=== PATIENT | female | born 1960 | race Caucasian/White ===

== ENCOUNTER → 2016-11-02 | Outpatient (CLI) | payer MEDICAID ==
[2016-11-02 10:16] LABS: Anion Gap 13 mmol/L; Blood Urea Nitrogen 26 mg/dL (7-17); Calcium 9.7 mg/dL (8.4-10.2); Carbon Dioxide 28 mmol/L (22-30); Chloride 101 mmol/L (98-107); Glucose 107 mg/dL (74-99); Non-African American GFR(MDRD) 60 (>60 ml/min/1.73 sqM); Sodium 142 mmol/L (137-145)
[2016-11-02 11:32] LABS: Hemoglobin A1C 6.7 % (4.2-6.1)
== END | disposition home or self-care (01) ==
LOC: LABWHC1 09:06
PROVIDERS: ATTEND Internal Medicine
DX: E11.42 Type 2 diabetes mellitus with diabetic polyneuropathy (principal)
CPT/HCPCS: 36415; 80048; 83036

== ENCOUNTER → 2016-12-31 | Outpatient (CLI) | payer MEDICAID ==
[2016-12-31 08:11] LABS: Partial Thromboplastin Time 23.2 sec (22.0-30.0)
[2016-12-31 08:17] LABS: Basophils # (A) 0.1 k/uL (0-0.2); Basophils % (A) 1 %; CHCM 33.2; Eosinophils # (A) 0.5 k/uL (0-0.7); Eosinophils % (A) 6 %; HCT 41.6 % (34.0-46.0); HDW 2.48; HGB 13.5 gm/dL (11.4-16.0); Luc # (Auto) 0.26; Luc % (Auto) 3; Lymphocytes # (A) 2.7 k/uL (1.0-4.8); Lymphocytes % (A) 33 %; MCH 30.4 pg (25.0-35.0); MCHC 32.3 g/dL (31.0-37.0); Mean Platelet Volume 8.6; Monocytes # (A) 0.4 k/uL (0-1.0); Monocytes % (A) 5 %; Neutrophils # (A) 4.3 k/uL (1.3-7.7); Neutrophils % (A) 52 %; RBC 4.43 m/uL (3.80-5.40); RDW 13.8 % (11.5-15.5); WBC 8.3 k/uL (3.8-10.6); WBC (Perox) 8.91
[2016-12-31 08:20] LABS: Appearance,Urine Clear (Clear); Bilirubin,Urine Negative (Negative); Glucose,Urine (UA) Negative (Negative); Ketones,Urine Negative (Negative); Leukocyte Esterase,Urine Negative (Negative); Nitrite,Urine Negative (Negative); Protein,Urine Negative (Negative); Specific Gravity,Urine 1.006 (1.001-1.035); UA Billing (MACRO vs. MICRO) CHEM; Urobilinogen,Urine <2.0 mg/dL (<2.0)
[2016-12-31 08:27] LABS: ALT 26 U/L (9-52); AST 23 U/L (14-36); Alkaline Phosphatase 58 U/L (38-126); Anion Gap 15 mmol/L; Blood Urea Nitrogen 25 mg/dL (7-17); Calcium 9.8 mg/dL (8.4-10.2); Carbon Dioxide 25 mmol/L (22-30); Chloride 103 mmol/L (98-107); Glucose 119 mg/dL (74-99); Non-African American GFR(MDRD) 60 (>60 ml/min/1.73 sqM); Potassium 4.4 mmol/L (3.5-5.1); Sodium 143 mmol/L (137-145); Total Bilirubin 0.5 mg/dL (0.2-1.3); Total Protein 7.2 g/dL (6.3-8.2)
== END ==
LOC: LABPAT 07:28
PROVIDERS: ATTEND Orthopaedic Surgery
DX: Z01.810 Encounter for preprocedural cardiovascular examination (principal); Z01.812 Encounter for preprocedural laboratory examination
CPT/HCPCS: 80053; 81003; 85025; 85610; 85730; 87070

== ENCOUNTER 2017-01-01 07:52 | Emergency (ER) | payer MEDICAID ==
[2017-01-01] MEDS ORDERED: SODIUM CHLORIDE 0.9% 500 ML IV STA (07:55)
[2017-01-01] MEDS ORDERED: diphenhydrAMINE 50 MG/ML 1 ML VIAL IVP STA (07:55)
[2017-01-01] MEDS ORDERED: SODIUM CHLORIDE 0.9% 1,000 ML IV STA (07:55)
[2017-01-01] MEDS ORDERED: methylPREDNISolone SOD SUCCI 125 MG/2 ML VIAL IV STA (07:55)
[2017-01-01] MEDS ORDERED: FAMOTIDINE 20 MG/2 ML VIAL IV STA (07:55)
[2017-01-01 07:57] VITALS: RESP 18
[2017-01-01 08:25] LABS: Basophils # (A) 0.1 k/uL (0-0.2); Basophils % (A) 1 %; CH 31.2; CHCM 34.5; Eosinophils # (A) 0.4 k/uL (0-0.7); Eosinophils % (A) 3 %; HCT 49.3 % (34.0-46.0); HDW 2.52; Luc # (Auto) 0.21; Luc % (Auto) 2; Lymphocytes # (A) 4.5 k/uL (1.0-4.8); Lymphocytes % (A) 36 %; MCH 30.7 pg (25.0-35.0); MCHC 33.8 g/dL (31.0-37.0); MCV 90.8 fL (80.0-100.0); Mean Platelet Volume 8.9; Monocytes # (A) 0.5 k/uL (0-1.0); Monocytes % (A) 4 %; Neutrophils # (A) 6.7 k/uL (1.3-7.7); Neutrophils % (A) 54 %; RBC 5.42 m/uL (3.80-5.40); WBC 12.3 k/uL (3.8-10.6)
[2017-01-01 08:31] LABS: ALT 21 U/L (9-52); AST 33 U/L (14-36); Alkaline Phosphatase 73 U/L (38-126); Anion Gap 19 mmol/L; Blood Urea Nitrogen 22 mg/dL (7-17); Calcium 10.5 mg/dL (8.4-10.2); Carbon Dioxide 23 mmol/L (22-30); Chloride 99 mmol/L (98-107); Glucose 132 mg/dL (74-99); Non-African American GFR(MDRD) 50 (>60 ml/min/1.73 sqM); Potassium 4.5 mmol/L (3.5-5.1); Sodium 141 mmol/L (137-145); Total Protein 8.2 g/dL (6.3-8.2)
[2017-01-01 08:37] LABS: HGB 16.7 gm/dL (11.4-16.0)
--- NOTE | 2017-01-01 09:33 | ED ---
Allergic Reaction HPI - General Chief complaint: Allergic Reaction Stated complaint: allergic reaction Time Seen by Provider: 01/01/17 07:55 Source: patient Mode of arrival: ambulatory Limitations: no limitations - History of Present Illness Initial Comments: This 56-year-old white female presents with a complaint of some swelling to her lips. This started 15 minutes prior to arrival. She states that her mouth feels tight. He also feels like her hands are somewhat tight her slightly swollen/numb. She had an episode of nausea and vomiting. She apparently started sweating. She denies any new foods or new medications. She did have an injection into her right knee this past . She denies being on any Kameron inhibitors. 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 She denies any shortness of breath or difficulty in breathing. - Related Data Home Medications Medication Instructions Recorded Confirmed Alogliptin Benzoate [Nesina] 25 mg PO DAILY 06/24/16 01/01/17 Gabapentin [Gabapentin] 300 mg PO BID 06/24/16 01/01/17 LORazepam [Lorazepam] 0.5 mg PO BID PRN 06/24/16 01/01/17 Meloxicam [Meloxicam] 15 mg PO DAILY 06/24/16 01/01/17 Simvastatin [Simvastatin] 40 mg PO HS 06/24/16 01/01/17 Venlafaxine HCl [Effexor XR] 150 mg PO DAILY 06/24/16 01/01/17 amLODIPine BESYLATE/BENAZEPRIL 1 cap PO DAILY 06/24/16 01/01/17 [Amlodipine-Benazepril 5-10 mg] fentaNYL 25MCG/HR PATCH [Duragesic 1 patch TRANSDERM Q72H 06/24/16 01/01/17 25MCG/HR] metFORMIN HCL [Metformin HCl] 850 mg PO BID 06/24/16 01/01/17 Previous Rx's Medication Instructions Recorded Famotidine [Pepcid] 20 mg PO BID #6 tablet 01/01/17 diphenhydrAMINE [Benadryl] 25 - 50 mg PO QID PRN #20 capsule 01/01/17 predniSONE 20 mg PO BID #6 tab 01/01/17 Allergies Allergy/AdvReac Type Severity Reaction Status Date / Time Sulfa (Sulfonamide Allergy Itching Verified 01/01/17 08:32 Antibiotics) Review of Systems ROS Statement: Those systems with pertinent positive or pertinent negative responses have been documented in the HPI. ROS Other: All systems not noted in ROS Statement are negative. Past Medical History Past Medical History: Heart Failure, COPD History of Any Multi-Drug Resistant Organisms: None Reported Past Surgical History: Adenoidectomy, Hysterectomy, Orthopedic Surgery, Tonsillectomy Past Psychological History: No Psychological Hx Reported Smoking Status: Former smoker Past Alcohol Use History: None Reported Past Drug Use History: None Reported - Past Family History Father Family Medical History: Memory Impairment, Pneumonia General Exam - General Exam Comments Initial Comments: GENERAL: The patient is well nourished and well hydrated. VITAL SIGNS: Heart rate, blood pressure, respiratory rate reviewed as recorded in nurse's notes. EYES: Pupils are round and reactive. Extraocular movements are intact. No conjunctival / lid redness or swelling. ENT: There is some mild swelling to her upper and lower lips, worse on the lower lip. There is no tongue swelling identified. Airway is patent. Throat is clear. NECK: Nontender. No swelling or evidence of injury. No subcutaneous emphysema. Trachea is midline. No thyroid mass. HEART: Regular rate and rhythm. Good peripheral pulses. LUNGS/CHEST: Breath sounds clear and equal bilaterally. No rales, rhonchi, or wheezes. No ecchymosis, subcutaneous emphysema, or tenderness. ABDOMEN: Abdomen soft without tenderness. No palpable masses or organomegaly. No peritoneal signs. No abdominal wall swelling or ecchymosis. EXTREMITIES: No extremity tenderness. Normal muscle tone and function. No thoracolumbar tenderness. NEUROLOGIC: Sensation is grossly intact. Cranial nerve exam reveals face is symmetrical, tongue is midline, speech is clear. SKIN: No abrasions or ecchymosis is noted. No induration or masses noted. There is no hand swelling or extremity swelling. PSYCHIATRIC: Alert and oriented. Appropriate behavior and judgment. Limitations: no limitations Course Vital Signs 01/01/17 01/01/17 07:55 08:33 Temperature 97.6 F Pulse Rate 113 H 90 Respiratory 18 18 Rate Blood Pressure 143/53 115/78 O2 Sat by Pulse 97 98 Oximetry Medical Decision Making - Medical Decision Making The patient was seen and examined. She received IV Solu-Medrol, Pepcid, and Benadryl. She received some IV fluids. She is feeling much improved on recheck. Her lip swelling has decreased. Her laboratory showed a mild leukocytosis, mild elevation of hemoglobin, mild elevation of her renal function studies, and mild elevation of her calcium. Overall, the exact cause of her symptomatology is not definitively determined. She denies any previous similar incidents. This felt as though she is stable for discharge and close follow-up. Return parameters are discussed in detail and she leaves in no distress. Is felt as though she may benefit from follow-up with an redeye gunner. - Lab Data Result diagrams: 01/01/17 07:59 01/01/17 07:59 Lab Results 01/01/17 01/01/17 Range/Units 07:59 07:59 WBC 12.3 H (3.8-10.6) k/uL RBC 5.42 H (3.80-5.40) m/uL Hgb 16.7 H D (11.4-16.0) gm/dL Hct 49.3 H (34.0-46.0) % MCV 90.8 (80.0-100.0) fL MCH 30.7 (25.0-35.0) pg MCHC 33.8 (31.0-37.0) g/dL RDW 14.0 (11.5-15.5) % Plt Count 324 (150-450) k/uL Neutrophils % 54 % Lymphocytes % 36 % Monocytes % 4 % Eosinophils % 3 % Basophils % 1 % Neutrophils # 6.7 (1.3-7.7) k/uL Lymphocytes # 4.5 (1.0-4.8) k/uL Monocytes # 0.5 (0-1.0) k/uL Eosinophils # 0.4 (0-0.7) k/uL Basophils # 0.1 (0-0.2) k/uL Sodium 141 (137-145) mmol/L Potassium 4.5 (3.5-5.1) mmol/L Chloride 99 (98-107) mmol/L Carbon Dioxide 23 (22-30) mmol/L Anion Gap 19 mmol/L BUN 22 H (7-17) mg/dL Creatinine 1.11 H (0.52-1.04) mg/dL Est GFR (MDRD) Af Amer >60 (>60 ml/min/1.73 sqM) Est GFR (MDRD) Non-Af 50 (>60 ml/min/1.73 sqM) Glucose 132 H (74-99) mg/dL Calcium 10.5 H (8.4-10.2) mg/dL Total Bilirubin 1.0 (0.2-1.3) mg/dL AST 33 (14-36) U/L ALT 21 (9-52) U/L Alkaline Phosphatase 73 (38-126) U/L Total Protein 8.2 (6.3-8.2) g/dL Albumin 5.2 H (3.5-5.0) g/dL Disposition Clinical Impression: Angioedema Disposition: HOME SELF-CARE Condition: Good Instructions: Angioedema (ED) Additional Instructions: Please follow-up with Dr. Desmond Harris at [facility] and immunology clinic. Please call the hospital pump machine operator at [phone] and asked for his office to schedule an appointment. Prescriptions: Famotidine [Pepcid] 20 mg PO BID #6 tablet diphenhydrAMINE [Benadryl] 25 - 50 mg PO QID PRN #20 capsule PRN Reason: swelling predniSONE 20 mg PO BID #6 tab Referrals: Gadiel Mares MD [Primary Care Provider] - 1-2 days Time of Disposition: 09:35
[2017-01-01 10:00] VITALS: BP 111/77; PULSE 92; TEMP 97.9
== END 2017-01-01 09:45 | disposition home or self-care (01) ==
LOC: EC 07:52
DX: T78.3XXA Angioneurotic edema, initial encounter (principal); I50.9 Heart failure, unspecified; Z87.891 Personal history of nicotine dependence; Z79.84 Long term (current) use of oral hypoglycemic drugs; Z79.899 Other long term (current) drug therapy; Z88.2 Allergy status to sulfonamides
CPT/HCPCS: 99283; 96374; 96375 ×2; 96361 ×2; 36415; 80053; 85025; J1200; J2930

== ENCOUNTER 2017-01-14 06:11 | Inpatient (IN) | payer MEDICAID ==
[2017-01-07 09:25] VITALS: BMI 35.6
[~2017-01-14 06:11] MED LIST: ACETAMINOPHEN TAB 500 MG TAB PO ONE; DEXAMETHASONE SOD PHOSPHATE 10 MG/ML 1 ML VIAL IV ONE; LIDOCAINE 1% 20 ML VIAL (10MG/ML) FOR IV START INTRADERMA PRN; MELOXICAM 7.5 MG TAB PO ONE; ONDANSETRON 4 MG/2 ML VIAL IVP ONE; SCOPOLAMINE 1.5MG/72HR PATCH TRANSDERM ONE; TRANEXAMIC ACID 1,000 MG in SODIUM CHLORIDE 0.9% 100 ML IVPB ONE; ceFAZolin 2 GM in SODIUM CHLORIDE 0.9% 100 ML IVPB ONE
[2017-01-14] MEDS: LACTATED RINGERS 1,000 ML IV SCH ×2 (06:53→16:09)
[2017-01-14] MEDS ORDERED: LIDOCAINE 1% 20 ML VIAL (10MG/ML) FOR IV START INTRADERMA ONE (06:53)
[2017-01-14 07:05] LABS: Glucose,Whole Blood 158 mg/dL (75-99)
[2017-01-14] MEDS ORDERED: TRANEXAMIC ACID 1,000 MG/10 ML VIAL ONE (07:42)
[2017-01-14] MEDS ORDERED: PROPOFOL 10 MG/ML 20 ML VIAL IV ONE (07:42)
[2017-01-14] MEDS ORDERED: ROPIVACAINE 246.25 MG, EPINEPHrine 0.5 MG, KETOROLAC 30 MG, cloNIDine HCL/PF 80 MCG, WA... MISCELLANE STA ×5 (07:42)
[2017-01-14] MEDS ORDERED: MIDAZOLAM 2 MG/2 ML VIAL ONE (07:42)
[2017-01-14] MEDS ORDERED: ePHEDrine 50 MG/ML 1 ML AMP ONE (07:42)
[2017-01-14] MEDS ORDERED: fentaNYL (PF) 50 MCG/ML 2 ML AMP ONE (07:42)
[2017-01-14] MEDS ORDERED: SODIUM CHLORIDE 0.9% 100 ML BAG ONE (07:42)
[2017-01-14] MEDS ORDERED: ceFAZolin 3,000 MG in SODIUM CHLORIDE 0.9% IRRIGATIO 3,000 ML IRRIGATION ONE (08:25)
[2017-01-14] MEDS ORDERED: LACTATED RINGERS 1,000 ML IV ONE (08:48)
[2017-01-14] MEDS ORDERED: BISACODYL 10 MG SUPP RECTAL PRN (10:15)
[2017-01-14] MEDS ORDERED: HYDROmorphone 1 MG/ML 1 ML SYRINGE IVP PRN (10:15)
[2017-01-14] MEDS ORDERED: ACETAMINOPHEN TAB 325 MG TAB PO PRN (10:15)
[2017-01-14] MEDS ORDERED: HYDROcodone/APAP 5-325MG 1 EACH TAB PO PRN (10:15)
[2017-01-14] MEDS ORDERED: MAGNESIUM HYDROXIDE 2,400 MG/10 ML CUP PO PRN (10:15)
[2017-01-14] MEDS ORDERED: NALOXONE 0.4 MG/ML 1 ML VIAL IV PRN (10:15)
[2017-01-14] MEDS ORDERED: TEMAZEPAM 15 MG CAP PO PRN (10:15)
[2017-01-14] MEDS ORDERED: ONDANSETRON 4 MG/2 ML VIAL IVP PRN (10:15)
[2017-01-14] MEDS ORDERED: NA PHOS,M-B/NA PHOS,DI-BA 133 ML ENEMA RECTAL PRN (10:15)
[2017-01-14 10:32] VITALS: RESP 16
--- NOTE | 2017-01-14 10:39 | XR ---
EXAMINATION TYPE: XR knee limited RT DATE OF EXAM: 01/14/2017 10:31 AM COMPARISON: NONE HISTORY: 56-year-old female evaluation for postoperative abnormality and alignment TECHNIQUE: 2 views FINDINGS: Images show placement of right total knee arthroplasty. Both distal femoral and proximal tibial compo nents of the prosthesis appear well seated without periprosthetic fracture. Alignment is grossly demar omic. There is anterior soft tissue swelling with soft tissue gas as well as intra-articular air and joint effusion compatible with recent operation. There is a 6 mm linear hypodensity fragment in the a nterior soft tissues along the lateral suprapatellar region. IMPRESSION: 1. Uncomplicated postoperative appearance right total knee arthroplasty. 2. A 6 mm metal fragment anteriorly and laterally in the suprapatellar soft tissues may represent minerva e small retained surgical debris. Clinically correlate.
[2017-01-14] MEDS: HYDROmorphone 1 MG/ML 1 ML SYRINGE IVP PRN ×4 (10:55→22:22)
--- NOTE | 2017-01-14 11:08 | P.OP ---
Date of Procedure: 01/14/17 Procedure(s) Performed: PREOPERATIVE DIAGNOSIS: Right knee severe osteoarthritis with genu valgum POSTOPERATIVE DIAGNOSIS: 1. Right knee severe osteoarthritis with genu valgum OPERATION: Right knee cemented total replacement arthroplasty. ANESTHESIA: Spinal ESTIMATED BLOOD LOSS: 25 ml. CARTRIDGE BELT PUNCHER: Luly Church PA-C (assistance with: patient positioning, retraction, exposure, hemostasis, leg positioning, implantation, irrigation, closure, dressing) COMPLICATIONS: None apparent. COMPONENTS IMPLANTED: Persona system from [employer] INDICATIONS: Mrs. vAiles is a 56-year-old female with a history of right knee osteoarthritis and mild to moderate genu valgum. The operation of knee replacement has been discussed at length in the office, as well as potential risks and complications. These are inclusive of, but not limited to: bleeding, infection, scarring, discomfort, blood vessel and nerve damage, need for further surgery, failure to relieve symptoms, persistence, recurrence, or worsening of problems, loosening, dislocation, wear, blood clot, pulmonary embolism, , gait dysfunction, stiffness, and other risks as discussed in the office. The patient elects to proceed and the consent form has been signed. PROCEDURE: The patient was taken to the operating room and positioned on the operating room table in the supine position. Anesthesia was initiated. Care was taken to make sure that all pressure points were adequately padded. The operative lower extremity was prepped and draped in the usual aseptic fashion using ChloraPrep. Ioban drape was used for the case and the patient received intravenous antibiotics within one hour of the incision. A pneumotourniquet and leg gallego were used for the case. The limb was exsanguinated with an Esmarch bandage and the tourniquet was inflated to 350 mmHg. Time-out was called confirming the patients identity, side, procedure and administration of antibiotics. The incision was then created midline directly over the knee, carried down through skin and into the subcutaneous tissues and down to fascia. Full thickness subcutaneous medial flap was developed. Medial parapatellar arthrotomy was performed and the interior of the knee was inspected. There was end-stage osteoarthritis of the knee with a mild to moderate genu valgum type deformity. The fat pad was excised and limited proximal medial release on the tibia was completed using meticulous dissection. The anterior cruciate ligament was taken down. The exposure was excellent. The knee was flexed 90 degrees and the patella was everted. A spot was chosen on the femur approximately 1 cm anterior to the posterior cruciate ligament insertion and an intramedullary hole was created within the femur. The intramedullary guide was then set to 5 degrees of valgus. The distal cutting block was attached and pinned into position. An appropriate amount of distal femoral resection was set. The oscillating saw was then used to make the distal femoral cut. This cut was confirmed to be flat with the flat end of an osteotome. The retractors were placed around the tibia and the tibial surface was addressed. The angle and depth of resection was adjusted using an extramedullary cutting guide. The guide had a built-in 3 degree posterior slope cut. Once the cutting guide was adjusted appropriately and in line with the axis of the tibia and confirmed to be in good position in relation to the second metatarsal and transmalleolar axis, the tibial cut was then created with protection of the posterior neurovascular structures and the collateral ligaments. The tibial cut surface was removed and sized. Femoral sizing was then accomplished using anterior referencing. Care was taken to analyze the posterior condyles for signs of deficiency or severe wear, and adjustments to the guide were made, as appropriate. Moderate to severe posterior spurring was noted, as well as a moderately to severely tight posterior cruciate ligament which therefore was released, see below. 3 degree external rotation pins were placed. The cutting jig for the femur was applied to these pins. The planned cuts were further analyzed prior to performing them with the oscillating saw. No femoral notching was produced. Bone fragments were removed and the cut surfaces were finished, as necessary, with a reciprocating saw. Spacer block technique was then used to confirm that the flexion and extension gaps were equal. Soft tissue releases and adjustment of the tibial and/or femoral cuts were made, as necessary, until the gaps were equal. This included release of the posterior cruciate ligament, which was tight in this patient and , if left unreleased, would have resulted in poor kinematics and possibly early loosening. The femur was then further finished for a posterior cruciate ligament substituting component. Patellar resurfacing was performed using a reamer. The size of the required patellar component was estimated and the patellar surface was then reamed down to a residual thickness which would recreate the paimiut thickness with the component. The placement of the patellar component was influenced by the degree of patellar subluxation, if any, noted on the preoperative x-rays. Prior to placing trial components, anesthetic solution consisting of ropivicaine with epinephrine, ketorolac, and clonidine was injected carefully and methodically in a grid pattern using aspiration technique into the soft tissue around the knee circumferentially, starting with the deeper tissues first and progressing to fascia, and then finally the skin/subcutaneous tissue. Particular care was taken when injecting the posterior capsule. The trial components were inserted. The tibial tray was allowed to self center and the patella was noted to track very well. The position of the tibial component was marked and the tibia was then finished for a stemmed tibial component. Cement was mixed on the back table and applied to the final components. Trial components were removed and the cut surfaces of the bone were pulse lavaged thoroughly and dried. Cement was then applied to the tibial surface and pressurized into the surface using finger pressurization technique. The tibial component was then applied and excess cement was removed after it was impacted securely and noted to be flush with the cut surface. In similar fashion, the cement was applied to the cut femoral surface, pressurized in using finger pressurization and the component was impacted into place. Excess cement was removed. The polyethylene spacer was then implanted and locked into position. The patellar component was then applied in similar technique and a patellar clamp was used to hold the patella in place as the cement hardened. Once the cement had fully hardened, the knee was reinspected. Any other cement extrusion was removed and final kinematic testing showed range of motion from 0 to 130 degrees with excellent stability, both medially and laterally and appropriate alignment of the leg. Patellar tracking was excellent. The knee was then thoroughly pulse lavaged with normal saline. The tourniquet was deflated and hemostasis was obtained with electrocautery and IV tranexamic acid, 1 g given at the start of the operation and 1 g at the start of closure. Closure was with #2 Ethibond in the fascia and supplemented with #2 Quill, 2-0 Vicryl suture was used for the subcutaneous tissues and 3-0 Quill for the skin. Dermabond/Steri-Strips were then applied. A lightly compressive dressing was applied using Webril and an Kameron wrap. The patient was then transferred to stretcher and taken to the recovery room in stable condition. Sponge and needle counts were correct.
[2017-01-14 12:11] LABS: Glucose,Whole Blood 190 mg/dL (75-99)
[2017-01-14] MEDS: INSULIN LISPRO (humaLOG) 300 UNIT/3 ML VIAL SQ SCH ×3 (12:23→20:46)
[2017-01-14] MEDS: ceFAZolin 2 GM in SODIUM CHLORIDE 0.9% 100 ML IVPB SCH ×2 (16:04→23:39)
[2017-01-14 18:34] LABS: Glucose,Whole Blood 391 mg/dL (75-99)
[2017-01-14] MEDS ORDERED: LORazepam 0.5 MG TAB PO PRN (19:05)
[2017-01-14 20:22] LABS: Glucose,Whole Blood 451 mg/dL (75-99)
[2017-01-14] MEDS: HYDROcodone/APAP 5-325MG 1 EACH TAB PO PRN (20:41)
[2017-01-14] MEDS: metFORMIN 850 MG TAB PO SCH (20:42)
[2017-01-14] MEDS: GABAPENTIN 100 MG CAP PO SCH (20:42)
[2017-01-14] MEDS: ATORVASTATIN 20 MG TAB PO SCH (20:42)
[2017-01-14] MEDS: hydrOXYzine PAMOATE 25 MG CAP PO PRN (20:42)
[2017-01-14] MEDS: SENNOSIDES-DOCUSATE SODIUM 1 EACH TAB PO SCH (20:42)
[2017-01-14] MEDS: ASPIRIN 325 MG TAB PO SCH (20:45)
[2017-01-14 22:00] LABS: Glucose,Whole Blood 368 mg/dL (75-99)
[2017-01-15] MEDS: LACTATED RINGERS 1,000 ML IV SCH ×2 (00:43→15:07)
[2017-01-15] MEDS: hydrOXYzine PAMOATE 25 MG CAP PO PRN ×2 (03:35→21:55)
[2017-01-15] MEDS: HYDROcodone/APAP 5-325MG 1 EACH TAB PO PRN ×2 (03:35→08:45)
[2017-01-15 07:12] LABS: Glucose,Whole Blood 179 mg/dL (75-99)
[2017-01-15] MEDS: metFORMIN 850 MG TAB PO SCH ×2 (07:47→18:05)
[2017-01-15] MEDS: LISINOPRIL 10 MG TAB PO SCH (07:47)
[2017-01-15] MEDS: GABAPENTIN 100 MG CAP PO SCH ×2 (07:47→21:55)
[2017-01-15] MEDS: amLODIPine 5 MG TAB PO SCH (07:48)
[2017-01-15] MEDS: ASPIRIN 325 MG TAB PO SCH ×2 (07:48→21:54)
[2017-01-15] MEDS: MELOXICAM 7.5 MG TAB PO SCH (07:48)
[2017-01-15] MEDS: VENLAFAXINE HCL ER 150 MG CAP PO SCH (07:49)
[2017-01-15] MEDS: INSULIN LISPRO (humaLOG) 300 UNIT/3 ML VIAL SQ SCH ×4 (07:49→21:49)
[2017-01-15 08:38] LABS: Basophils % (A) 0 %; CH 31.7; CHCM 33.7; Eosinophils % (A) 0 %; HCT 32.6 % (34.0-46.0); HDW 2.61; Luc # (Auto) 0.19; Luc % (Auto) 1; Lymphocytes # (A) 1.8 k/uL (1.0-4.8); Lymphocytes % (A) 9 %; MCH 31.7 pg (25.0-35.0); MCHC 33.6 g/dL (31.0-37.0); MCV 94.4 fL (80.0-100.0); Mean Platelet Volume 8.7; Monocytes # (A) 0.8 k/uL (0-1.0); Monocytes % (A) 4 %; Neutrophils # (A) 18.1 k/uL (1.3-7.7); Neutrophils % (A) 86 %; RBC 3.45 m/uL (3.80-5.40); RDW 13.7 % (11.5-15.5); WBC (Perox) 22.24
[2017-01-15] MEDS ORDERED: ALOGLIPTIN BENZOATE 25 MG PO SCH (09:00)
[2017-01-15 09:11] LABS: Hemoglobin A1C 6.6 % (4.2-6.1)
--- NOTE | 2017-01-15 09:12 | P.PN ---
Subjective Principal diagnosis: Status post right total knee arthroplasty Patient is postop day #1 from right total knee arthroplasty per Dr. Quintanilla. She' s doing well. She has no new complaints. She denies numbness or tingling. She denies calf pain, abdominal pain, fever, chills, chest pain or shortness of breath. Objective - Vital Signs Vital signs: Vital Signs Temp 97.8 F 01/15/17 07:33 Pulse 62 01/15/17 07:33 Resp 16 01/15/17 07:33 BP 113/70 01/15/17 07:33 Pulse Ox 96 01/15/17 07:33 Intake & Output 01/14/17 01/15/17 01/15/17 18:59 06:59 18:59 Intake Total 1501 1550 Output Total 700 1900 Balance 801 -350 Weight 106.14 kg Intake: IV 1401 550 Lactated Ringers 1,000 ml 550 @ 50 mls/hr IV .Q20H DANNY Rx#:[id number] Intake, IV Titration 100 Amount Lactated Ringers 1,000 ml 100 As IV .STK-MED ONE Rx#: [id number] Oral 1000 Output: Urine 650 1900 Uretheral (Baker) 1900 Estimated Blood Loss 50 Other: Voiding Method Indwelling Catheter Indwelling Catheter - Exam Inspection of the surgical wound is benign. There is no active bleeding, drainage or dehiscence. Lower extremity is benign. Active motor at hip, knee, ankle, foot and toes. Sensation to light touch intact throughout the right lower extremity. Calf is soft and nontender. 2+ dorsalis pedis pulse and less than 2 second cap refill is present. - Constitutional General appearance: Present: no acute distress - Psychiatric Psychiatric: Present: A&O x's 3, appropriate affect, intact judgment & insight - Labs CBC & Chem 7: 01/15/17 07:56 Labs: Abnormal Lab Results - Last 24 Hours (Table) 01/14/17 01/14/17 01/14/17 Range/Units 12:10 18:32 20:20 WBC (3.8-10.6) k/uL RBC (3.80-5.40) m/uL Hgb (11.4-16.0) gm/dL Hct (34.0-46.0) % Neutrophils # (1.3-7.7) k/uL POC Glucose (mg/dL) 190 H 391 H 451 H (75-99) mg/dL 01/14/17 01/15/17 01/15/17 Range/Units 21:57 07:10 07:56 WBC 21.0 H (3.8-10.6) k/uL RBC 3.45 L (3.80-5.40) m/uL Hgb 11.0 L D (11.4-16.0) gm/dL Hct 32.6 L (34.0-46.0) % Neutrophils # 18.1 H (1.3-7.7) k/uL POC Glucose (mg/dL) 368 H 179 H (75-99) mg/dL Assessment and Plan (1) Osteoarthritis of right knee Narrative/Plan: Patient will continue with routine postop orthopedic protocol including pain management, DVT prophylaxis, wound care, medical management and physical therapy. Expect that she'll discharge to home with home health tomorrow 2016 Status: Acute Time with Patient: Less than 30
[2017-01-15 12:02] LABS: Glucose,Whole Blood 132 mg/dL (75-99)
[2017-01-15] MEDS ORDERED: HYDROcodone/APAP 7.5-325MG 1 EACH TAB PO PRN ×2 (12:41)
[2017-01-15] MEDS: HYDROmorphone 1 MG/ML 1 ML SYRINGE IVP PRN (12:48)
[2017-01-15] MEDS: MULTIVITAMINS, THERA 1 EACH TAB PO SCH (12:55)
[2017-01-15] MEDS: HYDROcodone/APAP 7.5-325MG 1 EACH TAB PO PRN ×3 (13:03→23:16)
[2017-01-15 16:12] LABS: ALT 23 U/L (9-52); AST 17 U/L (14-36); Alkaline Phosphatase 57 U/L (38-126); Anion Gap 9 mmol/L; Blood Urea Nitrogen 20 mg/dL (7-17); Calcium 9.2 mg/dL (8.4-10.2); Carbon Dioxide 28 mmol/L (22-30); Chloride 104 mmol/L (98-107); Glucose 145 mg/dL (74-99); Non-African American GFR(MDRD) 51 (>60 ml/min/1.73 sqM); Potassium 4.1 mmol/L (3.5-5.1); Sodium 141 mmol/L (137-145); Total Bilirubin 0.2 mg/dL (0.2-1.3); Total Protein 5.7 g/dL (6.3-8.2)
[2017-01-15 16:41] LABS: Glucose,Whole Blood 184 mg/dL (75-99)
[2017-01-15 16:45] LABS: Appearance,Urine Clear (Clear); Bilirubin,Urine Negative (Negative); Glucose,Urine (UA) Negative (Negative); Ketones,Urine Negative (Negative); Leukocyte Esterase,Urine Negative (Negative); Nitrite,Urine Negative (Negative); PH, Urine 5.5 (5.0-8.0); Protein,Urine Negative (Negative); Specific Gravity,Urine 1.005 (1.001-1.035); UA Billing (MACRO vs. MICRO) CHEM; Urobilinogen,Urine <2.0 mg/dL (<2.0)
--- NOTE | 2017-01-15 18:15 | CONS ---
DATE OF CONSULTATION: 01/15/2017 REASON FOR CONSULTATION: Advice regarding elevated WBC and other medical issues, requested by Dr. Quintanilla. HISTORY OF PRESENT ILLNESS: This 56-year-old woman with a past medical history of multiple medical problems, including diabetes mellitus, type 2, hypertension, history of DJD, history of COPD, history of angioedema, history of recent use of steroids, being followed by Dr. Mares in the outpatient setting, underwent right total knee arthroplasty by Dr. Quintanilla. There is no history of any fever, rigor, chills. No history of headache, loss of consciousness, seizures. White count is elevated up to 21 after admission. Blood sugar was elevated at 451. With restarting of home medications and insulin scale, the blood sugars are faring much better. PAST MEDICAL HISTORY: 1. History of COPD. 2. Diabetes mellitus. 3. Hypertension. 4. History of DJD. 5. History of angioedema. 6. History of recent steroid use. HOME MEDICATIONS: 1. Metformin 850 mg p.o. b.i.d. 2. Fentanyl patch 25 mcg q.72 hours. 3. Amlodipine/benazepril 5/10 one p.o. each morning. 4. Effexor XR 150 mg each morning. 5. Simvastatin 40 mg at bedtime. 6. Meloxicam 15 mg p.o. daily. 7. Lorazepam 0.5 mg p.o. t.i.d. p.r.n. 8. Neurontin 100 mg p.o. b.i.d. 9. Excedrin 1 tablet p.o. daily p.r.n. 10. Nesina 25 mg p.o. each morning. 11. Senokot S one tablet p.o. b.i.d. 12. [place] 5 mg 1 to 2 tablets q.4 to 6 p.r.n. 13. Aspirin 325 mg p.o. b.i.d. ALLERGIES: SULFA, SANI-CLOTH. FAMILY HISTORY: History of cancer, memory impairment, pneumonia, prostate. SOCIAL HISTORY: Previous history of smoking. Occasional alcohol intake. REVIEW OF SYSTEMS: ENT: No diminishing hearing. No diminished vision. CARDIOVASCULAR SYSTEM: No angina, palpitation. RESPIRATORY: No cough, hemoptysis. GI: No nausea. : No dysuria. NERVOUS SYSTEM: No numbness, weakness. ALLERGY/IMMUNOLOGY: No asthma or hayfever. MUSCULOSKELETAL: As mentioned earlier. HEMATOLOGY/ONCOLOGY: No history of anemia. ENDOCRINE: Diabetes mellitus. CONSTITUTIONAL: As mentioned earlier. DERMATOLOGY: Negative. RHEUMATOLOGY: Negative. PSYCHIATRY: As mentioned earlier. PHYSICAL EXAMINATION: Patient is alert and oriented x3. Pulse 62, blood pressure 113/70, respiration 16, temperature 97.8, pulse ox 96% on room air. HEENT: Conjunctivae normal. Oral mucosa moist. NECK: No jugular venous distention. No carotid bruit. No lymph node enlargement. CARDIOVASCULAR SYSTEM: S1, S2 muffled. No S3. No S4. RESPIRATORY SYSTEM: Breath sounds diminished at the bases. No rhonchi. No crackles. ABDOMEN: Soft, non-tender. No mass palpable. LEGS: Status post right knee arthroplasty. NERVOUS SYSTEM: Higher functions as mentioned earlier. Moves all 4 limbs. No focal motor or sensory deficit. LYMPHATICS: No lymph node palpable in neck, axillae or groin. SKIN: No ulcer, rash, bleeding. Labs at this time show WBC 21, hemoglobin 11. Hemoglobin A1c 6.6. ASSESSMENT: 1. Status post right total knee joint arthroplasty with severe degenerative joint disease. 2. Diabetes mellitus, type 2. 3. Increased white count, leukocytosis possibly secondary to steroids. 4. Anemia, normocytic. 5. History of chronic obstructive pulmonary disease. 6. History of hypertension. 7. History of degenerative joint disease. 8. History of recent angioedema. 9. History of breast cancer. 10. History of uterine cancer. 11. History of migraine. 12. History of urinary tract infection with sepsis. 13. History of depression not otherwise specified. 14. Remote history of nicotine dependence. 15. Obesity with body mass index of 35.6. RECOMMENDATIONS AND DISCUSSION: In this 56-year-old woman who presented with multiple complex medical issues, we will monitor the patient closely, continue the current medications, continue with symptomatic treatment. I recommend resuming the home medications. I would also recommend repeat labs, CMP. Elevated WBC. UA with micro also may be sought. The lung exam did not reveal any significant acute abnormalities. The patient is also asymptomatic respiratory-hernandez. I recommend repeat labs and watch for any fever. Otherwise, will continue to monitor. Thank you, Dr. Quintanilla, for letting us participate in the care of this patient. See orders for further details.
[2017-01-15 20:02] LABS: Glucose,Whole Blood 352 mg/dL (75-99)
[2017-01-15] MEDS: SENNOSIDES-DOCUSATE SODIUM 1 EACH TAB PO SCH (21:54)
[2017-01-15] MEDS: ATORVASTATIN 20 MG TAB PO SCH (21:54)
[2017-01-16] MEDS: HYDROmorphone 1 MG/ML 1 ML SYRINGE IVP PRN (00:49)
[2017-01-16] MEDS: hydrOXYzine PAMOATE 25 MG CAP PO PRN (05:50)
[2017-01-16] MEDS: HYDROcodone/APAP 7.5-325MG 1 EACH TAB PO PRN ×2 (05:51→12:12)
[2017-01-16 07:37] LABS: Glucose,Whole Blood 116 mg/dL (75-99)
[2017-01-16 07:54] LABS: Basophils # (A) 0.1 k/uL (0-0.2); Basophils % (A) 1 %; CH 31.3; CHCM 33.1; Eosinophils # (A) 0.2 k/uL (0-0.7); Eosinophils % (A) 2 %; HCT 29.8 % (34.0-46.0); HDW 2.59; HGB 10.1 gm/dL (11.4-16.0); Luc # (Auto) 0.23; Luc % (Auto) 2; Lymphocytes # (A) 3.4 k/uL (1.0-4.8); Lymphocytes % (A) 30 %; MCH 32.1 pg (25.0-35.0); MCHC 33.9 g/dL (31.0-37.0); MCV 94.9 fL (80.0-100.0); Mean Platelet Volume 8.9; Monocytes # (A) 0.6 k/uL (0-1.0); Monocytes % (A) 5 %; Neutrophils % (A) 61 %; RBC 3.14 m/uL (3.80-5.40); WBC 11.4 k/uL (3.8-10.6); WBC (Perox) 11.72
[2017-01-16 08:05] LABS: Anion Gap 7 mmol/L; Blood Urea Nitrogen 19 mg/dL (7-17); Calcium 8.7 mg/dL (8.4-10.2); Carbon Dioxide 26 mmol/L (22-30); Chloride 109 mmol/L (98-107); Glucose 100 mg/dL (74-99); Non-African American GFR(MDRD) >60 (>60 ml/min/1.73 sqM); Potassium 4.6 mmol/L (3.5-5.1); Sodium 142 mmol/L (137-145)
[2017-01-16] MEDS: metFORMIN 850 MG TAB PO SCH (09:16)
[2017-01-16] MEDS: INSULIN LISPRO (humaLOG) 300 UNIT/3 ML VIAL SQ SCH (09:16)
[2017-01-16] MEDS: LACTATED RINGERS 1,000 ML IV SCH ×2 (09:16→09:17)
[2017-01-16] MEDS: MELOXICAM 7.5 MG TAB PO SCH (09:17)
[2017-01-16] MEDS: amLODIPine 5 MG TAB PO SCH (09:17)
[2017-01-16] MEDS: GABAPENTIN 100 MG CAP PO SCH (09:17)
[2017-01-16] MEDS: ASPIRIN 325 MG TAB PO SCH (09:17)
[2017-01-16] MEDS: LISINOPRIL 10 MG TAB PO SCH (09:17)
[2017-01-16] MEDS: MULTIVITAMINS, THERA 1 EACH TAB PO SCH (09:18)
[2017-01-16] MEDS: VENLAFAXINE HCL ER 150 MG CAP PO SCH (09:18)
[2017-01-16 09:26] VITALS: BP 117/71; PULSE 58; TEMP 98.4
--- NOTE | 2017-01-16 10:46 | P.DS ---
Providers Date of admission: 01/14/17 06:11 Expected date of discharge: 01/16/17 Attending physician: Sesar Quintanilla Consults: 01/14/17 10:15 Consult Physician Routine Consulting Provider: Nichole Eric Consult Reason/Comments: Medical management Do you want consulting provider notified?: Yes Primary care physician: Gadiel Mares - Discharge Diagnosis(es) (1) Status post total knee replacement, right Current Visit: Yes Status: Acute (2) Osteoarthritis of right knee Current Visit: Yes Status: Acute Priority: Medium Hospital Course: This is a 56-year-old female who was last seen with complaint of continued right knee pain. The patient has a known history of degenerative arthritis of the right knee and presents to discuss surgical options. After discussion and consideration the patient elects to proceed with total right knee arthroplasty. The patient is seen preoperatively by Dr. Mares and cleared for surgery. The patient is admitted to [facility] for total right knee arthroplasty. The procedures performed without complication or sequelae. Patient is doing well postoperatively. Vital signs are stable at discharge. Labs are stable at discharge. the patient is ambulating well with walker with minimal assistance. The patient is discharged to home on postop day #2 pending medical clearance. Please see orders and refer to the med rec for accurate list of medications. Plan - Discharge Summary New Discharge Prescriptions: Aspirin 325 mg PO BID #120 tab HYDROcodone/APAP 7.5-325MG [[place] 7.5-325] 1 - 2 tab PO Q4-6H PRN #90 tab PRN Reason: Pain Sennosides-Docusate Sodium [Senokot-S] 1 tab PO BID #60 tablet Discharge Medication List Alogliptin Benzoate [Nesina] 25 mg PO QAM 06/24/16 [History] LORazepam [Lorazepam] 0.5 mg PO BID PRN 06/24/16 [History] Meloxicam [Meloxicam] 15 mg PO DAILY 06/24/16 [History] Simvastatin [Simvastatin] 40 mg PO HS 06/24/16 [History] Venlafaxine HCl [Effexor XR] 150 mg PO QAM 06/24/16 [History] amLODIPine BESYLATE/BENAZEPRIL [Amlodipine-Benazepril 5-10 mg] 1 cap PO QAM [History] fentaNYL 25MCG/HR PATCH [Duragesic 25MCG/HR] 1 patch TRANSDERM Q72H 06/24/16 [ History] metFORMIN HCL [Metformin HCl] 850 mg PO BID 06/24/16 [History] Aspirin/Acetaminophen/Caffeine [Excedrin Migraine Caplet] 1 tab PO DAILY PRN 07/16 [History] Aspirin 325 mg PO BID #120 tab 01/14/17 [Rx] Gabapentin [Neurontin] 100 mg PO BID 01/14/17 [History] Sennosides-Docusate Sodium [Senokot-S] 1 tab PO BID #60 tablet 01/14/17 [Rx] HYDROcodone/APAP 7.5-325MG [[place] 7.5-325] 1 - 2 tab PO Q4-6H PRN #90 tab [Rx] Follow up Appointment(s)/Referral(s): Luly Church, PAC [PHYSICIAN NON MORSE INTERCEPT TECHNICIAN] - 2 Weeks Ambulatory/Diagnostic Orders: Continuous Passive Motion (CPM) Machine [DME.AMB1] Time Frame: 2 Weeks, Location : Determined By Patient Activity/Diet/Wound Care/Special Instructions: May shower if no drainage from incision after 24-48 hours. Weight bearing as tolerated with walker. CPM daily. [facility] to deliver your CPM - call with any questions Discharge Disposition: HOME SELF-CARE
--- NOTE | 2017-01-16 22:57 | PN ---
DATE OF SERVICE: 01/16/2017 This 56-year-old woman who was admitted after right total knee joint arthroplasty with severe DJD is being closely monitored at this time. No chest pain. No palpitation. No fever. Blood sugars are slightly fluctuating. On exam, alert and oriented x3. Pulse 58, blood pressure 117/70, respiration 16, temperature 98.4, pulse ox 100% on room air. HEENT: Conjunctivae normal. NECK: No jugular venous distention. CARDIOVASCULAR SYSTEM: S1, S2 muffled. RESPIRATORY SYSTEM: Breath sounds diminished at the bases. No rhonchi. No crackles. ABDOMEN: Soft, non-tender. LEGS: Status post arthroplasty. NERVOUS SYSTEM: No focal deficit. LABS: WBC 11.4, hemoglobin 10.1. Accu-Cheks are noted. ASSESSMENT: 1. Status post right total knee arthroplasty with severe degenerative joint disease. 2. Diabetes mellitus, type 2, fluctuating. 3. Increased white count; leukocytosis possibly secondary to steroids. 4. Anemia, normocytic. 5. History of chronic obstructive pulmonary disease. 6. History of hypertension. 7. History of degenerative joint disease. 8. History of recent angioedema. 9. History of breast cancer. 10. History of uterine cancer. 11. History of migraine. 12. History of urinary tract infection with sepsis. 13. History of depression not otherwise specified. 14. Remote history of nicotine dependence. 15. Obesity with body mass index of 35.6. RECOMMENDATIONS AND DISCUSSION: I recommend to continue with the current medications, continue with the monitoring, symptomatic treatment. Follow-up labs. Accu-Cheks before meals and at bedtime and monitor closely with primary physician Dr. Mares. Discussed with the patient. Further recommendations to follow.
== END 2017-01-16 12:51 | disposition home or self-care (01) | DRG 470 ==
LOC: 2ORMAIN 06:11 → 3SUR 10:10
PROVIDERS: ADMIT Orthopaedic Surgery; ATTEND Orthopaedic Surgery
PROC: 0SRC0J9 Replacement of Right Knee Joint with Synthetic Substitute, Cemented, Open Approach (ICD-10-PCS; principal; 2017-01-14 07:30)
DX: M17.11 Unilateral primary osteoarthritis, right knee (principal); I10 Essential (primary) hypertension; E11.9 Type 2 diabetes mellitus without complications; D64.9 Anemia, unspecified; F32.9 Major depressive disorder, single episode, unspecified; J44.9 Chronic obstructive pulmonary disease, unspecified; E78.5 Hyperlipidemia, unspecified; Z88.2 Allergy status to sulfonamides; Z87.891 Personal history of nicotine dependence; Z68.35 Body mass index [BMI] 35.0-35.9, adult; E66.9 Obesity, unspecified; Z79.84 Long term (current) use of oral hypoglycemic drugs; Z79.899 Other long term (current) drug therapy; D72.829 Elevated white blood cell count, unspecified; Z79.4 Long term (current) use of insulin; Z79.82 Long term (current) use of aspirin; Z85.3 Personal history of malignant neoplasm of breast; Z85.42 Personal history of malignant neoplasm of other parts of uterus; Z87.440 Personal history of urinary (tract) infections; M21.061 Valgus deformity, not elsewhere classified, right knee; T38.0X5A Adverse effect of glucocorticoids and synthetic analogues, initial encounter
CPT/HCPCS: 80048; 80053; 81003; 83036; 85025; 87086; 88300

== ENCOUNTER → 2017-01-29 | Outpatient (CLI) | payer MEDICAID ==
--- NOTE | 2017-01-29 11:53 | XR ---
EXAMINATION TYPE: XR knee complete LT DATE OF EXAM: 01/29/2017 11:47 AM CLINICAL HISTORY: Right knee surgery January 14 progress study. TECHNIQUE: Three views of the right knee are obtained. COMPARISON: Right knee x-ray January 14, 2017.. FINDINGS: There is no acute fracture/dislocation evident in right knee. Metallic hardware from left knee arthroplasty is seen in is satisfactory in position. There is no evidence of suspicious surround ing lucency. . Soft tissue fullness suprapatellar bursa could reflect moderate joint effusion. A 6 mm metallic density lateral to the superior margin of patella is redemonstrated, cannot exclude forei gn body. IMPRESSION: Suspect moderate to large suprapatellar joint effusion, nonspecific finding. Stable 6 mm metallic density linear structure possible foreign body or retained surgical debris.
== END | disposition home or self-care (01) ==
LOC: RADXRMAIN 11:34
PROVIDERS: ATTEND Nurse Practitioner
DX: Z47.1 Aftercare following joint replacement surgery (principal); Z96.651 Presence of right artificial knee joint

== ENCOUNTER → 2017-03-21 | Outpatient (CLI) | payer MEDICAID ==
--- NOTE | 2017-03-21 11:14 | XR ---
EXAMINATION TYPE: XR knee limited RT DATE OF EXAM ORDERED: 03/21/2017 HISTORY: R TKA [id number]. COMPARISON: Previous study dated 01/14/2017. FINDINGS: A right knee prosthesis has been placed. Prosthetic elements appear in good position. Ther e is a 6 mm radiopaque foreign body just lateral to the femoral component, unchanged from previous. IMPRESSION: STATUS POST RIGHT KNEE ARTHROPLASTY.
== END | disposition home or self-care (01) ==
LOC: RADXRMAIN 10:47
PROVIDERS: ATTEND Orthopaedic Surgery
DX: Z47.1 Aftercare following joint replacement surgery (principal); Z96.651 Presence of right artificial knee joint

== ENCOUNTER → 2017-06-01 | Outpatient (CLI) | payer MEDICAID ==
[2017-06-01 08:45] LABS: Basophils # (A) 0.1 k/uL (0-0.2); Basophils % (A) 1 %; CH 29.7; CHCM 32.8; Eosinophils # (A) 0.7 k/uL (0-0.7); Eosinophils % (A) 7 %; HCT 41.4 % (34.0-46.0); HDW 2.42; HGB 13.8 gm/dL (11.4-16.0); Luc # (Auto) 0.27; Luc % (Auto) 3; Lymphocytes # (A) 2.8 k/uL (1.0-4.8); Lymphocytes % (A) 28 %; MCH 30.3 pg (25.0-35.0); MCHC 33.3 g/dL (31.0-37.0); MCV 91.1 fL (80.0-100.0); Mean Platelet Volume 8.5; Monocytes # (A) 0.5 k/uL (0-1.0); Monocytes % (A) 5 %; Neutrophils # (A) 5.5 k/uL (1.3-7.7); Neutrophils % (A) 56 %; RBC 4.54 m/uL (3.80-5.40); RDW 14.7 % (11.5-15.5); WBC 9.9 k/uL (3.8-10.6); WBC (Perox) 10.06
[2017-06-01 09:16] LABS: ALT 22 U/L (9-52); AST 21 U/L (14-36); Alkaline Phosphatase 64 U/L (38-126); Anion Gap 10 mmol/L; Blood Urea Nitrogen 22 mg/dL (7-17); Calcium 9.5 mg/dL (8.4-10.2); Carbon Dioxide 26 mmol/L (22-30); Chloride 105 mmol/L (98-107); Cholesterol 245 mg/dL (<200); Glucose 102 mg/dL (74-99); HDL Cholesterol 47 mg/dL (40-60); Non-African American GFR(MDRD) >60 (>60 ml/min/1.73 sqM); Potassium 4.8 mmol/L (3.5-5.1); Sodium 141 mmol/L (137-145); Total Bilirubin 0.3 mg/dL (0.2-1.3); Total Protein 7.2 g/dL (6.3-8.2)
[2017-06-01 11:13] LABS: Hemoglobin A1C 6.7 % (4.2-6.1)
== END | disposition home or self-care (01) ==
LOC: LABWHC1 08:15
PROVIDERS: ATTEND Internal Medicine
DX: Z00.00 Encounter for general adult medical examination without abnormal findings (principal); E03.9 Hypothyroidism, unspecified; E11.21 Type 2 diabetes mellitus with diabetic nephropathy; I10 Essential (primary) hypertension
CPT/HCPCS: 36415; 80053; 80061; 83036; 84443; 85025

== ENCOUNTER → 2017-10-10 | Outpatient (CLI) | payer MEDICAID ==
--- NOTE | 2017-10-10 09:44 | XR ---
EXAMINATION TYPE: XR knee limited RT DATE OF EXAM: 10/10/2017 CLINICAL HISTORY: Postoperative evaluation Two views of the right knee are submitted. Identified are changes of total knee arthroplasty with femoral and tibial components appearing well seated. Postsurgical soft tissue changes are noted. Alignment is anatomic.
--- NOTE | 2017-10-10 09:45 | XR ---
EXAMINATION TYPE: XR knee complete LT DATE OF EXAM: 10/10/2017 CLINICAL HISTORY: pain TECHNIQUE: Three views of the left knee are obtained. COMPARISON: None. FINDINGS: There is no acute fracture/dislocation. The tri-compartment joint spaces appear moderatel y to severely narrowed. Spur formation seen. The overlying soft tissue appears unremarkable. IMPRESSION: There is no acute fracture or dislocation ICD 10 NO FRACTURE, INITIAL EVALUATION
== END | disposition home or self-care (01) ==
LOC: RADXRMAIN 08:50
PROVIDERS: ATTEND Orthopaedic Surgery
DX: M25.561 Pain in right knee (principal); Z96.651 Presence of right artificial knee joint; Z47.1 Aftercare following joint replacement surgery; Z98.890 Other specified postprocedural states

== ENCOUNTER → 2018-08-29 | Outpatient (CLI) | payer MEDICAID ==
--- NOTE | 2018-09-01 11:51 | MM ---
Reason for exam: screening (asymptomatic). Last mammogram was performed 3 years and 1 month ago. History: Patient is postmenopausal, has history of endometrial cancer at age 30, and had first child at age 29. Benign left mammotome panel of the left breast, July 24, 2012. Cancelled Left Mammotome of the left breast, July 24, 2012. Physical Findings: A clinical breast exam by your physician is recommended on an annual basis and results should be correlated with mammographic findings. MG 3D Screening Mammo W/Cad Bilateral CC and MLO view(s) were taken. Prior study comparison: July 15, 2015, bilateral MG 3d screening mammo w/cad. July 14, 2014, bilateral MG screening mammo w CAD. Finding #1: There is a new 5 mm equal density (isodense) mass in the lower inner quadrant of the left breast. Finding #2: There are typically benign calcifications in the left breast. ASSESSMENT: Incomplete: need additional imaging evaluation, BI-RAD 0 RECOMMENDATION: Special view mammogram of the left breast. If lesion persists on supplemental views, image directed ultrasound is recommended. [facility] will attempt to contact patient to return for supplemental views and ultrasound if indicated.
== END | disposition home or self-care (01) ==
LOC: RADMAMWWP 07:43
PROVIDERS: ATTEND Internal Medicine
DX: Z12.31 Encounter for screening mammogram for malignant neoplasm of breast (principal)
CPT/HCPCS: 77063; 77067

== ENCOUNTER → 2018-09-17 | Outpatient (CLI) | payer MEDICAID ==
--- NOTE | 2018-09-17 11:34 | MM ---
Reason for exam: additional evaluation requested from abnormal screening. Last mammogram was performed 1 month ago. History: Patient is postmenopausal, has history of endometrial cancer at age 30, and had first child at age 29. Benign left mammotome panel of the left breast, July 24, 2012. Cancelled Left Mammotome of the left breast, July 24, 2012. Physical Findings: Nurse did not find any significant physical abnormalities on exam. MG 3D Work Up W/Cad LT Spot compression CC, spot compression MLO, and LM view(s) were taken of the left breast. Prior study comparison: August 29, 2018, bilateral MG 3d screening mammo w/cad. July 15, 2015, bilateral MG 3d screening mammo w/cad. Finding: There is a 5 mm oval mass in the lower inner quadrant, anterior position of the left breast, persists on additional views. These results were verbally communicated with the patient and result sheet given to the patient on 09/17/18. ASSESSMENT: Incomplete: need additional imaging evaluation, BI-RAD 0 RECOMMENDATION: Ultrasound of the left breast. (anterior depth lower inner quadrant)
--- NOTE | 2018-09-17 11:35 | USB ---
Reason for exam: additional evaluation requested from abnormal screening. History: Patient is postmenopausal, has history of endometrial cancer at age 30, and had first child at age 29. Benign left mammotome panel of the left breast, July 24, 2012. Cancelled Left Mammotome of the left breast, July 24, 2012. US Breast Workup Limited LT Left limited breast ultrasound including focal area of concern, retroareolar and axilla demonstrates a 0.5 x 0.2 x 0.5cm lesion too small to characterize at 8 o'clock. These results were verbally communicated with the patient and result sheet given to the patient on 09/17/18. ASSESSMENT: Probably benign, BI-RAD 3 RECOMMENDATION: Ultrasound of the left breast in 6 months.
== END | disposition home or self-care (01) ==
LOC: RADMAMWWP 09:38
PROVIDERS: ATTEND Internal Medicine
DX: R92.8 Other abnormal and inconclusive findings on diagnostic imaging of breast (principal)
CPT/HCPCS: 77061; 77065

== ENCOUNTER → 2019-01-03 | Outpatient (CLI) | payer MEDICAID ==
[2019-01-03 09:29] LABS: Anisocytosis Slight; Basophils # (A) 0.1 k/uL (0-0.2); Basophils % (A) 1 %; Eosinophils # (A) 0.5 k/uL (0-0.7); Eosinophils % (A) 6 %; HCT 38.8 % (34.0-46.0); HGB 12.8 gm/dL (11.4-16.0); Lymphocytes # (A) 2.7 k/uL (1.0-4.8); Lymphocytes % (A) 30 %; MCH 29.3 pg (25.0-35.0); MCV 88.7 fL (80.0-100.0); Mean Platelet Volume 11.2; Monocytes # (A) 0.4 k/uL (0-1.0); Monocytes % (A) 5 %; Neutrophils % (A) 57 %; Platelet Count 227 k/uL (150-450); RBC 4.38 m/uL (3.80-5.40); RDW 16.8 % (11.5-15.5); WBC 8.8 k/uL (3.8-10.6)
[2019-01-03 16:57] LABS: Albumin 4.6 g/dL (3.80-4.90); Albumin/Globulin Ratio 2.56 (1.60-3.17); Anion Gap 7.1 mmol/L (4.00-12.00); Calcium 9.9 mg/dL (8.7-10.3); Carbon Dioxide 28.9 mmol/L (21.6-31.8); Globulin 1.8 g/dL (1.6-3.3); LDL Cholesterol,Calculated 186.2 mg/dL (0.0-131.0); Potassium 4.6 mmol/L (3.5-5.5); Total Bilirubin 0.4 mg/dL (0.2-1.2); Total Protein 6.4 g/dL (6.2-8.2); VLDL Calculation 26.8 mg/dL (5.00-40.00)
[2019-01-03 21:21] LABS: Hemoglobin A1C 6.5 % (4.0-6.0)
== END | disposition home or self-care (01) ==
LOC: LABWHC1 08:37
PROVIDERS: ATTEND Internal Medicine
DX: Z00.00 Encounter for general adult medical examination without abnormal findings (principal); E11.21 Type 2 diabetes mellitus with diabetic nephropathy; E55.9 Vitamin D deficiency, unspecified; I10 Essential (primary) hypertension; E78.2 Mixed hyperlipidemia
CPT/HCPCS: 36415; 80053; 80061; 82306; 83036; 85025

== ENCOUNTER 2019-03-11 14:03 | Inpatient (IN) | payer MEDICAID ==
[2019-03-11] MEDS ORDERED: PANTOPRAZOLE 40 MG/10 ML VIAL IVP STA (14:54)
[2019-03-11] MEDS ORDERED: SODIUM CHLORIDE 0.9% 1,000 ML IV STA (14:54)
--- NOTE | 2019-03-11 15:10 | ED ---
General Adult HPI - General Chief complaint: GI Bleed Stated complaint: Black Stool Time Seen by Provider: 03/11/19 14:11 Source: patient, RN notes reviewed Mode of arrival: ambulatory Limitations: no limitations - History of Present Illness Initial comments: Patient is a very pleasant 58-year-old female who appears younger than stated age sitting to the emergency department with concern for dark stools. Symptoms started yesterday. Patient has had 4-5 episodes today of dark somewhat loose stools. Patient has discomfort in the epigastric region without radiation. Patient has mild nausea and some decreased appetite. Patient is overall still tolerating oral intake. Patient has increased fatigue. Patient states she becomes more fatigued with exertion and ambulation. Patient states she also becomes somewhat short of breath with exertion. No vomiting. No history of similar symptoms previously. - Related Data Home Medications Medication Instructions Recorded Confirmed Meloxicam 15 mg PO DAILY 06/24/16 03/11/19 metFORMIN HCL [Metformin HCl] 850 mg PO BID 06/24/16 03/11/19 Chlorthalidone [Hygroton] 25 mg PO DAILY 03/11/19 03/11/19 Cholecalciferol [Vitamin D3 (25 5,000 unit PO DAILY 03/11/19 03/11/19 Mcg = 1000 Iu)] Escitalopram [Lexapro] 20 mg PO DAILY 03/11/19 03/11/19 Gabapentin [Neurontin] 300 mg PO BID 03/11/19 03/11/19 Pioglitazone HCl [Actos] 15 mg PO DAILY 03/11/19 03/11/19 Simvastatin [Zocor] 20 mg PO HS 03/11/19 03/11/19 Zolpidem [Ambien] 5 mg PO HS PRN 03/11/19 03/11/19 amLODIPine [Norvasc] 10 mg PO DAILY 03/11/19 03/11/19 cloNIDine HCL [Catapres] 0.1 mg PO BID 03/11/19 03/11/19 oxyCODONE HCL/ACETAMINOPHEN 1 tab PO BID 03/11/19 03/11/19 [Percocet 5-325 mg] Allergies Allergy/AdvReac Type Severity Reaction Status Date / Time Sulfa (Sulfonamide Allergy Itching Verified 03/11/19 14:36 Antibiotics) Sani-cloth germacidal disp AdvReac angioedema Uncoded 06/12/19 14:53 wipes (super purple container [facility] uses) Review of Systems ROS Statement: Those systems with pertinent positive or pertinent negative responses have been documented in the HPI. ROS Other: All systems not noted in ROS Statement are negative. Constitutional: Denies: fever Eyes: Denies: eye pain ENT: Denies: ear pain Respiratory: Denies: cough Cardiovascular: Denies: chest pain Endocrine: Reports: fatigue Gastrointestinal: Reports: abdominal pain, nausea, melena. Denies: vomiting Genitourinary: Denies: dysuria Musculoskeletal: Denies: back pain Skin: Denies: rash Neurological: Denies: headache Past Medical History Past Medical History: Cancer, COPD, Diabetes Mellitus, Hypertension, Osteoarthritis (OA) Additional Past Medical History / Comment(s): recently tx for angioedema in [facility] ER December 2016 for angioedema,steroids December 2016, breast CA 1995 -radiation tx and uterine CA 1991,migraines,urosepsis,varicose veins rt leg,birthmark lt arm, melanoma History of Any Multi-Drug Resistant Organisms: None Reported Past Surgical History: Adenoidectomy, Hysterectomy, Orthopedic Surgery, Tonsillectomy Additional Past Surgical History / Comment(s): lt breast lumpectomy,lt knee scope,dougie cataracts Past Anesthesia/Blood Transfusion Reactions: No Reported Reaction Additional Past Anesthesia/Blood Transfusion Reaction / Comment(s): no hx blood transfusion Past Psychological History: Depression Smoking Status: Former smoker Past Alcohol Use History: Rare Past Drug Use History: None Reported - Past Family History Father Family Medical History: Cancer, Memory Impairment, Pneumonia Additional Family Medical History / Comment(s): prostate Mother Family Medical History: Osteoarthritis (OA) General Exam Limitations: no limitations General appearance: alert, in no apparent distress Head exam: Present: atraumatic Eye exam: Present: normal appearance, PERRL ENT exam: Present: normal oropharynx Neck exam: Present: normal inspection Respiratory exam: Present: normal lung sounds bilaterally Cardiovascular Exam: Present: regular rate, normal rhythm Expanded Peripheral pulses: 2+: Dorsalis Pedis (R), Dorsalis Pedis (L) GI/Abdominal exam: Present: soft, normal bowel sounds. Absent: distended, tend erness, guarding, rebound, rigid, pulsatile mass Extremities exam: Present: normal inspection. Absent: pedal edema, calf tenderness Neurological exam: Present: alert Psychiatric exam: Present: normal affect, normal mood Skin exam: Present: normal color Course Vital Signs 03/11/19 03/11/19 03/11/19 14:06 14:20 14:30 Temperature 97.7 F Pulse Rate 92 Respiratory 18 18 Rate Blood Pressure 130/84 104/82 O2 Sat by Pulse 100 99 Oximetry 03/11/19 03/11/19 03/11/19 15:00 15:30 16:00 Temperature Pulse Rate 71 70 Respiratory 18 20 Rate Blood Pressure 116/84 112/92 117/88 O2 Sat by Pulse 100 Oximetry EKG Findings - EKG Comments: EKG Findings:: Sinus rhythm at 69. AR 174. QRS 86. QT 366. QTc 396. Normal axis. Normal QRS. Nonspecific T waves. PVC present. Medical Decision Making - Medical Decision Making Patient reevaluated. Patient and are updated on results and plan. Case was also discussed in detail with Dr. Carroll, covering for Dr. Can, who will admit. - Lab Data Result diagrams: 03/11/19 15:04 03/11/19 15:04 Lab Results 03/11/19 03/11/19 03/11/19 Range/Units 15:04 15:04 15:04 WBC 13.8 H (3.8-10.6) k/uL RBC 2.95 L (3.80-5.40) m/uL Hgb 9.0 L (11.4-16.0) gm/dL Hct 27.1 L (34.0-46.0) % MCV 91.7 (80.0-100.0) fL MCH 30.4 (25.0-35.0) pg MCHC 33.2 (31.0-37.0) g/dL RDW 14.5 (11.5-15.5) % Plt Count 255 (150-450) k/uL Neutrophils % 72 % Lymphocytes % 20 % Monocytes % 4 % Eosinophils % 2 % Basophils % 1 % Neutrophils # 9.9 H (1.3-7.7) k/uL Lymphocytes # 2.8 (1.0-4.8) k/uL Monocytes # 0.5 (0-1.0) k/uL Eosinophils # 0.3 (0-0.7) k/uL Basophils # 0.1 (0-0.2) k/uL PT 9.9 (9.0-12.0) sec INR 0.9 (<1.2) APTT 19.4 L (22.0-30.0) sec Sodium 140 (137-145) mmol/L Potassium 3.7 (3.5-5.1) mmol/L Chloride 103 (98-107) mmol/L Carbon Dioxide 27 (22-30) mmol/L Anion Gap 10 mmol/L BUN 73 H (7-17) mg/dL Creatinine 1.10 H (0.52-1.04) mg/dL Est GFR (CKD-EPI)AfAm 63 (>60 ml/min/1.73 sqM) Est GFR (CKD-EPI)NonAf 55 (>60 ml/min/1.73 sqM) Glucose 154 H (74-99) mg/dL Calcium 9.7 (8.4-10.2) mg/dL Magnesium 1.6 (1.6-2.3) mg/dL Total Bilirubin 0.2 (0.2-1.3) mg/dL AST 20 (14-36) U/L ALT 19 (9-52) U/L Alkaline Phosphatase 41 (38-126) U/L Troponin I (0.000-0.034) ng/mL Total Protein 6.4 (6.3-8.2) g/dL Albumin 4.3 (3.5-5.0) g/dL Lipase 65 (23-300) U/L 03/11/19 Range/Units 15:04 WBC (3.8-10.6) k/uL RBC (3.80-5.40) m/uL Hgb (11.4-16.0) gm/dL Hct (34.0-46.0) % MCV (80.0-100.0) fL MCH (25.0-35.0) pg MCHC (31.0-37.0) g/dL RDW (11.5-15.5) % Plt Count (150-450) k/uL Neutrophils % % Lymphocytes % % Monocytes % % Eosinophils % % Basophils % % Neutrophils # (1.3-7.7) k/uL Lymphocytes # (1.0-4.8) k/uL Monocytes # (0-1.0) k/uL Eosinophils # (0-0.7) k/uL Basophils # (0-0.2) k/uL PT (9.0-12.0) sec INR (<1.2) APTT (22.0-30.0) sec Sodium (137-145) mmol/L Potassium (3.5-5.1) mmol/L Chloride (98-107) mmol/L Carbon Dioxide (22-30) mmol/L Anion Gap mmol/L BUN (7-17) mg/dL Creatinine (0.52-1.04) mg/dL Est GFR (CKD-EPI)AfAm (>60 ml/min/1.73 sqM) Est GFR (CKD-EPI)NonAf (>60 ml/min/1.73 sqM) Glucose (74-99) mg/dL Calcium (8.4-10.2) mg/dL Magnesium (1.6-2.3) mg/dL Total Bilirubin (0.2-1.3) mg/dL AST (14-36) U/L ALT (9-52) U/L Alkaline Phosphatase (38-126) U/L Troponin I <0.012 (0.000-0.034) ng/mL Total Protein (6.3-8.2) g/dL Albumin (3.5-5.0) g/dL Lipase (23-300) U/L - Radiology Data Radiology results: image reviewed (Chest and abdominal x-rays show no acute process) Disposition Clinical Impression: Gastrointestinal hemorrhage Disposition: ADMITTED IP TO THIS [facility] Is patient prescribed a controlled substance at d/c from ED?: No Referrals: Gadiel Mares MD [Primary Care Provider] - 1-2 days Decision Time: 16:24
[2019-03-11 15:13] LABS: Basophils # (A) 0.1 k/uL (0-0.2); Basophils % (A) 1 %; Eosinophils # (A) 0.3 k/uL (0-0.7); Eosinophils % (A) 2 %; HCT 27.1 % (34.0-46.0); Lymphocytes # (A) 2.8 k/uL (1.0-4.8); Lymphocytes % (A) 20 %; MCH 30.4 pg (25.0-35.0); MCHC 33.2 g/dL (31.0-37.0); MCV 91.7 fL (80.0-100.0); Mean Platelet Volume 9.2; Monocytes # (A) 0.5 k/uL (0-1.0); Monocytes % (A) 4 %; Neutrophils # (A) 9.9 k/uL (1.3-7.7); Neutrophils % (A) 72 %; Platelet Count 255 k/uL (150-450); RBC 2.95 m/uL (3.80-5.40); RDW 14.5 % (11.5-15.5); WBC 13.8 k/uL (3.8-10.6)
[2019-03-11 15:27] LABS: Albumin 4.3 g/dL (3.5-5.0); Calcium 9.7 mg/dL (8.4-10.2); Magnesium 1.6 mg/dL (1.6-2.3); Potassium 3.7 mmol/L (3.5-5.1); Total Bilirubin 0.2 mg/dL (0.2-1.3); Total Protein 6.4 g/dL (6.3-8.2)
[2019-03-11 15:39] LABS: INR 0.9 (<1.2); Prothrombin Time 9.9 sec (9.0-12.0)
[2019-03-11 15:42] LABS: Partial Thromboplastin Time 19.4 sec (22.0-30.0)
--- NOTE | 2019-03-11 16:22 | XR ---
EXAMINATION TYPE: XR chest 2V DATE OF EXAM: 03/11/2019 COMPARISON: Prior chest x-ray 06/24/2016 HISTORY: Shortness of breath, pain TECHNIQUE: Frontal and lateral views of the chest are obtained. FINDINGS: There is no focal air space opacity, pleural effusion, or pneumothorax seen. The cardiac silhouette size is within normal limits. The osseous structures are intact. Patient is rotated. The re are overlying cardiac leads. Aorta is tortuous. IMPRESSION: No acute cardiopulmonary process.
--- NOTE | 2019-03-11 16:23 | XR ---
Abdomen HISTORY: Pain Frontal view of the abdomen and 2 images Lung bases are clear. Surgical clips present in the right upper quadrant. Degenerative disc changes i n the visualized spine. No evident pneumoperitoneum or bowel obstruction. IMPRESSION: No significant abnormalities evident.
[2019-03-11] MEDS ORDERED: NALOXONE 0.4 MG/ML 1 ML VIAL IV PRN (16:32)
[2019-03-11] MEDS ORDERED: METOCLOPRAMIDE 5 MG/ML 2 ML VIAL IVP STA (16:34)
[2019-03-11] MEDS: SODIUM CHLORIDE 0.9% 1,000 ML IV SCH (16:52)
[2019-03-11] MEDS ORDERED: ONDANSETRON 4 MG/2 ML VIAL IVP PRN (17:10)
--- NOTE | 2019-03-11 17:14 | P.HPIM ---
History of Present Illness H&P Date: 03/11/19 Chief Complaint: Abdominal pain and dark stools The patient is a 58-year-old female with a past medical history of type 2 diabetes, essential hypertension who presents to the ER via private vehicle chief complaint of abdominal pain. Apparently the patient's been having moderate intermittent sharp nonradiating epigastric abdominal pain over the last 2 days and has had dark tarry stools becoming more prominent today. The patient also reports some nausea, exertional dyspnea and feelings of increasing fatigue and lightheadedness and dizziness. The patient does have chronic pain and takes the Percocet and Mobic as prescribed daily. The patient denies any chest pain, denies any nausea and vomiting, reports that she ate eggs for breakfast this morning as her last meal. The patient denies being on any anticoagulation. The patient denies any history of acid reflux. In the ER the patient had a comprehensive workup chest x-ray and KUB was negative for any acute pathology. The patient was noted to have a leukocytosis of 13.8 hemoglobin of 9 and BUN of 73 creatinine of 1.10. Troponin was negative at less than 0.012, lipase was 65. Review of Systems Pertinent positives per HPI all other review of systems otherwise negative Past Medical History Past Medical History: Cancer, COPD, Diabetes Mellitus, Hypertension, Osteoarthritis (OA) Additional Past Medical History / Comment(s): recently tx for angioedema in [facility] ER December 2016 for angioedema,steroids December 2016, breast CA 1995 -radiation tx and uterine CA 1991,migraines,urosepsis,varicose veins rt leg,birthmark lt arm, melanoma History of Any Multi-Drug Resistant Organisms: None Reported Past Surgical History: Adenoidectomy, Hysterectomy, Orthopedic Surgery, Tonsillectomy Additional Past Surgical History / Comment(s): lt breast lumpectomy,lt knee scope,dougie cataracts Past Anesthesia/Blood Transfusion Reactions: No Reported Reaction Additional Past Anesthesia/Blood Transfusion Reaction / Comment(s): no hx blood transfusion Past Psychological History: Depression Smoking Status: Former smoker Past Alcohol Use History: Rare Past Drug Use History: None Reported - Past Family History Father Family Medical History: Cancer, Memory Impairment, Pneumonia Additional Family Medical History / Comment(s): prostate Mother Family Medical History: Osteoarthritis (OA) Medications and Allergies Home Medications Medication Instructions Recorded Confirmed Type Meloxicam 15 mg PO DAILY 06/24/16 03/11/19 History metFORMIN HCL [Metformin HCl] 850 mg PO BID 06/24/16 03/11/19 History Chlorthalidone [Hygroton] 25 mg PO DAILY 03/11/19 03/11/19 History Cholecalciferol [Vitamin D3 (25 5,000 unit PO DAILY 03/11/19 03/11/19 History Mcg = 1000 Iu)] Escitalopram [Lexapro] 20 mg PO DAILY 03/11/19 03/11/19 History Gabapentin [Neurontin] 300 mg PO BID 03/11/19 03/11/19 History Pioglitazone HCl [Actos] 15 mg PO DAILY 03/11/19 03/11/19 History Simvastatin [Zocor] 20 mg PO HS 03/11/19 03/11/19 History Zolpidem [Ambien] 5 mg PO HS PRN 03/11/19 03/11/19 History amLODIPine [Norvasc] 10 mg PO DAILY 03/11/19 03/11/19 History cloNIDine HCL [Catapres] 0.1 mg PO BID 03/11/19 03/11/19 History oxyCODONE HCL/ACETAMINOPHEN 1 tab PO BID 03/11/19 03/11/19 History [Percocet 5-325 mg] Allergies Allergy/AdvReac Type Severity Reaction Status Date / Time Sulfa (Sulfonamide Allergy Itching Verified 03/11/19 14:36 Antibiotics) Sani-cloth germacidal disp AdvReac angioedema Uncoded 03/11/19 14:53 wipes (super purple container [facility] uses) Physical Exam Vitals: Vital Signs Temp Pulse Resp BP Pulse Ox 03/11/19 16:30 71 18 131/88 95 03/11/19 16:00 70 20 117/88 03/11/19 15:30 71 18 112/92 100 03/11/19 15:00 116/84 03/11/19 14:30 104/82 99 03/11/19 14:20 18 03/11/19 14:06 97.7 F 92 18 130/84 100 Intake and Output 03/11/19 03/11/19 03/11/19 06:59 14:59 22:59 Other: Weight 104.326 kg Constitutional: No acute distress, conversant, pleasant Eyes: Anicteric sclerae, moist conjunctiva, no lid-lag, PERRLA ENMT: NC/AT,Oropharynx clear, no erythema, exudates Neck:Supple, FROM, no masses, or JVD, No carotid bruits; No thyromegaly Lungs: Clear to auscultation, Clear to percussion, Normal respiratory effort, no accessory muscle use Cardiovascular: Heart regular in rate and rhythm, No murmurs, gallops, or rubs no peripheral edema Abdominal: Soft tender to palpation in midepigastrium, nom distended, no guarding, no rebound or rigidity, Normoactive bowel sounds No hepatomegaly, No splenomegaly, No palpable mass No abdominal wall hernia noted Skin: Normal temperature, tone, texture, turgor, No induration No subcutaneous nodules, No rash, lesions, No ulcers Extremities:No digital cyanosis No clubbing, Pedal pulses intact and symmetrical Radial pulses intact and symmetrical Normal gait and station, No calf tenderness Psychiatric: Alert and oriented to person, place and time, Appropriate affect Intact judgement Neuro: Muscles Strength 5/5 in all 4 extremities, Sensation to light touch grossly present throughout, Cranial nerves II-XII grossly intact. No focal sensory deficits Results CBC & Chem 7: 03/11/19 15:04 03/11/19 15:04 Labs: Abnormal Lab Results - Last 24 Hours (Table) 03/11/19 03/11/19 03/11/19 Range/Units 15:04 15:04 15:04 WBC 13.8 H (3.8-10.6) k/uL RBC 2.95 L (3.80-5.40) m/uL Hgb 9.0 L (11.4-16.0) gm/dL Hct 27.1 L (34.0-46.0) % Neutrophils # 9.9 H (1.3-7.7) k/uL APTT 19.4 L (22.0-30.0) sec BUN 73 H (7-17) mg/dL Creatinine 1.10 H (0.52-1.04) mg/dL Glucose 154 H (74-99) mg/dL Assessment and Plan (1) GI bleed Current Visit: Yes Status: Acute Code(s): K92.2 - GASTROINTESTINAL HEMORRHAGE, UNSPECIFIED SNOMED Code(s): 84455020 (2) Normocytic anemia due to blood loss Current Visit: Yes Status: Acute Code(s): D50.0 - IRON DEFICIENCY ANEMIA SECONDARY TO BLOOD LOSS (CHRONIC) SNOMED Code(s): 510042798 (3) Type 2 diabetes mellitus with hyperglycemia Current Visit: Yes Status: Acute Code(s): E11.65 - TYPE 2 DIABETES MELLITUS WITH HYPERGLYCEMIA SNOMED Code(s): 075051505650335 (4) Leukocytosis Current Visit: No Status: Acute Code(s): D72.829 - ELEVATED WHITE BLOOD CELL COUNT, UNSPECIFIED SNOMED Code(s): 836687147 (5) Essential hypertension Current Visit: Yes Status: Acute Code(s): I10 - ESSENTIAL (PRIMARY) HYPERTENSION SNOMED Code(s): 61038260 Plan: The patient is placed in observation anticipate a less than 2 midnight stay with acute GI bleed possibly secondary to bleeding ulcer given patient's history of being on NSAIDs. The patient is made nothing by mouth except ice chips, will type and cross her and recheck CBC in a few hours. I will plan to consult GI for upper endoscopy versus possible capsule study. Check iron studies, follow- up CBC. We'll continue her fluids, supportive care with antiemetics and morphine for pain. The patient's blood pressure is normal will hold her and hypertensive regimen for now. Continue to follow her clinical course. CODE STATUS: Full code Anticipated discharge: 1-2 days Discussed plan of care with: Patient and her Prophylaxis : PPI therapy and SCDs
[2019-03-11] MEDS: MORPHINE SULFATE 4 MG/ML SYRINGE IVP PRN ×2 (17:41→21:43)
[2019-03-11 17:45] LABS: Glucose,Whole Blood 143 mg/dL (75-99)
[2019-03-11 19:08] LABS: Appearance,Urine Clear (Clear); Bilirubin,Urine Negative (Negative); Blood,Urine Negative (Negative); Color,Urine Light Yellow; Glucose,Urine (UA) Negative (Negative); Ketones,Urine Negative (Negative); Leukocyte Esterase,Urine Negative (Negative); Nitrite,Urine Negative (Negative); Protein,Urine Negative (Negative); Specific Gravity,Urine 1.013 (1.001-1.035); Urobilinogen,Urine <2.0 mg/dL (<2.0)
[2019-03-11] MEDS: PANTOPRAZOLE 40 MG/10 ML VIAL IV SCH (20:23)
[2019-03-11 20:37] LABS: Glucose,Whole Blood 128 mg/dL (75-99)
[2019-03-11 20:39] LABS: Basophils # (A) 0.1 k/uL (0-0.2); Basophils % (A) 1 %; Eosinophils # (A) 0.2 k/uL (0-0.7); Eosinophils % (A) 2 %; HCT 24.8 % (34.0-46.0); HGB 7.9 gm/dL (11.4-16.0); Lymphocytes # (A) 2.9 k/uL (1.0-4.8); Lymphocytes % (A) 28 %; MCH 29.5 pg (25.0-35.0); MCHC 31.7 g/dL (31.0-37.0); MCV 93.1 fL (80.0-100.0); Mean Platelet Volume 11.1; Monocytes # (A) 0.4 k/uL (0-1.0); Monocytes % (A) 4 %; Neutrophils # (A) 6.7 k/uL (1.3-7.7); Neutrophils % (A) 64 %; Platelet Count 200 k/uL (150-450); RBC 2.67 m/uL (3.80-5.40); RDW 14.5 % (11.5-15.5); WBC 10.5 k/uL (3.8-10.6)
[2019-03-12] MEDS: MORPHINE SULFATE 4 MG/ML SYRINGE IVP PRN ×4 (03:09→20:11)
[2019-03-12] MEDS: SODIUM CHLORIDE 0.9% 1,000 ML IV SCH ×3 (03:12→16:57)
[2019-03-12 06:58] LABS: Glucose,Whole Blood 157 mg/dL (75-99)
[2019-03-12] MEDS: PANTOPRAZOLE 40 MG/10 ML VIAL IV SCH (07:40)
[2019-03-12 10:29] LABS: Basophils # (A) 0.1 k/uL (0-0.2); Basophils % (A) 1 %; Eosinophils # (A) 0.3 k/uL (0-0.7); Eosinophils % (A) 4 %; HCT 23.8 % (34.0-46.0); HGB 7.7 gm/dL (11.4-16.0); Lymphocytes # (A) 2.8 k/uL (1.0-4.8); Lymphocytes % (A) 32 %; MCH 30.6 pg (25.0-35.0); MCHC 32.5 g/dL (31.0-37.0); MCV 94.1 fL (80.0-100.0); Mean Platelet Volume 8.9; Monocytes # (A) 0.4 k/uL (0-1.0); Monocytes % (A) 4 %; Neutrophils # (A) 5.1 k/uL (1.3-7.7); Neutrophils % (A) 58 %; Platelet Count 225 k/uL (150-450); RBC 2.53 m/uL (3.80-5.40); RDW 14.7 % (11.5-15.5); WBC 8.8 k/uL (3.8-10.6)
[2019-03-12 10:48] LABS: Calcium 9.1 mg/dL (8.4-10.2); Potassium 3.7 mmol/L (3.5-5.1)
[2019-03-12 11:39] LABS: Glucose,Whole Blood 121 mg/dL (75-99)
--- NOTE | 2019-03-12 15:04 | P.CONS ---
History of Present Illness - Reason for Consult Consult date: 03/12/19 GI bleed melena Requesting physician: Timo Carroll - Chief Complaint black stool - History of Present Illness 58-year-old female with a history of long-standing NSAID usage Mobic and Excedrin admitted with black colored bowel movements 2 days with epigastric discomfort and indigestion. Denies gross hematemesis hematochezia or coffee- ground emesis. No history of GI bleed or peptic ulcer disease. No recent EGD. Last colonoscopy 10 years ago to her memory unremarkable. Admission hemoglobin 9 presently 7.7. MCV 91. White count 13.8. Platelet 255. INR 0.9. No fever chills or weight loss. Abdominal x-rays no abnormalities evident. Review of Systems RConstitutional: Denies fever, chills, sweats, weight gain, or loss. HEENT: Negative for migraines, blurred vision or loss, earaches, drainage, tinnitus, oral mucosal lesions, dysphagia, or odynophagia. CARDIAC: Negative for chest pain, arrhythmias, or palpitation. RESPIRATORY: Negative for shortness of breath, hemoptysis, cough, or sputum production. GI: See HPI for pertinent findings. : Negative for hematuria, urgency, frequency, polyuria, or dysuria. GYNc: Denies possibility of . Negative vaginal discharge. MUSCULOSKELETAL: Negative for muscle aches, swelling, arthritis, and arthralgias. NEUROLOGIC: Negative for stroke or TIA. ENDOCRINE: Negative for thyroid problems. SKIN: Negative for rash or itching. PSYCHIATRIC: Negative history for depression and anxietymale Past Medical History Past Medical History: Cancer, COPD, Diabetes Mellitus, Hypertension, Osteoarthritis (OA) Additional Past Medical History / Comment(s): recently tx for angioedema in [facility] ER December 2016 for angioedema,steroids December 2016, breast CA 1995 -radiation tx and uterine CA 1991,migraines,urosepsis,varicose veins rt leg,birthmark lt arm, melanoma History of Any Multi-Drug Resistant Organisms: None Reported Past Surgical History: Adenoidectomy, Hysterectomy, Orthopedic Surgery, Tonsillectomy Additional Past Surgical History / Comment(s): lt breast lumpectomy,lt knee scope,dougie cataracts Past Anesthesia/Blood Transfusion Reactions: No Reported Reaction Additional Past Anesthesia/Blood Transfusion Reaction / Comm: no hx blood transfusion Past Psychological History: Depression Smoking Status: Former smoker Past Alcohol Use History: Rare Past Drug Use History: None Reported - Past Family History Father Family Medical History: Cancer, Memory Impairment, Pneumonia Additional Family Medical History / Comment(s): prostate Mother Family Medical History: Osteoarthritis (OA) Medications and Allergies Home Medications Medication Instructions Recorded Confirmed Type Meloxicam 15 mg PO DAILY 06/24/16 03/11/19 History metFORMIN HCL [Metformin HCl] 850 mg PO BID 06/24/16 03/11/19 History Chlorthalidone [Hygroton] 25 mg PO DAILY 03/11/19 03/11/19 History Cholecalciferol [Vitamin D3 (25 5,000 unit PO DAILY 03/11/19 03/11/19 History Mcg = 1000 Iu)] Escitalopram [Lexapro] 20 mg PO DAILY 03/11/19 03/11/19 History Gabapentin [Neurontin] 300 mg PO BID 03/11/19 03/11/19 History Pioglitazone HCl [Actos] 15 mg PO DAILY 03/11/19 03/11/19 History Simvastatin [Zocor] 20 mg PO HS 03/11/19 03/11/19 History Zolpidem [Ambien] 5 mg PO HS PRN 03/11/19 03/11/19 History amLODIPine [Norvasc] 10 mg PO DAILY 03/11/19 03/11/19 History cloNIDine HCL [Catapres] 0.1 mg PO BID 03/11/19 03/11/19 History oxyCODONE HCL/ACETAMINOPHEN 1 tab PO BID 03/11/19 03/11/19 History [Percocet 5-325 mg] Allergies Allergy/AdvReac Type Severity Reaction Status Date / Time Sulfa (Sulfonamide Allergy Itching Verified 03/11/19 14:36 Antibiotics) Sani-cloth germacidal disp AdvReac angioedema Uncoded 03/11/19 14:53 wipes (super purple container [facility] uses) Physical Exam Vitals: Vital Signs Temp Pulse Pulse Resp BP BP Pulse Ox 03/12/19 13:37 98.0 F 72 16 120/83 100 03/12/19 08:00 63 16 03/12/19 06:22 97.9 F 63 16 118/77 97 03/11/19 20:40 98.7 F 72 16 123/81 99 03/11/19 17:45 97.8 F 72 18 142/84 99 03/11/19 16:30 71 18 131/88 95 03/11/19 16:00 70 20 117/88 03/11/19 15:30 71 18 112/92 100 Intake and Output 03/12/19 03/12/19 03/12/19 06:59 14:59 22:59 Other: Voiding Method Toilet # Voids 2 2 # Bowel Movements 0 General appearance: The patient is alert, oriented, in no acute distress. HET: Head is normocephalic and atraumatic. Pupils are equal and reactive. Oropharynx is clear without lesions. Neck: Supple without lymphadenopathy. Trachea midline. Heart: S1 S2. Regular rate and rhythm. Lungs: No crackles or wheezes are heard. Abdomen: Soft, very mild tenderness midepigastrium, nondistended with bowel sydnee nds. No peritoneal signs. No palpable organomegaly or masses. Extremities: Normal skin color and turgor. No cyanosis, rash, ulceration, clubbing, or edema. Radial and pedal pulses are 2/4 bilaterally. Neurological: No focal deficits. Strength and sensation are grossly intact. Results CBC & Chem 7: 03/12/19 09:19 03/12/19 09:19 Labs: Abnormal Lab Results - Last 24 Hours (Table) 03/11/19 03/11/19 03/11/19 Range/Units 15:04 15:04 15:04 WBC 13.8 H (3.8-10.6) k/uL RBC 2.95 L (3.80-5.40) m/uL Hgb 9.0 L (11.4-16.0) gm/dL Hct 27.1 L (34.0-46.0) % Neutrophils # 9.9 H (1.3-7.7) k/uL APTT 19.4 L (22.0-30.0) sec Chloride (98-107) mmol/L Carbon Dioxide (22-30) mmol/L BUN 73 H (7-17) mg/dL Creatinine 1.10 H (0.52-1.04) mg/dL Glucose 154 H (74-99) mg/dL POC Glucose (mg/dL) (75-99) mg/dL 03/11/19 03/11/19 03/11/19 Range/Units 17:43 20:25 20:36 WBC (3.8-10.6) k/uL RBC 2.67 L (3.80-5.40) m/uL Hgb 7.9 L (11.4-16.0) gm/dL Hct 24.8 L (34.0-46.0) % Neutrophils # (1.3-7.7) k/uL APTT (22.0-30.0) sec Chloride (98-107) mmol/L Carbon Dioxide (22-30) mmol/L BUN (7-17) mg/dL Creatinine (0.52-1.04) mg/dL Glucose (74-99) mg/dL POC Glucose (mg/dL) 143 H 128 H (75-99) mg/dL 03/12/19 03/12/19 03/12/19 Range/Units 06:55 09:19 09:19 WBC (3.8-10.6) k/uL RBC 2.53 L (3.80-5.40) m/uL Hgb 7.7 L (11.4-16.0) gm/dL Hct 23.8 L (34.0-46.0) % Neutrophils # (1.3-7.7) k/uL APTT (22.0-30.0) sec Chloride 108 H (98-107) mmol/L Carbon Dioxide 32 H (22-30) mmol/L BUN 35 H (7-17) mg/dL Creatinine 1.06 H (0.52-1.04) mg/dL Glucose 123 H (74-99) mg/dL POC Glucose (mg/dL) 157 H (75-99) mg/dL 03/12/19 Range/Units 11:37 WBC (3.8-10.6) k/uL RBC (3.80-5.40) m/uL Hgb (11.4-16.0) gm/dL Hct (34.0-46.0) % Neutrophils # (1.3-7.7) k/uL APTT (22.0-30.0) sec Chloride (98-107) mmol/L Carbon Dioxide (22-30) mmol/L BUN (7-17) mg/dL Creatinine (0.52-1.04) mg/dL Glucose (74-99) mg/dL POC Glucose (mg/dL) 121 H (75-99) mg/dL Abdominal x-ray: report reviewed (Dr. Valdes) Assessment and Plan (1) GI bleed Narrative/Plan: 58-year-old female admitted with epigastric discomfort indigestion long-standing chronic NSAID usage Excedrin with black colored bowel movements 2 days possible peptic ulcer disease possible bleeding AVM possible small bowel etiology. Current Visit: Yes Status: Acute Code(s): K92.2 - GASTROINTESTINAL HEMORRHAGE, UNSPECIFIED SNOMED Code(s): 29765712 (2) Melena Current Visit: Yes Status: Acute Code(s): K92.1 - MELENA SNOMED Code(s): 9126552 (3) NSAID long-term use Current Visit: Yes Status: Acute Code(s): Z79.1 - EXTRUSION FORMER (CURRENT) USE OF NON-STEROIDAL NON-INFLAM (NSAID) SNOMED Code(s): 171314204 Plan: 1. EGD. Protonix 40 mg twice daily. CBC monitoring. Hold NSAIDs and aspirin products. Possible small bowel capsule endoscopy possible colonoscopy based on her EGD findings. The seismology teacher has discussed the risks, benefits and alternative therapies for the above-mentioned procedure and for both sedation/analgesia as well as necessary blood product administration, if indicated, as they pertain to this patient. The patient has indicated understanding and acceptance of the risks and procedures discussed. Thank you for this kind referral and the opportunity to participate in the care of your patient. This consultation was discussed with Dr. Valdes. The impression and plan of care have been directed as dictated.
[2019-03-12] MEDS ORDERED: LIDOCAINE 1% INJ 10MG/ML (20 ML MDV) ONE (15:30)
[2019-03-12] MEDS ORDERED: PROPOFOL 10 MG/ML 20 ML VIAL IV ONE (15:30)
[2019-03-12] MEDS ORDERED: IV FLUID CONTINUATION 1,000 ML IV ONE (15:30)
--- NOTE | 2019-03-12 16:02 | P.PCN ---
Date of Procedure: 03/12/19 Description of Procedure: BRIEF HISTORY: 58-year-old female with a history of long-standing NSAID usage Mobic and Excedrin admitted with black colored bowel movements 2 days with epigastric discomfort and indigestion. Denies gross hematemesis hematochezia or coffee- ground emesis. No history of GI bleed or peptic ulcer disease. No recent EGD. Last colonoscopy 10 years ago to her memory unremarkable. Admission hemoglobin 9 presently 7.7. MCV 91. White count 13.8. Platelet 255. INR 0.9. No fever chills or weight loss. Abdominal x-rays no abnormalities evident. PROCEDURE PERFORMED: Esophagogastroduodenoscopy with biopsy. PREOPERATIVE DIAGNOSIS: Melena, anemia of acute blood loss. ESTIMATED BLOOD LOSS: Minimal. IV sedation per anesthesia. PROCEDURE: After informed consent was obtained, the patient was brought into the endoscopy unit. IV sedation was administered by Anesthesia under continuous monitoring. Initially the Olympus GIF-190 video endoscope was inserted into the mouth. Esophagus intubated without any difficulty. It was gradually advanced into the stomach and duodenum and carefully examined. The bulb and the second part of the duodenum appeared normal, with biopsies taken. The scope at this time was withdrawn to the stomach, adequately insufflated with air, and upon careful examination, mucosa of the antrum, body, cardia and the fundus appeared grossly normal with the exception of 4 superficial nonbleeding ulcers in the antrum of the stomach without high risk stigmata for bleeding with antral biopsies of the ulcers taken. There is also mild scattered erythema in the antrum and body suggestive of mild gastritis was biopsied. The scope was then withdrawn into the esophagus. The GE junction was located at 39 cm from the incisors. The esophagus appeared normal. There were no erosions or ulcerations seen and the patient tolerated the procedure well. IMPRESSION: 1. Antral ulcers, 4 nonbleeding ulcers of the antrum without high-risk stigmata for rebleeding which were biopsied. 2. Mild gastritis antrum and body, biopsied. 3. Duodenal biopsies. RECOMMENDATIONS: The findings of this examination were discussed with the patient and her . Okay to resume diet. Avoid NSAID use. Patient should be discharged on Protonix 40 mg twice daily. Follow up with gastroenterology in 2 weeks. Plan on repeat EGD in 8-10 weeks to check for ulcer healing. We'll discuss screening colonoscopy at that time. Await pathology from biopsies..
[2019-03-12 16:52] LABS: Iron Saturation 5.76 (12.00-45.00)
[2019-03-12 16:54] LABS: Glucose,Whole Blood 127 mg/dL (75-99)
[2019-03-12] MEDS: PANTOPRAZOLE 40 MG TABLET PO SCH (17:02)
--- NOTE | 2019-03-12 18:06 | P.PN ---
Subjective Progress Note Date: 03/12/19 Patient seen and examined at bedside. Recently back from her EGD , denying any abdominal pain or nausea. Hemoglobin this morning was 7.7 . EGD showing 4 nonbleeding antral ulcers, mild gastritis . Objective - Vital Signs Vital signs: Vital Signs Temp 97.8 F 03/12/19 16:15 Pulse 68 03/12/19 16:45 Resp 16 03/12/19 16:15 BP 128/84 03/12/19 16:45 Pulse Ox 92 L 03/12/19 16:45 Intake & Output 03/11/19 03/12/19 03/12/19 18:59 06:59 18:59 Intake Total 400 Balance 400 Weight 104.326 kg Intake: IV 400 Other: Voiding Method Toilet # Voids 2 2 # Bowel Movements 0 - Exam Constitutional: No acute distress, conversant, pleasant Eyes: Anicteric sclerae, moist conjunctiva, no lid-lag, PERRLA ENMT: NC/AT,Oropharynx clear, no erythema, exudates Neck:Supple, FROM, no masses, or JVD, No carotid bruits; No thyromegaly Lungs: Clear to auscultation, Clear to percussion, Normal respiratory effort, no accessory muscle use Cardiovascular: Heart regular in rate and rhythm, No murmurs, gallops, or rubs no peripheral edema Abdominal: Soft Nontender, nom distended, no guarding, no rebound or rigidity, Normoactive bowel sounds No hepatomegaly, No splenomegaly, No palpable mass No abdominal wall hernia noted Skin: Normal temperature, tone, texture, turgor, No induration No subcutaneous nodules, No rash, lesions, No ulcers Extremities:No digital cyanosis No clubbing, Pedal pulses intact and symmetrical Radial pulses intact and symmetrical Normal gait and station, No calf tenderness Psychiatric: Alert and oriented to person, place and time, Appropriate affect Intact judgement Neuro: Muscles Strength 5/5 in all 4 extremities, Sensation to light touch grossly present throughout, Cranial nerves II-XII grossly intact. No focal sensory deficits - Labs CBC & Chem 7: 03/12/19 09:19 03/12/19 09:19 Labs: Abnormal Lab Results - Last 24 Hours (Table) 03/11/19 03/11/19 03/12/19 Range/Units 20:25 20:36 06:55 RBC 2.67 L (3.80-5.40) m/uL Hgb 7.9 L (11.4-16.0) gm/dL Hct 24.8 L (34.0-46.0) % Chloride (98-107) mmol/L Carbon Dioxide (22-30) mmol/L BUN (7-17) mg/dL Creatinine (0.52-1.04) mg/dL Glucose (74-99) mg/dL POC Glucose (mg/dL) 128 H 157 H (75-99) mg/dL Iron (50-170) ug/dL Iron Saturation (12.00-45.00) 03/12/19 03/12/19 03/12/19 Range/Units 09:19 09:19 09:19 RBC 2.53 L (3.80-5.40) m/uL Hgb 7.7 L (11.4-16.0) gm/dL Hct 23.8 L (34.0-46.0) % Chloride 108 H (98-107) mmol/L Carbon Dioxide 32 H (22-30) mmol/L BUN 35 H (7-17) mg/dL Creatinine 1.06 H (0.52-1.04) mg/dL Glucose 123 H (74-99) mg/dL POC Glucose (mg/dL) (75-99) mg/dL Iron 24 L (50-170) ug/dL Iron Saturation 5.76 L (12.00-45.00) 03/12/19 03/12/19 Range/Units 11:37 16:52 RBC (3.80-5.40) m/uL Hgb (11.4-16.0) gm/dL Hct (34.0-46.0) % Chloride (98-107) mmol/L Carbon Dioxide (22-30) mmol/L BUN (7-17) mg/dL Creatinine (0.52-1.04) mg/dL Glucose (74-99) mg/dL POC Glucose (mg/dL) 121 H 127 H (75-99) mg/dL Iron (50-170) ug/dL Iron Saturation (12.00-45.00) Assessment and Plan (1) GI bleed Narrative/Plan: * Likely secondary to antral ulcers * EGD performed showed for antral nonbleeding ulcers, biopsies taken * Hemoglobin down to 7.7 * Patient hemodynamically stable Current Visit: Yes Status: Acute Code(s): K92.2 - GASTROINTESTINAL HEMORRHAGE, UNSPECIFIED SNOMED Code(s): 04090932 (2) Normocytic anemia due to blood loss Narrative/Plan: * Secondary to above * Continue to monitor hemoglobin and recheck CBC in the morning Current Visit: Yes Status: Acute Code(s): D50.0 - IRON DEFICIENCY ANEMIA SECONDARY TO BLOOD LOSS (CHRONIC) SNOMED Code(s): 904868952 (3) Type 2 diabetes mellitus with hyperglycemia Narrative/Plan: * Blood sugar stable and controlled * Continue current regimen Current Visit: Yes Status: Acute Code(s): E11.65 - TYPE 2 DIABETES MELLITUS WITH HYPERGLYCEMIA SNOMED Code(s): 897379244417398 (4) Leukocytosis Current Visit: No Status: Acute Code(s): D72.829 - ELEVATED WHITE BLOOD CELL COUNT, UNSPECIFIED SNOMED Code(s): 122752702 (5) Essential hypertension Narrative/Plan: * Blood pressure stable controlled on home regimen Current Visit: Yes Status: Acute Code(s): I10 - ESSENTIAL (PRIMARY) HYPERTENSION SNOMED Code(s): 13515623 (6) Acute ulcer of pyloric antrum Narrative/Plan: * Continue PPI therapy with Protonix 40 mg by mouth twice a day Current Visit: Yes Status: Acute Code(s): K25.3 - ACUTE GASTRIC ULCER WITHOUT HEMORRHAGE OR PERFORATION SNOMED Code(s): 28977504 (7) Gastritis Narrative/Plan: * Continue treatment with PPI therapy Current Visit: Yes Status: Acute Code(s): K29.70 - GASTRITIS, UNSPECIFIED, WITHOUT BLEEDING SNOMED Code(s): 3639357 Plan: Disposition * Recheck CBC in the morning * Anticipated discharge in the morning on PPI therapy with follow-up with GI
[2019-03-12 21:06] LABS: Glucose,Whole Blood 125 mg/dL (75-99)
[2019-03-12 23:05] VITALS: TEMP 98.1
[2019-03-13] MEDS: MORPHINE SULFATE 4 MG/ML SYRINGE IVP PRN ×2 (01:11→05:49)
[2019-03-13 07:03] LABS: Glucose,Whole Blood 128 mg/dL (75-99)
[2019-03-13 07:19] VITALS: BP 134/86; PULSE 108; RESP 20
[2019-03-13] MEDS: PANTOPRAZOLE 40 MG TABLET PO SCH (07:41)
[2019-03-13 09:29] LABS: Basophils # (A) 0.1 k/uL (0-0.2); Basophils % (A) 1 %; Eosinophils # (A) 0.4 k/uL (0-0.7); Eosinophils % (A) 5 %; HCT 24.2 % (34.0-46.0); HGB 7.6 gm/dL (11.4-16.0); Lymphocytes # (A) 2.6 k/uL (1.0-4.8); Lymphocytes % (A) 33 %; MCHC 31.5 g/dL (31.0-37.0); MCV 95.4 fL (80.0-100.0); Mean Platelet Volume 9.3; Monocytes # (A) 0.4 k/uL (0-1.0); Monocytes % (A) 4 %; Neutrophils # (A) 4.3 k/uL (1.3-7.7); Neutrophils % (A) 55 %; Platelet Count 224 k/uL (150-450); RBC 2.53 m/uL (3.80-5.40); WBC 7.8 k/uL (3.8-10.6)
--- NOTE | 2019-03-13 11:05 | P.DS ---
Providers Date of admission: 03/12/19 11:53 Expected date of discharge: 03/13/19 Attending physician: Janessa Shelby DO Consults: 03/11/19 16:33 Consult Physician Urgent Consulting Provider: Quinn Valdes Reason/Comments: gi hemorrhage Do you want consulting provider notified?: Yes Primary care physician: Gadiel Mares - Discharge Diagnosis(es) (1) GI bleed Current Visit: Yes Status: Acute (2) Normocytic anemia due to blood loss Current Visit: Yes Status: Acute (3) Type 2 diabetes mellitus with hyperglycemia Current Visit: Yes Status: Acute (4) Leukocytosis Current Visit: No Status: Acute (5) Essential hypertension Current Visit: Yes Status: Acute (6) Acute ulcer of pyloric antrum Current Visit: Yes Status: Acute (7) Gastritis Current Visit: Yes Status: Acute Hospital Course: The patient is a 58-year-old female that was admitted with epigastric pain and dark starry stools with concern for upper GI bleed after presenting with a hemoglobin of 9.0. She was typed and crossed hemoglobin got as low as 7.6, and patient was not symptomatic and hence did not require any transfusion of packed RBCs. She was treated supportively with PPI therapy with Protonix, IV analgesic regimen with morphine. The patient was seen by Dr. Valdes and EGD was performed that showed for nonbleeding antral ulcers and mild antral gastritis and duodenal biopsies were taken. With treatment the patient's symptoms resolved and she was transitioned to oral PPI therapy. It was thought that the patient's history of taking NSAIDS with Mobic was a contributing factor for her peptic ulcer disease. Iron studies were consistent with iron deficiency anemia and she was discharged home on oral iron supplementation. Discharge process took approximately 35 minutes. Focused exam GI: Soft nontender nondistended, nonacute abdomen, normoactive bowel sounds in all 4 quadrants Patient Condition at Discharge: Good Plan - Discharge Summary New Discharge Prescriptions: New Pantoprazole [Protonix] 40 mg PO AC-BID #60 tablet. Ferrous Sulfate [Iron (65 MG Elemental)] 325 mg PO DAILY #30 tab Continue metFORMIN HCL [Metformin HCl] 850 mg PO BID oxyCODONE HCL/ACETAMINOPHEN [Percocet 5-325 mg] 1 tab PO BID Escitalopram [Lexapro] 20 mg PO DAILY cloNIDine HCL [Catapres] 0.1 mg PO BID Pioglitazone HCl [Actos] 15 mg PO DAILY Chlorthalidone [Hygroton] 25 mg PO DAILY Cholecalciferol [Vitamin D3 (25 Mcg = 1000 Iu)] 5,000 unit PO DAILY amLODIPine [Norvasc] 10 mg PO DAILY Zolpidem [Ambien] 5 mg PO HS PRN PRN Reason: Insomnia Gabapentin [Neurontin] 300 mg PO BID Simvastatin [Zocor] 20 mg PO HS Discontinued Meloxicam 15 mg PO DAILY Discharge Medication List metFORMIN HCL [Metformin HCl] 850 mg PO BID 06/24/16 [History] Chlorthalidone [Hygroton] 25 mg PO DAILY 03/11/19 [History] Cholecalciferol [Vitamin D3 (25 Mcg = 1000 Iu)] 5,000 unit PO DAILY 03/11/19 [History] Escitalopram [Lexapro] 20 mg PO DAILY 03/11/19 [History] Gabapentin [Neurontin] 300 mg PO BID 03/11/19 [History] Pioglitazone HCl [Actos] 15 mg PO DAILY 03/11/19 [History] Simvastatin [Zocor] 20 mg PO HS 03/11/19 [History] Zolpidem [Ambien] 5 mg PO HS PRN 03/11/19 [History] amLODIPine [Norvasc] 10 mg PO DAILY 03/11/19 [History] cloNIDine HCL [Catapres] 0.1 mg PO BID 03/11/19 [History] oxyCODONE HCL/ACETAMINOPHEN [Percocet 5-325 mg] 1 tab PO BID 03/11/19 [History] Ferrous Sulfate [Iron (65 MG Elemental)] 325 mg PO DAILY #30 tab 03/13/19 [Rx] Pantoprazole [Protonix] 40 mg PO AC-BID #60 tablet. 03/13/19 [Rx] Follow up Appointment(s)/Referral(s): Gadiel Mares MD [Primary Care Provider] - 03/16/19 2:45 pm Quinn Valdes MD [STAFF PHYSICIAN] - 04/03/19 10:00 am Patient Instructions/Handouts: How to Stop Smoking (DC), Gastritis (DC), Diet for Stomach Ulcers and Gastritis (GEN) Activity/Diet/Wound Care/Special Instructions: Diabetic, bland diet. Activity as tolerated. No smoking, cessation information provided.
== END 2019-03-13 11:01 | disposition home or self-care (01) | DRG 378 ==
LOC: EC 14:03 → 4MS4W 16:32 → OBSVTOIN 03-12 11:53
PROVIDERS: ADMIT Internal Medicine; ATTEND Internal Medicine
PROC: 0DB78ZX Excision of Stomach, Pylorus, Via Natural or Artificial Opening Endoscopic, Diagnostic (ICD-10-PCS; 2019-03-12)
PROC: 0DB98ZX Excision of Duodenum, Via Natural or Artificial Opening Endoscopic, Diagnostic (ICD-10-PCS; principal; 2019-03-12 08:55)
DX: K25.4 Chronic or unspecified gastric ulcer with hemorrhage (principal); D62 Acute posthemorrhagic anemia; D72.829 Elevated white blood cell count, unspecified; E11.65 Type 2 diabetes mellitus with hyperglycemia; F32.9 Major depressive disorder, single episode, unspecified; G89.29 Other chronic pain; I10 Essential (primary) hypertension; J44.9 Chronic obstructive pulmonary disease, unspecified; K29.70 Gastritis, unspecified, without bleeding; Z79.1 Long term (current) use of non-steroidal anti-inflammatories (NSAID); T39.395A Adverse effect of other nonsteroidal anti-inflammatory drugs [NSAID], initial encounter; Z79.84 Long term (current) use of oral hypoglycemic drugs; Z79.899 Other long term (current) drug therapy; Z85.3 Personal history of malignant neoplasm of breast; Z85.42 Personal history of malignant neoplasm of other parts of uterus; Z85.820 Personal history of malignant melanoma of skin; Z87.891 Personal history of nicotine dependence; Z90.710 Acquired absence of both cervix and uterus; Z92.3 Personal history of irradiation; M19.90 Unspecified osteoarthritis, unspecified site; G43.909 Migraine, unspecified, not intractable, without status migrainosus; Z83.6 Family history of other diseases of the respiratory system; Z82.61 Family history of arthritis; Z80.42 Family history of malignant neoplasm of prostate; Z88.2 Allergy status to sulfonamides; Z98.42 Cataract extraction status, left eye; Z98.41 Cataract extraction status, right eye
CPT/HCPCS: 36415; 43239; 71046; 74018; 80048; 80053; 81003; 82728; 83540; 83550; 83690; 83735; 84484; 85025; 85610; 85730; 88305; 93005; 96361; 96374; 96375; 99284

== ENCOUNTER → 2019-03-24 | Outpatient (CLI) | payer MEDICAID ==
[2019-03-24 09:39] LABS: Basophils # (A) 0.1 k/uL (0-0.2); Basophils % (A) 1 %; Eosinophils # (A) 0.3 k/uL (0-0.7); Eosinophils % (A) 3 %; HCT 24.3 % (34.0-46.0); HGB 7.8 gm/dL (11.4-16.0); Hypochromasia Marked; Lymphocytes # (A) 2.7 k/uL (1.0-4.8); Lymphocytes % (A) 25 %; Monocytes # (A) 0.6 k/uL (0-1.0); Monocytes % (A) 6 %; Neutrophils # (A) 6.7 k/uL (1.3-7.7); Neutrophils % (A) 63 %; Platelet Count 440 k/uL (150-450); Poikilocytosis Marked; RBC 2.78 m/uL (3.80-5.40); RDW 15.5 % (11.5-15.5); WBC 10.6 k/uL (3.8-10.6)
[2019-03-24 09:46] LABS: MCV 87.4 fL (80.0-100.0)
[2019-03-24 16:23] LABS: African American GFR (CKD) 63.2 (60.0-200.0); Anion Gap 10.5 mmol/L (4.00-12.00); BUN/Creat Ratio 23.64 Ratio (12.00-20.00); Calcium 9.9 mg/dL (8.7-10.3); Carbon Dioxide 31.5 mmol/L (21.6-31.8); Potassium 3.8 mmol/L (3.5-5.5)
[2019-03-24 17:28] LABS: Iron Saturation 2.89 (12.00-45.00)
[2019-03-24 19:34] LABS: Hemoglobin A1C 6.5 % (4.0-6.0)
== END | disposition home or self-care (01) ==
LOC: LABWHC1 07:39
PROVIDERS: ATTEND Internal Medicine
DX: D50.9 Iron deficiency anemia, unspecified (principal); E11.21 Type 2 diabetes mellitus with diabetic nephropathy
CPT/HCPCS: 36415; 80048; 83036; 83540; 83550; 85025

== ENCOUNTER → 2019-03-30 | Outpatient (CLI) | payer MEDICAID ==
[2019-03-30 15:49] LABS: Anisocytosis Slight; Basophils # (A) 0.1 k/uL (0-0.2); Basophils % (A) 1 %; Eosinophils # (A) 0.3 k/uL (0-0.7); Eosinophils % (A) 3 %; HCT 24.7 % (34.0-46.0); HGB 7.9 gm/dL (11.4-16.0); Hypochromasia Marked; Lymphocytes # (A) 1.6 k/uL (1.0-4.8); Lymphocytes % (A) 13 %; MCH 27.5 pg (25.0-35.0); MCV 85.9 fL (80.0-100.0); Mean Platelet Volume 8.2; Monocytes # (A) 0.6 k/uL (0-1.0); Monocytes % (A) 5 %; Neutrophils # (A) 9.2 k/uL (1.3-7.7); Neutrophils % (A) 77 %; Platelet Count 311 k/uL (150-450); Poikilocytosis Moderate; RBC 2.88 m/uL (3.80-5.40); RDW 17.6 % (11.5-15.5); WBC 11.9 k/uL (3.8-10.6)
== END | disposition home or self-care (01) ==
LOC: LABWHC1 14:59
PROVIDERS: ATTEND Internal Medicine
DX: D50.9 Iron deficiency anemia, unspecified (principal)
CPT/HCPCS: 36415; 85025

== ENCOUNTER → 2019-04-13 | Outpatient (CLI) | payer MEDICAID ==
[2019-04-13 07:33] LABS: Anisocytosis Slight; Basophils # (A) 0.1 k/uL (0-0.2); Basophils % (A) 1 %; Eosinophils # (A) 0.4 k/uL (0-0.7); Eosinophils % (A) 3 %; HCT 25.4 % (34.0-46.0); HGB 7.7 gm/dL (11.4-16.0); Hypochromasia Marked; Lymphocytes # (A) 3.1 k/uL (1.0-4.8); Lymphocytes % (A) 29 %; MCH 25.1 pg (25.0-35.0); MCHC 30.4 g/dL (31.0-37.0); MCV 82.6 fL (80.0-100.0); Mean Platelet Volume 8.2; Monocytes # (A) 0.6 k/uL (0-1.0); Monocytes % (A) 6 %; Neutrophils # (A) 6.4 k/uL (1.3-7.7); Neutrophils % (A) 59 %; Platelet Count 471 k/uL (150-450); Poikilocytosis Marked; RBC 3.08 m/uL (3.80-5.40); RDW 18.3 % (11.5-15.5); WBC 10.8 k/uL (3.8-10.6)
== END | disposition home or self-care (01) ==
LOC: LABWHC1 07:14
PROVIDERS: ATTEND Internal Medicine
DX: D50.9 Iron deficiency anemia, unspecified (principal)
CPT/HCPCS: 36415; 85025

== ENCOUNTER → 2019-04-29 | Outpatient (CLI) | payer MEDICAID ==
[2019-04-29 11:48] LABS: Anisocytosis Slight; Basophils # (A) 0.1 k/uL (0-0.2); Basophils % (A) 1 %; Eosinophils # (A) 0.4 k/uL (0-0.7); Eosinophils % (A) 5 %; HCT 27.3 % (34.0-46.0); HGB 7.8 gm/dL (11.4-16.0); Hypochromasia Marked; Lymphocytes # (A) 2.5 k/uL (1.0-4.8); Lymphocytes % (A) 27 %; MCH 23.2 pg (25.0-35.0); MCHC 28.8 g/dL (31.0-37.0); MCV 80.5 fL (80.0-100.0); Mean Platelet Volume 7.4; Microcytosis Slight; Monocytes # (A) 0.6 k/uL (0-1.0); Monocytes % (A) 6 %; Neutrophils # (A) 5.1 k/uL (1.3-7.7); Neutrophils % (A) 57 %; Platelet Count 348 k/uL (150-450); Poikilocytosis Marked; RBC 3.39 m/uL (3.80-5.40); RDW 19.4 % (11.5-15.5)
[2019-04-29 18:03] LABS: Iron Saturation 2.32 (12.00-45.00)
== END | disposition home or self-care (01) ==
LOC: LABWHC1 11:16
PROVIDERS: ATTEND Internal Medicine
DX: D50.9 Iron deficiency anemia, unspecified (principal)
CPT/HCPCS: 36415; 83540; 83550; 85025

== ENCOUNTER 2019-05-03 11:16 | Emergency (ER) | payer MEDICAID ==
[2019-05-03 11:30] VITALS: TEMP 97.5
[2019-05-03] MEDS ORDERED: IPRATROPIUM-ALBUTEROL 3 ML NEB INHALATION STA (11:47)
[2019-05-03 12:02] LABS: Albumin 4.5 g/dL (3.5-5.0); Calcium 9.8 mg/dL (8.4-10.2); Magnesium 1.3 mg/dL (1.6-2.3); Potassium 3.5 mmol/L (3.5-5.1); Total Bilirubin 0.4 mg/dL (0.2-1.3); Total Protein 7.5 g/dL (6.3-8.2)
[2019-05-03 12:10] LABS: Anisocytosis Moderate; Basophils # (A) 0.1 k/uL (0-0.2); Basophils % (A) 1 %; Eosinophils # (A) 0.3 k/uL (0-0.7); Eosinophils % (A) 2 %; HCT 31.3 % (34.0-46.0); HGB 9.2 gm/dL (11.4-16.0); Hypochromasia Marked; Lymphocytes # (A) 3.1 k/uL (1.0-4.8); Lymphocytes % (A) 25 %; MCH 22.6 pg (25.0-35.0); MCHC 29.4 g/dL (31.0-37.0); Mean Platelet Volume 7.6; Microcytosis Moderate; Monocytes # (A) 0.7 k/uL (0-1.0); Monocytes % (A) 6 %; Neutrophils # (A) 7.8 k/uL (1.3-7.7); Neutrophils % (A) 63 %; Platelet Count 513 k/uL (150-450); Poikilocytosis Marked; RBC 4.07 m/uL (3.80-5.40); RDW 20.3 % (11.5-15.5); WBC 12.4 k/uL (3.8-10.6)
[2019-05-03] MEDS ORDERED: POTASSIUM CHLORIDE ER 20 MEQ TAB.ER PO STA (12:55)
[2019-05-03] MEDS: MAGNESIUM SULFATE-D5W PMX 1 GM in DEXTROSE/WATER 1 100ML.BAG IVPB SCH ×2 (13:20→14:26)
--- NOTE | 2019-05-03 14:28 | ED ---
Weakness HPI - General Chief complaint: Weakness Stated complaint: low hemoglobin Time Seen by Provider: 05/03/19 11:30 Source: patient, RN notes reviewed Mode of arrival: wheelchair Limitations: no limitations - History of Present Illness Initial comments: This is a 59-year-old female history of recent GI bleed with apparent chronic anemia who presents with complaints of weakness difficulty walking some shortness of breath no overt chest pain. She has been on oral iron which has not been helping her hemoglobin level is been running in the sevens. Because of the persisting problems she is here for evaluation. No fevers chills nausea vomiting sweats at this time MD Complaint: generalized weakness, lack of energy - Related Data Home Medications Medication Instructions Recorded Confirmed metFORMIN HCL [Metformin HCl] 850 mg PO BID 06/24/16 05/03/19 Chlorthalidone [Hygroton] 25 mg PO DAILY 03/11/19 05/03/19 Cholecalciferol [Vitamin D3 (25 5,000 unit PO DAILY 03/11/19 05/03/19 Mcg = 1000 Iu)] Escitalopram [Lexapro] 20 mg PO DAILY 03/11/19 05/03/19 Gabapentin [Neurontin] 300 mg PO BID 03/11/19 05/03/19 Pioglitazone HCl [Actos] 15 mg PO DAILY 03/11/19 05/03/19 Zolpidem [Ambien] 5 mg PO HS PRN 03/11/19 05/03/19 amLODIPine [Norvasc] 10 mg PO DAILY 03/11/19 05/03/19 cloNIDine HCL [Catapres] 0.1 mg PO BID 03/11/19 05/03/19 oxyCODONE HCL/ACETAMINOPHEN 1 tab PO BID 03/11/19 05/03/19 [Percocet 5-325 mg] Amoxic-Pot Clav 500-125 mg 1 tab PO BID 05/03/19 05/03/19 [Augmentin 500-125 mg] Atorvastatin [Lipitor] 40 mg PO DAILY 05/03/19 05/03/19 Benzonatate [Tessalon Perles] 100 mg PO TID 05/03/19 05/03/19 Ferrous Sulfate [Iron (65 MG 325 mg PO BID 05/03/19 05/03/19 Elemental)] Poly-Iron 150mg 150 mg PO DAILY 08/04/19 08/04/19 Previous Rx's Medication Instructions Recorded Pantoprazole [Protonix] 40 mg PO AC-BID #60 tablet. 03/13/19 Magnesium 200 mg PO DAILY #15 tablet 05/03/19 Potassium Chloride ER [K-Dur 20] 20 meq PO DAILY #15 tab 05/03/19 Allergies Allergy/AdvReac Type Severity Reaction Status Date / Time morphine Allergy Hallucinati Verified 05/03/19 11:43 ons Sulfa (Sulfonamide Allergy Itching Verified 05/03/19 11:43 Antibiotics) Sani-cloth germacidal disp AdvReac angioedema Uncoded 05/03/19 11:22 wipes (super purple container [facility] uses) Review of Systems ROS Statement: Those systems with pertinent positive or pertinent negative responses have been documented in the HPI. ROS Other: All systems not noted in ROS Statement are negative. Past Medical History Past Medical History: Cancer, COPD, Diabetes Mellitus, Hypertension, Osteoarthritis (OA) Additional Past Medical History / Comment(s): recently tx for angioedema in [facility] ER December 2016 for angioedema,steroids December 2016, breast CA 1995 -radiation tx and uterine CA 1991,migraines,urosepsis,varicose veins rt leg,birthmark lt arm, melanoma History of Any Multi-Drug Resistant Organisms: None Reported Past Surgical History: Adenoidectomy, Hysterectomy, Orthopedic Surgery, Tonsillectomy Additional Past Surgical History / Comment(s): lt breast lumpectomy,lt knee scope,dougie cataracts Past Anesthesia/Blood Transfusion Reactions: No Reported Reaction Additional Past Anesthesia/Blood Transfusion Reaction / Comment(s): no hx blood transfusion Past Psychological History: Depression Smoking Status: Former smoker Past Alcohol Use History: Rare Past Drug Use History: None Reported - Past Family History Father Family Medical History: Cancer, Memory Impairment, Pneumonia Additional Family Medical History / Comment(s): prostate Mother Family Medical History: Osteoarthritis (OA) General Exam - General Exam Comments Initial Comments: Is a well-developed well-nourished awake alert oriented 3 female Limitations: no limitations General appearance: alert, in no apparent distress Head exam: Present: atraumatic, normocephalic, normal inspection Eye exam: Present: normal appearance, PERRL, EOMI. Absent: scleral icterus, conjunctival injection, periorbital swelling ENT exam: Present: normal exam, mucous membranes moist Neck exam: Present: normal inspection. Absent: tenderness, meningismus, lymphadenopathy Respiratory exam: Present: normal lung sounds bilaterally. Absent: respiratory distress, wheezes, rales, rhonchi, stridor Cardiovascular Exam: Present: regular rate, normal rhythm, normal heart sounds. Absent: systolic murmur, diastolic murmur, rubs, gallop, clicks GI/Abdominal exam: Present: soft, normal bowel sounds. Absent: distended, tenderness, guarding, rebound, rigid Extremities exam: Present: normal inspection, full ROM, normal capillary refill. Absent: tenderness, pedal edema, joint swelling, calf tenderness Back exam: Present: normal inspection Neurological exam: Present: alert, oriented X3, CN II-XII intact Psychiatric exam: Present: normal affect, normal mood Skin exam: Present: warm, dry, intact, normal color. Absent: rash Course Vital Signs 05/03/19 05/03/19 05/03/19 11:18 11:30 11:39 Temperature 97.5 F L Pulse Rate 71 80 Respiratory 16 16 16 Rate Blood Pressure 141/87 O2 Sat by Pulse 98 95 Oximetry 05/03/19 05/03/19 05/03/19 11:53 12:00 12:02 Temperature Pulse Rate 64 64 67 Respiratory 12 Rate Blood Pressure 125/85 O2 Sat by Pulse 98 Oximetry 05/03/19 05/03/19 05/03/19 12:30 14:00 14:30 Temperature Pulse Rate 65 63 70 Respiratory 15 16 18 Rate Blood Pressure 117/93 121/64 106/61 O2 Sat by Pulse 96 Oximetry 05/03/19 15:00 Temperature Pulse Rate 70 Respiratory 16 Rate Blood Pressure 99/71 O2 Sat by Pulse Oximetry - Reevaluation(s) Reevaluation #1: 05/03/19 14:27 Occasional PVCs are noted on the gambling monitor Reevaluation #2: 05/03/19 16:46 She is so much improved this time I did notice on the evaluation the patient had a unifocal PVCs some appear to be close to the RMT type phenomenon. I did discuss this with the patient and with Dr. Neal. Patient will be discharged and follow-up with Dr. Neal in the office she'll get a prescription for potassium and magnesium Reevaluation #3: 05/03/19 16:52 Review the strip was performed showing a heart rate 66 ME interval 186 QRS duration 90 daily since QTC 460/[address] configuration prolonged QT noted unifocal PVCs with variable proximity to the T wave. This is prior to supplementation Y's. EKG Findings - EKG Results: EKG: interpreted by OBINNAD (Sinus rhythm a 62. We'll 188 QRS duration 92 QT since QTC 466/472 LVH with repolarization abnormality.) Medical Decision Making - Lab Data Result diagrams: 05/03/19 11:25 05/03/19 11:25 Lab Results 05/03/19 05/03/19 05/03/19 Range/Units 11:25 11:25 11:25 WBC 12.4 H (3.8-10.6) k/uL RBC 4.07 (3.80-5.40) m/uL Hgb 9.2 L (11.4-16.0) gm/dL Hct 31.3 L (34.0-46.0) % MCV 77.0 L (80.0-100.0) fL MCH 22.6 L (25.0-35.0) pg MCHC 29.4 L (31.0-37.0) g/dL RDW 20.3 H (11.5-15.5) % Plt Count 513 H (150-450) k/uL Neutrophils % 63 % Lymphocytes % 25 % Monocytes % 6 % Eosinophils % 2 % Basophils % 1 % Neutrophils # 7.8 H (1.3-7.7) k/uL Lymphocytes # 3.1 (1.0-4.8) k/uL Monocytes # 0.7 (0-1.0) k/uL Eosinophils # 0.3 (0-0.7) k/uL Basophils # 0.1 (0-0.2) k/uL Hypochromasia Marked Poikilocytosis Marked Anisocytosis Moderate Microcytosis Moderate Sodium 140 (137-145) mmol/L Potassium 3.5 (3.5-5.1) mmol/L Chloride 96 L (98-107) mmol/L Carbon Dioxide 32 H (22-30) mmol/L Anion Gap 12 mmol/L BUN 20 H (7-17) mg/dL Creatinine 1.09 H (0.52-1.04) mg/dL Est GFR (CKD-EPI)AfAm 64 (>60 ml/min/1.73 sqM) Est GFR (CKD-EPI)NonAf 55 (>60 ml/min/1.73 sqM) Glucose 107 H (74-99) mg/dL Calcium 9.8 (8.4-10.2) mg/dL Magnesium 1.3 L (1.6-2.3) mg/dL Total Bilirubin 0.4 (0.2-1.3) mg/dL AST 19 (14-36) U/L ALT 17 (9-52) U/L Alkaline Phosphatase 71 (38-126) U/L Creatine Kinase 50 (30-135) U/L Troponin I (0.000-0.034) ng/mL NT-Pro-B Natriuret Pep 736 pg/mL Total Protein 7.5 (6.3-8.2) g/dL Albumin 4.5 (3.5-5.0) g/dL 05/03/19 Range/Units 11:47 WBC (3.8-10.6) k/uL RBC (3.80-5.40) m/uL Hgb (11.4-16.0) gm/dL Hct (34.0-46.0) % MCV (80.0-100.0) fL MCH (25.0-35.0) pg MCHC (31.0-37.0) g/dL RDW (11.5-15.5) % Plt Count (150-450) k/uL Neutrophils % % Lymphocytes % % Monocytes % % Eosinophils % % Basophils % % Neutrophils # (1.3-7.7) k/uL Lymphocytes # (1.0-4.8) k/uL Monocytes # (0-1.0) k/uL Eosinophils # (0-0.7) k/uL Basophils # (0-0.2) k/uL Hypochromasia Poikilocytosis Anisocytosis Microcytosis Sodium (137-145) mmol/L Potassium (3.5-5.1) mmol/L Chloride (98-107) mmol/L Carbon Dioxide (22-30) mmol/L Anion Gap mmol/L BUN (7-17) mg/dL Creatinine (0.52-1.04) mg/dL Est GFR (CKD-EPI)AfAm (>60 ml/min/1.73 sqM) Est GFR (CKD-EPI)NonAf (>60 ml/min/1.73 sqM) Glucose (74-99) mg/dL Calcium (8.4-10.2) mg/dL Magnesium (1.6-2.3) mg/dL Total Bilirubin (0.2-1.3) mg/dL AST (14-36) U/L ALT (9-52) U/L Alkaline Phosphatase (38-126) U/L Creatine Kinase (30-135) U/L Troponin I <0.012 (0.000-0.034) ng/mL NT-Pro-B Natriuret Pep pg/mL Total Protein (6.3-8.2) g/dL Albumin (3.5-5.0) g/dL Disposition Clinical Impression: Chronic anemia, Hypomagnesemia syndrome, Hypokalemia, PVCs (premature ventricular contractions) Disposition: HOME SELF-CARE Condition: Good Instructions (If sedation given, give patient instructions): Hypomagnesemia (ED), Hypokalemia (ED), Anemia (ED) Prescriptions: Potassium Chloride ER [K-Dur 20] 20 meq PO DAILY #15 tab Magnesium 200 mg PO DAILY #15 tablet Is patient prescribed a controlled substance at d/c from ED?: No Referrals: Gadiel Mares MD [Primary Care Provider] - 1-2 days
[2019-05-03 17:15] VITALS: BP 105/73; PULSE 65; RESP 14
== END 2019-05-03 17:15 | disposition home or self-care (01) ==
LOC: EC 11:16
DX: D64.9 Anemia, unspecified (principal); E83.42 Hypomagnesemia; E87.6 Hypokalemia; I49.3 Ventricular premature depolarization; M19.90 Unspecified osteoarthritis, unspecified site; E11.9 Type 2 diabetes mellitus without complications; F32.9 Major depressive disorder, single episode, unspecified; I10 Essential (primary) hypertension; J44.9 Chronic obstructive pulmonary disease, unspecified; Z79.84 Long term (current) use of oral hypoglycemic drugs; Z79.891 Long term (current) use of opiate analgesic; Z79.899 Other long term (current) drug therapy; Z88.2 Allergy status to sulfonamides; Z88.5 Allergy status to narcotic agent; Z91.048 Other nonmedicinal substance allergy status; Z87.891 Personal history of nicotine dependence; Z85.3 Personal history of malignant neoplasm of breast; Z85.820 Personal history of malignant melanoma of skin; Z92.3 Personal history of irradiation; Z90.12 Acquired absence of left breast and nipple; Z90.710 Acquired absence of both cervix and uterus; Z98.41 Cataract extraction status, right eye; Z85.42 Personal history of malignant neoplasm of other parts of uterus; Z98.42 Cataract extraction status, left eye
CPT/HCPCS: 99285; 96365; 96366; 36415; 94640; 83880; 80053; 82550; 83735; 84484; 85025; J3475

== ENCOUNTER → 2019-05-18 | Outpatient (CLI) | payer MEDICAID ==
[2019-05-18 09:13] LABS: Anisocytosis Slight; Basophils # (A) 0.1 k/uL (0-0.2); Basophils % (A) 1 %; Eosinophils # (A) 0.4 k/uL (0-0.7); Eosinophils % (A) 4 %; HCT 30.8 % (34.0-46.0); Hypochromasia Marked; Lymphocytes # (A) 2.4 k/uL (1.0-4.8); Lymphocytes % (A) 24 %; MCH 21.6 pg (25.0-35.0); MCHC 29.2 g/dL (31.0-37.0); MCV 73.8 fL (80.0-100.0); Mean Platelet Volume 7.7; Microcytosis Moderate; Monocytes # (A) 0.5 k/uL (0-1.0); Monocytes % (A) 5 %; Neutrophils # (A) 6.4 k/uL (1.3-7.7); Neutrophils % (A) 63 %; Platelet Count 396 k/uL (150-450); Poikilocytosis Moderate; RBC 4.17 m/uL (3.80-5.40); RDW 19.5 % (11.5-15.5); WBC 10.1 k/uL (3.8-10.6)
[2019-05-18 16:34] LABS: African American GFR (CKD) 56.5 (60.0-200.0); Anion Gap 9.1 mmol/L (4.00-12.00); BUN/Creat Ratio 22.5 Ratio (12.00-20.00); Calcium 9.9 mg/dL (8.7-10.3); Carbon Dioxide 30.9 mmol/L (21.6-31.8); Magnesium 1.5 mg/dL (1.5-2.4); Potassium 3.8 mmol/L (3.5-5.5)
[2019-05-18 19:32] LABS: Hemoglobin A1C 7.1 % (4.0-6.0)
== END | disposition home or self-care (01) ==
LOC: LABWHC1 08:35
PROVIDERS: ATTEND Internal Medicine
DX: D50.9 Iron deficiency anemia, unspecified (principal); E11.21 Type 2 diabetes mellitus with diabetic nephropathy
CPT/HCPCS: 36415; 80048; 83036; 83735; 85025

== ENCOUNTER → 2019-05-21 | Outpatient (CLI) | payer MEDICAID ==
--- NOTE | 2019-05-21 16:24 | XR ---
EXAMINATION TYPE: XR chest 2V DATE OF EXAM: 05/21/2019 COMPARISON: 03/11/2019 INDICATION: Productive cough TECHNIQUE: Frontal and lateral views of the chest are obtained. FINDINGS: The heart size is normal. The pulmonary vasculature is normal. The lungs are clear. IMPRESSION: 1. No acute pulmonary process.
== END | disposition home or self-care (01) ==
LOC: RADXRMAIN 09:51
PROVIDERS: ATTEND Internal Medicine
DX: J06.9 Acute upper respiratory infection, unspecified (principal)
CPT/HCPCS: 71046

== ENCOUNTER → 2019-06-06 | Outpatient (CLI) | payer MEDICAID ==
[2019-06-06 09:09] LABS: Anisocytosis Slight; Basophils # (A) 0.1 k/uL (0-0.2); Basophils % (A) 1 %; Eosinophils # (A) 0.3 k/uL (0-0.7); Eosinophils % (A) 3 %; HCT 27.5 % (34.0-46.0); HGB 8.2 gm/dL (11.4-16.0); Hypochromasia Marked; Lymphocytes # (A) 1.7 k/uL (1.0-4.8); Lymphocytes % (A) 14 %; MCH 21.3 pg (25.0-35.0); MCHC 29.8 g/dL (31.0-37.0); MCV 71.3 fL (80.0-100.0); Mean Platelet Volume 8.2; Microcytosis Marked; Monocytes # (A) 0.7 k/uL (0-1.0); Monocytes % (A) 5 %; Neutrophils # (A) 9.5 k/uL (1.3-7.7); Neutrophils % (A) 76 %; Platelet Count 418 k/uL (150-450); Poikilocytosis Moderate; RBC 3.86 m/uL (3.80-5.40); RDW 19.8 % (11.5-15.5); WBC 12.6 k/uL (3.8-10.6)
[2019-06-06 16:17] LABS: Iron Saturation 2.52 (12.00-45.00)
== END | disposition home or self-care (01) ==
LOC: LABWHC1 08:25
PROVIDERS: ATTEND Internal Medicine
DX: K92.2 Gastrointestinal hemorrhage, unspecified (principal)
CPT/HCPCS: 36415; 83540; 83550; 85025

== ENCOUNTER 2019-06-30 07:02 | Day surgery (SDC) | payer MEDICAID ==
[2019-06-26 11:25] VITALS: BMI 36.0
[~2019-06-30 07:02] MED LIST changes: -ACETAMINOPHEN TAB 500 MG TAB PO ONE; -DEXAMETHASONE SOD PHOSPHATE 10 MG/ML 1 ML VIAL IV ONE; +LACTATED RINGERS 1,000 ML IV SCH; -MELOXICAM 7.5 MG TAB PO ONE; -ONDANSETRON 4 MG/2 ML VIAL IVP ONE; -SCOPOLAMINE 1.5MG/72HR PATCH TRANSDERM ONE; -TRANEXAMIC ACID 1,000 MG in SODIUM CHLORIDE 0.9% 100 ML IVPB ONE; -ceFAZolin 2 GM in SODIUM CHLORIDE 0.9% 100 ML IVPB ONE
[2019-06-30 07:37] VITALS: TEMP 97.2
[2019-06-30 07:40] LABS: Glucose,Whole Blood 156 mg/dL (75-99)
[2019-06-30] MEDS ORDERED: PROPOFOL 10 MG/ML 20 ML VIAL IV ONE (07:40)
--- NOTE | 2019-06-30 08:17 | P.PCN ---
Date of Procedure: 06/30/19 Description of Procedure: BRIEF HISTORY: Patient is a 59-year-old pleasant female scheduled for an elective colonoscopy as a part of evaluation of iron deficiency anemia. Patient was admitted in February, at which time she complained of dark stool and was found to be anemic. At that time was using NSAIDs. EGD was performed and significant for gastritis and for nonbleeding antral ulcers. The patient has been on PPI therapy. She presents for further workup of anemia with colonoscopy. Her last colonoscopy 10 years ago per her recollection normal. PROCEDURE PERFORMED: Colonoscopy. PREOPERATIVE DIAGNOSIS: Iron deficiency anemia. ESTIMATED BLOOD LOSS: Minimal. IV sedation per Anesthesia. PROCEDURE: After informed consent was obtained, the patient, was brought into the endoscopy unit. IV sedation was administered by Anesthesia under continuous monitoring. Digital rectal examination was normal. Initially the Olympus CF-190 flexible video colonoscope was then inserted in the rectum, gradually advanced into the cecum without any difficulty. Careful examination was performed as the scope was gradually being withdrawn. Ileocecal valve and the appendiceal orifice were visualized and appeared normal. Prep was excellent. Mucosa of the cecum, ascending colon, transverse colon, descending colon, sigmoid colon, and rectum appeared normal. Retroflexion was performed in the rectum and no lesions were seen, Low-grade internal hemorrhoids. The patient tolerated the procedure well. IMPRESSION: Normal-appearing colon from rectum to cecum. RECOMMENDATIONS: Findings of this examination were discussed with the patient and her . Okay to resume diet. Continue to avoid NSAID use. Recommend repeat colonoscopy in 10 years or sooner if signs or symptoms which warrant further evaluation develop.
[2019-06-30 08:19] VITALS: RESP 18
[2019-06-30 08:49] VITALS: BP 122/76; PULSE 67
== END 2019-06-30 08:48 | disposition home or self-care (01) ==
LOC: ORWHC2ENDO 07:02
PROVIDERS: ATTEND Internal Medicine
DX: K64.8 Other hemorrhoids (principal); D50.9 Iron deficiency anemia, unspecified; I10 Essential (primary) hypertension; E78.5 Hyperlipidemia, unspecified; E11.9 Type 2 diabetes mellitus without complications; F32.9 Major depressive disorder, single episode, unspecified; K21.9 Gastro-esophageal reflux disease without esophagitis; Z90.710 Acquired absence of both cervix and uterus; Z98.42 Cataract extraction status, left eye; Z98.41 Cataract extraction status, right eye; Z80.42 Family history of malignant neoplasm of prostate; Z87.11 Personal history of peptic ulcer disease; Z90.49 Acquired absence of other specified parts of digestive tract; Z79.84 Long term (current) use of oral hypoglycemic drugs; Z79.899 Other long term (current) drug therapy; Z88.5 Allergy status to narcotic agent; Z88.2 Allergy status to sulfonamides
CPT/HCPCS: 45378; J2704

== ENCOUNTER → 2019-07-21 | Outpatient (CLI) | payer MEDICAID ==
[2019-07-21 09:44] LABS: Anisocytosis Marked; Basophils # (A) 0.1 k/uL (0-0.2); Basophils % (A) 1 %; Eosinophils # (A) 0.4 k/uL (0-0.7); Eosinophils % (A) 4 %; HCT 42.9 % (34.0-46.0); Hypochromasia Marked; Lymphocytes # (A) 2.5 k/uL (1.0-4.8); Lymphocytes % (A) 26 %; MCHC 30.9 g/dL (31.0-37.0); Mean Platelet Volume 9.4; Microcytosis Moderate; Monocytes # (A) 0.5 k/uL (0-1.0); Monocytes % (A) 5 %; Neutrophils # (A) 5.7 k/uL (1.3-7.7); Neutrophils % (A) 60 %; Platelet Count 231 k/uL (150-450); Poikilocytosis Slight; WBC 9.5 k/uL (3.8-10.6)
[2019-07-21 09:46] LABS: RDW 27.1 % (11.5-15.5)
[2019-07-21 09:48] LABS: HGB 13.3 gm/dL (11.4-16.0)
[2019-07-21 11:05] LABS: Mixed Population RBC Present
[2019-07-21 18:50] LABS: Hemoglobin A1C 5.7 % (4.0-6.0)
[2019-07-21 19:06] LABS: Iron Saturation 17.15 (12.00-45.00)
[2019-07-21 19:11] LABS: African American GFR (CKD) 56.5 (60.0-200.0); Albumin 4.9 g/dL (3.80-4.90); Albumin/Globulin Ratio 2.58 (1.60-3.17); Anion Gap 14.1 mmol/L (4.00-12.00); BUN/Creat Ratio 20.83 Ratio (12.00-20.00); Calcium 10.1 mg/dL (8.7-10.3); Carbon Dioxide 27.9 mmol/L (21.6-31.8); Globulin 1.9 g/dL (1.6-3.3); Potassium 3.9 mmol/L (3.5-5.5); Total Bilirubin 0.4 mg/dL (0.3-1.2); Total Protein 6.8 g/dL (6.2-8.2)
== END | disposition home or self-care (01) ==
LOC: LABWHC1 08:51
PROVIDERS: ATTEND Internal Medicine
DX: E11.21 Type 2 diabetes mellitus with diabetic nephropathy (principal); D50.9 Iron deficiency anemia, unspecified
CPT/HCPCS: 36415; 80053; 83036; 83540; 83550; 85025

== ENCOUNTER → 2019-12-29 | Outpatient (CLI) | payer MEDICAID ==
[2019-12-29 09:54] LABS: Basophils % (A) 0 %; Eosinophils # (A) 0.3 k/uL (0-0.7); Eosinophils % (A) 3 %; HCT 45.6 % (34.0-46.0); HGB 15.2 gm/dL (11.4-16.0); Lymphocytes # (A) 1.9 k/uL (1.0-4.8); Lymphocytes % (A) 23 %; MCH 31.3 pg (25.0-35.0); MCHC 33.3 g/dL (31.0-37.0); MCV 94.2 fL (80.0-100.0); Mean Platelet Volume 10.1; Monocytes # (A) 0.4 k/uL (0-1.0); Monocytes % (A) 5 %; Neutrophils # (A) 5.4 k/uL (1.3-7.7); Neutrophils % (A) 66 %; Platelet Count 240 k/uL (150-450); RBC 4.84 m/uL (3.80-5.40); RDW 13.8 % (11.5-15.5); WBC 8.2 k/uL (3.8-10.6)
[2019-12-29 15:54] LABS: % Iron Saturation 23.81 (12.00-45.00); African American GFR (CKD) 62.8 (60.0-200.0); Anion Gap 14.6 mmol/L (4.00-12.00); BUN/Creat Ratio 20.91 Ratio (12.00-20.00); Calcium 10.4 mg/dL (8.7-10.3); Carbon Dioxide 30.4 mmol/L (21.6-31.8); Non-African American GFR(CKD) 54.1 (60.0-200.0); Potassium 3.9 mmol/L (3.5-5.5)
[2019-12-29 16:36] LABS: Hemoglobin A1C 6.4 % (4.0-6.0)
== END | disposition home or self-care (01) ==
LOC: LABWHC1 08:49
PROVIDERS: ATTEND Internal Medicine
DX: E11.65 Type 2 diabetes mellitus with hyperglycemia (principal)
CPT/HCPCS: 36415; 80048; 83036; 83540; 83550; 85025

== ENCOUNTER → 2020-03-17 | Outpatient (CLI) | payer MEDICAID ==
--- NOTE | 2020-03-17 14:43 | CT ---
EXAMINATION TYPE: CT abdomen w con DATE OF EXAM: 03/17/2020 HISTORY: Upper abdominal pain. Prior Ulcer. CT DLP: 1100.9mGycm Automated Exposure Control for Dose Reduction was Utilized. CONTRAST: CT scan of the abdomen is performed with IV Contrast, patient injected with 100 mL of Isovue 300. COMPARISON: None. FINDINGS: LUNG BASES: No significant abnormality is appreciated. LIVER/GB: Cholecystectomy clips are present. Hepatomegaly is identified. Liver is hypodense suggestin g degree of fatty infiltration. PANCREAS: Single calcification in the proximal to mid body pancreatic image 26. Additional smaller ca lcification proximal body axial image 28. Findings presumed product of chronic pancreatitis. No surro unding inflammatory change noted. SPLEEN: No significant abnormality is seen. ADRENALS: Slight asymmetric thickening to left adrenal gland favoring benign lipid rich hyperplasia. KIDNEYS: Symmetric cortical medullary uptake and excretion from both kidneys without concerning mass or hydronephrosis bilaterally. BOWEL: Normal-appearing appendix seen from base of cecum. Oral contrast does not reach the level of t he terminal ileum making evaluation of distal bowel slightly suboptimal. Mild to moderate wall thicke mi involving the distal transverse colon up to splenic flexure. Consider mild uncomplicated acute c olitis versus product of poor distention. LYMPH NODES: No greater than 1cm abdominal lymph nodes are appreciated. OSSEOUS STRUCTURES: Fairly moderate multilevel disc space narrowing and vacuum disc phenomena at L1-L 2 through the L4-L5 levels. Posterior disc herniations effaces the anterior thecal sac L3-L4 level on sagittal image 66 and spur disc complex effaces the anterior thecal sac L4-L5 level same image. Face t arthropathy to lower lumbar levels. Moderate multilevel anterior and lateral spurring. OTHER: No significant additional abnormality is seen. IMPRESSION: 1. Hepatomegaly and suspected fatty infiltration of liver. Correlate clinically and with liver lab va lues. 2. Few granular calcifications throughout the pancreas raising concern for chronic pancreatitis. No C T evidence for complication related to acute pancreatitis noted. 3. Mild to moderate wall thickening distal transverse colon could be product of a mild uncomplicated acute colitis. Correlate clinically.
== END | disposition home or self-care (01) ==
LOC: RADCTMAIN 12:38
PROVIDERS: ATTEND Internal Medicine Hematology & Oncology
DX: R16.0 Hepatomegaly, not elsewhere classified (principal); K86.89 Other specified diseases of pancreas; R10.13 Epigastric pain; Z88.2 Allergy status to sulfonamides; Z88.5 Allergy status to narcotic agent; Z88.8 Allergy status to other drugs, medicaments and biological substances
CPT/HCPCS: 82565; 84520; 74160; 36415; Q9967

== ENCOUNTER 2020-04-18 08:35 | Observation (INO) | payer MEDICAID ==
[2020-04-14 09:10] VITALS: BMI 35.6
--- NOTE | 2020-04-17 11:53 | HP ---
HISTORY AND PHYSICAL DATE OF SURGERY: 04/18/2020 Betsy Aviles is a 60-year-old patient seen with symptomatic left knee osteoarthritis. We discussed options for treatment. She elected to proceed with left total knee arthroplasty. Consent regarding the procedure was obtained. Medical clearance was provided by Dr. Mares. PAST MEDICAL HISTORY: [id number] diabetes, hypertension. PAST SURGICAL HISTORY: Right total knee arthroplasty. DAILY MEDICATIONS: Actos, Glucophage, Lexapro, Neurontin, Percocet, Protonix. ALLERGIES: SULFA, MORPHINE. SOCIAL HISTORY: She denies current tobacco use. PHYSICAL EXAMINATION: Evaluation of the left knee shows range of motion is -3 to 115. Tenderness lateral joint line. Crepitus along the lateral patellofemoral compartments with range of motion. Ligaments stable. Hip rotation without pain. Distal neurovascular exam intact. RADIOGRAPHS: Radiographs of the left knee reveal severe lateral compartment and moderate to severe patellofemoral compartment osteoarthritis. IMPRESSION: 1. Left knee osteoarthritis. 2. Hypertension. 3. [id number] diabetes. PLAN: Left total knee arthroplasty. MMODL / IJN: [id number] /
[~2020-04-18 08:35] MED LIST changes: +ACETAMINOPHEN TAB 500 MG TAB PO ONE; +DEXAMETHASONE SOD PHOSPHATE 10 MG/ML 1 ML VIAL IV ONE; -LACTATED RINGERS 1,000 ML IV SCH; +LIDOCAINE 1% (10MG/ML) FOR IV START INTRADERMA PRN; -LIDOCAINE 1% 20 ML VIAL (10MG/ML) FOR IV START INTRADERMA PRN; +MELOXICAM 7.5 MG TAB PO ONE; +ONDANSETRON 4 MG/2 ML VIAL IVP ONE; +ROPIVACAINE 246.25 MG, EPINEPHrine 0.5 MG, KETOROLAC 30 MG, cloNIDine HCL/PF 80 MCG, WA... MISCELLANE ONE; +SCOPOLAMINE 1.5MG/72HR PATCH TRANSDERM ONE; +TRANEXAMIC ACID 1,000 MG in SODIUM CHLORIDE 0.9% 100 ML IVPB ONE
[2020-04-18] MEDS ORDERED: ONDANSETRON 4 MG/2 ML VIAL ONE (09:09)
[2020-04-18] MEDS ORDERED: ACETAMINOPHEN TAB 500 MG TAB ONE (09:09)
[2020-04-18] MEDS: LACTATED RINGERS 1,000 ML IV SCH ×2 (09:20→14:10)
[2020-04-18 09:21] LABS: Glucose,Whole Blood 140 mg/dL (75-99)
[2020-04-18] MEDS ORDERED: fentaNYL (PF) 50 MCG/ML 2 ML AMP IVP ONE (09:33)
[2020-04-18] MEDS ORDERED: MIDAZOLAM 2 MG/2 ML VIAL IV ONE (09:33)
--- NOTE | 2020-04-18 09:53 | P.ANPRN ---
Procedure Note - Anesthesia - Nerve Block Performed Left Adductor Canal Infusion Time Out Performed: Yes (T) Date of Procedure: 04/18/20 Procedure Start Time: 09:33 Procedure Stop Time: 09:41 Location of Patient: PreOp Indication: Requested by Surgeon Specifically requested for management of pain by DrCed: Faustino Oseguera Sedation Type: Sedate with meaningful contact maintained Preparation: Sterile Prep, Sterile Dressing Position: Supine Catheter: Indwelling Needle Types: Pajunk Needle Gauge: 18 Ultrasound used to visualize needle placement: Yes Ultrasound used to observe medication spread: Yes Injectate: 0.5% Ropivacaine (see comment for volume) (20 ml) Blood Aspirated: No Pain Paresthesia on Injection Noted: No Resistance on Injection: Normal Image Stored and Saved: Yes Events: Uneventful and Well Tolerated
[2020-04-18] MEDS ORDERED: LIDOCAINE 1% INJ 10MG/ML (20 ML MDV) ONE (09:56)
[2020-04-18] MEDS ORDERED: diphenhydrAMINE 50 MG/ML 1 ML VIAL ONE (09:56)
[2020-04-18] MEDS ORDERED: SODIUM CHLORIDE 0.9% 100 ML BAG ONE (09:56)
[2020-04-18] MEDS ORDERED: PROPOFOL 10 MG/ML 20 ML VIAL IV ONE (09:56)
[2020-04-18] MEDS ORDERED: TRANEXAMIC ACID 1,000 MG/10 ML VIAL ONE (09:56)
[2020-04-18] MEDS ORDERED: MIDAZOLAM 2 MG/2 ML VIAL ONE (09:56)
[2020-04-18] MEDS ORDERED: ROPIVACAINE 0.2%-NS ON-Q PUMP 1,090 MG, EMPTY PAIN BALL 1 EACH MISCELLANE PRN (09:56)
[2020-04-18] MEDS ORDERED: ceFAZolin 3,000 MG in SODIUM CHLORIDE 0.9% IRRIGATIO 3,000 ML IRRIGATION ONE (10:29)
[2020-04-18] MEDS ORDERED: LACTATED RINGERS 1,000 ML IV ONE (11:23)
--- NOTE | 2020-04-18 11:33 | P.OP ---
Date of Procedure: 04/18/20 Preoperative Diagnosis: Left knee osteoarthritis Postoperative Diagnosis: Left knee osteoarthritis Procedure(s) Performed: Left total knee arthroplasty Implants: 1. Depuy attune size 6 narrow cruciate retaining cemented femur 2. Depuy attune size 6 fixed bearing cemented tibial baseplate 3. Depuy attune size 6 fixed bearing cruciate retaining 5 mm polyethylene tibial insert 4. Depuy attune 38 mm all polyethylene cemented patella Anesthesia: regional (Adductor canal catheter), local, spinal Surgeon: Faustino Oseguera Metal Drill Operator #1: Ronaldo Melo Estimated Blood Loss (ml): 50 Pathology: other (Bone) Condition: stable Disposition: PACU Indications for Procedure: 60-year-old patient seen with symptomatic left knee osteoarthritis. After having treatment options discussed, she elected to proceed with total knee arth roplasty. Operative Findings: See description of procedure Description of Procedure: Patient was taken to the operative suite after having an adductor canal catheter placed by the department of anesthesia. Patient underwent a spinal anesthetic by the department of anesthesia. Patient was given preoperative IV intake antibiotics and TXA. A well-padded tourniquet was placed about the left lower extremity. The lower extremity was then prepped and draped in the normal sterile orthopedic fashion. The extremity was elevated, a tourniquet was i nsufflated to 300. A standard anterior incision was made sharply through skin. Dissection was taken down through the subcutaneous soft tissues down to the extensor mechanism. A medial arthrotomy was performed, patella was everted and knee was flexed. There was advanced osteoarthritis noted. I introduced my distal intramedullary femoral drill. I then introduced the distal femoral cutting jig. Jose SWEET secured the cutting jig with 2 pins. I held retractors in position while Jose SWEET performed the distal femoral resection through the guide area we now removed her distal femoral cutting guide. We now placed our 4-in-1 femoral cutting block and positioned and it was secured with 2 pins by Jose SWEET while I held the block in position. The distal femoral finishing was now completed. A proximal tibial cutting guide was positioned. I held the guide in the appropriate position with both hands well Jose SWEET inserted stabilizing pins into the guide. Proximal tibial cut was made. We now placed a trial femoral component into position, along with an appropriate size tibial tray and insert. We now took the knee through range of motion and had full extension good flexion and good overall soft tissue balance noted. The patella was everted and stabilized with 2 towel clips held by Jose SWEET while I performed a flush with patellar quad tendon utilizing a fresh sawblade. We templated the patella, appropriate drill holes were made. An appropriate trial patella was positioned, knee was taken through full range of motion with the patella tracking very nicely. The trial patella was removed. Drill holes were made through the femoral component. All trial components were removed after marking off the appropriate rotation of the tibia. Retractors wer e now positioned along the proximal tibia. An appropriate keel punch was made with the appropriate size tibial guide by myself on Jose SWEET assisted by holding retractors. At this point appropriate size implants were chosen and opened. The joint was irrigated copiously with pulse lavage mechanical irrigation. The posterior capsule was infiltrated with local analgesic. The wound was irrigated with pulse lavage mechanical irrigation. We mixed antibiotic methylmethacrylate. We placed the knee into flexion. We placed multiple retractors assisted by Jose SWEET to expose the proximal tibia. Once the methyl methacrylate was ready, the tibial component was cemented into place removing any excess methylmethacrylate form by both myself and Jose SWEET. The femoral component was cemented into place removing the removing any excess methylmethacrylate performed by both myself and Jose SWEET. We then inserted the appropriate size polyethylene tibial insert. We made sure that it was locked into position. We took the knee into full extension, and then back in a flexion making sure we had removed any excess methylmethacrylate. The patellar component was then cemented down and secured with clamp. Excess methylmethacrylate removed. We kept the knee in full extension, patellar clamp in position until methylmethacrylate had hardened. Once it had hardened the patellar clamp was removed. The knee was taken through full range of motion. The patella tracked nicely. There was good soft tissue balancing. The tourniquet was now released. Additional hemostasis was achieved via electrocautery. A second gram of TXA was given. The wound again was irrigated with pulse lavage mechanical irrigation. The superficial soft tissues were infiltrated local analgesic. The extensor mechanism was repaired with Vicryl. We checked the repair with range of motion and it was stable. The subcutaneous soft tissues were repaired with Vicryl in layers. The skin was approximated with pernio/Dermabond. Sterile dressings were applied followed by loose web roll and Kameron bandage. The patient was transferred to a bed, and taken to recovery in stable and satisfactory condition. Jose SWEET assisted with this complex procedure.
[2020-04-18] MEDS ORDERED: HYDROmorphone 1 MG/ML 1 ML SYRINGE IVP PRN (11:36)
[2020-04-18] MEDS ORDERED: ONDANSETRON 4 MG/2 ML VIAL IVP PRN (11:36)
[2020-04-18] MEDS ORDERED: HYDROcodone/APAP 5-325MG 1 EACH TAB PO PRN (11:36)
[2020-04-18] MEDS ORDERED: NALOXONE 0.4 MG/ML 1 ML VIAL IV PRN (11:36)
[2020-04-18] MEDS ORDERED: HYDROcodone/APAP 7.5-325MG 1 EACH TAB PO PRN (11:36)
[2020-04-18] MEDS ORDERED: HYDROmorphone 0.5 MG/0.5 ML SYRINGE IVP PRN (11:36)
--- NOTE | 2020-04-18 12:30 | XR ---
Left knee HISTORY: Status post left knee arthroplasty 2 views of the left knee correlated prior exam 10/10/2017 Patient is status post left knee arthroplasty. There is anatomic alignment. Lucency is present in the soft tissues. IMPRESSION: Orthopedic follow-up
[2020-04-18 12:44] LABS: Glucose,Whole Blood 160 mg/dL (75-99)
[2020-04-18] MEDS ORDERED: ALPRAZolam 0.25 MG TAB PO PRN (14:02)
[2020-04-18] MEDS: HYDROmorphone 0.5 MG/0.5 ML SYRINGE IVP PRN ×2 (14:16→19:45)
[2020-04-18 16:54] LABS: Glucose,Whole Blood 212 mg/dL (75-99)
[2020-04-18] MEDS: oxyCODONE-APAP 10-325MG 1 EACH TAB PO PRN ×2 (17:21→23:33)
[2020-04-18] MEDS: GABAPENTIN 300 MG CAP PO SCH ×2 (17:21→19:46)
[2020-04-18] MEDS: PANTOPRAZOLE 40 MG TABLET PO SCH (17:21)
[2020-04-18] MEDS: ENOXAPARIN 30 MG/0.3 ML SYRINGE SQ SCH (19:39)
[2020-04-18 19:45] VITALS: RESP 18
[2020-04-18 20:54] LABS: Glucose,Whole Blood 111 mg/dL (75-99)
[2020-04-18] MEDS ORDERED: ATORVASTATIN 40 MG TAB PO SCH (21:00)
[2020-04-18] MEDS ORDERED: SENNOSIDES-DOCUSATE SODIUM 1 EACH TAB PO SCH (21:00)
--- NOTE | 2020-04-18 23:49 | P.CON ---
Consult Note - . Consult date: 04/18/20 Assessment/Plan:: Reason for consult-management of chronic medical conditions [facility]-Ms. Aviles is a 60-year-old male with a past medical history of diabetes mellitus, COPD, hyperlipidemia, hypertension, breast cancer, migraine headaches, chronic pancreatitis admitted to the hospital for left knee total arthroplasty. Patient had the procedure done this morning. She is comfortably sitting up in the bed, has no active complaints. Postop patient's vitals temperature 97.9, heart rate 57, respiratory 16, blood pressure 114/77, saturating at 96% on 2 L of nasal cannula. Patient denies having any chest pain or palpitations. No cough or difficulty in breathing. No abdominal pain nausea vomiting or diarrhea. No dysuria or hematuria. No orthopnea PND or lower extremity swelling. No headache, blurring of vision, slurred speech, weakness of the extremities. Review of Systems Constitutional: Denies chills, Denies fever Eyes: denies blurred vision, denies pain Ears, nose, mouth and throat: Denies headache, Denies sore throat Cardiovascular: Denies chest pain, Denies shortness of breath Respiratory: Denies cough Gastrointestinal: Denies abdominal pain, nausea/vomiting, diarrhea Musculoskeletal: Denies myalgias Integumentary: Denies pruritus, Denies rash Neurological: Denies numbness, Denies weakness Psychiatric: Denies anxiety, Denies depression Endocrine: Denies fatigue, Denies weight change Past Medical History Past Medical History: Cancer, COPD, Diabetes Mellitus, GI Bleed, Hyperlipidemia, Hypertension, Osteoarthritis (OA) Additional Past Medical History / Comment(s): December 2016 for angioedema, breast CA 1995 -radiation tx, uterine CA 1991,migraines,urosepsis,varicose veins, recent PVC', hx melanoma, low iron levels, GI bleed 2018, EGD-showed raw ulcers 2018, CT showed colitis and chronic pancreatitis, anemia History of Any Multi-Drug Resistant Organisms: None Reported Past Surgical History: Adenoidectomy, Breast Surgery, Cholecystectomy, Hysterectomy, Orthopedic Surgery, Tonsillectomy Additional Past Surgical History / Comment(s): lt breast lumpectomy,lt knee arthroscopy,dougie cataracts, melanoma removed from left lower leg Past Anesthesia/Blood Transfusion Reactions: No Reported Reaction, Family History of Problems w/ Anesthesia Additional Past Anesthesia/Blood Transfusion Reaction / Comment(s): no hx blood transfusion. mother has diff being put out Past Psychological History: Depression Smoking Status: Former smoker Past Alcohol Use History: None Reported Additional Past Alcohol Use History / Comment(s): smoked <1/2 ppd since age 14,, quit smoking 4 yrs ago Past Drug Use History: None Reported Additional Drug Use History / Comment(s): occ topical CBD - Past Family History Father Family Medical History: Cancer Additional Family Medical History / Comment(s): prostate Mother Family Medical History: Cancer Medications and Allergies Home Medications Medication Instructions Recorded Confirmed Type metFORMIN HCL [Metformin HCl] 850 mg PO BID 06/24/16 04/14/20 History Chlorthalidone [Hygroton] 25 mg PO DAILY 03/11/19 04/14/20 History Escitalopram [Lexapro] 20 mg PO DAILY 03/11/19 04/14/20 History Gabapentin [Neurontin] 300 mg PO TID 03/11/19 04/14/20 History Pioglitazone HCl [Actos] 15 mg PO DAILY 03/11/19 04/14/20 History amLODIPine [Norvasc] 10 mg PO DAILY 03/11/19 04/14/20 History Pantoprazole [Protonix] 40 mg PO AC-BID #60 tablet. 03/13/19 04/14/20 Rx Atorvastatin [Lipitor] 40 mg PO HS 05/03/19 04/14/20 History ALPRAZolam [Xanax] 0.25 mg PO TID PRN 04/14/20 04/14/20 History Magnesium Chloride [Slow Mag] 128 mg PO DAILY 04/14/20 04/14/20 History Potassium Chloride ER [K-Dur 20] 20 meq PO BID 04/14/20 04/14/20 History oxyCODONE-APAP 10-325MG [Percocet 1 tab PO TID 04/14/20 04/14/20 History 10-325 mg] Allergies Allergy/AdvReac Type Severity Reaction Status Date / Time losartan [From Cozaar] Allergy Unknown Verified 04/14/20 08:54 morphine Allergy Hallucinati Verified 04/14/20 08:54 ons Sulfa (Sulfonamide Allergy Itching Verified 04/14/20 08:54 Antibiotics) Sani-cloth germacidal disp AdvReac angioedema Uncoded 04/14/20 08:54 wipes (super purple container [facility] uses) Physical Exam Vitals: Vital Signs Temp Pulse Resp BP Pulse Ox 04/18/20 15:33 106/71 04/18/20 15:00 97.9 F 57 L 16 114/77 96 04/18/20 13:20 97.9 F 57 L 16 114/77 96 04/18/20 12:44 65 16 115/74 96 04/18/20 12:30 62 16 135/82 96 04/18/20 12:15 70 16 137/91 96 04/18/20 12:03 72 16 150/82 93 L 04/18/20 11:52 98.4 F 75 14 135/70 93 L 04/18/20 09:44 66 16 144/96 96 04/18/20 09:18 98.4 F 75 16 146/98 98 Intake and Output 04/18/20 04/18/20 04/18/20 06:59 14:59 22:59 Intake Total 2811 Output Total 50 Balance 2761 Intake: IV 1951 Intake, IV Titration 100 Amount Lactated Ringers 1,000 ml 100 @ 100 mls/hr IV .Q10H [facility] Rx#:[id number] Oral 760 Output: Estimated Blood Loss 50 Other: Weight 107.1 kg Patient is lying in the bed comfortably, no acute distress, awake alert and oriented. HEENT: Normocephalic. Neck is supple. Pupils reactive. Nostrils clear. Oral cavity is moist. Neck reveals no JVD, carotid bruits, or thyromegaly. CHEST EXAMINATION: Trachea is central. Symmetrical expansion. Few scattered ronchi. CARDIAC: Normal S1, S2 with no gallops. No murmurs ABDOMEN: Soft. Surgical site is bandaged. Bowel sounds diminished. No abdominal bruits. Extremities: no edema. No clubbing or cyanosis Left knee wrapped in ruma bandage, neurovascularly intact Neurologically awake, alert, oriented x3 with well-coordinated movements. No focal deficits noted Skin: No rash or skin lesions. Psychiatric: Coperative. Nonsuicidal Musculoskeletal: No joint swelling or deformity. Normal range of motion. Results Labs: Abnormal Lab Results - Last 24 Hours (Table) 04/18/20 04/18/20 04/18/20 Range/Units 09:16 12:43 16:53 POC Glucose (mg/dL) 140 H 160 H 212 H (75-99) mg/dL ASSESSMENT Left knee arthroplasty COPD Type 2 diabetes mellitus Hypertension Hyperlipidemia History of breast cancer Chronic pancreatitis Migraine headaches Varicose veins History of melanoma History of GI bleed History of depression PLAN: Postop patient's vitals have been stable. Patient's blood pressure has been running slightly on the lower side, will hold all blood pressure medications. Will hold off on hypoglycemic agents, CBG checks AC. Continue with current pain management regimen. Encouraged to do incentive spirometry. She is on Lovenox for anticoagulation. Further recommendations depending on the progress of the patient. Thank you for the consult, will follow the patient.
[2020-04-19] MEDS: LACTATED RINGERS 1,000 ML IV SCH ×3 (00:31→08:02)
[2020-04-19] MEDS: HYDROmorphone 0.5 MG/0.5 ML SYRINGE IVP PRN ×3 (03:38→15:55)
[2020-04-19] MEDS: oxyCODONE-APAP 10-325MG 1 EACH TAB PO PRN ×2 (05:42→11:40)
[2020-04-19 06:50] LABS: Glucose,Whole Blood 151 mg/dL (75-99)
[2020-04-19] MEDS: GABAPENTIN 300 MG CAP PO SCH ×2 (07:31→15:55)
[2020-04-19] MEDS: PANTOPRAZOLE 40 MG TABLET PO SCH (07:31)
[2020-04-19] MEDS: ENOXAPARIN 30 MG/0.3 ML SYRINGE SQ SCH (07:31)
--- NOTE | 2020-04-19 07:35 | P.PN ---
Progress Note - Text Progress Note Date: 04/19/20 Postoperative day # 1 status post total knee arthroplasty, under spinal anesthesia, and adductor canal catheter placed for postoperative analgesia, currently at ropivacaine 0.2% 8 mL per hour and continuous infusion, patient using oral pain medication for breakthrough pain. Assessment and plan= Acute postoperative pain, adductor canal catheter for pain control, pain is well controlled we'll continue the same management.
[2020-04-19 07:47] LABS: Basophils # (A) 0.1 k/uL (0-0.2); Basophils % (A) 1 %; Eosinophils # (A) 0.3 k/uL (0-0.7); Eosinophils % (A) 2 %; HCT 36.9 % (34.0-46.0); Lymphocytes # (A) 1.4 k/uL (1.0-4.8); Lymphocytes % (A) 10 %; MCH 31.8 pg (25.0-35.0); MCHC 32.9 g/dL (31.0-37.0); MCV 96.6 fL (80.0-100.0); Mean Platelet Volume 9.7; Monocytes # (A) 0.7 k/uL (0-1.0); Monocytes % (A) 5 %; Neutrophils # (A) 11.4 k/uL (1.3-7.7); Neutrophils % (A) 82 %; Platelet Count 179 k/uL (150-450); RBC 3.82 m/uL (3.80-5.40)
[2020-04-19 08:02] LABS: Calcium 8.6 mg/dL (8.4-10.2); Potassium 3.7 mmol/L (3.5-5.1)
[2020-04-19 08:09] LABS: HGB 12.1 gm/dL (11.4-16.0)
--- NOTE | 2020-04-19 08:56 | P.PN ---
Subjective From records [facility]-Ms. Aviles is a 60-year-old male with a past medical history of diabetes mellitus, COPD, hyperlipidemia, hypertension, breast cancer, migraine headaches, chronic pancreatitis admitted to the hospital for left knee total arthroplasty. Patient had the procedure done this morning. She is comfortably sitting up in the bed, has no active complaints. Postop patient's vitals temperature 97.9, heart rate 57, respiratory 16, blood pressure 114/77, saturating at 96% on 2 L of nasal cannula. Patient denies having any chest pain or palpitations. No cough or difficulty in breathing. No abdominal pain nausea vomiting or diarrhea. No dysuria or hematuria. No orthopnea PND or lower extremity swelling. No headache, blurring of vision, slurred speech, weakness of the extremities. Subjective 04/19/2020 This is a pleasant 60 years old female who presents with left to left knee arthroplasty for her severe osteoarthritis. Postoperatively she is doing well with no chest pain or dyspnea, no abdominal pain. She is tolerating diet well, she did not have bowel movement but she is passing gases Blood pressure was low normal this morning 97/60, she is not tachycardic, dissected patient withholding her Norvasc and asked her to follow up with her PCP to check her blood pressure and she agrees Also her sugar was ranging between 111-212, this morning was 140, her metformin and Actos ring hold Patient was instructed to keep checking her sugar 4 times a day before each meal and at bedtime and keep the numbers in a book and recommended to her doctor, also patient was informed if sugar less than 70 or more than 400 to call 911 on come to emergency room and she agrees Objective - Vital Signs Vital signs: Vital Signs Temp 98.3 F 04/19/20 07:00 Pulse 82 04/19/20 07:00 Resp 18 04/19/20 07:00 BP 97/60 04/19/20 07:00 Pulse Ox 95 04/19/20 07:00 Intake & Output 04/18/20 04/19/20 04/19/20 18:59 06:59 18:59 Intake Total 2811 250 Output Total 50 Balance 2761 250 Weight 107.1 kg Intake: IV 1950 Intake, IV Titration 100 Amount Lactated Ringers 1,000 ml 100 @ 100 mls/hr IV .Q10H [facility] Rx#:[id number] Oral 760 250 Output: Estimated Blood Loss 50 Other: Voiding Method Toilet # Voids 1 - Exam GENERAL: The patient is alert and oriented x3, not in any acute distress. Well developed, well nourished. HEENT: Pupils are round and equally reacting to light. EOMI. No scleral icterus. No conjunctival pallor. Normocephalic, atraumatic. No pharyngeal erythema. No thyromegaly. CARDIOVASCULAR: S1 and S2 present. No murmurs, rubs, or gallops. PULMONARY: Chest is clear to auscultation, no wheezing or crackles. ABDOMEN: Soft, nontender, nondistended, normoactive bowel sounds. No palpable organomegaly. MUSCULOSKELETAL: No joint swelling or deformity. EXTREMITIES: No cyanosis, clubbing, or pedal edema. Left knee wound is clean and dry NEUROLOGICAL: Gross neurological examination did not reveal any focal deficits. SKIN: No rashes. no petechiae. - Labs CBC & Chem 7: 04/19/20 07:13 04/19/20 07:13 Labs: Abnormal Lab Results - Last 24 Hours (Table) 04/18/20 04/18/20 04/18/20 Range/Units 09:16 12:43 16:53 WBC (3.8-10.6) k/uL Neutrophils # (1.3-7.7) k/uL Sodium (137-145) mmol/L Carbon Dioxide (22-30) mmol/L BUN (7-17) mg/dL Creatinine (0.52-1.04) mg/dL Glucose (74-99) mg/dL POC Glucose (mg/dL) 140 H 160 H 212 H (75-99) mg/dL 04/18/20 04/19/20 04/19/20 Range/Units 20:53 06:49 07:13 WBC 14.0 H (3.8-10.6) k/uL Neutrophils # 11.4 H (1.3-7.7) k/uL Sodium (137-145) mmol/L Carbon Dioxide (22-30) mmol/L BUN (7-17) mg/dL Creatinine (0.52-1.04) mg/dL Glucose (74-99) mg/dL POC Glucose (mg/dL) 111 H 151 H (75-99) mg/dL 04/19/20 Range/Units 07:13 WBC (3.8-10.6) k/uL Neutrophils # (1.3-7.7) k/uL Sodium 136 L (137-145) mmol/L Carbon Dioxide 31 H (22-30) mmol/L BUN 30 H (7-17) mg/dL Creatinine 1.21 H (0.52-1.04) mg/dL Glucose 140 H (74-99) mg/dL POC Glucose (mg/dL) (75-99) mg/dL Assessment and Plan Assessment: Severe osteoarthritis, status post Left knee arthroplasty Leukocytosis, mostly reactive Dehydration with Mild increase in creatinine COPD, not in acute exacerbation Type 2 diabetes mellitus Hypertension Hyperlipidemia History of breast cancer Chronic pancreatitis Migraine headaches Varicose veins History of melanoma History of GI bleed History of depression Plan: This is a pleasant 60 years old female who presents with left total knee arthroplasty. She's looks little bit dehydrated with some postural symptoms and mild increase in creatinine, therefore was recommended to continue with IV hydration and monitor blood pressure closely. Hold diabetes medication and monitor sugars DVT prophylaxis and pain management as per primary team Labs and medication were reviewed.. Continue same treatment. Continue with symptomatic treatment. Resume home medication. Monitor lytes and vitals. DVT and GI prophylaxis. Further recommendations of the clinical course of the patient We recommend patient to follow-up with her PCP Dr. Mares within one week and patient was instructed with the same Thank you for consulting us, please feel free to contact us for any further question or clarification
[2020-04-19] MEDS ORDERED: MELOXICAM 7.5 MG TAB PO SCH (09:00)
[2020-04-19] MEDS ORDERED: amLODIPine 10 MG TAB PO SCH (09:00)
[2020-04-19] MEDS ORDERED: ESCITALOPRAM 20 MG TAB PO SCH (09:00)
[2020-04-19 11:46] LABS: Glucose,Whole Blood 124 mg/dL (75-99)
--- NOTE | 2020-04-19 15:15 | P.PN ---
Subjective Progress Note Date: 04/19/20 Principal diagnosis: Status post left total knee arthroplasty Patient evaluated early this morning, she was doing very well. She was having a little trouble with pain control, she does take oxycodone at home. She is utilizing the pain ball at this time also. She did very well with therapy. She denies any chest pain or shortness of breath. Objective - Vital Signs Vital signs: Vital Signs Temp 98.2 F 04/19/20 11:26 Pulse 71 04/19/20 11:26 Resp 18 04/19/20 11:26 BP 107/71 04/19/20 11:26 Pulse Ox 91 L 04/19/20 11:26 Intake & Output 04/18/20 04/19/20 04/19/20 18:59 06:59 18:59 Intake Total 2811 250 580 Output Total 50 Balance 2761 250 580 Weight 107.1 kg Intake: IV 1950 Intake, IV Titration 100 Amount Lactated Ringers 1,000 ml 100 @ 100 mls/hr IV .Q10H [facility] Rx#:[id number] Oral 760 250 580 Output: Estimated Blood Loss 50 Other: Voiding Method Toilet # Voids 1 2 - Exam Left lower extremity: Incision is clean, dry, and intact. The exofin fusion tape is in good condition. There is minimal soft tissue swelling and ecchymosis surrounding the medial and lateral aspects of the incision. Calf is soft, no tenderness with palpation. Plantar flexion, dorsiflexion, EHL, FHL are intact. Sensory exam to light touch throughout the extremity is intact, dorsal pedis pulses 2+. - Labs CBC & Chem 7: 04/19/20 07:13 04/19/20 07:13 Labs: Abnormal Lab Results - Last 24 Hours (Table) 04/18/20 04/18/20 04/19/20 Range/Units 16:53 20:53 06:49 WBC (3.8-10.6) k/uL Neutrophils # (1.3-7.7) k/uL Sodium (137-145) mmol/L Carbon Dioxide (22-30) mmol/L BUN (7-17) mg/dL Creatinine (0.52-1.04) mg/dL Glucose (74-99) mg/dL POC Glucose (mg/dL) 212 H 111 H 151 H (75-99) mg/dL 04/19/20 04/19/20 04/19/20 Range/Units 07:13 07:13 11:45 WBC 14.0 H (3.8-10.6) k/uL Neutrophils # 11.4 H (1.3-7.7) k/uL Sodium 136 L (137-145) mmol/L Carbon Dioxide 31 H (22-30) mmol/L BUN 30 H (7-17) mg/dL Creatinine 1.21 H (0.52-1.04) mg/dL Glucose 140 H (74-99) mg/dL POC Glucose (mg/dL) 124 H (75-99) mg/dL Assessment and Plan Assessment: Status post left total knee arthroplasty Plan: Pain control, will resume her normal home medication GI and DVT prophylaxis, history of GI bleed with aspirin. Will utilize Lovenox 40 mg daily for 2 weeks Wound care instructions discussed, icing and elevating techniques discussed Medical recommendations Home physical therapy and nursing after discharge Discharge planning: Plan for discharge home today Time with Patient: Less than 30
--- NOTE | 2020-04-19 15:15 | P.DS ---
Providers Date of admission: 04/18/2020 Expected date of discharge: 04/19/20 Attending physician: Faustino Oseguera Consults: 04/18/20 11:36 Consult Physician Routine Consulting Provider: Catalino Alcantara Consult Reason/Comments: Medical management Do you want consulting provider notified?: Yes Primary care physician: [facility] Course: Date of admission: 04/18/2020 Date of discharge: 04/19/2020 Admission diagnosis: Status post left total knee arthroplasty Discharge diagnosis: Same Attending physician: Dr. Oseguera Surgical procedures: Left total knee arthroplasty Brief history: Patient is a 60-year-old female with a history of progressive primary left knee osteoarthritis. At this point patient has failed conservative treatment measures and has opted to proceed with a elective left total knee arthroplasty. Hospital course: Details of patient's surgery can be found in operative report. Patient tolerated the procedure well and was subsequently transported to orthopedic floor. Patient's orthopeidc and medical care was provided daily. Patient had daily laboratory tests performed for evaluation of overall blood counts. Patient had daily physical therapy to include strengthening range of motion as well as education with walker ambulation. Patient was treated with Lovenox for their postoperative DVT prophylaxis during their inpatient stay. Patient was noted to have a relatively uneventful postoperative course. Patient reported satisfactory pain control with oral pain medications by postoperative day 0. Patient showed satisfactory progress with physical therapy. Patient moved steadily through the program and had no difficulty meeting the goals by postoperative day 1. Given patient's otherwise satisfactory course and having m et physical therapy goals, plan is to discharge patient home on postoperative day 1. Discharge condition/disposition: Patient will be discharged home in stable condition. Discharge medications: Instructions are given on resumption of patient's normal daily medications per primary care recommendation, in addition patient will be prescribed Lovenox 40 mg. Discharge instructions: 1. Wound care and infection precautions, keep incision dry and covered while showering, no lotions, creams, moisturizers. No soaking, tubs, pools, hottubs. Do not scrub over the incision. 2. Weight-bear as tolerated with walker / cane until follow-up. 3. Ice and elevate when necessary. Do not exceed 20 minutes per hour with ice pack. 4. Utilize compression sleeve until seen at first follow up appointment. 5. Visiting nursing care. 6. Home physical therapy including home CPM. 7. Pain meds and anticoagulants per prescription. 8. Pain medication has potential to cause constipation. Increase oral fluid and fiber intake. Contact primary care provider if you have not had a bowel movement within 48 hours after discharge 9. No anti-inflammatory medication until discussed at first post operative visit, this including Motrin, Aleve, Mobic, Diclofenac, Aspirin. 10. Follow up in office at 2 weeks postop with Jose Melo PA-C 11. Follow up with your primary care doctor 7-10 days after discharge. 12. Contact [facility] with any questions, . Procedures: Left total knee arthroplasty Patient Condition at Discharge: Good Plan - Discharge Summary Discharge Rx Participant: Yes New Discharge Prescriptions: New Enoxaparin [Lovenox] 40 mg SQ DAILY #14 syringe No Action metFORMIN HCL [Metformin HCl] 850 mg PO BID Escitalopram [Lexapro] 20 mg PO DAILY Pioglitazone HCl [Actos] 15 mg PO DAILY Chlorthalidone [Hygroton] 25 mg PO DAILY amLODIPine [Norvasc] 10 mg PO DAILY Gabapentin [Neurontin] 300 mg PO TID Pantoprazole [Protonix] 40 mg PO AC-BID #60 tablet. Atorvastatin [Lipitor] 40 mg PO HS Magnesium Chloride [Slow Mag] 128 mg PO DAILY oxyCODONE-APAP 10-325MG [Percocet 10-325 mg] 1 tab PO TID Potassium Chloride ER [K-Dur 20] 20 meq PO BID ALPRAZolam [Xanax] 0.25 mg PO TID PRN PRN Reason: Anxiety Discharge Medication List metFORMIN HCL [Metformin HCl] 850 mg PO BID 06/24/16 [History] Chlorthalidone [Hygroton] 25 mg PO DAILY 03/11/19 [History] Escitalopram [Lexapro] 20 mg PO DAILY 03/11/19 [History] Gabapentin [Neurontin] 300 mg PO TID 03/11/19 [History] Pioglitazone HCl [Actos] 15 mg PO DAILY 03/11/19 [History] amLODIPine [Norvasc] 10 mg PO DAILY 03/11/19 [History] Pantoprazole [Protonix] 40 mg PO AC-BID #60 tablet. 03/13/19 [Rx] Atorvastatin [Lipitor] 40 mg PO HS 05/03/19 [History] ALPRAZolam [Xanax] 0.25 mg PO TID PRN 07/16/20 [History] Magnesium Chloride [Slow Mag] 128 mg PO DAILY 04/14/20 [History] Potassium Chloride ER [K-Dur 20] 20 meq PO BID 04/14/20 [History] oxyCODONE-APAP 10-325MG [Percocet 10-325 mg] 1 tab PO TID 04/14/20 [History] Enoxaparin [Lovenox] 40 mg SQ DAILY #14 syringe 04/19/20 [Rx] Follow up Appointment(s)/Referral(s): [facility], [NON-STAFF] - Ronaldo Melo PAC [PHYSICIAN SENIOR PRINCIPAL] - 05/04/20 2:30 pm Gadiel Mares MD [Primary Care Provider] - 1 Week Activity/Diet/Wound Care/Special Instructions: Orthopedic Discharge Instructions: 1. Wound care and infection precautions, keep incision dry and covered while showering, no lotions, creams, moisturizers. No soaking, pools, hot tubs. Do not scrub over incision. 2. Weight-bear as tolerated with walker / cane until follow-up. 3. Ice and elevate when necessary. Do not exceed 20 minutes per hour with ice pack. 4. Utilize compression sleeve until seen at first follow up appointment. 5. Pain meds and anticoagulants per prescription. 6. Pain medication has potential to cause constipation. Increase oral fluid and fiber intake. Contact primary care provider if you have not had a bowel movement within 48 hours after discharge. 7. No anti-inflammatory medication until discussed at first post operative visit, this including Motrin, Aleve, Mobic, Diclofenac. 8. Follow up in office at 2 weeks postop with Jose Melo PA-C 9. Follow up with your primary care doctor 7-10 days after discharge. 10. Contact [facility] with any questions, [phone]. 11. *Please call [facility] once home to arrange delivery of Continuous Passive Motion (CPM) machine: [phone] Discharge Disposition: HOME WITH HOME HEALTH SERVICES
[2020-04-19 15:51] VITALS: BP 111/68; PULSE 75; TEMP 98.5
== END 2020-04-19 16:31 | disposition home health service (06) ==
LOC: OR 08:35 → 4SSUR 11:57 → OR 04-19 04:49 → 4SSUR 04-19 04:49
PROVIDERS: ADMIT Orthopaedic Surgery; ATTEND Orthopaedic Surgery
DX: M17.12 Unilateral primary osteoarthritis, left knee (principal); I10 Essential (primary) hypertension; G89.18 Other acute postprocedural pain; E86.0 Dehydration; R79.89 Other specified abnormal findings of blood chemistry; J44.9 Chronic obstructive pulmonary disease, unspecified; E11.9 Type 2 diabetes mellitus without complications; G43.909 Migraine, unspecified, not intractable, without status migrainosus; E78.5 Hyperlipidemia, unspecified; K86.1 Other chronic pancreatitis; I83.90 Asymptomatic varicose veins of unspecified lower extremity; I49.3 Ventricular premature depolarization; D64.9 Anemia, unspecified; F32.9 Major depressive disorder, single episode, unspecified; Z79.84 Long term (current) use of oral hypoglycemic drugs; Z79.891 Long term (current) use of opiate analgesic; Z79.899 Other long term (current) drug therapy; Z88.2 Allergy status to sulfonamides; Z88.5 Allergy status to narcotic agent; Z91.048 Other nonmedicinal substance allergy status; Z85.3 Personal history of malignant neoplasm of breast; Z85.820 Personal history of malignant melanoma of skin; Z85.42 Personal history of malignant neoplasm of other parts of uterus; Z90.710 Acquired absence of both cervix and uterus; Z87.19 Personal history of other diseases of the digestive system; Z90.49 Acquired absence of other specified parts of digestive tract; Z98.42 Cataract extraction status, left eye; Z98.41 Cataract extraction status, right eye; Z87.891 Personal history of nicotine dependence; Z80.42 Family history of malignant neoplasm of prostate
CPT/HCPCS: 97110; 97161; 80048; 85025; 88300; 73560; 27447; 64448; G0378; J2250; J0171; J1200; J1100; J0690 ×3; J2405; J2001; J3010; J1885; J1650; J1170 ×3; J2795 ×2; J2704; J0735; 76942

== ENCOUNTER → 2021-06-13 | Outpatient (CLI) | payer MEDICAID ==
--- NOTE | 2021-06-14 12:37 | MM ---
Reason for exam: screening (asymptomatic). Last mammogram was performed 2 years and 9 months ago. History: Patient is postmenopausal, has history of endometrial cancer at age 30, and had first child at age 29. Benign left mammotome panel of the left breast, July 24, 2012. Cancelled Left Mammotome of the left breast, July 24, 2012. Physical Findings: A clinical breast exam by your physician is recommended on an annual basis and results should be correlated with mammographic findings. MG 3D Screening Mammo W/Cad Bilateral CC and MLO view(s) were taken. Prior study comparison: August 29, 2018, bilateral MG 3d screening mammo w/cad. July 15, 2015, bilateral MG 3d screening mammo w/cad. There are scattered fibroglandular densities. There are benign appearing round calcifications bilaterally. There is no discrete abnormality. ASSESSMENT: Benign, BI-RAD 2 RECOMMENDATION: Routine screening mammogram of both breasts in 1 year.
== END | disposition home or self-care (01) ==
LOC: RADMAMWWP 08:54
PROVIDERS: ATTEND Internal Medicine
DX: Z12.31 Encounter for screening mammogram for malignant neoplasm of breast (principal); Z78.0 Asymptomatic menopausal state; Z85.42 Personal history of malignant neoplasm of other parts of uterus
CPT/HCPCS: 77063; 77067

== ENCOUNTER 2022-04-02 10:30 | Emergency (ER) | payer MEDICAID ==
[2022-04-02] MEDS ORDERED: SODIUM CHLORIDE 0.9% 500 ML 500 ML IV STA (11:01)
[2022-04-02] MEDS ORDERED: methylPREDNISolone SOD SUCCI 125 MG/2 ML VIAL IV STA (11:01)
[2022-04-02] MEDS ORDERED: IPRATROPIUM-ALBUTEROL 3 ML NEB INHALATION STA (11:01)
--- NOTE | 2022-04-02 11:08 | ED ---
General Adult HPI - General Chief complaint: Upper Respiratory Infection Stated complaint: SOB Time Seen by Provider: 04/02/22 10:35 Source: patient, RN notes reviewed, old records reviewed Mode of arrival: ambulatory Limitations: no limitations - History of Present Illness Initial comments: This is a 61-year-old female presents emergency department stating that she has had some difficulty breathing over the last week and is getting progressively worse. Patient also states she's had some mild congestion. Patient states she feels as though she is wheezing and with any exertion she short of breath. Patient did see her primary medical care doctor but he did not give her any medication. Patient denies any chest pain or palpitations. Patient denies fever chills. Patient states she took a cold test at home and it was negative. Patient denies any facial pain. Patient denies any significant drainage. Patient denies any other symptoms at this time. - Related Data Home Medications Medication Instructions Recorded Confirmed metFORMIN HCL [Metformin HCl] 850 mg PO DIRECTED 06/24/16 04/02/22 amLODIPine [Norvasc] 10 mg PO DAILY 03/11/19 04/02/22 ALPRAZolam [Xanax] 0.5 mg PO TID PRN 02/06/22 04/02/22 Atorvastatin [Lipitor] 80 mg PO HS 02/06/22 04/02/22 Furosemide [Lasix] 20 mg PO DAILY PRN 02/06/22 04/02/22 Pregabalin [Lyrica] 150 mg PO BID 02/06/22 04/02/22 lisinopriL [Zestril] 2.5 mg PO DAILY 04/02/22 04/02/22 oxyCODONE-APAP 7.5-325MG [Percocet 1 tab PO DAILY PRN 04/02/22 04/02/22 7.5-325 mg] Previous Rx's Medication Instructions Recorded Albuterol Inhaler [Ventolin Hfa 1 - 2 puff INHALATION Q6HR PRN #2 04/02/22 Inhaler] each dexAMETHasone [Decadron] 6 mg PO DAILY #5 tab 04/02/22 Allergies Allergy/AdvReac Type Severity Reaction Status Date / Time losartan [From Cozaar] Allergy Unknown Verified 04/02/22 11:26 morphine Allergy Hallucinati Verified 04/02/22 11:26 ons Sulfa (Sulfonamide Allergy Itching Verified 04/02/22 11:26 Antibiotics) Sani-cloth germacidal disp AdvReac angioedema Uncoded 04/02/22 10:35 wipes (super purple container [facility] uses) Review of Systems ROS Statement: Those systems with pertinent positive or pertinent negative responses have been documented in the HPI. ROS Other: All systems not noted in ROS Statement are negative. Past Medical History Past Medical History: Cancer, COPD, Diabetes Mellitus, GERD/Reflux, Hyperl ipidemia, Hypertension, Osteoarthritis (OA) Additional Past Medical History / Comment(s): breast CA 1995 -radiation tx and uterine CA 1991,migraines,urosepsis,varicose veins rt leg,birthmark, LARGE BIRTHMARK ON LT ARM, melanoma, low iron levels. HX GI BLEED History of Any Multi-Drug Resistant Organisms: None Reported Past Surgical History: Adenoidectomy, Hysterectomy, Joint Replacement, Orthopedic Surgery, Tonsillectomy Additional Past Surgical History / Comment(s): lt breast lumpectomy,lt knee scope,dougie cataracts, melanoma removed from left lower leg, LT TKA, COLONOSCOPY/EGD, Past Anesthesia/Blood Transfusion Reactions: No Reported Reaction Additional Past Anesthesia/Blood Transfusion Reaction / Comment(s): no hx blood transfusion Past Psychological History: Anxiety, Depression Smoking Status: Former smoker Past Alcohol Use History: None Reported Past Drug Use History: None Reported - Past Family History Father Family Medical History: Cancer Additional Family Medical History / Comment(s): prostate Mother Family Medical History: Cancer General Exam - General Exam Comments Initial Comments: GENERAL: Patient is well-developed and well-nourished. Patient is nontoxic and well- hydrated and is in mild distress. ENT: Neck is soft and supple. No significant lymphadenopathy is noted. Oropharynx is clear. Moist mucous membranes. Neck has full range of motion without eliciting any pain. EYES: The sclera were anicteric and conjunctiva were pink and moist. Extraocular movements were intact and pupils were equal round and reactive to light. Eyelid s were unremarkable. PULMONARY: Unlabored respirations. Expiratory wheeze diffusely CARDIOVASCULAR: There is a regular rate and rhythm without any murmurs gallops or rubs. ABDOMEN: Soft and nontender with normal bowel sounds. SKIN: Skin is clear with no lesions or rashes and otherwise unremarkable. NEUROLOGIC: Patient is alert and oriented x3. Cranial nerves II through XII are grossly int act. Motor and sensory are also intact. Normal speech, volume and content. Symmetrical smile. MUSCULOSKELETAL: Normal extremities with adequate strength and full range of motion. LYMPHATICS: No significant lymphadenopathy is noted PSYCHIATRIC: Normal psychiatric evaluation. Limitations: no limitations Course Vital Signs 04/02/22 04/02/22 10:31 11:52 Temperature 97.7 F Pulse Rate 80 Respiratory 18 22 Rate Blood Pressure 219/124 O2 Sat by Pulse 98 Oximetry Medical Decision Making - Medical Decision Making EKG shows sinus rhythm at 63 bpm CA interval is 195 QRS is 93 QT intervals 43 QTC is 411. Patient's EKG shows no ST segment elevation or depression. Chest x-ray shows no acute abnormality. Patient received monoclonal antibodies. Patient received albuterol via inhaler and Solu-Medrol. Patient was feeling considerably better. - Lab Data Result diagrams: 04/02/22 11:18 04/02/22 11:18 Lab Results 04/02/22 04/02/22 04/02/22 Range/Units 11:18 11:18 11:18 WBC 10.3 (3.8-10.6) k/uL RBC 4.68 (3.80-5.40) m/uL Hgb 14.5 (11.4-16.0) gm/dL Hct 43.8 (34.0-46.0) % MCV 93.6 (80.0-100.0) fL MCH 31.0 (25.0-35.0) pg MCHC 33.1 (31.0-37.0) g/dL RDW 13.6 (11.5-15.5) % Plt Count 230 (150-450) k/uL MPV 9.6 Neutrophils % 62 % Lymphocytes % 26 % Monocytes % 5 % Eosinophils % 4 % Basophils % 1 % Neutrophils # 6.3 (1.3-7.7) k/uL Lymphocytes # 2.7 (1.0-4.8) k/uL Monocytes # 0.5 (0-1.0) k/uL Eosinophils # 0.4 (0-0.7) k/uL Basophils # 0.1 (0-0.2) k/uL Sodium 142 (137-145) mmol/L Potassium 4.3 (3.5-5.1) mmol/L Chloride 106 (98-107) mmol/L Carbon Dioxide 28 (22-30) mmol/L Anion Gap 8 mmol/L BUN 22 H (7-17) mg/dL Creatinine 0.90 (0.52-1.04) mg/dL Est GFR (CKD-EPI)AfAm 79 (>60 ml/min/1.73 sqM) Est GFR (CKD-EPI)NonAf 69 (>60 ml/min/1.73 sqM) Glucose 155 H (74-99) mg/dL Calcium 9.4 (8.4-10.2) mg/dL Magnesium 1.7 (1.6-2.3) mg/dL Total Bilirubin 0.5 (0.2-1.3) mg/dL AST 20 (14-36) U/L ALT 16 (4-34) U/L Alkaline Phosphatase 71 (38-126) U/L Total Protein 7.2 (6.3-8.2) g/dL Albumin 4.5 (3.5-5.0) g/dL Coronavirus (PCR) Detected A (Not Detectd) Disposition Clinical Impression: COVID-19 Disposition: HOME SELF-CARE Prescriptions: dexAMETHasone [Decadron] 6 mg PO DAILY #5 tab Albuterol Inhaler [Ventolin Hfa Inhaler] 1 - 2 puff INHALATION Q6HR PRN #2 each PRN Reason: Difficulty breathing Is patient prescribed a controlled substance at d/c from ED?: No Referrals: Yamil De Jesus MD [Primary Care Provider] - 1-2 days Time of Disposition: 12:43
[2022-04-02 11:28] LABS: HCT 43.8 % (34.0-46.0); HGB 14.5 gm/dL (11.4-16.0); MCHC 33.1 g/dL (31.0-37.0); MCV 93.6 fL (80.0-100.0); Platelet Count 230 k/uL (150-450); RBC 4.68 m/uL (3.80-5.40); RDW 13.6 % (11.5-15.5); WBC 10.3 k/uL (3.8-10.6)
[2022-04-02 11:29] LABS: Basophils # (A) 0.1 k/uL (0-0.2); Basophils % (A) 1 %; Eosinophils # (A) 0.4 k/uL (0-0.7); Eosinophils % (A) 4 %; Lymphocytes # (A) 2.7 k/uL (1.0-4.8); Lymphocytes % (A) 26 %; Mean Platelet Volume 9.6; Monocytes # (A) 0.5 k/uL (0-1.0); Monocytes % (A) 5 %; Neutrophils # (A) 6.3 k/uL (1.3-7.7); Neutrophils % (A) 62 %
[2022-04-02 11:39] LABS: Albumin 4.5 g/dL (3.5-5.0); Calcium 9.4 mg/dL (8.4-10.2); Magnesium 1.7 mg/dL (1.6-2.3); Potassium 4.3 mmol/L (3.5-5.1); Total Bilirubin 0.5 mg/dL (0.2-1.3); Total Protein 7.2 g/dL (6.3-8.2)
[2022-04-02] MEDS ORDERED: ALBUTEROL HFA INHALER INHALATION STA (11:46)
--- NOTE | 2022-04-02 11:59 | XR ---
EXAMINATION TYPE: XR chest 2V DATE OF EXAM: 04/02/2022 11:31 AM COMPARISON: Chest radiographs from 05/21/2019 TECHNIQUE: XR chest 2V Frontal and lateral views of the chest. CLINICAL INDICATION:Female, 61 years old with history of difficulty breathing; FINDINGS: Lungs/Pleura: There is no evidence of pleural effusion, focal consolidation, or pneumothorax. Pulmonary vascularity: Unremarkable. Heart/mediastinum: Cardiomediastinal silhouette is unremarkable. Musculoskeletal: No acute osseous pathology. IMPRESSION: No acute cardiopulmonary disease/process.
[2022-04-02] MEDS ORDERED: BEBTELOVIMAB (EUA) 175 MG/2 ML VIAL IV ONE (12:30)
[2022-04-02 13:56] VITALS: RESP 20
[2022-04-02 13:58] VITALS: BP 194/94; PULSE 70; TEMP 98
== END 2022-04-02 13:53 | disposition home or self-care (01) ==
LOC: EC 10:30
DX: U07.1 COVID-19 (principal); J44.9 Chronic obstructive pulmonary disease, unspecified; E11.9 Type 2 diabetes mellitus without complications; K21.9 Gastro-esophageal reflux disease without esophagitis; E78.5 Hyperlipidemia, unspecified; I10 Essential (primary) hypertension; M19.90 Unspecified osteoarthritis, unspecified site; Z88.8 Allergy status to other drugs, medicaments and biological substances; Z88.2 Allergy status to sulfonamides; Z79.84 Long term (current) use of oral hypoglycemic drugs; Z87.891 Personal history of nicotine dependence; Z79.899 Other long term (current) drug therapy
CPT/HCPCS: 36415; 94640; 93005; 80053; 83735; 85025; 87635; 71046; 99285; 96374; 96361; J2930; Q0222

== ENCOUNTER → 2022-06-13 | Outpatient (CLI) | payer MEDICAID ==
--- NOTE | 2022-06-13 08:18 | CTL ---
EXAMINATION TYPE: CT Low Dose Lung DATE OF EXAM ORDERED: 06/13/2022 HISTORY: . Lung cancer screening CT DLP: 87.[address] CTDI: 2.4 mGy Automated exposure control for dose reduction was used. SCREENING VISIT: Initial COMPARISON: None TECHNIQUE: Low dose computed tomography scan was performed through the chest at 1 mm thick sections a nd reconstructed images in the coronal plane at [address] DIAGNOSTIC QUALITY: Satisfactory FINDINGS: LUNG NODULES: Present, detailed below: 1. There is a 0.6 cm peripheral nodule in the posterior lateral left mid lung. Series 4 image 100. 2. There is a punctate calcification in the periphery of the right mid lung. Series 4 image 141. 3. There is a 1.0 cm peripheral nodule in the posterior right lower lobe. Series 4 image 165. 4. There is a 0.6 cm nodule at the cardiophrenic angle right middle lobe adjacent to the diaphragm. S eries 4 image 188. 5. Punctate calcifications in the periphery of the right middle lobe, series 4 image 186. LUNGS: COPD: Severity: None Fibrosis: Severity: None Lymph nodes: None Other findings: None RIGHT PLEURAL SPACE: Effusion: None Calcification: None Thickening: None Pneumothorax: LEFT PLEURAL SPACE: Effusion: None Calcification: None Thickening: None Pneumothorax: None HEART: Heart Size: Normal Coronary calcification: Moderate Pericardial effusion: None OTHER FINDINGS: Upper abdomen: Normal Bony thorax: Normal Supraclavicular region: Normal Other: Ascending thoracic aorta at the level the main pulmonary artery measures 4.3 cm. The main pul monary artery at the bifurcation measures 3.3 cm. IMPRESSION: 1. Scattered bilateral peripheral lung nodules. Additional workup with PET CT is recommended. FOLLOW UP CT CHEST RECOMMENDATION: Follow-up PET/CT CT LUNG RAD: Lung-Rad 4A Suspicious
[2022-06-13 10:54] LABS: African American GFR (CKD) 56.4 (60.0-200.0); Albumin 4.4 g/dL (3.8-4.9); Albumin/Globulin Ratio 2.49 (1.60-3.17); Anion Gap 10.1 mmol/L (10.00-18.00); BUN/Creat Ratio 19.92 Ratio (12.00-20.00); Blood Urea Nitrogen 23.5 mg/dL (9.0-27.0); Carbon Dioxide 27.2 mmol/L (20.0-27.5); Globulin 1.8 g/dL (1.6-3.3); Non-African American GFR(CKD) 48.7 (60.0-200.0); Potassium 4.3 mmol/L (3.5-5.5); Total Bilirubin 0.2 mg/dL (0.30-1.20); Total Protein 6.1 g/dL (6.2-8.2)
== END | disposition home or self-care (01) ==
LOC: RADCTMAIN 06:26
PROVIDERS: ATTEND Internal Medicine
DX: Z12.2 Encounter for screening for malignant neoplasm of respiratory organs (principal); R91.8 Other nonspecific abnormal finding of lung field; Z87.891 Personal history of nicotine dependence
CPT/HCPCS: 71271; 80053; 83036

== ENCOUNTER → 2022-06-20 | Outpatient (CLI) | payer MEDICAID ==
--- NOTE | 2022-06-20 17:08 | MM ---
Reason for Exam: Screening (asymptomatic). Last screening mammogram was performed 12 month(s) ago. Patient History: Menarche at age 11. First Full-Term at age 29. Late child-bearing (after 28). Left ovary removed at age 30. Right ovary removed at age 30. Hysterectomy at age 30. Postmenopausal. Endometrial cancer, age 30. Estrogen and Progesterone, starting at age 33 for 1 year. 07/24/2012, Benign Core Biopsy on the left side. 07/24/2012, Cancelled Left Mammotome on the left side. Risk Values: Cheryl 5 year model risk: 2.6%. NCI Lifetime model risk: 10.4%. Prior Study Comparison: 08/29/2018 Bilateral Screening Mammogram, [facility]. 09/17/2018 Left Diagnostic Mammogram, [facility]. 06/13/2021 Bilateral Screening Mammogram, [facility]. Tissue Density: There are scattered fibroglandular densities. Findings: Analyzed By CAD. Pattern appears stable. Chronic nodularity is present posteriorly bilaterally. No significant interval changes are evident. No suspicious groups of microcalcifications, spiculated or lobular masses, architectural distortion or other secondary signs of malignancy are mammographically apparent. Overall Assessment: Benign, BI-RAD 2 Management: Screening Mammogram of both breasts in 1 year. A negative mammogram report should not preclude additional follow up of suspicious palpable abnormalities. Patient should continue monthly self breast exam. A clinical breast exam by your physician is recommended on an annual basis and results should be correlated with mammographic findings. Electronically signed and approved by: Juan Garcia D.O. Radiologis
== END | disposition home or self-care (01) ==
LOC: RADMAMWWP 07:01
PROVIDERS: ATTEND Internal Medicine
DX: Z12.31 Encounter for screening mammogram for malignant neoplasm of breast (principal); Z78.0 Asymptomatic menopausal state
CPT/HCPCS: 77063; 77067

== ENCOUNTER → 2022-06-22 | Outpatient (CLI) | payer MEDICAID ==
--- NOTE | 2022-06-22 12:45 | PE ---
EXAMINATION TYPE: PET CT fusion skull to thigh DATE OF EXAM: 06/22/2022 CLINICAL INDICATION:Female, 62 years old with history of R918; solitary pulmonary nodule. TECHNIQUE: Following the intravenous administration of 11.88 mCi of F-18 FDG, whole body images are performed from the skull base to the midthigh. Images are reviewed on the computer in the coronal, axial, and sagittal planes. Reconstructed rotating images are created on independent workstation and reviewed on the computer. A non-contrast CT is performed in conjunction with the PET scan. Glucose level 115 mg/dL COMPARISON: CT 06/13/2022, PET/CT None, FINDINGS: Mediastinal SUV mean is 2.0. Hepatic parenchyma SUV mean is 2.4. SKULL BASE AND NECK: No suspicious FDG activity. CHEST, MEDIASTINUM, AND HILAR REGION: No suspicious FDG activity. Pulmonary nodules including the med ial right lower lobe 1.0 cm, left lower lobes superior segment 0.6 cm and consolidation changes in th e medial aspect of the right middle lobe demonstrate minimal uptake including right lower lobe with m ax SUV 0.8, left lower lobe superior segment max SUV 0.6, consolidation changes in the medial right m iddle lobe with max SUV 0.5. ABDOMEN AND PELVIS: No suspicious FDG activity. Diffuse physiologic uptake is seen within the bowel. OSSEOUS STRUCTURES: No suspicious FDG activity. OTHER CT: There is mildly enlarged for size is atherosclerosis of the arterial vascular and coronary arteries. The gallbladder surgically absent. The appendix is feces filled. There is a fat-containing small umbilical hernia. IMPRESSION: No suspicious FDG activity. Pulmonary nodules may be under the sensitivity for PET/CT. Continue follo w-up with low-dose CT chest in one year.
== END | disposition home or self-care (01) ==
LOC: RADPETMAIN 06:25
PROVIDERS: ATTEND Internal Medicine
DX: R91.8 Other nonspecific abnormal finding of lung field (principal)
CPT/HCPCS: 78815; A9552

== ENCOUNTER → 2022-06-26 | Outpatient (CLI) | payer MEDICAID ==
--- NOTE | 2022-06-26 12:02 | US ---
EXAMINATION TYPE: US kidneys/renal and bladder DATE OF EXAM: 06/26/2022 COMPARISON: NONE CLINICAL HISTORY: N28.9 renal insufficiency. no symptoms EXAM MEASUREMENTS: Right Kidney: 8.5 x 4.3 x 4.0 cm Left Kidney: 11.2 x 4.8 x 5.6 cm Right Kidney: 1.8 x 2.7 x 1.9cm cyst seen, smaller in size Left Kidney: 0.9 x 0.9 x 0.9cm mid pole cyst Bladder: wnl Bilateral Jets seen: not seen There is no evidence for hydronephrosis at this point in time. No nephrolithiasis is seen. The urin [place] bladder is anechoic. Bilateral ureteral jets are seen. IMPRESSION: Lateral simple cysts noted.
== END | disposition home or self-care (01) ==
LOC: RADUSWWP 09:28
PROVIDERS: ATTEND Internal Medicine
DX: N28.1 Cyst of kidney, acquired (principal)
CPT/HCPCS: 76770

== ENCOUNTER → 2023-06-17 | Outpatient (CLI) | payer MEDICARE ==
[2023-06-17 21:23] LABS: Basophils # (A) 0.14 X 10*3/uL (0.00-0.10); Basophils % (A) 1.3 %; Eosinophils # (A) 0.23 X 10*3/uL (0.04-0.35); Eosinophils % (A) 2.2 %; HGB 16.5 d/dL (12.0-15.0); Lymphocytes # (A) 2.69 X 10*3/uL (0.90-5.00); Lymphocytes % (A) 25.6 %; MCH 30.8 pg (27.0-32.0); MCHC 33.7 d/dL (32.0-37.0); MCV 91.4 FL (80.0-97.0); Monocytes # (A) 0.64 X 10*3/uL (0.20-1.00); Monocytes % (A) 6.1 %; NRBC Per 100 WBC 0 X 10*3/uL (0.00-0.01); Neutrophils # (A) 6.77 X 10*3/uL (1.80-7.70); Neutrophils % (A) 64.5 %; Platelet Count 263 X 10*3/uL (140-440); RBC 5.36 X 10*6/uL (4.10-5.20); RDW 14.1 % (11.5-14.5)
[2023-06-17 22:16] LABS: Chol/HDL Ratio 5.79 Ratio; LDL Cholesterol,Calculated 161.3 mg/dL (0.0-131.0); Magnesium 1.7 mg/dL (1.5-2.4)
[2023-06-17 22:23] LABS: ALT 13 U/L (8-44); AST 21 U/L (13-35); Albumin 5.1 d/dL (3.8-4.9); Albumin/Globulin Ratio 2.55 Ratio (1.60-3.17); Alkaline Phosphatase 69 U/L (41-126); Blood Urea Nitrogen 10.8 mg/dL (9.0-27.0); Calcium 10.4 mg/dL (8.7-10.3); Carbon Dioxide 23.6 mmol/L (21.6-31.8); Chloride 102 mmol/L (96-109); Glucose 107 mg/dL (70-110); Potassium 4.1 mmol/L (3.5-5.5); Sodium 141 mmol/L (135-145); Total Bilirubin 0.5 mg/dL (0.3-1.2); Total Protein 7.1 d/dL (6.2-8.2)
== END | disposition home or self-care (01) ==
LOC: LABWHC1 11:23
PROVIDERS: ATTEND Surgery
DX: Z11.59 Encounter for screening for other viral diseases (principal); E11.42 Type 2 diabetes mellitus with diabetic polyneuropathy
CPT/HCPCS: 36415; 80053; 80061; 83036; 83735; 84443; 85025; 86803

== ENCOUNTER → 2023-06-17 | Outpatient (CLI) | payer MEDICARE ==
--- NOTE | 2023-06-17 12:57 | US ---
EXAMINATION TYPE: US groin LT DATE OF EXAM: 06/17/2023 COMPARISON: PET/CT 06/22/2022 CLINICAL INDICATION: Female, 63 years old with history of R19.09 OTHER INTRA-ABDOMINAL AND PELVIC SWE LLING,; Bulge in left groin area. TECHNIQUE: Multiple grayscale and color ultrasound images of the left groin the patient's region of palpable marker were obtained. FINDINGS/IMPRESSION: Scanned left groin/anterior upper thigh at patient's area of bulge/swelling. No hernia identified. Hypoechoic lesion with vascularity seen: 5.5 x 5.7 x 2.8 cm. Superior to this, there appears to be a hypoechoic area with hyperechoic center: 1.1 x 0.7 x 0.9 cm. This is most consistent with abnormal lymph nodes with loss of central fatty hilum. Findings are con cerning for metastatic disease. Further evaluation is recommended with consideration for ultrasound-g uided tissue sampling.
== END | disposition home or self-care (01) ==
LOC: RADUSWWP 12:14
PROVIDERS: ATTEND Internal Medicine
DX: R19.09 Other intra-abdominal and pelvic swelling, mass and lump (principal)

== ENCOUNTER → 2023-06-17 | Outpatient (CLI) | payer MEDICARE ==
--- NOTE | 2023-06-17 12:50 | CTL ---
EXAMINATION TYPE: CT Low Dose Lung DATE OF EXAM ORDERED: 06/17/2023 COMPARISON: 06/13/22 HISTORY: . Low Dose CT Lung Screening CT DLP: 81.[address] CTDI: 2.3 mGy IV CONTRAST USED: None. SCREENING VISIT: First visit COMPARISON: None. TECHNIQUE: Low dose computed tomography scan was performed through the chest at 1 millimeter thick se ctions and reconstructed images in the coronal plane at [address] DIAGNOSTIC QUALITY: Satisfactory FINDINGS: LUNG NODULES: 1. There is a 0.6 cm peripheral nodule in the posterior lateral left mid lung. Series [address] able 2. There is a punctate calcification in the periphery of the right mid lung. Stable 3. There is a 8.4 mm peripheral nodule in the posterior right lower lobe. Series 4 image 186. 4. There is a 0.6 cm nodule at the cardiophrenic angle right middle lobe adjacent to the diaphragm. S eries 4 image 224. LUNGS: COPD: Severity: Mild Fibrosis: Severity:None Lymph nodes: None Other findings: None RIGHT PLEURAL SPACE: Effusion: None Calcification: None Thickening: None Pneumothorax: None LEFT PLEURAL SPACE: Effusion: None Calcification: None Thickening: None Pneumothorax: None HEART: Heart Size: Mildly enlarged Coronary calcification: Mild Pericardial effusion: None OTHER FINDINGS: Upper abdomen: No significant abnormality Bony thorax: Degenerative changes Supraclavicular region: No significant abnormalityOther: No significant abnormalityI IMPRESSION: 1 pulmonary nodules as described above appear stable or slightly smaller in size. Recent negative hea d CT. FOLLOW UP CT CHEST RECOMMENDATION: Follow-up screening in one year CT LUNG RAD: LUNG RAD CATEGORY 2 benign appearance and/or behavior
== END | disposition home or self-care (01) ==
LOC: RADCTMAIN 10:48
PROVIDERS: ATTEND Internal Medicine
DX: Z12.2 Encounter for screening for malignant neoplasm of respiratory organs (principal); R91.8 Other nonspecific abnormal finding of lung field
CPT/HCPCS: 71271

== ENCOUNTER 2023-06-28 09:07 | Day surgery (SDC) | payer MEDICARE ==
[2023-06-28] MEDS ORDERED: ALPRAZolam 0.25 MG TAB PO STA (09:24)
[2023-06-28 09:27] VITALS: PULSE 73; RESP 16; TEMP 97.6
[2023-06-28 09:55] VITALS: BP 126/83
--- NOTE | 2023-06-28 11:43 | US ---
ULTRASOUND GUIDED FNA THYROID BIOPSY: CLINICAL HISTORY: Left lower groin FINDINGS: The procedure was explained to the patient. The risks, complications, benefits and alternatives were discussed and any questions were answered. Informed consent was obtained. Patient was placed supin e on the ultrasound table and prepped and draped in the usual sterile fashion. Utilizing a 18-gauge core biopsy needle, two passes were made into the large left groin mass. Patient was stable throughout the procedure. Pathology is pending. All elements of maximal barrier technique were utilized. IMPRESSION: 1. Successful ultrasound guided core biopsy left groin mass.
== END 2023-06-28 10:45 | disposition home or self-care (01) ==
LOC: RADPROMAIN 09:07
PROVIDERS: ATTEND Surgery
DX: R19.04 Left lower quadrant abdominal swelling, mass and lump (principal); Z85.3 Personal history of malignant neoplasm of breast; Z85.41 Personal history of malignant neoplasm of cervix uteri; Z85.820 Personal history of malignant melanoma of skin
CPT/HCPCS: 20206; 76942; 88305; 88341; 88342

== ENCOUNTER → 2023-07-09 | Outpatient (CLI) | payer MEDICARE ==
--- NOTE | 2023-07-09 22:55 | MR ---
EXAMINATION TYPE: MR brain wo/w con DATE OF EXAM: 07/09/2023 COMPARISON: NONE HISTORY: Cancer of uterus. melanoma of left leg. TECHNIQUE: Multiplanar, multisequence images of the brain and brainstem is performed without and with IV contras t, utilizing 9.5 mL intravenous Gadavist . FINDINGS: Diffusion weighted images demonstrate no evidence of a recent infarct or other diffusion ab normality. There is mild ventricular and sulcal prominence. There are several scattered foci of T2 h yperintensity seen throughout the white matter bilaterally. Approximately 20-25 scattered lesions are seen. Lesions are nonspecific in appearance and distribution. Midline structures demonstrate normal morphology. The craniocervical junction appears within normal limits. Post contrast images demonstrate no abnormal enhancement or enhancing intraparenchymal milka s.. The dural venous sinuses appear patent. The visualized sinuses are clear and the globes are intac t. IMPRESSION: 1. No enhancing masses identified to suggest metastatic disease to the brain. 2. There is mild diffuse cerebral atrophy and mild to moderate probable chronic small vessel ischemic change noted.
== END | disposition home or self-care (01) ==
LOC: RADMRIMAIN 21:30
PROVIDERS: ATTEND Internal Medicine Hematology & Oncology
DX: C55 Malignant neoplasm of uterus, part unspecified (principal); C43.72 Malignant melanoma of left lower limb, including hip; G31.9 Degenerative disease of nervous system, unspecified
CPT/HCPCS: 70553; A9585

== ENCOUNTER → 2023-07-24 | Outpatient (CLI) | payer MEDICARE, BC ==
--- NOTE | 2023-07-25 09:25 | MM ---
Reason for Exam: Screening (asymptomatic). Last mammogram was performed 1 year(s) and 1 month(s) ago. Patient History: Menarche at age 11. First Full-Term at age 29. Late child-bearing (after 28). Left ovary removed at age 30. Right ovary removed at age 30. Hysterectomy at age 30. Postmenopausal. Endometrial cancer, age 30. Estrogen and Progesterone, starting at age 33 for 1 year. 07/24/2012, Benign Core Biopsy on the left side. 07/24/2012, Cancelled Left Mammotome on the left side. Risk Values: Cheryl 5 year model risk: 2.7%. NCI Lifetime model risk: 10.0%. Prior Study Comparison: 09/17/2018 Left Diagnostic Mammogram, [facility]. 06/13/2021 Bilateral Screening Mammogram, [facility]. 06/20/2022 Bilateral MG 3D screening mammo w/cad, [facility]. Tissue Density: The breast tissue is almost entirely fat. Findings: Analyzed By CAD. There is no suspicious group of microcalcifications or new suspicious mass. Overall Assessment: Negative, BI-RAD 1 Management: Screening Mammogram of both breasts in [address] [facility] will attempt to contact patient to return for supplemental views and ultrasound if indicated. Patient should continue monthly self-breast exams. A clinical breast exam by your physician is recommended on an annual basis. This exam should not preclude additional follow-up of suspicious palpable abnormalities. Note on Cheryl scores and lifetime risk: 1. A Cheryl score greater than 3% is considered moderate risk. If this is the case, consider specialist referral to assess eligibility for a risk reducing agent. 2. If overall lifetime risk for the development of breast cancer is 20% or higher, the patient may qualify for future screening with alternating mammogram and breast MRI. Electronically signed and approved by: Herminio Arzola DO
== END | disposition home or self-care (01) ==
LOC: RADMAMWWP 10:56
PROVIDERS: ATTEND Internal Medicine
DX: Z12.31 Encounter for screening mammogram for malignant neoplasm of breast (principal); Z78.0 Asymptomatic menopausal state
CPT/HCPCS: 77063; 77067

== ENCOUNTER 2024-03-03 11:21 | Emergency (ER) | payer MEDICARE ==
--- NOTE | 2024-03-03 12:16 | XR ---
EXAMINATION TYPE: XR ankle complete RT DATE OF EXAM: 03/03/2024 COMPARISON: NONE HISTORY: 63-year-old female pain after fall, rolling injury to the ankle TECHNIQUE: 3 views FINDINGS: Diffuse soft tissue swelling. Small, minimally displaced fracture from the inferior tip of lateral malleolus. Ankle mortise is otherwise congruent. Talar dome appears intact. Nondisplaced shelby sverse fracture through the base of the fifth metatarsal. Moderate-sized plantar heel spur. Moderate degenerative change first MTP joint. Smooth delineation to the Achilles tendon. IMPRESSION: 1. Diffuse soft tissue swelling with minimal displaced fracture inferior tip of the lateral malleolus . 2. Additional nondisplaced transverse fracture at the base of the fifth metatarsal.
--- NOTE | 2024-03-03 12:36 | ED ---
Lower Extremity Injury HPI - General Chief Complaint: Extremity Injury, Lower Stated Complaint: Injury to R ankle Time Seen by Provider: 03/03/24 11:31 Source: patient, RN notes reviewed Mode of arrival: wheelchair Limitations: no limitations - History of Present Illness Initial Comments: 63-year-old female presents emergency department complaint of right ankle injury, right foot injury. Patient states That she stepped awkwardly. States that she did sleep but states that she has had pain, bruising hurts to ambulate and very difficult to ambulate on her right foot. No other injuries noted. - Related Data Home Medications Medication Instructions Recorded Confirmed metFORMIN HCL [Metformin HCl] 850 mg PO BID 06/24/16 06/28/23 ALPRAZolam [Xanax] 0.5 mg PO BID PRN 02/06/22 06/28/23 Furosemide [Lasix] 20 mg PO DAILY PRN 02/06/22 06/28/23 Pregabalin [Lyrica] 150 mg PO BID 02/06/22 06/28/23 oxyCODONE-APAP 7.5-325MG [Percocet 1 tab PO DAILY PRN 04/02/22 06/28/23 7.5-325 mg] Albuterol Inhaler [Ventolin Hfa 2 puff INHALATION RT-Q6H PRN 11/05/22 06/28/23 Inhaler] Ezetimibe [Zetia] 10 mg PO HS 11/05/22 06/28/23 carvediloL [Coreg] 25 mg PO BID 11/05/22 06/28/23 cloNIDine HCL [Catapres] 0.1 mg PO QID PRN 11/05/22 06/28/23 Allergies Allergy/AdvReac Type Severity Reaction Status Date / Time losartan [From Cozaar] Allergy Unknown Verified 03/03/24 11:29 morphine Allergy Hallucinati Verified 03/03/24 11:29 ons Sulfa (Sulfonamide Allergy Itching Verified 03/03/24 11:29 Antibiotics) Sani-cloth germacidal disp AdvReac angioedema Uncoded 03/03/24 11:29 wipes (super purple container [facility] uses) Review of Systems ROS Statement: Those systems with pertinent positive or pertinent negative responses have been documented in the HPI. ROS Other: All systems not noted in ROS Statement are negative. Past Medical History Past Medical History: Cancer, COPD, Diabetes Mellitus, GERD/Reflux, Hyperlipidemia, Hypertension, Osteoarthritis (OA) Additional Past Medical History / Comment(s): breast CA 1995 -radiation tx and uterine CA 1991,migraines,urosepsis,varicose veins rt leg,birthmark, LARGE BIRTHMARK ON LT ARM, melanoma, low iron levels. HX GI BLEED History of Any Multi-Drug Resistant Organisms: None Reported Past Surgical History: Adenoidectomy, Hysterectomy, Joint Replacement, Orthopedic Surgery, Tonsillectomy Additional Past Surgical History / Comment(s): lt breast lumpectomy,lt knee scope,dougie cataracts, melanoma removed from left lower leg, LT TKA, COLONOSCOPY/EGD, Past Anesthesia/Blood Transfusion Reactions: No Reported Reaction Additional Past Anesthesia/Blood Transfusion Reaction / Comment(s): no hx blood transfusion Past Psychological History: Anxiety, Depression Smoking Status: Former smoker Past Alcohol Use History: None Reported Past Drug Use History: None Reported - Past Family History Father Family Medical History: Cancer Additional Family Medical History / Comment(s): prostate Mother Family Medical History: Cancer General Exam Limitations: no limitations General appearance: alert, in no apparent distress Head exam: Present: atraumatic, normocephalic, normal inspection Respiratory exam: Present: normal lung sounds bilaterally. Absent: respiratory distress, wheezes, rales, rhonchi, stridor Cardiovascular Exam: Present: regular rate, normal rhythm, normal heart sounds. Absent: systolic murmur, diastolic murmur, rubs, gallop, clicks Extremities exam: Present: other (Right ankle right foot there is diffuse swelling, ecchymosis neurovascular intact there is lateral tenderness) Course Vital Signs 03/03/24 11:27 Temperature 98.2 F Pulse Rate 70 Respiratory 20 Rate Blood Pressure 130/95 O2 Sat by Pulse 99 Oximetry Medical Decision Making - Medical Decision Making Was pt. sent in by a medical professional or institution (, PA, JOB SETTER, urgent care, hospital, or custodial...) When possible be specific @ -No Did you speak to anyone other than the patient for history (EMS, parent, family, police, friend...)? What history was obtained from this source @ -No Did you review nursing and triage notes (agree or disagree)? Why? @ -I reviewed and agree with nursing and triage notes Were old charts reviewed (outside hosp., previous admission, EMS record, old EKG, old radiological studies, urgent care reports/EKG's, custodial records)? Report findings @ -No old charts were reviewed Differential Diagnosis (chest pain, altered mental status, abdominal pain women, abdominal pain men, vaginal bleeding, weakness, fever, dyspnea, syncope, headache, dizziness, GI bleed, back pain, seizure, CVA, palpatations, mental health, musculoskeletal)? @ -Foot pain, foot fracture ankle sprain, ankle fracture EKG interpreted by me (3pts min.). @ -None X-rays interpreted by me (1pt min.). @ -X-ray right ankle shows fifth metatarsal fracture and distal fibular fracture CT interpreted by me (1pt min.). @ -None done U/S interpreted by me (1pt. min.). @ -None done What testing was considered but not performed or refused? (CT, X-rays, U/S, labs)? Why? @ -None What meds were considered but not given or refused? Why? @ -None Did you discuss the management of the patient with other professionals (professionals i.e. , PA, JOB SETTER, lab, RT, psych nurse, social worker school, emergency nurse, teacher, aadc plans staff officer, case worker)? Give summary @ -No Was smoking cessation discussed for >3mins.? @ -No Was critical care preformed (if so, how long)? @ -No Were there social determinants of health that impacted care today? How? (Homelessness, low income, unemployed, alcoholism, drug addiction, transportation, low edu. Level, literacy, decrease access to med. care, [facility], rehab)? @ -No Was there de-escalation of care discussed even if they declined (Discuss DNR or withdrawal of care, Hospice)? DNR status @ -No What co-morbidities impacted this encounter? (DM, HTN, Smoking, COPD, CAD, Cancer, CVA, ARF, Chemo, Hep., AIDS, mental health diagnosis, sleep apnea, morbid obesity)? @ -None Was patient admitted / discharged? Hospital course, mention meds given and route, prescriptions, significant lab abnormalities, going to OR and other pertinent info. @ -Discharge patient was placed in the orthopedic walking boot will follow-up with orthopedics she will use assistive walking device to remain partial weightbearing Undiagnosed new problem with uncertain prognosis? @ -No Drug Therapy requiring intensive monitoring for toxicity (Heparin, Nitro, Insulin, Cardizem)? @ -No Were any procedures done? @ -No Diagnosis/symptom? @ -Right fifth metatarsal fracture, right distal fibular fracture Acute, or Chronic, or Acute on Chronic? @ -Acute Uncomplicated (without systemic symptoms) or Complicated (systemic symptoms)? @ -Uncomplicated Side effects of treatment? @ -No Exacerbation, Progression, or Severe Exacerbation? @ -No Poses a threat to life or bodily function? How? (Chest pain, [place], [place], pneumonia, PE, COPD, DKA, ARF, appy, cholecystitis, CVA, Diverticulitis, Homicidal, Suicidal, threat to staff... and all critical care pts) @ -No Disposition Clinical Impression: Nondisplaced fracture of fifth right metatarsal bone, Closed fracture of right distal fibula Disposition: HOME SELF-CARE Condition: Stable Instructions (If sedation given, give patient instructions): Foot Fracture in Adults (ED) Additional Instructions: Please return to the Emergency Department if symptoms worsen or any other concerns. Is patient prescribed a controlled substance at d/c from ED?: No Referrals: Yamil De Jesus DO [Primary Care Provider] - 1-2 days Baldemar Love DO [Doctor of Osteopathic Medicine] - 1-2 days Time of Disposition: 12:36
[2024-03-03 14:34] VITALS: BP 107/75; PULSE 57; RESP 18; TEMP 97.6
== END 2024-03-03 14:25 | disposition home or self-care (01) ==
LOC: EC 11:21
DX: S92.354A Nondisplaced fracture of fifth metatarsal bone, right foot, initial encounter for closed fracture (principal); S82.831A Other fracture of upper and lower end of right fibula, initial encounter for closed fracture; Z88.2 Allergy status to sulfonamides; Z88.5 Allergy status to narcotic agent; Z91.041 Radiographic dye allergy status; Z88.8 Allergy status to other drugs, medicaments and biological substances; X50.1XXA Overexertion from prolonged static or awkward postures, initial encounter
CPT/HCPCS: 99283

== ENCOUNTER 2024-07-28 09:28 | Inpatient (IN) | payer MEDICARE ==
[2024-07-28 10:27] LABS: INR 0.9 (<1.2); Partial Thromboplastin Time 24.1 sec (22.0-30.0); Prothrombin Time 10.2 sec (10.0-12.5)
[2024-07-28 10:32] LABS: ALT 15 U/L (4-34); AST 26 U/L (14-36); African American GFR (CKD) 86 (>60 ml/min/1.73 sqM); Albumin 4.7 g/dL (3.5-5.0); Alkaline Phosphatase 51 U/L (38-126); Anion Gap 8 mmol/L; Basophils # (A) 0.1 k/uL (0-0.2); Basophils % (A) 1 %; Blood Urea Nitrogen 15 mg/dL (7-17); Calcium 9.3 mg/dL (8.4-10.2); Carbon Dioxide 27 mmol/L (22-30); Chloride 106 mmol/L (98-107); Eosinophils % (A) 9 %; Glucose 124 mg/dL (74-99); HCT 49.8 % (34.0-46.0); HGB 16.4 gm/dL (11.4-16.0); Lymphocytes # (A) 2.5 k/uL (1.0-4.8); Lymphocytes % (A) 23 %; MCH 31.2 pg (25.0-35.0); MCV 94.7 fL (80.0-100.0); Magnesium 1.8 mg/dL (1.6-2.3); Mean Platelet Volume 11.1; Monocytes # (A) 0.5 k/uL (0-1.0); Monocytes % (A) 5 %; Neutrophils # (A) 6.7 k/uL (1.3-7.7); Neutrophils % (A) 61 %; Non-African American GFR(CKD) 75 (>60 ml/min/1.73 sqM); Platelet Count 200 k/uL (150-450); Potassium 4.3 mmol/L (3.5-5.1); RBC 5.25 m/uL (3.80-5.40); RDW 13.4 % (11.5-15.5); Sodium 141 mmol/L (137-145); Total Bilirubin 0.6 mg/dL (0.2-1.3); Total Protein 7.4 g/dL (6.3-8.2)
[2024-07-28 10:41] LABS: NT-Pro-B-Type Natriuretic Pept 754 pg/mL
[2024-07-28] MEDS ORDERED: HEPARIN SODIUM 1,000 UN/ML (10ML VL) IV PRN (11:22)
--- NOTE | 2024-07-28 11:26 | ED ---
Chest Pain HPI - General Chief Complaint: Chest Pain Stated Complaint: SOB, CHEST PAIN Time Seen by Provider: 07/28/24 09:32 Source: patient, RN notes reviewed Mode of arrival: ambulatory Limitations: no limitations - History of Present Illness Initial Comments: 64-year-old female presents emergency department with chief complaint of chest pain, shortness of breath. Patient states that she has been having episodes of shortness of breath over the last week or 2. She states that she has been using an old inhaler in which it does help states that she gets very winded, has to sit down until she catches her breath. Patient states she was a former smoker. Patient states this morning she developed central to left-sided chest pain. Pain was nonradiating she denies any prior cardiac disease. Patient states she is on Keytruda because of this. Patient reports no fever cough congestion. Patient states that she also has a history of diabetes hypertension hyperlipidemia. - Related Data Home Medications Medication Instructions Recorded Confirmed Pregabalin [Lyrica] 150 mg PO BID 02/06/22 07/28/24 oxyCODONE-APAP 7.5-325MG [Percocet 1 tab PO Q12H PRN 04/02/22 07/28/24 7.5-325 mg] Ezetimibe [Zetia] 10 mg PO DAILY 11/05/22 07/28/24 carvediloL [Coreg] 25 mg PO BID 11/05/22 07/28/24 cloNIDine HCL [Catapres] 0.1 mg PO QID PRN 11/05/22 07/28/24 Atorvastatin Calcium [Lipitor] 40 mg PO HS 07/28/24 07/28/24 Cholecalciferol (Vitamin D3) 50 mcg PO DAILY 07/28/24 07/28/24 [Vitamin D3 (50 Mcg = 2000 Iu)] DULoxetine HCL [Cymbalta] 60 mg PO HS 07/28/24 07/28/24 Latanoprost [Latanoprost 0.005%] 1 drop BOTH EYES HS 07/28/24 07/28/24 Semaglutide [Ozempic] 1 mg SQ WE 07/28/24 07/28/24 amLODIPine [Norvasc] 10 mg PO DAILY 07/28/24 07/28/24 Allergies Allergy/AdvReac Type Severity Reaction Status Date / Time losartan [From Cozaar] Allergy Anaphylaxis Verified 07/28/24 11:35 morphine Allergy Hallucinati Verified 07/28/24 11:35 ons Sulfa (Sulfonamide Allergy Itching Verified 07/28/24 11:35 Antibiotics) Sani-cloth germacidal disp Allergy angioedema, Uncoded 07/28/24 11:36 wipes Anaphylaxis, (super purple container [facility] uses) Review of Systems ROS Statement: Those systems with pertinent positive or pertinent negative responses have been documented in the HPI. ROS Other: All systems not noted in ROS Statement are negative. EKG Findings - EKG Comments: EKG Findings:: EKG performed at 9: 59 sinus rhythm with rate of 73 CO 191 QRS 88 QT/QTc 390/428 noted in V1 V2. - EKG Results: EKG: interpreted by RAFAEL Past Medical History Past Medical History: Cancer, COPD, Diabetes Mellitus, GERD/Reflux, Hyperlipidemia, Hypertension, Osteoarthritis (OA) Additional Past Medical History / Comment(s): breast CA 1995 -radiation tx and uterine CA 1991,migraines,urosepsis,varicose veins rt leg,birthmark, LARGE BIRTHMARK ON LT ARM, melanoma, low iron levels. HX GI BLEED History of Any Multi-Drug Resistant Organisms: None Reported Past Surgical History: Adenoidectomy, Hysterectomy, Joint Replacement, Orthopedic Surgery, Tonsillectomy Additional Past Surgical History / Comment(s): lt breast lumpectomy,lt knee scope,dougie cataracts, melanoma removed from left lower leg, LT TKA, COLONOSCOPY/EGD, Past Anesthesia/Blood Transfusion Reactions: No Reported Reaction Additional Past Anesthesia/Blood Transfusion Reaction / Comment(s): no hx blood transfusion Past Psychological History: Anxiety, Depression Smoking Status: Current some day smoker Past Alcohol Use History: None Reported Past Drug Use History: Marijuana - Past Family History Father Family Medical History: Cancer Additional Family Medical History / Comment(s): prostate Mother Family Medical History: Cancer General Exam Limitations: no limitations General appearance: alert, in no apparent distress Head exam: Present: atraumatic, normocephalic, normal inspection Eye exam: Present: normal appearance, PERRL, EOMI. Absent: scleral icterus, conjunctival injection, periorbital swelling Neck exam: Present: normal inspection. Absent: tenderness, meningismus, lymphadenopathy Respiratory exam: Present: normal lung sounds bilaterally. Absent: respiratory distress, wheezes, rales, rhonchi, stridor Cardiovascular Exam: Present: regular rate, normal rhythm, normal heart sounds. Absent: systolic murmur, diastolic murmur, rubs, gallop, clicks GI/Abdominal exam: Present: soft, normal bowel sounds. Absent: distended, tenderness, guarding, rebound, rigid Extremities exam: Absent: pedal edema Course Vital Signs 07/28/24 07/28/24 09:28 10:08 Temperature 97.8 F Pulse Rate 76 81 Respiratory 18 18 Rate Blood Pressure 179/133 139/109 O2 Sat by Pulse 97 95 Oximetry Chest Pain MDM - MDM Was pt. sent in by a medical professional or institution (, PA, TICKET MACHINE OPERATOR, urgent care, hospital, or retirement...) When possible be specific @ -No Did you speak to anyone other than the patient for history (EMS, parent, family, police, friend...)? What history was obtained from this source @ -No Did you review nursing and triage notes (agree or disagree)? Why? @ -I reviewed and agree with nursing and triage notes Were old charts reviewed (outside hosp., previous admission, EMS record, old EKG, old radiological studies, urgent care reports/EKG's, retirement records)? Report findings @ -No old charts were reviewed Differential Diagnosis (chest pain, altered mental status, abdominal pain women, abdominal pain men, vaginal bleeding, weakness, fever, dyspnea, syncope, headache, dizziness, GI bleed, back pain, seizure, CVA, palpatations, mental health, musculoskeletal)? @ -Differential Chest Pain: Stable Angina, Unstable Angina, STEMI, NSTEMI Aortic Dissection, Pneumothorax, Musculoskeletal, Esophageal Spasm GERD, Cholecystitis, Pancreatitis, Zoster, this is not meant to be an all-inclusive list. EKG interpreted by me (3pts min.). @ -As above X-rays interpreted by me (1pt min.). @ -None done CT interpreted by me (1pt min.). @ -None done U/S interpreted by me (1pt. min.). @ -None done What testing was considered but not performed or refused? (CT, X-rays, U/S, labs)? Why? @ -None What meds were considered but not given or refused? Why? @ -None Did you discuss the management of the patient with other professionals (professionals i.e. , PA, TICKET MACHINE OPERATOR, lab, RT, psych nurse, social media sr strategy manager, plug paster, teacher, unclaimed property officer, pillowcase cleaner)? Give summary @ -Discussed the case with Dr. Mondragon. regarding patient's current condition, troponin. Patient case discussed with Dr. Sotelo accepts admission. -Patient requested Dr. Sotelo Was smoking cessation discussed for >3mins.? @ -No Was critical care preformed (if so, how long)? @ -No Were there social determinants of health that impacted care today? How? (Homel essness, low income, unemployed, alcoholism, drug addiction, transportation, low edu. Level, literacy, decrease access to med. care, skilled nursing, rehab)? @ -No Was there de-escalation of care discussed even if they declined (Discuss DNR or withdrawal of care, Hospice)? DNR status @ -No What co-morbidities impacted this encounter? (DM, HTN, Smoking, COPD, CAD, Cancer, CVA, ARF, Chemo, Hep., AIDS, mental health diagnosis, sleep apnea, morbid obesity)? @ -Diabetes hypertension hyperlipidemia Was patient admitted / discharged? Hospital course, mention meds given and route, prescriptions, significant lab abnormalities, going to OR and other pertinent info. @ -Admitted patient presented emergency room for dyspnea, patient did have chest pain that started this morning. Patient is initial troponin is elevated 0.561 patient has minimal EKG changes. Patient currently states she is asymptomatic but has been intermittent pain. She was started on heparin, given aspirin. Patient will have echocardiogram, cardiology evaluation, repeat troponins. Undiagnosed new problem with uncertain prognosis? @ -No Drug Therapy requiring intensive monitoring for toxicity (Heparin, Nitro, Insulin, Cardizem)? @ -Heparin Were any procedures done? @ -No Diagnosis/symptom? @ -NSTEMI Acute, or Chronic, or Acute on Chronic? @ -Acute Uncomplicated (without systemic symptoms) or Complicated (systemic symptoms)? @ -Complicated Side effects of treatment? @ -No Exacerbation, Progression, or Severe Exacerbation? @ -No Poses a threat to life or bodily function? How? (Chest pain, [place], [place], pneumonia, PE, COPD, DKA, ARF, appy, cholecystitis, CVA, Diverticulitis, Homicidal, Suicidal, threat to staff... and all critical care pts) @ -Yes ACS, cardiac arrest Critical Care Time Critical Care Time: Yes Total Critical Care Time: 35 Disposition Clinical Impression: NSTEMI (non-ST elevated myocardial infarction) Disposition: ADMITTED IP TO THIS [facility] Condition: Critical Referrals: Yamil De Jesus DO [Primary Care Provider] - 1-2 days Time of Disposition: 12:43
--- NOTE | 2024-07-28 11:35 | CT ---
EXAMINATION TYPE: CT chest angio for PE CT DLP: 296.8 mGycm, Automated exposure control for dose reduction was used. DATE OF EXAM: 07/28/2024 11:23 AM COMPARISON: CT low-dose lung 06/17/2023, 06/13/2022, PET CT 06/22/2022 CLINICAL INDICATION:Female, 64 years old with history of sob, CP; SOB, CP, PE TECHNIQUE/CONTRAST: CTA scan of the thorax is performed with IV Contrast, patient injected with 100 ml mL of Isovue 370, pulmonary embolism protocol. MIP images are created and reviewed. FINDINGS: Pulmonary Artery: There is no evidence for a filling defect within the pulmonary vasculature to sugge st acute pulmonary embolism. The pulmonary artery is large measuring 3.7 cm in diameter. There is re flux of contrast into the IVC and hepatic veins. Lungs/Pleura: No evidence of focal consolidation, pleural effusion or pneumothorax. Mild paraseptal e mphysematous changes. Minimal right lower lobe dependent atelectasis. Minimal linear bilateral lower lobe scarring and atelectasis. Stable superior segment left lower lobe pleural-based 6.6 mm pulmonary nodule. Stable right lower lobe pleural-based 9 mm nodule. These are stable dating back to 2021 and considered benign due to stability for 2 years. Airway: Large airways are patent. Heart: Heart is within normal limits for size.. No pericardial effusion. Small to moderate coronary a rtery calcifications. Vasculature: Conventional three-vessel aortic arch. Stable ascending thoracic aortic aneurysm measuri ng up to 4.2 cm. Ectasia descending thoracic aorta measuring up to 3.1 cm. Mediastinum: No gross evidence of adenopathy. Musculoskeletal: Mild degenerative disc disease changes are present throughout the thoracolumbar spin e. No acute osseous abnormality. Soft Tissues: Unremarkable. Lower neck: No significant findings. Upper Abdomen: No significant findings. IMPRESSION: 1. No evidence of pulmonary embolism. 2. Stable ascending thoracic aortic aneurysm measuring up to 4.2 cm. 3. Couple stable pulmonary nodules dating back to 2021 and considered benign. 4. Pulmonary arterial hypertension. [facility], , 07/28/2024 11:33 AM
[2024-07-28] MEDS ORDERED: NITROGLYCERIN SL TABS 0.4 MG TAB SUBLINGUAL PRN ×3 (12:16→19:26)
[2024-07-28] MEDS: ASPIRIN 81 MG PO STA ×2 (12:24→17:11)
[2024-07-28] MEDS: HEPARIN SOD,PORK IN 0.45% NACL 25,000 UNIT in 0.45% NACL 1 250ML.BAG IV SCH (12:25)
[2024-07-28] MEDS: HEPARIN SODIUM 1,000 UN/ML (10ML VL) IV ONE (12:29)
[2024-07-28] MEDS ORDERED: cloNIDine HCL 0.1 MG TAB PO PRN (12:48)
[2024-07-28] MEDS ORDERED: ACETAMINOPHEN TAB 325 MG TAB PO PRN (12:53)
[2024-07-28] MEDS ORDERED: LACTULOSE 20 GM/30 ML CUP PO PRN (12:53)
[2024-07-28] MEDS ORDERED: ALPRAZolam 0.25 MG TAB PO PRN ×2 (12:53→14:19)
[2024-07-28] MEDS ORDERED: ONDANSETRON 4 MG/2 ML VIAL IVP PRN (12:53)
[2024-07-28] MEDS ORDERED: NALOXONE 0.4 MG/ML 1 ML VIAL IV PRN (12:53)
[2024-07-28] MEDS ORDERED: MELATONIN 3 MG TABLET PO PRN (12:53)
[2024-07-28] MEDS ORDERED: CALCIUM CARBONATE 500 MG CHEWABLE PO PRN (12:53)
[2024-07-28] MEDS ORDERED: DEXTROSE 50% SYRINGE 50 ML IVP PRN ×2 (12:56)
[2024-07-28] MEDS: IPRATROPIUM-ALBUTEROL 3 ML NEB INHALATION SCH (13:02)
[2024-07-28] MEDS: BUDESONIDE 1 MG/2 ML NEBU INHALATION SCH (13:02)
[2024-07-28] MEDS: methylPREDNISolone SOD SUCCI 40 MG/ML 1 ML VIAL IV SCH (13:58)
--- NOTE | 2024-07-28 14:19 | P.CRDCN ---
History of Present Illness History of present illness: HISTORY OF PRESENT ILLNESS: This is a 64-year-old female with a past medical history significant for hypertension, hyperlipidemia, and diabetes. Patient does not follow with a intensive care unit nurse. We have been asked to see the patient in consultation for elevated troponins. Patient examined at the bedside in the emergency room. Patient reports she has been having shortness of breath for the past few days. She reports SOB even just ambulating from one room to another. She reports chest pain that started today. It was a burning sensation that she rated 3/10. Denied radiation of the pain. At the time of examination, patient denies chest pain or pressure. She was started on IV heparin for elevated troponins. DIAGNOSTICS: - EKG reveals sinus mechanism with no signs of acute ischemia - Chest CT: Small to moderate coronary artery calcifications. Stable ascending thoracic aortic aneurysm measuring 4.2 cm. Stable pulmonary nodules dating back to 2021. Pulmonary artery hypertension. - Laboratory data: WBC 11.0. Hemoglobin 16.4. Platelet count 200. Sodium 141. Potassium 4.3. BUN 15. Creatinine 0.82. Magnesium 1.8. Troponin 0.561. proBNP 754. - Current home cardiac medications include amlodipine 10 mg daily, Zetia 10 mg daily, atorvastatin 40 mg at night, carvedilol 25 mg twice a day - Most recent echocardiogram obtained in May 2016 revealing ejection fraction 55% with mild LVH REVIEW OF SYSTEMS: At the time of my exam: CONSTITUTIONAL: Denies fever or chills. HEENT: Denies blurred vision, vision changes, or eye pain. Denies hemoptysis CARDIOVASCULAR: Denies chest pain. Denies orthopnea. Denies PND. Denies palpitations RESPIRATORY: Denies shortness of breath. GASTROINTESTINAL: Denies abdominal pain. Denies nausea or vomiting. HEMATOLOGIC: Denies bleeding disorders. GENITOURINARY: Denies any blood in urine. SKIN: Denies pruitis. Denies rash. PHYSICAL EXAM: VITAL SIGNS: Reviewed. GENERAL: Well-developed in no acute distress. HEENT: Head is normocephalic. Pupils are equal, round. Sclerae anicteric. Mucous membranes of the mouth are moist. Neck supple. No JVD or thyromegaly LUNGS: Respirations even and unlabored. Lungs essentially clear to auscultation bilaterally. HEART: Regular rate and rhythm. S1 and S2 heard. ABDOMEN: Soft. Nondistended. Nontender. EXTREMITIES: Normal range of motion. No clubbing or cyanosis. Peripheral pulses intact. No lower extremity edema NEUROLOGIC: Awake and alert. Oriented x 3. ASSESSMENT: NSTEMI Hypertensive emergency, DBP on admission 133, improving History of hypertension History of hyperlipidemia History of diabetes History of melanoma on Keytruda, follows with Dr. Cornell Nicotine dependence, 1/2 PPD PLAN: Obtain 2D echo to assess cardiac structure and function Resume home cardiac medications Add aspirin 81 mg daily Continue IV heparin Patient to undergo cardiac catheterization tomorrow with Dr. Mondragon. NPO at midnight. Smoking cessation recommended. Patient to be referred to [place] quit line upon discharge. Further recommendations pending patient course Nurse practitioner note has been reviewed by physician. Signing provider agrees with the documented findings, assessment, and plan of care documented by SHIP'S SURVEYOR as a scribe. Past Medical History Past Medical History: Cancer, COPD, Diabetes Mellitus, GERD/Reflux, Hyperlipidemia, Hypertension, Osteoarthritis (OA) Additional Past Medical History / Comment(s): breast CA 1995 -radiation tx and uterine CA 1991,migraines,urosepsis,varicose veins rt leg,birthmark, LARGE BI RTHMARK ON LT ARM, melanoma, low iron levels. HX GI BLEED History of Any Multi-Drug Resistant Organisms: None Reported Past Surgical History: Adenoidectomy, Hysterectomy, Joint Replacement, Orthopedic Surgery, Tonsillectomy Additional Past Surgical History / Comment(s): lt breast lumpectomy,lt knee scope,dougie cataracts, melanoma removed from left lower leg, LT TKA, COLONOSCOPY/EGD, Past Anesthesia/Blood Transfusion Reactions: No Reported Reaction Additional Past Anesthesia/Blood Transfusion Reaction / Comment(s): no hx blood transfusion Past Psychological History: Anxiety, Depression Smoking Status: Current some day smoker Past Alcohol Use History: None Reported Past Drug Use History: Marijuana - Past Family History Father Family Medical History: Cancer Additional Family Medical History / Comment(s): prostate Mother Family Medical History: Cancer Medications and Allergies Home Medications Medication Instructions Recorded Confirmed Type Pregabalin [Lyrica] 150 mg PO BID 02/06/22 07/28/24 History oxyCODONE-APAP 7.5-325MG [Percocet 1 tab PO Q12H PRN 04/02/22 07/28/24 History 7.5-325 mg] Ezetimibe [Zetia] 10 mg PO DAILY 11/05/22 07/28/24 History carvediloL [Coreg] 25 mg PO BID 11/05/22 07/28/24 History cloNIDine HCL [Catapres] 0.1 mg PO QID PRN 11/05/22 07/28/24 History Atorvastatin Calcium [Lipitor] 40 mg PO HS 07/28/24 07/28/24 History Cholecalciferol (Vitamin D3) 50 mcg PO DAILY 07/28/24 07/28/24 History [Vitamin D3 (50 Mcg = 2000 Iu)] DULoxetine HCL [Cymbalta] 60 mg PO HS 07/28/24 07/28/24 History Latanoprost [Latanoprost 0.005%] 1 drop BOTH EYES HS 07/28/24 07/28/24 History Semaglutide [Ozempic] 1 mg SQ WE 07/28/24 07/28/24 History amLODIPine [Norvasc] 10 mg PO DAILY 07/28/24 07/28/24 History Allergies Allergy/AdvReac Type Severity Reaction Status Date / Time losartan [From Cozaar] Allergy Anaphylaxis Verified 07/28/24 11:35 morphine Allergy Hallucinati Verified 07/28/24 11:35 ons Sulfa (Sulfonamide Allergy Itching Verified 07/28/24 11:35 Antibiotics) Sani-cloth germacidal disp Allergy angioedema, Uncoded 07/28/24 11:36 wipes Anaphylaxis, (super purple container [facility] uses) Physical Exam Vitals: Vital Signs Temp Pulse Resp BP Pulse Ox 07/28/24 12:33 64 18 139/97 98 07/28/24 10:08 81 18 139/109 95 07/28/24 09:28 97.8 F 76 18 179/133 97 Intake and Output 07/27/24 07/28/24 07/28/24 22:59 06:59 14:59 Other: Weight 92.986 kg Results 07/28/24 09:55 07/28/24 09:55 Cardiac Enzymes 07/28/24 07/28/24 Range/Units 09:55 09:55 AST 26 (14-36) U/L Troponin I 0.561 H* (0.000-0.034) ng/mL Coagulation 07/28/24 Range/Units 09:55 PT 10.2 (10.0-12.5) sec APTT 24.1 (22.0-30.0) sec CBC 07/28/24 Range/Units 09:55 WBC 11.0 H (3.8-10.6) k/uL RBC 5.25 (3.80-5.40) m/uL Hgb 16.4 H (11.4-16.0) gm/dL Hct 49.8 H (34.0-46.0) % Plt Count 200 (150-450) k/uL Comprehensive Metabolic Panel 07/28/24 Range/Units 09:55 Sodium 141 (137-145) mmol/L Potassium 4.3 (3.5-5.1) mmol/L Chloride 106 (98-107) mmol/L Carbon Dioxide 27 (22-30) mmol/L BUN 15 (7-17) mg/dL Creatinine 0.82 (0.52-1.04) mg/dL Glucose 124 H (74-99) mg/dL Calcium 9.3 (8.4-10.2) mg/dL AST 26 (14-36) U/L ALT 15 (4-34) U/L Alkaline Phosphatase 51 (38-126) U/L Total Protein 7.4 (6.3-8.2) g/dL Albumin 4.7 (3.5-5.0) g/dL Current Medications Generic Name Dose Route Start Last Admin Trade Name Freq PRN Reason Stop Dose Admin Aspirin 325 mg 07/29/24 09:00 Aspirin 325 Mg Tab PO DAILY [facility] Heparin Sodium (Porcine) 0 unit 07/28/24 11:22 Heparin Sodium 1,000 Un/Ml (10ml Vl) IV PER PROTOCOL PRN Low PTT Protocol Heparin Sodium/Sodium Chloride 250 mls @ 9.996 mls/hr 07/28/24 11:30 07/28/24 12:25 25,000 unit/ Sodium Chloride IV 10.75 units/kg/hr .Q24H DANNY 9.996 mls/hr Administration Protocol 10.75 UNITS/KG/HR Nitroglycerin 0.4 mg 07/28/24 12:16 Nitroglycerin Sl Tabs 0.4 Mg Tab SUBLINGUAL Q5M PRN Chest Pain Intake and Output 07/27/24 07/28/24 07/28/24 22:59 06:59 14:59 Other: Weight 92.986 kg Patient Weight 07/29/24 06:59 Weight 92.986 kg 07/28/24 09:55 07/28/24 09:55
[2024-07-28] MEDS: oxyCODONE-APAP 7.5-325MG 1 EACH TAB PO PRN (15:36)
[2024-07-28] MEDS: amLODIPine 10 MG TAB PO SCH (15:36)
--- NOTE | 2024-07-28 16:11 | XR ---
EXAMINATION TYPE: XR chest 2V DATE OF EXAM: 07/28/2024 COMPARISON: 11/05/2022 HISTORY: 64 year-old female shortness of breath TECHNIQUE: PA and lateral views FINDINGS: Heart borderline in size. Mild interstitial prominence and mild hyperinflation. Tortuous/ectatic thor acic aorta. No consolidation or pleural effusion seen. A nodule at the periphery of the left upper lo be appears slightly more pronounced from 11/05/2022. IMPRESSION: 1. Borderline heart size and possible underlying COPD. No definite acute process. 2. A nodule at the periphery of the left upper lobe appear slightly more pronounced compared to 023. Recommend ongoing low-dose lung cancer screening CT for appropriate follow-up. [facility], , 07/28/2024 4:09 PM
--- NOTE | 2024-07-28 16:16 | P.HPIM ---
History of Present Illness H&P Date: 07/28/24 Chief Complaint: Short of breath This is a very pleasant 64-year-old patient, follows with Dr. Yamil Hein. Chronic medical conditions include diabetes, COPD and a current smoker, GERD, hypertension, hyperlipidemia, osteoarthritis. Previous breast cancer in 1995 treated with radiation and uterine cancer with hysterectomy 9091. Right leg varicose veins and also getting treatment for melanoma with Dr. Cornell. Gets Keytruda every 3 weeks. Patient was seen by me in the ER this afternoon. Patient has been getting some shortness breath coming on for some time. Is a smoker. In the last 3 weeks noticed that she walks even 2030 feet she has to stop to get her breathing back. This morning she only gone from the bedroom to the kitchen and she became extremely short of breath. And had to sit down right away. No dizziness no lightheadedness. Does have a cough with some yellow sputum for about 2 months. Appetite has not been very good she has been taking Ozempic for last 1 year and has some weight loss. She is also had lung nodules which is felt to be old granulomatous disease per Dr. Sanchez. Patient has slight bump in troponin when she came in. And cardiology was informed by the ER provider.. Started on IV heparin. Patient denies any prior cardiac history. Review of systems: GEN.: Tired, decreased appetite weight loss EYES: None HEENT: None NECK: None RESPIRATORY: [As above CARDIOVASCULAR: As above. No edema. GASTROINTESTINAL: None GENITOURINARY: None MUSCULOSKELETAL: Joint pains LYMPHATICS: None HEMATOLOGICAL: None PSYCHIATRY: None NEUROLOGICAL: None Social history: Retired RN. Currently smoking half a pack a day.. Smoking since the age of 14. No alcohol. . Physical examination: VITAL SIGNS: 98.5, 71, 18, 179 /99, 96% room air GENERAL: [BMI 32.1, reclining bed awake a bit tired. EYES: Pupils equal. Conjunctiva valentin l. HEENT: External appearance of nose and ears normal, oral cavity grossly normal. NECK: JVD not raised; masses not palpable. HEART: First and second heart sounds are normal; no edema. LUNGS: Respiratory rate increased, diminished breath sound prolonged expiration wheezing. ABDOMEN: Soft, nontender, liver spleen not palpable, no masses palpable. PSYCH: Alert and oriented x3; mood and affect valentin l. MUSCULOSKELETAL:No Clubbing/cyanosis;muscles-grossly intact. OA NEUROLOGICAL: Cranial nerves grossly intact; no facial asymmetry, power and sensation grossly intact. LYMPHATICS: No lymph nodes palpable in the axilla and neck INVESTIGATIONS, reviewed in the clinical context: July 28, 2024: White count 11 hemoglobin 16.4 platelets 200 sodium 141 potassium 4.3 BUN 15 creatinine 0.82 Troponin I 0.561, 0.983. proBNP 754 EKG tracing personally reviewed by me-normal sinus rhythm. Some nonspecific T wave changes. CT angio chest: Negative PE. Ascending aortic aneurysm 4.2 cm. Stable pulmonary nodules dating back to 2021. Pulmonary arterial hypertension. Chest x-ray film personally reviewed by me-hyperinflated lung [place] Assessment and plan: -Acute non-ST elevation microinfarction. Risk factors include postmenopausal, smoker, hypertension, , hyperlipidemia IV heparin, aspirin Telemetry. 2D echo. Cardiology following. -IV heparin monitoring Follow PTT -COPD exacerbation in a current smoker DuoNeb 4 times daily, nebulized Pulmicort, IV Solu-Medrol -Diabetes mellitus type 2, has been on Ozempic for last 1 year Diabetic diet. Follow Accu-Cheks with sliding scale insulin -Essential hypertension Amlodipine. Coreg. -Hyperlipidemia Lipitor 40 mg nightly. Zetia. -Chronic pain, primary osteoarthritis Cymbalta. Lyrica. Percocet 7.5 -Obesity BMI 32.1 Weight loss measures. Patient is on already on Ozempic. -Chronic nicotine dependence, cigarette smoker Nicotine patch -Full code Care was discussed with the patient and at the bedside. Questions answered. Past Medical History Past Medical History: Cancer, COPD, Diabetes Mellitus, GERD/Reflux, Hyperlipidemia, Hypertension, Osteoarthritis (OA) Additional Past Medical History / Comment(s): breast CA 1995 -radiation tx and uterine CA 1991,migraines,urosepsis,varicose veins rt leg,birthmark, LARGE BIRTHMARK ON LT ARM, melanoma, low iron levels. HX GI BLEED History of Any Multi-Drug Resistant Organisms: None Reported Past Surgical History: Adenoidectomy, Hysterectomy, Joint Replacement, Orthopedic Surgery, Tonsillectomy Additional Past Surgical History / Comment(s): lt breast lumpectomy,lt knee scope,dougie cataracts, melanoma removed from left lower leg, LT TKA, COLONOSCOPY/EGD, Past Anesthesia/Blood Transfusion Reactions: No Reported Reaction Additional Past Anesthesia/Blood Transfusion Reaction / Comment(s): no hx blood transfusion Past Psychological History: Anxiety, Depression Smoking Status: Current some day smoker Past Alcohol Use History: None Reported Past Drug Use History: Marijuana - Past Family History Father Family Medical History: Cancer Additional Family Medical History / Comment(s): prostate Mother Family Medical History: Cancer Medications and Allergies Home Medications Medication Instructions Recorded Confirmed Type Pregabalin [Lyrica] 150 mg PO BID 02/06/22 07/28/24 History oxyCODONE-APAP 7.5-325MG [Percocet 1 tab PO Q12H PRN 04/02/22 07/28/24 History 7.5-325 mg] Ezetimibe [Zetia] 10 mg PO DAILY 11/05/22 07/28/24 History carvediloL [Coreg] 25 mg PO BID 11/05/22 07/28/24 History cloNIDine HCL [Catapres] 0.1 mg PO QID PRN 11/05/22 07/28/24 History Atorvastatin Calcium [Lipitor] 40 mg PO HS 07/28/24 07/28/24 History Cholecalciferol (Vitamin D3) 50 mcg PO DAILY 07/28/24 07/28/24 History [Vitamin D3 (50 Mcg = 2000 Iu)] DULoxetine HCL [Cymbalta] 60 mg PO HS 07/28/24 07/28/24 History Latanoprost [Latanoprost 0.005%] 1 drop BOTH EYES HS 07/28/24 07/28/24 History Semaglutide [Ozempic] 1 mg SQ WE 07/28/24 07/28/24 History amLODIPine [Norvasc] 10 mg PO DAILY 07/28/24 07/28/24 History Allergies Allergy/AdvReac Type Severity Reaction Status Date / Time losartan [From Cozaar] Allergy Anaphylaxis Verified 07/28/24 11:35 morphine Allergy Hallucinati Verified 07/28/24 11:35 ons Sulfa (Sulfonamide Allergy Itching Verified 07/28/24 11:35 Antibiotics) Sani-cloth germacidal disp Allergy angioedema, Uncoded 07/28/24 11:36 wipes Anaphylaxis, (super purple container [facility] uses) Physical Exam Vitals: Vital Signs Temp Pulse Pulse Resp BP BP Pulse Ox 10/29/24 15:43 70 07/28/24 15:29 68 07/28/24 15:03 98.5 F 71 18 174/99 96 07/28/24 12:33 64 18 139/97 98 07/28/24 10:08 81 18 139/109 95 07/28/24 09:28 97.8 F 76 18 179/133 97 Intake and Output 07/28/24 07/28/24 07/28/24 06:59 14:59 22:59 Other: Weight 92.986 kg Results CBC & Chem 7: 07/28/24 09:55 07/28/24 09:55 Labs: Abnormal Lab Results - Last 24 Hours (Table) 07/28/24 07/28/24 07/28/24 Range/Units 09:55 09:55 09:55 WBC 11.0 H (3.8-10.6) k/uL Hgb 16.4 H (11.4-16.0) gm/dL Hct 49.8 H (34.0-46.0) % Eosinophils # 1.0 H (0-0.7) k/uL Glucose 124 H (74-99) mg/dL Troponin I 0.561 H* (0.000-0.034) ng/mL 07/28/24 Range/Units 12:43 WBC (3.8-10.6) k/uL Hgb (11.4-16.0) gm/dL Hct (34.0-46.0) % Eosinophils # (0-0.7) k/uL Glucose (74-99) mg/dL Troponin I 0.983 H* (0.000-0.034) ng/mL
[2024-07-28] MEDS: ATORVASTATIN 80 MG TAB PO STA (17:11)
[2024-07-28 17:17] LABS: Glucose,Whole Blood 136 mg/dL (70-110)
[2024-07-28] MEDS: IV FLUID CONTINUATION 1,000 ML IV ONE (17:44)
[2024-07-28] MEDS: INSULIN ASPART (NovoLOG) 100 UNIT/ML VIAL SQ SCH (17:57)
[2024-07-28] MEDS: NITROGLYCERIN OINT 1 INCH/GM PACKET TOPICAL SCH (17:57)
[2024-07-28] MEDS: LIDOCAINE 1% INJ 10MG/ML (20 ML MDV) SQ ONE (18:00)
[2024-07-28] MEDS: HEPARIN SODIUM 1,000 UN/ML (10ML VL) IVP ONE (18:02)
[2024-07-28] MEDS: VERAPAMIL SYRINGE (5 MG/10 ML) INTRAARTER ONE (18:02)
[2024-07-28] MEDS: MIDAZOLAM 2 MG/2 ML VIAL IVP ONE ×4 (18:02→18:53)
[2024-07-28] MEDS: fentaNYL (PF) 50 MCG/ML 2 ML AMP IVP ONE (18:06)
[2024-07-28] MEDS: TICAGRELOR 90 MG TAB PO ONE (18:53)
[2024-07-28] MEDS: NITROGLYCERIN 1000MCG/10ML SYRINGE INTRACORON ONE (18:55)
[2024-07-28] MEDS: IOPAMIDOL-370 200ML BTL INJ ONE (19:02)
[2024-07-28] MEDS: IOPAMIDOL-370 100ML BTL INJ ONE (19:17)
[2024-07-28] MEDS ORDERED: ATROPINE SULFATE 0.1 MG/ML 10ML SYRINGE IV PRN (19:26)
[2024-07-28] MEDS ORDERED: ZOLPIDEM 5 MG TAB PO PRN (19:26)
[2024-07-28] MEDS ORDERED: MAG HYDROX/AL HYDROX/SIMETH 30 ML CUP PO PRN (19:26)
[2024-07-28] MEDS ORDERED: RX INFO: IV CONTRAST WAS GIVEN 1 EACH MISC MISCELLANE PRN (19:26)
--- NOTE | 2024-07-28 19:32 | P.PCN ---
Date of Procedure: 07/28/24 Operative Findings: CARDIAC CATHETERIZATION AND PERCUTANEOUS CORONARY INTERVENTION PERFORMING PHYSICIAN: Jeremi Mondragon MD, [facility] PROCEDURE PERFORMED: 1. Selective right and left coronary angiogram 2. Left heart catheterization 3. Successful stenting of mid LAD using 3.5 x 23 and 2.75 x 15 mm Xience RENETTA with an excellent angiographic results with adjunctive use of IVUS 4. IFR of the RCA and IFR of the LAD INDICATION: Acute non-ST elevation myocardial infarction COMPLICATION: None APPROACH: Right radial artery LEVEL OF SEDATION: Moderate with the sedation time off 78 minutes PROCEDURE DESCRIPTION: After obtaining informed consent the patient was brought to the cardiac Mailroom Clerk. The right radial artery was cannulated using micropuncture technique under ultrasound guidance the micropuncture wire passed easily then I placed a 6 [place]ic 11 cm sheath at the right radial artery and give the patient 2 mg of verapamil intra-arterial and 5000's of heparin intravenous. Selective right and left coronary angiogram performed using JR4 and JL 3.5 catheters. Left heart catheterization was performed using the diagnostic catheter which was an AL 0.75 which crossed the aortic valve and into pullback across the valve. After that we decided to do an IFR of the RCA and LAD. After zeroing the Do ppler wire and equalized in between the Doppler wire and guiding catheter the RCA was engaged using an AL 0.75 guiding catheter and subsequently I did wired the RCA using the Doppler wire. The IFR came to be at 0.94. After that I did equalized between the Doppler wire and guiding catheter for the left coronary system which was JL 3.5 guiding catheter and I did engage the left main and wired the LAD and IFR came to be at 0.81. At that point I decided to intervene on the LAD. I did wired the LAD from the get go using a [place]o wire which was a run-through wire just because the LAD was extremely calcified and tortuous. Attempting advancing IVUS to the mid LAD was unsuccessful but was successful to the proximal LAD with a diameter around 3.5 mm. Predilatation was performed using 3 mm balloon before I deployed 3.5 x 23 mm stent with adjunctive use of guide liner. The stent was positioned under fluoroscopy guidance and deployed under 12 yannick for 20 seconds with following angiogram showing what it seems to be age dissection distally which I decided to cover with a stent and I covered using 2.75 x 15 mm stent. Final angiogram was performed and showed an excellent angiographic results and the procedure was completed with no complication. SELECTIVE CORONARY ANGIOGRAM: The right coronary artery: Large-caliber vessel and a dominant vessel with an intermediate lesion involving the proximal to mid and midportion documented to be nonflow limiting by Doppler wire. Left main: Calcified and appears to be angiographically normal The left circumflex: Large-caliber vessel nondominant vessel appears to have mild to moderate disease with no high-grade stenosis was identified The left anterior descending artery: Large-caliber vessel and calcified vessel and tortuous vessel with intermediate disease involving the proximal portion and severe disease involving the midportion documented to be severe by Doppler wire. HEMODYNAMICS: The LVEDP was 4 mmHg with no significant gradient across aortic valve CONCLUSION: Intermediate disease involving the mid RCA documented to be nonflow limiting by Doppler wire Intermediate disease involving the proximal LAD and severe disease involving the mid LAD. I did perform successful PCI of the LAD as described above POSTPROCEDURE MANAGEMENT: 1. Dual antiplatelet therapy using aspirin and Brilinta for 12 month 2. Aggressive cholesterol control 3. Follow-up with the patient
[2024-07-28] MEDS: TICAGRELOR 90 MG TAB PO SCH (19:56)
[2024-07-28] MEDS: ATORVASTATIN 80 MG TAB PO SCH (20:01)
[2024-07-28] MEDS: NICOTINE 14MG/24HR PATCH TRANSDERM SCH (20:01)
[2024-07-28] MEDS: carvediloL 12.5 MG TAB PO SCH (20:01)
[2024-07-28 20:14] LABS: Glucose,Whole Blood 179 mg/dL (70-110)
[2024-07-28] MEDS ORDERED: ATORVASTATIN 40 MG TAB PO SCH (21:00)
[2024-07-28] MEDS: ALPRAZolam 0.5 MG TAB PO PRN (21:22)
[2024-07-29] MEDS: LORazepam 2 MG/ML INJ IV STA (00:28)
[2024-07-29] MEDS: SODIUM CHLORIDE 0.9% 1,000 ML in EMPTY BAG 1 BAG IV SCH ×2 (00:33→06:40)
[2024-07-29 05:55] LABS: Glucose,Whole Blood 178 mg/dL (70-110)
[2024-07-29] MEDS: ATORVASTATIN 80 MG TAB PO ONE (06:40)
[2024-07-29] MEDS: ASPIRIN 325 MG TAB PO ONE (06:40)
[2024-07-29] MEDS ORDERED: HEPARIN SODIUM,PORCINE (1 ML) 2,500 UNIT in SODIUM CHLORIDE 0.9% 250 ML IRRIGATION PRN (07:00)
[2024-07-29] MEDS ORDERED: HEPARIN SODIUM,PORCINE 10,000 UNIT in SODIUM CHLORIDE 0.9% 1,000 ML IRRIGATION PRN (07:00)
[2024-07-29 07:45] LABS: Basophils % (A) 0 %; Eosinophils % (A) 0 %; HCT 47.8 % (34.0-46.0); HGB 15.1 gm/dL (11.4-16.0); Lymphocytes # (A) 0.9 k/uL (1.0-4.8); Lymphocytes % (A) 9 %; MCH 30.3 pg (25.0-35.0); MCHC 31.6 g/dL (31.0-37.0); MCV 96.1 fL (80.0-100.0); Mean Platelet Volume 10.5; Monocytes # (A) 0.3 k/uL (0-1.0); Monocytes % (A) 3 %; Neutrophils # (A) 8.8 k/uL (1.3-7.7); Neutrophils % (A) 87 %; Platelet Count 208 k/uL (150-450); RBC 4.98 m/uL (3.80-5.40); RDW 13.5 % (11.5-15.5); WBC 10.1 k/uL (3.8-10.6)
[2024-07-29 07:57] LABS: INR 0.9 (<1.2); Prothrombin Time 10.1 sec (10.0-12.5)
[2024-07-29 08:45] LABS: African American GFR (CKD) 82 (>60 ml/min/1.73 sqM); Non-African American GFR(CKD) 71 (>60 ml/min/1.73 sqM)
[2024-07-29] MEDS ORDERED: ASPIRIN 325 MG TAB PO SCH (09:00)
[2024-07-29] MEDS ORDERED: amLODIPine 10 MG TAB PO SCH (09:00)
[2024-07-29] MEDS: ASPIRIN 81 MG PO SCH (09:14)
[2024-07-29] MEDS: EZETIMIBE 10 MG TAB PO SCH (09:14)
--- NOTE | 2024-07-29 09:15 | CA ---
Transthoracic Echo Report Name: Betsy Aviles Age: 64 Gender: F : 1960 Exam Date: 07/28/2024 16:32 Exam Location: [facility] Ht (in): 67 Wt (lb): 205 Ordering Physician: Jenn Hewitt Attending/Referring Phys: Zig Zag Spring Machine Operator Oliva Mckeon RDCS Procedure CPT: Indications: LV function, NSTEMI Cardiac Hx: Technical Quality: Technically difficult study Contrast 1: Definity Total Dose (mL): 2 Contrast 2: Total Dose (mL): MEASUREMENTS (Male / Female) Normal Values 2D ECHO LV Diastolic Diameter PLAX 4.9 cm 4.2 - 5.9 / 3.9 - 5.3 cm LV Systolic Diameter PLAX 3.1 cm IVS Diastolic Thickness 1.5 cm 0.6 - 1.0 / 0.6 - 0.9 cm LVPW Diastolic Thickness 1.3 cm 0.6 - 1.0 / 0.6 - 0.9 cm LV Relative Wall Thickness 0.6 RV Internal Dim ED PLAX 2.0 cm LV Diastolic Volume MOD BP 108.0 cm??? 67 - 155 / 56 - 104 cm??? LV Systolic Volume MOD BP 53.4 cm??? 22 - 58 / 19 - 49 cm??? LV Ejection Fraction MOD BP 50.6 % >= 55 % LV Cardiac Index MOD BP 1745.9 cm???/min???m??? LV Diastolic Volume MOD 4C 118.5 cm??? LV Systolic Volume MOD 4C 59.7 cm??? LV Ejection Fraction MOD 4C 49.6 % LV Cardiac Index MOD 4C 1880.1 cm???/min???m??? LV Diastolic Length 4C 7.7 cm LV Systolic Length 4C 6.7 cm LV Diastolic Volume MOD 2C 93.8 cm??? LV Systolic Volume MOD 2C 48.6 cm??? LV Ejection Fraction MOD 2C 48.2 % LV Cardiac Index MOD 2C 1445.4 cm???/min???m??? LV Diastolic Length 2C 7.3 cm LV Systolic Length 2C 6.6 cm LA Volume 57.7 cm??? 18 - 58 / 22 - 52 cm??? LA Volume Index 27.1 cm???/m??? 16 - 28 cm???/m??? M-MODE Aortic Root Diameter MM 3.6 cm LA Systolic Diameter MM 3.4 cm LA Ao Ratio MM 1.0 AV Cusp Separation MM 2.3 cm DOPPLER LVOT Peak Velocity 88.8 cm/s LVOT Peak Gradient 3.2 mmHg LVOT Velocity Time Integral 19.8 cm MV Area PHT 5.4 cm??? Mitral E Point Velocity 57.4 cm/s Mitral A Point Velocity 85.1 cm/s Mitral E to A Ratio 0.7 MV Deceleration Time 140.3 ms MV E' Velocity 5.1 cm/s Mitral E to MV E' Ratio 11.3 TR Peak Velocity 240.5 cm/s TR Peak Gradient 23.1 mmHg Right Ventricular Systolic Press 28.1 mmHg FINDINGS Left Ventricle Moderately increased septal wall thickness. Mildly increased posterior wall thickness. Mildly increased left ventricular diastolic volume. Mildly increased left ventricular systolic volume. Mildly decreased left ventricular ejection fraction. Left ventricular ejection fraction is estimated at 40%. [place] and apical septal wall are hypokinetic. Grade 1 diastolic dysfunction. Right Ventricle Normal right ventricular size and function. Right ventricular systolic pressure within normal limits. Right Atrium Normal right atrial size. Left Atrium Mildly increased left atrial volume. Interatrial septal aneurysm. Mitral Valve Structurally normal mitral valve. Mitral annular calcification. Mild mitral regurgitation. Aortic Valve Trileaflet aortic valve. No aortic stenosis. Trace aortic regurgitation. Tricuspid Valve Structurally normal tricuspid valve. Mild tricuspid regurgitation. Pulmonic Valve Structurally normal pulmonic valve. Pericardium No pericardial effusion. Aorta Normal size aortic root and proximal ascending aorta. CONCLUSIONS Ischemic cardiomyopathy with an ejection fraction of 40% Mild mitral regurgitation This could be due to apical ballooning syndrome Previewed by: Dr. Curry Sotelo MD (Electronically Signed) Final Date: 29 July 2024 09:14
[2024-07-29 10:49] LABS: Chol/HDL Ratio 4.22 Ratio; LDL Cholesterol,Calculated 153.8 mg/dL (0.0-131.0); VLDL Calculation 17.88 mg/dL (5.00-40.00)
[2024-07-29 11:20] LABS: Glucose,Whole Blood 137 mg/dL (70-110)
--- NOTE | 2024-07-29 11:29 | P.PN ---
Subjective HISTORY OF PRESENT ILLNESS: This is a 64-year-old female with a past medical history significant for hypertension, hyperlipidemia, and diabetes. Patient does not follow with a denial resolution specialist. We have been asked to see the patient in consultation for elevated troponins. Patient examined at the bedside in the emergency room. Patient reports she has been having shortness of breath for the past few days. She reports SOB even just ambulating from one room to another. She reports chest pain that started today. It was a burning sensation that she rated 3/10. Denied radiation of the pain. At the time of examination, patient denies chest pain or pressure. She was started on IV heparin for elevated troponins. DIAGNOSTICS: - EKG reveals sinus mechanism with no signs of acute ischemia - Chest CT: Small to moderate coronary artery calcifications. Stable ascending thoracic aortic aneurysm measuring 4.2 cm. Stable pulmonary nodules dating back to 2021. Pulmonary artery hypertension. - Laboratory data: WBC 11.0. Hemoglobin 16.4. Platelet count 200. Sodium 141. Potassium 4.3. BUN 15. Creatinine 0.82. Magnesium 1.8. Troponin 0.561. proBNP 754. - Current home cardiac medications include amlodipine 10 mg daily, Zetia 10 mg daily, atorvastatin 40 mg at night, carvedilol 25 mg twice a day - Most recent echocardiogram obtained in May 2016 revealing ejection fraction 55% with mild LVH 07/29/2024 Patient is status post cardiac catheterization with Dr. Mondragon. Patient was found to have intermediate disease involving the mid RCA documented to be nonflow limiting by Doppler wire and intermediate disease involving the proximal LAD and severe disease involving the mid LAD. Patient underwent PCI of the LAD. Patient examined this morning at the bedside. Patient currently denies chest pain or pressure. She reports shortness of breath this morning. Echocardiogram completed revealing ejection fraction 40%, apex and apical septal wall are hypokinetic, mild MR, mild TR, trace AR. PHYSICAL EXAM: VITAL SIGNS: Reviewed. GENERAL: Well-developed in no acute distress. HEENT: Head is normocephalic. Pupils are equal, round. Sclerae anicteric. Mucous membranes of the mouth are moist. Neck supple. No JVD or thyromegaly LUNGS: Respirations even and unlabored. Lungs with expiratory wheezing noted HEART: Regular rate and rhythm. S1 and S2 heard. ABDOMEN: Soft. Nondistended. Nontender. EXTREMITIES: Normal range of motion. No clubbing or cyanosis. Peripheral pulses intact. No lower extremity edema NEUROLOGIC: Awake and alert. Oriented x 3. ASSESSMENT: NSTEMI, status post cardiac catheterization review revealing intermediate disease of the mid RCA, intermediate disease of proximal LAD and severe disease involving the mid LAD. Patient underwent stenting of the mid LAD. COPD exacerbation Hypertensive emergency, DBP on admission 133, improving History of hypertension History of hyperlipidemia History of diabetes History of melanoma on Keytruda, follows with Dr. Cornell Nicotine dependence, 1/2 PPD PLAN: Continue dual antiplatelet therapy with aspirin and Brilinta for 12 months Continue high intensity statin. LDL goal less than 70. Continue additional cardiac medications Continue IV steroids and nebulizers for COPD exacerbation Smoking cessation recommended. Patient to be referred to [place] quit line upon discharge. Further recommendations pending patient course Nurse practitioner note has been reviewed by physician. Signing provider agrees with the documented findings, assessment, and plan of care documented by ROD PLACER as a scribe. Objective - Vital Signs Vital signs: Vital Signs Temp 98.4 F 07/28/24 19:56 Pulse 75 07/29/24 09:41 Resp 17 07/29/24 09:11 BP 120/79 07/29/24 09:11 Pulse Ox 94 L 07/29/24 09:34 FiO2 Intake & Output 07/28/24 07/29/24 07/29/24 18:59 06:59 18:59 Intake Total 350.147 360 Balance 350.147 360 Weight 92.986 kg 62.3 kg Intake: IV 300 Intake, IV Titration 50.147 Amount Heparin Sod,Pork in 0.45% 50.147 NaCl 25,000 unit In 0.45 % NaCl 1 250ml.bag @ 10. 75 UNITS/KG/HR 9.996 mls/ hr IV .Q24H DANNY Rx#: [id number] Oral 360 Other: Voiding Method Toilet Toilet # Voids 1 - Labs CBC & Chem 7: 07/29/24 06:42 07/29/24 07:56 Labs: Abnormal Lab Results - Last 24 Hours (Table) 07/28/24 07/28/24 07/28/24 Range/Units 12:43 15:11 15:11 Hct (34.0-46.0) % Neutrophils # (1.3-7.7) k/uL Lymphocytes # (1.0-4.8) k/uL APTT (22.0-30.0) sec POC Glucose (mg/dL) (70-110) mg/dL Hemoglobin A1c 6.2 H (<=6.0) % Troponin I 0.983 H* 1.120 H* (0.000-0.034) ng/mL Cholesterol (0.00-200.00) mg/dL LDL Cholesterol, Calc (0.0-131.0) mg/dL 07/28/24 07/28/24 07/28/24 Range/Units 17:16 17:17 20:13 Hct (34.0-46.0) % Neutrophils # (1.3-7.7) k/uL Lymphocytes # (1.0-4.8) k/uL APTT 42.0 H (22.0-30.0) sec POC Glucose (mg/dL) 136 H 179 H (70-110) mg/dL Hemoglobin A1c (<=6.0) % Troponin I (0.000-0.034) ng/mL Cholesterol (0.00-200.00) mg/dL LDL Cholesterol, Calc (0.0-131.0) mg/dL 07/29/24 07/29/24 07/29/24 Range/Units 05:54 06:42 06:42 Hct 47.8 H (34.0-46.0) % Neutrophils # 8.8 H (1.3-7.7) k/uL Lymphocytes # 0.9 L (1.0-4.8) k/uL APTT (22.0-30.0) sec POC Glucose (mg/dL) 178 H (70-110) mg/dL Hemoglobin A1c (<=6.0) % Troponin I (0.000-0.034) ng/mL Cholesterol 225.00 H (0.00-200.00) mg/dL LDL Cholesterol, Calc 153.8 H (0.0-131.0) mg/dL 07/29/24 Range/Units 11:16 Hct (34.0-46.0) % Neutrophils # (1.3-7.7) k/uL Lymphocytes # (1.0-4.8) k/uL APTT (22.0-30.0) sec POC Glucose (mg/dL) 137 H (70-110) mg/dL Hemoglobin A1c (<=6.0) % Troponin I (0.000-0.034) ng/mL Cholesterol (0.00-200.00) mg/dL LDL Cholesterol, Calc (0.0-131.0) mg/dL
[2024-07-29 12:44] VITALS: BMI 21.4
--- NOTE | 2024-07-29 16:12 | P.PN ---
Progress Note - Text Progress Note Date: 07/29/24 Chief Complaint: Short of breath This is a very pleasant 64-year-old patient, follows with Dr. Yamil Hein. Chronic medical conditions include diabetes, COPD and a current smoker, GERD, hypertension, hyperlipidemia, osteoarthritis. Previous breast cancer in 1995 treated with radiation and uterine cancer with hysterectomy 9091. Right leg varicose veins and also getting treatment for melanoma with Dr. Cornell. Gets Keytruda every 3 weeks. Patient was seen by me in the ER this afternoon. Patient has been getting some shortness breath coming on for some time. Is a smoker. In the last 3 weeks noticed that she walks even 2030 feet she has to stop to get her breathing back. This morning she only gone from the bedroom to the kitchen and she became extremely short of breath. And had to sit down right away. No dizziness no lightheadedness. Does have a cough with some yellow sputum for about 2 months. Appetite has not been very good she has been taking Ozempic for last 1 year and has some weight loss. She is also had lung nodules which is felt to be old granulomatous disease per Dr. Sanchez. Patient has slight bump in troponin when she came in. And cardiology was informed by the ER provider.. Started on IV heparin. Patient denies any prior cardiac history. July 29: Underwent cardiac catheterization yesterday. LAD was stented. Breathing better. No chest pain. Spoke to the patient . Told to increase amp DVT and ambulate in the hallway. Active Medications Acetaminophen (Acetaminophen Tab 325 Mg Tab) 650 mg PO Q6HR PRN PRN Reason: Mild Pain or Fever > 100.5 Al Hydroxide/Mg Hydroxide (Mag Hydrox/Al Hydrox/Simeth 30 Ml Cup) 30 ml PO Q4HR PRN PRN Reason: Heartburn Albuterol/Ipratropium (Ipratropium-Albuterol 3 Ml Neb) 3 ml INHALATION RT-QID [facility] Last Admin: 07/29/24 11:57 Dose: Not Given Alprazolam (Alprazolam 0.25 Mg Tab) 0.25 mg PO Q6HR PRN PRN Reason: Mild Anxiety Alprazolam (Alprazolam 0.5 Mg Tab) 0.5 mg PO Q6HR PRN PRN Reason: Moderate Anxiety Last Admin: 07/28/24 21:22 Dose: 0.5 mg Amlodipine Besylate (Amlodipine 10 Mg Tab) 10 mg PO DAILY [facility] Last Admin: 07/29/24 09:14 Dose: 10 mg Aspirin (Aspirin 81 Mg) 81 mg PO DAILY [facility] Last Admin: 07/29/24 09:14 Dose: 81 mg Atorvastatin Calcium (Atorvastatin 80 Mg Tab) 80 mg PO HS [facility] Last Admin: 07/28/24 20:01 Dose: 80 mg Atropine Sulfate (Atropine Sulfate 0.1 Mg/Ml 10ml Syringe) 0.5 mg IV ONCE PRN PRN Reason: Symptomatic Bradycardia Budesonide (Budesonide 1 Mg/2 Ml Nebu) 1 mg INHALATION RT-BID [facility] Last Admin: 07/29/24 09:25 Dose: 1 mg Calcium Carbonate/Glycine (Calcium Carbonate 500 Mg Chewable) 1,000 mg PO Q4HR PRN PRN Reason: Dyspepsia Carvedilol (Carvedilol 12.5 Mg Tab) 25 mg PO AC-BID [facility] Last Admin: 07/29/24 06:47 Dose: 25 mg Clonidine (Clonidine Hcl 0.1 Mg Tab) 0.1 mg PO QID PRN PRN Reason: SBP >160/high bp Dextrose/Water (Dextrose 50% Syringe 50 Ml) 50 ml IVP PER PROTOCOL PRN; Protocol PRN Reason: Hypoglycemia Dextrose/Water (Dextrose 50% Syringe 50 Ml) 25 ml IVP PER PROTOCOL PRN; Protocol PRN Reason: Hypoglycemia Ezetimibe (Ezetimibe 10 Mg Tab) 10 mg PO DAILY [facility] Last Admin: 07/29/24 09:14 Dose: 10 mg Heparin Sodium (Porcine) (Heparin Sodium 1,000 Un/Ml (10ml Vl)) 0 unit IV PER PROTOCOL PRN; Protocol PRN Reason: Low PTT Heparin Sodium (Porcine) 10, (000 unit/ Sodium Chloride) 1,001 mls @ 999 mls/hr IRRIGATION ONCE PRN PRN Reason: INTRA-OP Stop: 07/29/24 23:00 Insulin Aspart (Insulin Aspart (Novolog) 100 Unit/Ml Vial) 0 unit SQ AC-TID [facility]; Protocol Last Admin: 07/29/24 11:25 Dose: Not Given Lactulose (Lactulose 20 Gm/30 Ml Cup) 20 gm PO DAILY PRN PRN Reason: Constipation Melatonin (Melatonin 3 Mg Tablet) 3 mg PO HS PRN PRN Reason: Insomnia Miscellaneous Information (Rx Info: Iv Contrast Was Given 1 Each Misc) 1 each MISCELLANE DAILY PRN PRN Reason: Per Protocol Stop: 07/30/24 19:26 Naloxone HCl (Naloxone 0.4 Mg/Ml 1 Ml Vial) 0.2 mg IV Q2M PRN PRN Reason: Opioid Reversal Nicotine (Nicotine 14mg/24hr Patch) 1 patch TRANSDERM DAILY [facility] Last Admin: 07/29/24 09:14 Dose: 1 patch Nitroglycerin (Nitroglycerin Sl Tabs 0.4 Mg Tab) 0.4 mg SUBLINGUAL Q5M PRN PRN Reason: Chest Pain Ondansetron HCl (Ondansetron 4 Mg/2 Ml Vial) 4 mg IVP Q8HR PRN PRN Reason: Nausea And Vomiting Oxycodone/Acetaminophen (Oxycodone-Apap 7.5-325mg 1 Each Tab) 1 each PO Q12H PRN PRN Reason: Pain Last Admin: 07/29/24 10:09 Dose: 1 each Ticagrelor (Ticagrelor 90 Mg Tab) 90 mg PO BID [facility]; Protocol Last Admin: 07/29/24 09:14 Dose: 90 mg Zolpidem Tartrate (Zolpidem 5 Mg Tab) 5 mg PO HS PRN PRN Reason: Insomnia Social history: Retired RN. Currently smoking half a pack a day.. Smoking since the age of 14. No alcohol. . Physical examination: VITAL SIGNS: Afebrile, 65, 18, 116 x 77, 95% room air GENERAL: [BMI 32.1,, notable EYES: Pupils equal. Conjunctiva valentin l. HEENT: External appearance of nose and ears normal, oral cavity grossly normal. NECK: JVD not raised; masses not palpable. HEART: First and second heart sounds are normal; no edema. LUNGS: Respiratory rate increased, diminished breath sound decreased wheezing. ABDOMEN: Soft, nontender, liver spleen not palpable, no masses palpable. PSYCH: Alert and oriented x3; mood and affect valentin l. MUSCULOSKELETAL:No Clubbing/cyanosis;muscles-grossly intact. OA INVESTIGATIONS, reviewed in the clinical context: 2D echocardiogram: Moderately increased septal wall thickness. Some posterior wall thickness. EF 40%. [place] and apical septal wall hypokinetic. July 29: White count 10.1 hemoglobin 15.1 platelets 208 LDL 153.8 July 28, 2024: White count 11 hemoglobin 16.4 platelets 200 sodium 141 potassium 4.3 BUN 15 creatinine 0.82 Troponin I 0.561, 0.983. proBNP 754 EKG tracing personally reviewed by me-normal sinus rhythm. Some nonspecific T wave changes. CT angio chest: Negative PE. Ascending aortic aneurysm 4.2 cm. Stable pulmonary nodules dating back to 2021. Pulmonary arterial hypertension. Chest x-ray film personally reviewed by me-hyperinflated lung [place] Assessment and plan: -Acute non-ST elevation microinfarction. Risk factors include postmenopausal, smoker, hypertension, , hyperlipidemia IV heparin, aspirin -Coronary artery disease with stent to LAD, with Dr. Mondragon Aspirin. Lipitor. Zetia. Brilinta. Coreg -Chronic congestive heart failure from systolic dysfunction from ischemic cardiomyopathy. EF 40% Add Aldactone -COPD exacerbation in a current smoker DuoNeb 4 times daily, nebulized Pulmicort, IV [id number] -Diabetes mellitus type 2, has been on Ozempic for last 1 year Diabetic diet. Follow Accu-Cheks with sliding scale insulin -Essential hypertension Amlodipine. Coreg. -Hyperlipidemia Lipitor 80 mg nightly. Zetia. -Chronic pain, primary osteoarthritis Cymbalta. Lyrica. Percocet 7.5 -Obesity BMI 32.1 Weight loss measures. Patient is on already on Ozempic. -Chronic nicotine dependence, cigarette smoker Nicotine patch -Full code Discussed with patient . Increase activity. Plan for hopefully discharge tomorrow Past Medical History Past Medical History: Cancer, COPD, Diabetes Mellitus, GERD/Reflux, Hyperlipidemia, Hypertension, Osteoarthritis (OA) Additional Past Medical History / Comment(s): breast CA 1995 -radiation tx and uterine CA 1991,migraines,urosepsis,varicose veins rt leg,birthmark, LARGE BIRTHMARK ON LT ARM, melanoma, low iron levels. HX GI BLEED History of Any Multi-Drug Resistant Organisms: None Reported Past Surgical History: Adenoidectomy, Hysterectomy, Joint Replacement, Orthopedic Surgery, Tonsillectomy Additional Past Surgical History / Comment(s): lt breast lumpectomy,lt knee scope,dougie cataracts, melanoma removed from left lower leg, LT TKA, COLONOSCOPY/EGD, Past Anesthesia/Blood Transfusion Reactions: No Reported Reaction Additional Past Anesthesia/Blood Transfusion Reaction / Comment(s): no hx blood transfusion Past Psychological History: Anxiety, Depression Smoking Status: Current some day smoker Past Alcohol Use History: None Reported Past Drug Use History: Marijuana
[2024-07-29 17:11] LABS: Glucose,Whole Blood 153 mg/dL (70-110)
[2024-07-29 20:07] LABS: Glucose,Whole Blood 95 mg/dL (70-110)
[2024-07-30 06:17] LABS: Glucose,Whole Blood 84 mg/dL (70-110)
[2024-07-30 08:59] VITALS: RESP 17; TEMP 97.6
[2024-07-30] MEDS: SPIRONOLACTONE 25 MG TAB PO SCH (08:59)
[2024-07-30 11:25] VITALS: BP 125/83
[2024-07-30 11:31] LABS: Glucose,Whole Blood 109 mg/dL (70-110)
[2024-07-30 11:35] VITALS: PULSE 72
--- NOTE | 2024-07-30 13:36 | P.PN ---
Subjective HISTORY OF PRESENT ILLNESS: This is a 64-year-old female with a past medical history significant for hypertension, hyperlipidemia, and diabetes. Patient does not follow with a tubing mill setter. We have been asked to see the patient in consultation for elevated troponins. Patient examined at the bedside in the emergency room. Patient reports she has been having shortness of breath for the past few days. She reports SOB even just ambulating from one room to another. She reports chest pain that started today. It was a burning sensation that she rated 3/10. Denied radiation of the pain. At the time of examination, patient denies chest pain or pressure. She was started on IV heparin for elevated troponins. DIAGNOSTICS: - EKG reveals sinus mechanism with no signs of acute ischemia - Chest CT: Small to moderate coronary artery calcifications. Stable ascending thoracic aortic aneurysm measuring 4.2 cm. Stable pulmonary nodules dating back to 2021. Pulmonary artery hypertension. - Laboratory data: WBC 11.0. Hemoglobin 16.4. Platelet count 200. Sodium 141. Potassium 4.3. BUN 15. Creatinine 0.82. Magnesium 1.8. Troponin 0.561. proBNP 754. - Current home cardiac medications include amlodipine 10 mg daily, Zetia 10 mg daily, atorvastatin 40 mg at night, carvedilol 25 mg twice a day - Most recent echocardiogram obtained in May 2016 revealing ejection fraction 55% with mild LVH 07/29/2024 Patient is status post cardiac catheterization with Dr. Mondragon. Patient was found to have intermediate disease involving the mid RCA documented to be nonflow limiting by Doppler wire and intermediate disease involving the proximal LAD and severe disease involving the mid LAD. Patient underwent PCI of the LAD. Patient examined this morning at the bedside. Patient currently denies chest pain or pressure. She reports shortness of breath this morning. Echocardiogram completed revealing ejection fraction 40%, apex and apical septal wall are hypokinetic, mild MR, mild TR, trace AR. 07/30/2024 Patient examined this morning at the bedside. Patient currently denies chest pain or pressure. She denies shortness of breath. She has been transition to oral steroids. Vital signs are stable. She is hoping to be discharged home today. PHYSICAL EXAM: VITAL SIGNS: Reviewed. GENERAL: Well-developed in no acute distress. HEENT: Head is normocephalic. Pupils are equal, round. Sclerae anicteric. Mucous membranes of the mouth are moist. Neck supple. No JVD or thyromegaly LUNGS: Respirations even and unlabored. Lungs with mild expiratory wheezing noted HEART: Regular rate and rhythm. S1 and S2 heard. ABDOMEN: Soft. Nondistended. Nontender. EXTREMITIES: Normal range of motion. No clubbing or cyanosis. Peripheral pulses intact. No lower extremity edema NEUROLOGIC: Awake and alert. Oriented x 3. ASSESSMENT: NSTEMI, status post cardiac catheterization review revealing intermediate disease of the mid RCA, intermediate disease of proximal LAD and severe disease involving the mid LAD. Patient underwent stenting of the mid LAD. COPD exacerbation Hypertensive emergency, DBP on admission 133, improving History of hypertension History of hyperlipidemia History of diabetes History of melanoma on Keytruda, follows with Dr. Cornell Nicotine dependence, 1/2 PPD PLAN: Continue dual antiplatelet therapy with aspirin and Brilinta for 12 months Continue high intensity statin. LDL goal less than 70. Continue additional cardiac medications Smoking cessation recommended. Patient to be referred to [place] quit line upon discharge. Patient is stable for discharge home today from a cardiac standpoint Nurse practitioner note has been reviewed by physician. Signing provider agrees with the documented findings, assessment, and plan of care documented by MANAGER TRADING as a scribe. Objective - Vital Signs Vital signs: Vital Signs Temp 97.6 F 07/30/24 08:56 Pulse 72 07/30/24 11:34 Resp 17 07/30/24 11:24 BP 125/83 07/30/24 11:24 Pulse Ox 96 07/30/24 11:24 FiO2 21 07/30/24 08:21 Intake & Output 07/29/24 07/30/24 07/30/24 18:59 06:59 18:59 Intake Total 838 118 Balance 838 118 Weight 62.3 kg 92.5 kg Intake: Oral 838 118 Other: Voiding Method Toilet Toilet Toilet # Voids 3 1 - Labs CBC & Chem 7: 07/29/24 06:42 07/29/24 07:56 Labs: Abnormal Lab Results - Last 24 Hours (Table) 07/29/24 Range/Units 17:07 POC Glucose (mg/dL) 153 H (70-110) mg/dL
--- NOTE | 2024-07-30 15:25 | P.DS ---
Providers Date of admission: 07/28/24 12:01 Expected date of discharge: 07/30/24 Attending physician: Zhao Sotelo Consults: 07/28/24 12:16 Consult Physician Urgent Consulting Provider: Jeremi Mondragon Consult Reason/Comments: chest pain Do you want consulting provider notified?: Already Contacted 07/28/24 19:26 Consult Physician Routine Consulting Provider: [facility] Consult Reason/Comments: Post Interventional patient Do you want consulting provider notified?: Already Contacted [facility] Course: Chief Complaint: Short of breath This is a very pleasant 64-year-old patient, follows with Dr. Yamil Hein. Chronic medical conditions include diabetes, COPD and a current smoker, GERD, hypertension, hyperlipidemia, osteoarthritis. Previous breast cancer in 1995 treated with radiation and uterine cancer with hysterectomy 9091. Right leg varicose veins and also getting treatment for melanoma with Dr. Cornell. Gets Keytruda every 3 weeks. Patient was seen by me in the ER this afternoon. Patient has been getting some shortness breath coming on for some time. Is a smoker. In the last 3 weeks noticed that she walks even 2030 feet she has to stop to get her breathing back. This morning she only gone from the bedroom to the kitchen and she became extremely short of breath. And had to sit down right away. No dizziness no lightheadedness. Does have a cough with some yellow sputum for about 2 months. Appetite has not been very good she has been taking Ozempic for last 1 year and has some weight loss. She is also had lung nodules which is felt to be old granulomatous disease per Dr. Sanchez. Patient has slight bump in troponin when she came in. And cardiology was informed by the ER provider.. Started on IV heparin. Patient denies any prior cardiac history. July 29: Underwent cardiac catheterization yesterday. LAD was stented. Breathing better. No chest pain. Spoke to the patient . Told to increase amp DVT and ambulate in the hallway. July 30: Patient doing well. Ambulatory. No cardiac symptoms. Questions answered. Medications reviewed. Patient follow-up with Dr. Mondragon in the office. Social history: Retired RN. Currently smoking half a pack a day.. Smoking since the age of 14. No alcohol. . Physical examination: VITAL SIGNS: 97.6, 61, 17, 10/24/1982, 96% room air GENERAL: Comfortable EYES: Pupils equal. Conjunctiva valentin l. HEENT: External appearance of nose and ears normal, oral cavity grossly normal. NECK: JVD not raised; masses not palpable. HEART: First and second heart sounds are normal; no edema. LUNGS: Respiratory rate increased, diminished breath sound mild wheezing ABDOMEN: Soft, nontender, liver spleen not palpable, no masses palpable. PSYCH: Alert and oriented x3; mood and affect valentin l. MUSCULOSKELETAL:No Clubbing/cyanosis;muscles-grossly intact. OA INVESTIGATIONS, reviewed in the clinical context: 2D echocardiogram: Moderately increased septal wall thickness. Some posterior wall thickness. EF 40%. [place] and apical septal wall hypokinetic. July 29: White count 10.1 hemoglobin 15.1 platelets 208 LDL 153.8 July 28, 2024: White count 11 hemoglobin 16.4 platelets 200 sodium 141 potassium 4.3 BUN 15 creatinine 0.82 Troponin I 0.561, 0.983. proBNP 754 EKG tracing personally reviewed by me-normal sinus rhythm. Some nonspecific T wave changes. CT angio chest: Negative PE. Ascending aortic aneurysm 4.2 cm. Stable pulmonary nodules dating back to 2021. Pulmonary arterial hypertension. Chest x-ray film personally reviewed by me-hyperinflated lung [place] Assessment and plan: -Acute non-ST elevation microinfarction. Risk factors include postmenopausal, smoker, hypertension, , hyperlipidemia IV heparin, aspirin -Coronary artery disease with stent to LAD, with Dr. Mondragon Aspirin. Lipitor. Zetia. Brilinta. Coreg -Chronic congestive heart failure from systolic dysfunction from ischemic cardiomyopathy. EF 40% Add Aldactone -COPD exacerbation in a current smoker DuoNeb 4 times daily, nebulized Pulmicort, IV Jqqm-[id number]-[id number] Discharged on Symbicort 1 puff twice daily -Diabetes mellitus type 2, has been on Ozempic for last 1 year Diabetic diet. Follow Accu-Cheks with sliding scale insulin -Essential hypertension Amlodipine. Coreg. -Hyperlipidemia Lipitor 80 mg nightly. Zetia. -Chronic pain, primary osteoarthritis Cymbalta. Lyrica. Percocet 7.5 -Obesity BMI 32.1 Weight loss measures. Patient is on already on Ozempic. -Chronic nicotine dependence, cigarette smoker Nicotine patch -Full code Disposition: Home Past Medical History Past Medical History: Cancer, COPD, Diabetes Mellitus, GERD/Reflux, Hyperlipidemia, Hypertension, Osteoarthritis (OA) Additional Past Medical History / Comment(s): breast CA 1995 -radiation tx and uterine CA 1991,migraines,urosepsis,varicose veins rt leg,birthmark, LARGE BIRTHMARK ON LT ARM, melanoma, low iron levels. HX GI BLEED History of Any Multi-Drug Resistant Organisms: None Reported Past Surgical History: Adenoidectomy, Hysterectomy, Joint Replacement, Orthopedic Surgery, Tonsillectomy Additional Past Surgical History / Comment(s): lt breast lumpectomy,lt knee scope,dougie cataracts, melanoma removed from left lower leg, LT TKA, COLONOSCOPY/EGD, Past Anesthesia/Blood Transfusion Reactions: No Reported Reaction Additional Past Anesthesia/Blood Transfusion Reaction / Comment(s): no hx blood transfusion Past Psychological History: Anxiety, Depression Smoking Status: Current some day smoker Past Alcohol Use History: None Reported Past Drug Use History: Marijuana Plan - Discharge Summary Discharge Rx Participant: Yes New Discharge Prescriptions: New Spironolactone [Aldactone] 12.5 mg PO DAILY #30 tab Aspirin 81 mg PO DAILY tab Nitroglycerin Sl Tabs [Nitrostat] 0.4 mg SUBLINGUAL Q5M PRN #30 tab PRN Reason: Chest Pain Ticagrelor [Brilinta] 90 mg PO BID #60 tab Nicotine 14Mg/24Hr Patch [Habitrol] 1 patch TRANSDERM DAILY #30 patch Atorvastatin [Lipitor] 80 mg PO HS #30 tab Budesonide/Formoterol Fumarate [Symbicort 160-4.5 Mcg Inhaler] 1 puff INHALATION BID #10.2 gm Continue Pregabalin [Lyrica] 150 mg PO BID Latanoprost [Latanoprost 0.005%] 1 drop BOTH EYES HS DULoxetine HCL [Cymbalta] 60 mg PO HS oxyCODONE-APAP 7.5-325MG [Percocet 7.5-325 mg] 1 tab PO Q12H PRN PRN Reason: Pain carvediloL [Coreg] 25 mg PO BID Ezetimibe [Zetia] 10 mg PO DAILY Cholecalciferol (Vitamin D3) [Vitamin D3 (50 Mcg = 2000 Iu)] 50 mcg PO DAILY Semaglutide [Ozempic] 1 mg SQ WE amLODIPine [Norvasc] 10 mg PO DAILY Discontinued cloNIDine HCL [Catapres] 0.1 mg PO QID PRN PRN Reason: SBP >160/high bp Atorvastatin Calcium [Lipitor] 40 mg PO HS Discharge Medication List Pregabalin [Lyrica] 150 mg PO BID 02/06/22 [History] oxyCODONE-APAP 7.5-325MG [Percocet 7.5-325 mg] 1 tab PO Q12H PRN 04/02/22 [History] Ezetimibe [Zetia] 10 mg PO DAILY 11/05/22 [History] carvediloL [Coreg] 25 mg PO BID 11/05/22 [History] Cholecalciferol (Vitamin D3) [Vitamin D3 (50 Mcg = 2000 Iu)] 50 mcg PO DAILY 07/28/24 [History] DULoxetine HCL [Cymbalta] 60 mg PO HS 07/28/24 [History] Latanoprost [Latanoprost 0.005%] 1 drop BOTH EYES HS 07/28/24 [History] Semaglutide [Ozempic] 1 mg SQ WE 07/28/24 [History] amLODIPine [Norvasc] 10 mg PO DAILY 07/28/24 [History] Aspirin 81 mg PO DAILY tab 07/30/24 [Rx] Atorvastatin [Lipitor] 80 mg PO HS #30 tab 07/30/24 [Rx] Budesonide/Formoterol Fumarate [Symbicort 160-4.5 Mcg Inhaler] 1 puff INHALATION BID #10.2 gm 07/30/24 [Rx] Nicotine 14Mg/24Hr Patch [Habitrol] 1 patch TRANSDERM DAILY #30 patch 07/30/24 [Rx] Nitroglycerin Sl Tabs [Nitrostat] 0.4 mg SUBLINGUAL Q5M PRN #30 tab 07/30/24 [Rx] Spironolactone [Aldactone] 12.5 mg PO DAILY #30 tab 07/30/24 [Rx] Ticagrelor [Brilinta] 90 mg PO BID #60 tab 07/30/24 [Rx] Follow up Appointment(s)/Referral(s): Jeremi Mondragon MD [STAFF PHYSICIAN] - 1 Week (Please call to schedule hospital follow up) Yamil De Jesus DO [Primary Care Provider] - 1-2 days (Please call to schedule hospital follow up. ) Patient Instructions/Handouts: *Surgery [facility] - After Heart Catheterization - Cook Dinner Instructions, Heart Attack (DC) Discharge Disposition: HOME SELF-CARE
== END 2024-07-30 12:06 | disposition home or self-care (01) | DRG 322 ==
LOC: EC 09:28 → 3SCARD 12:01
PROVIDERS: ADMIT Hospitalist; ATTEND Hospitalist
PROC: 027035Z Dilation of Coronary Artery, One Artery with Two Drug-eluting Intraluminal Devices, Percutaneous Approach (ICD-10-PCS; principal; 2024-07-28 13:30)
PROC: B2111ZZ Fluoroscopy of Multiple Coronary Arteries using Low Osmolar Contrast (ICD-10-PCS; principal; 2024-07-28 13:30)
PROC: 4A023N7 Measurement of Cardiac Sampling and Pressure, Left Heart, Percutaneous Approach (ICD-10-PCS; principal; 2024-07-28 13:30)
PROC: 4A033BC Measurement of Arterial Pressure, Coronary, Percutaneous Approach (ICD-10-PCS; principal; 2024-07-28 13:30)
DX: I21.4 Non-ST elevation (NSTEMI) myocardial infarction (principal); I50.22 Chronic systolic (congestive) heart failure; I16.1 Hypertensive emergency; J44.1 Chronic obstructive pulmonary disease with (acute) exacerbation; I11.0 Hypertensive heart disease with heart failure; I25.10 Atherosclerotic heart disease of native coronary artery without angina pectoris; F17.210 Nicotine dependence, cigarettes, uncomplicated; J44.9 Chronic obstructive pulmonary disease, unspecified; E11.9 Type 2 diabetes mellitus without complications; K21.9 Gastro-esophageal reflux disease without esophagitis; E66.9 Obesity, unspecified; E78.5 Hyperlipidemia, unspecified; F32.A Depression, unspecified; F41.9 Anxiety disorder, unspecified; G43.909 Migraine, unspecified, not intractable, without status migrainosus; D71 Functional disorders of polymorphonuclear neutrophils; G89.29 Other chronic pain; I25.5 Ischemic cardiomyopathy; I27.21 Secondary pulmonary arterial hypertension; I71.21 Aneurysm of the ascending aorta, without rupture; Z68.32 Body mass index [BMI] 32.0-32.9, adult; I83.91 Asymptomatic varicose veins of right lower extremity; C43.9 Malignant melanoma of skin, unspecified; M19.91 Primary osteoarthritis, unspecified site; Z79.85 Long-term (current) use of injectable non-insulin antidiabetic drugs; Z79.51 Long term (current) use of inhaled steroids; Z79.82 Long term (current) use of aspirin; Z79.899 Other long term (current) drug therapy; Z85.3 Personal history of malignant neoplasm of breast; Z85.42 Personal history of malignant neoplasm of other parts of uterus; Z90.710 Acquired absence of both cervix and uterus; Z92.3 Personal history of irradiation; Z96.652 Presence of left artificial knee joint; Z88.5 Allergy status to narcotic agent; Z88.2 Allergy status to sulfonamides
CPT/HCPCS: 36415; 71046; 71275; 80053; 80061; 82565; 83036; 83735; 83880; 84484; 85025; 85610; 85730; 92978; 93005; 93306; 93458; 93799; 94640; 94760; 96365; 96366; 96375; 99291

== ENCOUNTER → 2024-10-29 | Outpatient (CLI) | payer MEDICARE ==
--- NOTE | 2024-11-02 06:59 | PE ---
EXAMINATION TYPE: PET CT fusion skull to thigh DATE OF EXAM: 10/29/2024 COMPARISON: Prior PET/CT June 22, 2022 HISTORY: Malignant melanoma TECHNIQUE: Following the intravenous administration of 10.7 mCi of F-18 FDG, whole body images are p erformed from the top of skull to the bottom of feet. Images are reviewed on the computer in the cor onal, axial, and sagittal planes. Reconstructed rotating images are created on independent workstati on and reviewed on the computer. A localization and attenuation correction CT is performed in conju nction with the PET scan. Blood glucose level equals 97. SCAN: Subsequent Scan FINDINGS: HEAD AND NECK: No suspicious areas of abnormal hypermetabolic uptake. CHEST, MEDIASTINUM, AND HILAR REGION: No new areas of abnormal hypermetabolic uptake. A few scattered small pulmonary nodules remain present. ABDOMEN AND PELVIS: Normal excretion. No new areas of abnormal hypermetabolic uptake. LOWER EXTREMITIES: No suspicious hypermetabolic soft tissue masses. OSSEOUS STRUCTURES: No new areas of abnormal hypermetabolic uptake. OTHER CT: Coronary artery calcifications are redemonstrated. There is at least moderate left atrial d ilatation. Cholecystectomy clips are redemonstrated. There is [id number] diffuse colonic fecal prominence. Uterus is surgically absent. Metallic hardware from total bilateral knee arthroplasty is noted. IMPRESSION: No new hypermetabolic soft tissue lesions to suggest active melanoma recurrence. [facility], , 11/02/2024 6:57 AM
== END | disposition home or self-care (01) ==
LOC: RADPETMAIN 10:55
PROVIDERS: ATTEND Internal Medicine Hematology & Oncology
DX: C43.72 Malignant melanoma of left lower limb, including hip (principal)
CPT/HCPCS: 78815; A9552

== ENCOUNTER → 2024-12-31 | Outpatient (CLI) | payer MEDICARE ==
--- NOTE | 2024-12-31 14:00 | MM ---
Reason for Exam: Screening (asymptomatic). Last mammogram was performed 1 year(s) and 6 month(s) ago. Patient History: Menarche at age 11. First Full-Term at age 29. Late child-bearing (after 28). Left ovary removed at age 30. Right ovary removed at age 30. Hysterectomy at age 30. Postmenopausal. Endometrial cancer, age 30. Estrogen and Progesterone, starting at age 33 for 1 year. 07/24/2012, Benign Core Biopsy on the left side. 07/24/2012, Cancelled Left Mammotome on the left side. Risk Values: Cheryl 5 year model risk: 2.7%. NCI Lifetime model risk: 9.7%. Prior Study Comparison: 06/13/2021 Bilateral Screening Mammogram, [facility]. 06/20/2022 Bilateral MG 3D screening mammo w/cad, [facility]. 07/24/2023 Bilateral MG 3D screening mammo w/cad, [facility]. Tissue Density: There are scattered areas of fibroglandular density. Findings: Analyzed By CAD. There is no suspicious group of microcalcifications or new suspicious mass in either breast. Overall Assessment: Negative, BI-RAD 1 Management: Screening Mammogram of both breasts in 1 year. . Patient should continue monthly self-breast exams. A clinical breast exam by your physician is recommended on an annual basis. This exam should not preclude additional follow-up of suspicious palpable abnormalities. Note on Cheryl scores and lifetime risk: 1. A Cheryl score greater than 3% is considered moderate risk. If this is the case, consider specialist referral to assess eligibility for a risk reducing agent. 2. If overall lifetime risk for the development of breast cancer is 20% or higher, the patient may qualify for future screening with alternating mammogram and breast MRI. [facility], , 12/31/2024 1:57 PM. Electronically signed and approved by: Hero Rios M.D. Radiologis
== END | disposition home or self-care (01) ==
LOC: RADMAMWWP 13:37
PROVIDERS: ATTEND Internal Medicine
DX: Z12.31 Encounter for screening mammogram for malignant neoplasm of breast (principal); R92.323 Mammographic fibroglandular density, bilateral breasts; Z78.0 Asymptomatic menopausal state
CPT/HCPCS: 77063; 77067

== ENCOUNTER → 2025-02-05 | Outpatient (CLI) | payer MEDICARE ==
--- NOTE | 2025-02-05 11:38 | XR ---
EXAMINATION TYPE: XR chest 2V DATE OF EXAM: 02/05/2025 11:28 AM COMPARISON: Chest radiographs from 07/28/2024 TECHNIQUE: XR chest 2V Frontal and lateral views of the chest. CLINICAL INDICATION:Female, 64 years old with history of J45.909 UNSPECIFIED ASTHMA, UNCOMPLICATED; FINDINGS: Lungs/Pleura: There is no evidence of pleural effusion, focal consolidation, or pneumothorax. Pulmonary vascularity: Unremarkable. Heart/mediastinum: Cardiomediastinal silhouette is unremarkable. Musculoskeletal: Multiple level degenerative disc disease changes seen throughout the spine. IMPRESSION: No acute cardiopulmonary disease/process. [facility], , 02/05/2025 11:36 AM
== END | disposition home or self-care (01) ==
LOC: LABWHC1 11:12
PROVIDERS: ATTEND Internal Medicine
DX: J45.909 Unspecified asthma, uncomplicated (principal)
CPT/HCPCS: 71046

== ENCOUNTER 2025-02-08 14:03 | Observation (INO) | payer MEDICARE ==
--- NOTE | 2025-02-08 15:37 | ED ---
General Adult HPI - General Chief complaint: Shortness of Breath Stated complaint: SOB Time Seen by Provider: 02/08/25 14:17 Source: patient, RN notes reviewed Mode of arrival: ambulatory Limitations: no limitations - History of Present Illness Initial comments: Patient is a 64-year-old female present to the emergency department with concerns with cough and dyspnea. Symptoms have been present for almost 2 weeks now. Patient has had congestion, clear nasal drainage. Patient has cough with rare dark green sputum. Patient has felt fatigued. Exertional dyspnea. No chest pain. Patient has noticed some wheezing, no history of this. No history of COPD. No new calf pain or leg swelling. - Related Data Home Medications Medication Instructions Recorded Confirmed Pregabalin [Lyrica] 150 mg PO BID 02/06/22 07/28/24 oxyCODONE-APAP 7.5-325MG [Percocet 1 tab PO Q12H PRN 04/02/22 07/28/24 7.5-325 mg] Ezetimibe [Zetia] 10 mg PO DAILY 11/05/22 07/28/24 carvediloL [Coreg] 25 mg PO BID 11/05/22 07/28/24 Cholecalciferol (Vitamin D3) 50 mcg PO DAILY 07/28/24 07/28/24 [Vitamin D3 (50 Mcg = 2000 Iu)] DULoxetine HCL [Cymbalta] 60 mg PO HS 07/28/24 07/28/24 Latanoprost [Latanoprost 0.005%] 1 drop BOTH EYES HS 07/28/24 07/28/24 Semaglutide [Ozempic] 1 mg SQ WE 07/28/24 07/28/24 amLODIPine [Norvasc] 10 mg PO DAILY 07/28/24 07/28/24 Previous Rx's Medication Instructions Recorded Aspirin 81 mg PO DAILY tab 07/30/24 Atorvastatin [Lipitor] 80 mg PO HS #30 tab 07/30/24 Nicotine 14Mg/24Hr Patch [Habitrol] 1 patch TRANSDERM DAILY #30 patch 07/30/24 Nitroglycerin Sl Tabs [Nitrostat] 0.4 mg SUBLINGUAL Q5M PRN #30 tab 07/30/24 Spironolactone [Aldactone] 12.5 mg PO DAILY #30 tab 07/30/24 Ticagrelor [Brilinta] 90 mg PO BID #60 tab 07/30/24 Budesonide/Formoterol Fumarate 1 puff INHALATION BID #10.2 gm 08/01/24 [Symbicort 160-4.5 Mcg Inhaler] Allergies Allergy/AdvReac Type Severity Reaction Status Date / Time losartan [From Cozaar] Allergy Anaphylaxis Verified 02/08/25 14:07 morphine Allergy Hallucinati Verified 02/08/25 14:07 ons Sulfa (Sulfonamide Allergy Itching Verified 02/08/25 14:07 Antibiotics) Sani-cloth germacidal disp Allergy angioedema, Uncoded 02/08/25 14:07 wipes Anaphylaxis, (super purple container [facility] uses) Review of Systems ROS Statement: Those systems with pertinent positive or pertinent negative responses have been documented in the HPI. ROS Other: All systems not noted in ROS Statement are negative. Constitutional: Denies: fever Eyes: Denies: eye pain ENT: Reports: congestion. Denies: ear pain Respiratory: Reports: as per HPI, cough, dyspnea Cardiovascular: Denies: chest pain Endocrine: Reports: fatigue Gastrointestinal: Denies: abdominal pain Musculoskeletal: Denies: back pain Skin: Denies: rash Neurological: Denies: headache Past Medical History Past Medical History: Cancer, COPD, Diabetes Mellitus, GERD/Reflux, Hyperlipidemia, Hypertension, Osteoarthritis (OA) Additional Past Medical History / Comment(s): breast CA 1995 -radiation tx and uterine CA 1991,migraines,urosepsis,varicose veins rt leg,birthmark, LARGE BIRTHMARK ON LT ARM, melanoma, low iron levels. HX GI BLEED History of Any Multi-Drug Resistant Organisms: None Reported Past Surgical History: Adenoidectomy, Hysterectomy, Joint Replacement, Orthopedic Surgery, Tonsillectomy Additional Past Surgical History / Comment(s): lt breast lumpectomy,lt knee scope,dougie cataracts, melanoma removed from left lower leg, LT TKA, COLONOSCOPY/EGD, Past Anesthesia/Blood Transfusion Reactions: No Reported Reaction Additional Past Anesthesia/Blood Transfusion Reaction / Comment(s): no hx blood transfusion Past Psychological History: Anxiety, Depression Smoking Status: Current some day smoker Past Alcohol Use History: None Reported Past Drug Use History: Marijuana - Past Family History Father Family Medical History: Cancer Additional Family Medical History / Comment(s): prostate Mother Family Medical History: Cancer General Exam Limitations: no limitations General appearance: alert, in no apparent distress Head exam: Present: normocephalic Eye exam: Present: normal appearance Neck exam: Present: normal inspection Respiratory exam: Present: wheezes Cardiovascular Exam: Present: regular rate, normal rhythm GI/Abdominal exam: Present: soft. Absent: tenderness Extremities exam: Present: normal inspection. Absent: pedal edema, calf tenderness Neurological exam: Present: alert Psychiatric exam: Present: normal affect, normal mood Skin exam: Present: normal color Course Vital Signs 02/08/25 02/08/25 02/08/25 14:04 14:07 15:52 Temperature 97.9 F Pulse Rate 64 55 L Respiratory 22 20 20 Rate Blood Pressure 198/132 166/107 O2 Sat by Pulse 97 97 Oximetry 02/08/25 02/08/25 02/08/25 16:57 17:01 17:10 Temperature Pulse Rate 54 L 50 L 52 L Respiratory 20 Rate Blood Pressure 162/107 O2 Sat by Pulse 97 Oximetry EKG Findings - EKG Results: EKG: interpreted by ERMD, sinus rhythm, normal axis, normal QRS, normal ST/T Medical Decision Making - Medical Decision Making Was pt. sent in by a medical professional or institution (, PA, NOVELTY CHAIN MAKER, urgent care, hospital, or correction...) When possible be specific @ -No Did you speak to anyone other than the patient for history (EMS, parent, family, police, friend...)? What history was obtained from this source @ -No Did you review nursing and triage notes (agree or disagree)? Why? @ -I reviewed and agree with nursing and triage notes Were old charts reviewed (outside hosp., previous admission, EMS record, old EKG, old radiological studies, urgent care reports/EKG's, correction records)? Report findings @ -No old charts were reviewed Differential Diagnosis (chest pain, altered mental status, abdominal pain women, abdominal pain men, vaginal bleeding, weakness, fever, dyspnea, syncope, headache, dizziness, GI bleed, back pain, seizure, CVA, palpatations, mental health, musculoskeletal)? @ -Differential Dyspnea: Coronary syndrome, arrhythmia, tamponade, asthma, COPD, pulmonary embolism, pneumonia, pneumothorax, pulmonary effusion, anaphylaxis, diabetic ketoacidosis, flailed chest, pulmonary contusion, diaphragmatic rupture, anemia, neuromuscular, this is not meant to be an all-inclusive list. EKG interpreted by me (3pts min.). @ -As above X-rays interpreted by me (1pt min.). @ -Chest x-ray shows some nonspecific mild interstitial changes. Hyperinflation CT interpreted by me (1pt min.). @ -None done U/S interpreted by me (1pt. min.). @ -None done What testing was considered but not performed or refused? (CT, X-rays, U/S, labs)? Why? @ -None What meds were considered but not given or refused? Why? @ -None Did you discuss the management of the patient with other professionals (professionals i.e. Dr., PA, NOVELTY CHAIN MAKER, lab, RT, psych nurse, administrator social welfare, hot dip tinning supervisor, teacher, forward air controller/air officer, case maker)? Give summary @ -Per patient request case was discussed with Dr. Sotelo who will admit Was smoking cessation discussed for >3mins.? @ -No Was critical care preformed (if so, how long)? @ -No Were there social determinants of health that impacted care today? How? (Homelessness, low income, unemployed, alcoholism, drug addiction, transportation, low edu. Level, literacy, decrease access to med. care, nursing home, rehab)? @ -No Was there de-escalation of care discussed even if they declined (Discuss DNR or withdrawal of care, Hospice)? DNR status @ -No What co-morbidities impacted this encounter? (DM, HTN, Smoking, COPD, CAD, Cancer, CVA, ARF, Chemo, Hep., AIDS, mental health diagnosis, sleep apnea, morbid obesity)? @ -None Was patient admitted / discharged? Hospital course, mention meds given and route, prescriptions, significant lab abnormalities, going to OR and other pertinent info. @ -Patient presents with cough and dyspnea for 2 weeks now. Patient does have significant wheezing. On reevaluation patient does feel better with nebulizer however still has some dyspnea and still has wheezing. Patient will be admitted, admission orders written. Patient updated. Undiagnosed new problem with uncertain prognosis? @ -No Drug Therapy requiring intensive monitoring for toxicity (Heparin, Nitro, Insulin, Cardizem)? @ -No Were any procedures done? @ -No Diagnosis/symptom? @ -COPD Acute, or Chronic, or Acute on Chronic? @ -Acute Uncomplicated (without systemic symptoms) or Complicated (systemic symptoms)? @ -Default Side effects of treatment? @ -No Exacerbation, Progression, or Severe Exacerbation? @ -No Poses a threat to life or bodily function? How? (Chest pain, [place], HI, pneumonia, PE, COPD, DKA, ARF, appy, cholecystitis, CVA, Diverticulitis, Homicidal, Suicidal, threat to staff... and all critical care pts) @ -No - Lab Data Result diagrams: 02/08/25 15:40 02/08/25 15:40 Lab Results 02/08/25 02/08/25 02/08/25 Range/Units 15:35 15:40 15:40 WBC 13.20 H (4.50-10.00) 10*3/uL RBC 5.00 (4.10-5.20) 10*6/uL Hgb 15.6 H (12.0-15.0) g/dL Hct 46.1 (37.2-46.3) % MCV 92.2 (80.0-97.0) fL MCH 31.2 (27.0-32.0) pg MCHC 33.8 (32.0-37.0) g/dL Plt Count 243 (140-440) 10*3/uL MPV 12.0 (9.5-12.2) fL Immature Gran % (Auto) 0.5 % Neutrophils % 90.4 % Lymphocytes % 8.1 % Monocytes % 0.8 % Eosinophils % 0.0 % Basophils % 0.2 % Immature Gran # 0.07 H (0.00-0.04) 10*3/uL Neutrophils # 11.93 H (1.80-7.70) 10*3/uL Lymphocytes # 1.07 (0.90-5.00) 10*3/uL Monocytes # 0.10 L (0.20-1.00) 10*3/uL Eosinophils # 0.00 L (0.04-0.35) 10*3/uL Basophils # 0.03 (0.00-0.10) 10*3/uL PT 10.5 (10.0-12.5) sec INR 0.9 (<1.2) APTT 22.5 (22.0-30.0) sec D-Dimer 0.42 (<0.60) mg/L FEU Sodium (137-145) mmol/L Potassium (3.5-5.1) mmol/L Chloride (98-107) mmol/L Carbon Dioxide (22-30) mmol/L Anion Gap mmol/L BUN (7-17) mg/dL Creatinine (0.52-1.04) mg/dL Est GFR (CKD-EPI)AfAm (>60 ml/min/1.73 sqM) Est GFR (CKD-EPI)NonAf (>60 ml/min/1.73 sqM) Glucose (74-99) mg/dL Plasma Lactic Acid Yosi (0.7-2.0) mmol/L Calcium (8.4-10.2) mg/dL Magnesium (1.6-2.3) mg/dL Total Bilirubin (0.2-1.3) mg/dL AST (14-36) U/L ALT (4-34) U/L Alkaline Phosphatase (38-126) U/L Troponin I (0.000-0.034) ng/mL NT-Pro-B Natriuret Pep pg/mL Total Protein (6.3-8.2) g/dL Albumin (3.5-5.0) g/dL Influenza Type A (PCR) Not Detected (Not Detectd) Influenza Type B (PCR) Not Detected (Not Detectd) RSV (PCR) Not Detected (Not Detectd) SARS-CoV-2 (PCR) Not Detected (Not Detectd) 02/08/25 02/08/25 02/08/25 Range/Units 15:40 15:40 15:40 WBC (4.50-10.00) 10*3/uL RBC (4.10-5.20) 10*6/uL Hgb (12.0-15.0) g/dL Hct (37.2-46.3) % MCV (80.0-97.0) fL MCH (27.0-32.0) pg MCHC (32.0-37.0) g/dL Plt Count (140-440) 10*3/uL MPV (9.5-12.2) fL Immature Gran % (Auto) % Neutrophils % % Lymphocytes % % Monocytes % % Eosinophils % % Basophils % % Immature Gran # (0.00-0.04) 10*3/uL Neutrophils # (1.80-7.70) 10*3/uL Lymphocytes # (0.90-5.00) 10*3/uL Monocytes # (0.20-1.00) 10*3/uL Eosinophils # (0.04-0.35) 10*3/uL Basophils # (0.00-0.10) 10*3/uL PT (10.0-12.5) sec INR (<1.2) APTT (22.0-30.0) sec D-Dimer (<0.60) mg/L FEU Sodium 141 (137-145) mmol/L Potassium 4.4 (3.5-5.1) mmol/L Chloride 103 (98-107) mmol/L Carbon Dioxide 28 (22-30) mmol/L Anion Gap 10 mmol/L BUN 24 H (7-17) mg/dL Creatinine 1.06 H (0.52-1.04) mg/dL Est GFR (CKD-EPI)AfAm 63 (>60 ml/min/1.73 sqM) Est GFR (CKD-EPI)NonAf 55 (>60 ml/min/1.73 sqM) Glucose 142 H (74-99) mg/dL Plasma Lactic Acid Yosi 1.5 (0.7-2.0) mmol/L Calcium 10.0 (8.4-10.2) mg/dL Magnesium 1.8 (1.6-2.3) mg/dL Total Bilirubin 0.6 (0.2-1.3) mg/dL AST 20 (14-36) U/L ALT 15 (4-34) U/L Alkaline Phosphatase 65 (38-126) U/L Troponin I <0.012 (0.000-0.034) ng/mL NT-Pro-B Natriuret Pep 850 pg/mL Total Protein 7.5 (6.3-8.2) g/dL Albumin 4.6 (3.5-5.0) g/dL Influenza Type A (PCR) (Not Detectd) Influenza Type B (PCR) (Not Detectd) RSV (PCR) (Not Detectd) SARS-CoV-2 (PCR) (Not Detectd) Disposition Clinical Impression: Acute exacerbation of chronic obstructive pulmonary disease Disposition: ADMITTED IP TO THIS HOSP Is patient prescribed a controlled substance at d/c from ED?: No Referrals: Yamil De Jesus DO [Primary Care Provider] - 1-2 days Time of Disposition: 18:35
[2025-02-08 15:56] LABS: Basophils # (A) 0.03 10*3/uL (0.00-0.10); Basophils % (A) 0.2 %; HCT 46.1 % (37.2-46.3); HGB 15.6 g/dL (12.0-15.0); Lymphocytes # (A) 1.07 10*3/uL (0.90-5.00); Lymphocytes % (A) 8.1 %; MCH 31.2 pg (27.0-32.0); MCHC 33.8 g/dL (32.0-37.0); MCV 92.2 fL (80.0-97.0); Monocytes % (A) 0.8 %; Neutrophils # (A) 11.93 10*3/uL (1.80-7.70); Neutrophils % (A) 90.4 %; Platelet Count 243 10*3/uL (140-440); RDW 13.8 % (11.5-14.5)
[2025-02-08] MEDS: methylPREDNISolone SOD SUCCI 125 MG/2 ML VIAL IV STA (15:56)
[2025-02-08 16:06] LABS: INR 0.9 (<1.2)
[2025-02-08 16:07] LABS: Partial Thromboplastin Time 22.5 sec (22.0-30.0); Prothrombin Time 10.5 sec (10.0-12.5)
[2025-02-08 16:12] LABS: ALT 15 U/L (4-34); AST 20 U/L (14-36); African American GFR (CKD) 63 (>60 ml/min/1.73 sqM); Albumin 4.6 g/dL (3.5-5.0); Alkaline Phosphatase 65 U/L (38-126); Anion Gap 10 mmol/L; Blood Urea Nitrogen 24 mg/dL (7-17); Carbon Dioxide 28 mmol/L (22-30); Chloride 103 mmol/L (98-107); Glucose 142 mg/dL (74-99); Magnesium 1.8 mg/dL (1.6-2.3); Non-African American GFR(CKD) 55 (>60 ml/min/1.73 sqM); Potassium 4.4 mmol/L (3.5-5.1); Sodium 141 mmol/L (137-145); Total Bilirubin 0.6 mg/dL (0.2-1.3); Total Protein 7.5 g/dL (6.3-8.2)
[2025-02-08 16:20] LABS: NT-Pro-B-Type Natriuretic Pept 850 pg/mL
--- NOTE | 2025-02-08 16:36 | XR ---
EXAMINATION TYPE: XR chest 2V DATE OF EXAM: 02/08/2025 4:07 PM COMPARISON: 02/05/2025 CLINICAL INDICATION: Female, 64 years old with history of difficulty breathing, shortness of breath TECHNIQUE: PA and lateral views FINDINGS: Heart borderline in size. Slight rightward patient rotation ultrasound and normal cardiac and mediast inal contours. Interstitial prominence. No consolidation or pleural effusion. IMPRESSION: 1. Borderline heart size. 2. Given the interstitial prominence, consider mild pulmonary vascular congestion versus bronchitis v ersus asthma. [facility], , 02/08/2025 4:33 PM
[2025-02-08 17:00] LABS: Influenza A Not Detected (Not Detectd); Influenza B Not Detected (Not Detectd); RSV Not Detected (Not Detectd)
[2025-02-08] MEDS: IPRATROPIUM-ALBUTEROL 3 ML NEB INHALATION STA (17:01)
[2025-02-08] MEDS ORDERED: NALOXONE 0.4 MG/ML 1 ML VIAL IVP PRN (18:35)
[2025-02-08] MEDS ORDERED: HYDROcodone/APAP 5-325MG 1 EACH TAB PO PRN (18:35)
[2025-02-08] MEDS ORDERED: IPRATROPIUM-ALBUTEROL 3 ML NEB INHALATION PRN (18:35)
[2025-02-08] MEDS ORDERED: ACETAMINOPHEN TAB 325 MG TAB PO PRN (18:35)
[2025-02-08] MEDS: carvediloL 12.5 MG TAB PO STA (18:54)
[2025-02-08] MEDS: AZITHROMYCIN 500 MG in SODIUM CHLORIDE 0.9% 250 ML IVPB SCH (18:54)
[2025-02-08] MEDS ORDERED: ALBUTEROL HFA INHALER INHALATION PRN (19:17)
[2025-02-08] MEDS ORDERED: ONDANSETRON ODT 4 MG TAB PO PRN (19:17)
[2025-02-08] MEDS: amLODIPine 5 MG TAB PO SCH (19:48)
[2025-02-08] MEDS: IPRATROPIUM-ALBUTEROL 3 ML NEB INHALATION SCH (19:56)
[2025-02-08] MEDS: SYMBICORT 80-4.5 MCG INHALER INHALATION SCH (19:56)
[2025-02-08] MEDS: oxyCODONE-APAP 7.5-325MG 1 EACH TAB PO SCH (20:42)
[2025-02-08] MEDS: ATORVASTATIN 80 MG TAB PO SCH (20:44)
[2025-02-08] MEDS: PREGABALIN 75 MG CAP PO SCH (20:48)
[2025-02-08] MEDS: carvediloL 12.5 MG TAB PO SCH (20:48)
--- NOTE | 2025-02-08 21:10 | P.HPIM ---
History of Present Illness H&P Date: 02/08/25 Chief Complaint: Short of breath This is a very pleasant 64-year-old patient, follows with Dr. Yamil Hein. Chronic medical conditions include diabetes, COPD - current smoker, GERD, hypertension, hyperlipidemia, osteoarthritis. Previous breast cancer in 1995 t reated with radiation and uterine cancer with hysterectomy 1991. Right leg varicose veins. Received treatment for melanoma with Dr. Cornell. Received Keytruda. Currently in remission. Due to follow-up with Dr. Cornell. Stent to LAD June 2024. Oral Surgery Physician Dr. Mondragon. Occupational Health Nurse Manager Dr. Sanchez. Patient now presents with 2 weeks of very short of breath. With minimal activity example bending down even changing clothes takes a while. Does have a cough. This brings up green sputum. Has received a course of doxycycline. Patient's appetite is just about okay. Does take Ozempic. No chest pain. Does use 2 pillows at night no leg swelling. Has continued to smoke half pack a day. No fever no chills. Some weight loss attributed to Ozempic Review of systems: GEN.: Tired, decreased appetite weight loss EYES: None HEENT: None NECK: None RESPIRATORY: As above CARDIOVASCULAR: No chest pain GASTROINTESTINAL: None GENITOURINARY: None MUSCULOSKELETAL: Joint pains LYMPHATICS: None HEMATOLOGICAL: None PSYCHIATRY: None NEUROLOGICAL: None Social history: Retired RN. Currently smoking half a pack a day.. Smoking since the age of 14. No alcohol. . Physical examination: VITAL SIGNS: 97.9, 61, 19, 159 x 97, 96% room GENERAL: Reclining, tired a bit short of EYES: Pupils equal. Conjunctiva valentin l. HEENT: External appearance of nose and ears normal, oral cavity grossly normal. NECK: JVD not raised; masses not palpable. HEART: First and second heart sounds are normal; no edema. LUNGS: Respiratory rate increased, diminished breath sound mild wheezing ABDOMEN: Soft, nontender, liver spleen not palpable, no masses palpable. PSYCH: Alert and oriented x3; mood and affect valentin l. MUSCULOSKELETAL:No Clubbing/cyanosis;muscles-grossly intact. OA NEUROLOGICAL: Cranial nerves grossly intact; no facial asymmetry, power and sensation grossly intact. Extremities: Varicose veins right leg LYMPHATICS: No lymph nodes palpable in the axilla and neck INVESTIGATIONS, reviewed in the clinical context: February 08, 2025: White count 13.2 hemoglobin 15.6 platelets 243 sodium 141 potassium 4.4 BUN 24 creatinine 1.06 Troponin I less than 0.012 proBNP 850 Influenza A, type B, RSV's, SARS-CoV-2: Not detected Chest x-ray film personally reviewed by me-no obvious infiltrate. Hyperinflated Previous testing 2D echocardiogram [June 2024]: Moderately increased septal wall thickness. Some posterior wall thickness. EF 40%. Arp and apical septal wall hypokinetic. CT angio chest: Negative PE. Ascending aortic aneurysm 4.2 cm. Stable pulmonary nodules dating back to 2021. Pulmonary arterial hypertension. Assessment and plan: - Acute COPD exacerbation in a current smoker -Acute non-ST elevation microinfarction. Risk factors include postmenopausal, smoker, hypertension, , hyperlipidemia IV heparin, aspirin -Coronary artery disease with stent to LAD, with Dr. Mondragon Aspirin. Lipitor. Zetia. Brilinta. Coreg -Chronic congestive heart failure from systolic dysfunction from ischemic cardiomyopathy. EF 40% Add Aldactone -COPD exacerbation in a current smoker DuoNeb 4 times daily, nebulized Pulmicort, IV [id number] Discharged on Symbicort 1 puff twice daily -Diabetes mellitus type 2, has been on Ozempic for last 1 year Diabetic diet. Follow Accu-Cheks with sliding scale insulin -Essential hypertension Amlodipine. Coreg. -Hyperlipidemia Lipitor 80 mg nightly. Zetia. -Chronic pain, primary osteoarthritis Cymbalta. Lyrica. Percocet 7.5 -Obesity BMI 32.1 Weight loss measures. Patient is on already on Ozempic. -Chronic nicotine dependence, cigarette smoker Nicotine patch -Full code Past Medical History Past Medical History: Cancer, COPD, Diabetes Mellitus, GERD/Reflux, Hyperlipidemia, Hypertension, Osteoarthritis (OA) Additional Past Medical History / Comment(s): breast CA 1995 -radiation tx and uterine CA 1991,migraines,urosepsis,varicose veins rt leg,birthmark, LARGE BIRTHMARK ON LT ARM, melanoma, low iron levels. HX GI BLEED History of Any Multi-Drug Resistant Organisms: None Reported Past Surgical History: Adenoidectomy, Hysterectomy, Joint Replacement, Orthopedic Surgery, Tonsillectomy Additional Past Surgical History / Comment(s): lt breast lumpectomy,lt knee scope,dougie cataracts, melanoma removed from left lower leg, LT TKA, COLONOSCOPY/EGD, Past Anesthesia/Blood Transfusion Reactions: No Reported Reaction Additional Past Anesthesia/Blood Transfusion Reaction / Comment(s): no hx blood transfusion Past Psychological History: Anxiety, Depression Smoking Status: Current some day smoker Past Alcohol Use History: None Reported Past Drug Use History: Marijuana - Past Family History Father Family Medical History: Cancer Additional Family Medical History / Comment(s): prostate Mother Family Medical History: Cancer Medications and Allergies Home Medications Medication Instructions Recorded Confirmed Type Pregabalin [Lyrica] 150 mg PO BID 02/06/22 02/08/25 History oxyCODONE-APAP 7.5-325MG [Percocet 1 tab PO BID 04/02/22 02/08/25 History 7.5-325 mg] carvediloL [Coreg] 25 mg PO BID 11/05/22 02/08/25 History Semaglutide [Ozempic] 1 mg SQ FR 07/28/24 02/08/25 History Atorvastatin [Lipitor] 80 mg PO HS #30 tab 07/30/24 02/08/25 Rx Spironolactone [Aldactone] 12.5 mg PO DAILY #30 tab 07/30/24 02/08/25 Rx Albuterol Sulfate [Albuterol 2 puff INHALATION RT-Q4H PRN 02/08/25 02/08/25 History Sulfate Hfa] Clopidogrel [Plavix] 75 mg PO DAILY 02/08/25 02/08/25 History Fluticasone Propion/Salmeterol 1 puff INHALATION RT-BID 02/08/25 02/08/25 History [Fluticasone-Salmeterol 250-50] Ondansetron [Zofran] 4 mg PO TID PRN 02/08/25 02/08/25 History amLODIPine [Norvasc] 5 mg PO DAILY 02/08/25 02/08/25 History predniSONE See Taper PO DIRECTED 02/08/25 02/08/25 History Allergies Allergy/AdvReac Type Severity Reaction Status Date / Time losartan [From Cozaar] Allergy Anaphylaxis Verified 02/08/25 18:52 morphine Allergy Hallucinati Verified 02/08/25 18:52 ons Sulfa (Sulfonamide Allergy Itching Verified 02/08/25 18:52 Antibiotics) sulfamethoxazole Allergy Itching Verified 02/08/25 18:52 [From Bactrim] trimethoprim [From Bactrim] Allergy Itching Verified 02/08/25 18:52 Sani-cloth germacidal disp Allergy angioedema, Uncoded 02/08/25 14:07 wipes Anaphylaxis, (super purple container [facility] uses) Physical Exam Vitals: Vital Signs Temp Pulse Resp BP Pulse Ox 02/08/25 20:06 55 L 02/08/25 19:56 53 L 02/08/25 19:49 56 L 18 149/113 02/08/25 18:30 52 L 20 165/102 96 02/08/25 17:10 52 L 02/08/25 17:01 50 L 02/08/25 16:57 54 L 20 162/107 97 02/08/25 15:52 55 L 20 166/107 97 02/08/25 14:07 20 02/08/25 14:04 97.9 F 64 22 198/132 97 Intake and Output 02/08/25 02/08/25 02/08/25 06:59 14:59 22:59 Other: Weight 91.626 kg Results CBC & Chem 7: 02/08/25 15:40 02/08/25 15:40 Labs: Abnormal Lab Results - Last 24 Hours (Table) 02/08/25 02/08/25 Range/Units 15:40 15:40 WBC 13.20 H (4.50-10.00) 10*3/uL Hgb 15.6 H (12.0-15.0) g/dL Immature Gran # 0.07 H (0.00-0.04) 10*3/uL Neutrophils # 11.93 H (1.80-7.70) 10*3/uL Monocytes # 0.10 L (0.20-1.00) 10*3/uL Eosinophils # 0.00 L (0.04-0.35) 10*3/uL BUN 24 H (7-17) mg/dL Creatinine 1.06 H (0.52-1.04) mg/dL Glucose 142 H (74-99) mg/dL
[2025-02-08] MEDS ORDERED: DEXTROSE 50% SYRINGE 50 ML IVP PRN ×2 (21:13)
--- NOTE | 2025-02-08 21:18 | P.HPIM ---
History of Present Illness H&P Date: 02/08/25 Chief Complaint: Short of breath This is a very pleasant 64-year-old patient, follows with Dr. Yamil Hein. Chronic medical conditions include diabetes, COPD - current smoker, GERD, hypertension, hyperlipidemia, osteoarthritis. Previous breast cancer in 1995 t reated with radiation and uterine cancer with hysterectomy 1991. Right leg varicose veins. Received treatment for melanoma with Dr. Cornell. Received Keytruda. Currently in remission. Due to follow-up with Dr. Cornell. Stent to LAD June 2024. 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 Sanchez. Patient now presents with 2 weeks of very short of breath. With minimal activity example bending down even changing clothes takes a while. Does have a cough. This brings up green sputum. Has received a course of doxycycline. Patient's appetite is just about okay. Does take Ozempic. No chest pain. Does use 2 pillows at night no leg swelling. Has continued to smoke half pack a day. No fever no chills. Some weight loss attributed to Ozempic Review of systems: GEN.: Tired, decreased appetite weight loss EYES: None HEENT: None NECK: None RESPIRATORY: As above CARDIOVASCULAR: No chest pain GASTROINTESTINAL: None GENITOURINARY: None MUSCULOSKELETAL: Joint pains LYMPHATICS: None HEMATOLOGICAL: None PSYCHIATRY: None NEUROLOGICAL: None Social history: Retired RN. Currently smoking half a pack a day.. Smoking since the age of 14. No alcohol. . Physical examination: VITAL SIGNS: 97.9, 61, 19, 159 x 97, 96% room GENERAL: Reclining, tired a bit short of EYES: Pupils equal. Conjunctiva valentin l. HEENT: External appearance of nose and ears normal, oral cavity grossly normal. NECK: JVD not raised; masses not palpable. HEART: First and second heart sounds are normal; no edema. LUNGS: Respiratory rate increased, diminished breath sound mild wheezing ABDOMEN: Soft, nontender, liver spleen not palpable, no masses palpable. PSYCH: Alert and oriented x3; mood and affect valentin l. MUSCULOSKELETAL:No Clubbing/cyanosis;muscles-grossly intact. OA NEUROLOGICAL: Cranial nerves grossly intact; no facial asymmetry, power and sensation grossly intact. Extremities: Varicose veins right leg LYMPHATICS: No lymph nodes palpable in the axilla and neck INVESTIGATIONS, reviewed in the clinical context: February 08, 2025: White count 13.2 hemoglobin 15.6 platelets 243 sodium 141 potassium 4.4 BUN 24 creatinine 1.06 Troponin I less than 0.012 proBNP 850 Influenza A, type B, RSV's, SARS-CoV-2: Not detected Chest x-ray film personally reviewed by me-no obvious infiltrate. Hyperinflated Previous testing 2D echocardiogram [June 2024]: Moderately increased septal wall thickness. Some posterior wall thickness. EF 40%. [place] and apical septal wall hypokinetic. CT angio chest: Negative PE. Ascending aortic aneurysm 4.2 cm. Stable pulmonary nodules dating back to 2021. Pulmonary arterial hypertension. Assessment and plan: - Acute COPD exacerbation in a current smoker DuoNeb every 4, IV Solu-Medrol, nebulized Perforomist, nebulized Pulmicort - Patient is short of breath is somewhat out of proportion to her clinical findings. Would consider underlying cardiac ischemia Keep n.p.o. after midnight for possible stress test tomorrow. Consult cardiology -Coronary artery disease with stent to LAD, with Dr. Mondragon, June 2024 Plavix Lipitor. . Coreg -Chronic congestive heart failure from systolic dysfunction from ischemic cardiomyopathy. EF 40% Aldactone. 2D echo -Diabetes mellitus type 2, has been on Ozempic Diabetic diet. Follow Accu-Cheks with sliding scale insulin -Essential hypertension Amlodipine. Coreg. -Hyperlipidemia Lipitor 80 mg nightly. -Chronic pain, primary osteoarthritis Lyrica. Percocet 7.5 -Obesity BMI 31.6 Weight loss measures. on Ozempic. -Chronic nicotine dependence, cigarette smoker Nicotine patch -Full code Care was discussed with the patient. Past Medical History Past Medical History: Cancer, COPD, Diabetes Mellitus, GERD/Reflux, Hyperlipidemia, Hypertension, Osteoarthritis (OA) Additional Past Medical History / Comment(s): breast CA 1995 -radiation tx and uterine CA 1991,migraines,urosepsis,varicose veins rt leg,birthmark, LARGE BIRTHMARK ON LT ARM, melanoma, low iron levels. HX GI BLEED History of Any Multi-Drug Resistant Organisms: None Reported Past Surgical History: Adenoidectomy, Hysterectomy, Joint Replacement, Orthopedic Surgery, Tonsillectomy Additional Past Surgical History / Comment(s): lt breast lumpectomy,lt knee scope,dougie cataracts, melanoma removed from left lower leg, LT TKA, COLONOSCOPY/EGD, Past Anesthesia/Blood Transfusion Reactions: No Reported Reaction Additional Past Anesthesia/Blood Transfusion Reaction / Comment(s): no hx blood transfusion Past Psychological History: Anxiety, Depression Smoking Status: Current some day smoker Past Alcohol Use History: None Reported Past Drug Use History: Marijuana - Past Family History Father Family Medical History: Cancer Additional Family Medical History / Comment(s): prostate Mother Family Medical History: Cancer Medications and Allergies Home Medications Medication Instructions Recorded Confirmed Type Pregabalin [Lyrica] 150 mg PO BID 02/06/22 02/08/25 History oxyCODONE-APAP 7.5-325MG [Percocet 1 tab PO BID 04/02/22 02/08/25 History 7.5-325 mg] carvediloL [Coreg] 25 mg PO BID 11/05/22 02/08/25 History Semaglutide [Ozempic] 1 mg SQ FR 07/28/24 02/08/25 History Atorvastatin [Lipitor] 80 mg PO HS #30 tab 07/30/24 02/08/25 Rx Spironolactone [Aldactone] 12.5 mg PO DAILY #30 tab 07/30/24 02/08/25 Rx Albuterol Sulfate [Albuterol 2 puff INHALATION RT-Q4H PRN 02/08/25 02/08/25 History Sulfate Hfa] Clopidogrel [Plavix] 75 mg PO DAILY 02/08/25 02/08/25 History Fluticasone Propion/Salmeterol 1 puff INHALATION RT-BID 02/08/25 02/08/25 History [Fluticasone-Salmeterol 250-50] Ondansetron [Zofran] 4 mg PO TID PRN 02/08/25 02/08/25 History amLODIPine [Norvasc] 5 mg PO DAILY 02/08/25 02/08/25 History predniSONE See Taper PO DIRECTED 02/08/25 02/08/25 History Allergies Allergy/AdvReac Type Severity Reaction Status Date / Time losartan [From Cozaar] Allergy Anaphylaxis Verified 02/08/25 18:52 morphine Allergy Hallucinati Verified 02/08/25 18:52 ons Sulfa (Sulfonamide Allergy Itching Verified 02/08/25 18:52 Antibiotics) sulfamethoxazole Allergy Itching Verified 02/08/25 18:52 [From Bactrim] trimethoprim [From Bactrim] Allergy Itching Verified 02/08/25 18:52 Sani-cloth germacidal disp Allergy angioedema, Uncoded 02/08/25 14:07 wipes Anaphylaxis, (super purple container [facility] uses) Physical Exam Vitals: Vital Signs Temp Pulse Resp BP Pulse Ox 02/08/25 21:00 61 19 159/97 96 02/08/25 20:06 55 L 02/08/25 19:56 53 L 02/08/25 19:49 56 L 18 149/113 02/08/25 18:30 52 L 20 165/102 96 02/08/25 17:10 52 L 02/08/25 17:01 50 L 02/08/25 16:57 54 L 20 162/107 97 02/08/25 15:52 55 L 20 166/107 97 02/08/25 14:07 20 02/08/25 14:04 97.9 F 64 22 198/132 97 Intake and Output 02/08/25 02/08/25 02/08/25 06:59 14:59 22:59 Other: Weight 91.626 kg Results CBC & Chem 7: 02/08/25 15:40 02/08/25 15:40 Labs: Abnormal Lab Results - Last 24 Hours (Table) 02/08/25 02/08/25 Range/Units 15:40 15:40 WBC 13.20 H (4.50-10.00) 10*3/uL Hgb 15.6 H (12.0-15.0) g/dL Immature Gran # 0.07 H (0.00-0.04) 10*3/uL Neutrophils # 11.93 H (1.80-7.70) 10*3/uL Monocytes # 0.10 L (0.20-1.00) 10*3/uL Eosinophils # 0.00 L (0.04-0.35) 10*3/uL BUN 24 H (7-17) mg/dL Creatinine 1.06 H (0.52-1.04) mg/dL Glucose 142 H (74-99) mg/dL
[2025-02-08 22:17] LABS: Glucose,Whole Blood 267 mg/dL (70-110)
[2025-02-08] MEDS: INSULIN LISPRO (HumaLOG) 100 UNIT/ML 10 mL VL SQ SCH (22:20)
[2025-02-08] MEDS: NICOTINE 14MG/24HR PATCH TRANSDERM SCH (22:20)
[2025-02-08] MEDS: ENOXAPARIN 40 MG/0.4 ML SYRINGE SQ SCH (22:20)
[2025-02-08] MEDS: methylPREDNISolone SOD SUCCI 125 MG/2 ML VIAL IV SCH (23:39)
[2025-02-09] MEDS: BUDESONIDE 1 MG/2 ML NEBU INHALATION SCH (01:05)
[2025-02-09] MEDS: IPRATROPIUM-ALBUTEROL 3 ML NEB INHALATION SCH (01:06)
[2025-02-09] MEDS: FORMOTEROL FUMARATE 20 MCG/2 ML NEBU INHALATION SCH (01:06)
--- NOTE | 2025-02-09 02:43 | P.CNPUL ---
History of Present Illness Consult date: 02/09/25 Requesting physician: Byron Alejandra Reason for consult: COPD Chief complaint: Shortness of breath, cough, wheezing History of present illness: Patient is a 64-year-old female with past medical history significant for chronic ongoing tobacco dependence, COPD, lung nodule, hypertension, hyperlipidemia, coronary artery disease with previous CT and stents to the LAD, ischemic cardiomyopathy with an ejection fraction of 40%, melanoma, among other things. She is a retired nurse from our facility. Her primary care provider is Dr. De Jesus. Patient is known to have moderate COPD, with an FEV1 56% of predicted. Normally, uses a combination of Advair and as needed albuterol inhaler. Currently smokes cigarettes, approximately 10/day. Previously a heavy 1 pack/day smoker for over 40 years. Presents to the emergency department yesterday afternoon with a chief complaint of increased work of breathing. Approximately 2 weeks ago developed nasal congestion, sore throat, and cough. More recently, increased cough with green foul-smelling sputum. Subsequently, developed increased work of breathing with chest tightness and wheezing. Workup in the emergency department including a chest x-ray showing stable cardiac silhouette. Mild interstitial prominence. No focal infiltrates, pleural eff usions, pneumothoraces. CBC: WBC count 13.2, hemoglobin 15.6, platelets 243. D-dimer low at 0.42. CMP: Sodium 141, potassium 4.4, chloride 103, serum bicarb 28, BUN 24, creatinine 1.06, glucose 142. Lactic 1.5. LFTs unremarkable. Troponin less than 0.012. NT proBNP 850. Viral screen negative for influenza A/B, RSV, COVID. Patient currently being evaluated on 6 N. She is resting comfortably on room air. Continues to have congested cough with green sputum production. Denies any hemoptysis. Denies any chest pain. Diffuse wheezing with auscultation and coarse rhonchi. Denies any recent travel known or sick contacts. Denies any fevers or chills. Denies any nausea, vomiting, diarrhea. Tolerating oral food and fluids. Previously started on a combination of DuoNebs, budesonide inhalation, formoterol inhalation, and IV Solu-Medrol. Also, empirically covered on azithromycin. Most recent labs including a temperature of 97.6 F, heart rate 61 bpm, blood pressure 147/85 mmHg, n ontachypneic, SpO2 recorded at 92% on room air. Review of Systems Constitutional: Reports fatigue, Denies chills, Denies fever, Denies poor appetite, Denies sweats, Denies weight gain, Denies weight loss Ears, nose, mouth and throat: Reports nasal congestion, Reports nasal discharge, Reports sore throat, Denies headache, Denies sinus pain, Denies sinus pressure Cardiovascular: Denies chest pain, Denies leg edema, Denies lightheadedness, Denies orthopnea, Denies palpitations, Denies paroxysmal nocturnal dyspnea, Denies syncope Respiratory: Reports as per HPI Gastrointestinal: Denies abdominal pain, Denies diarrhea, Denies loss of appetite, Denies nausea, Denies vomiting Genitourinary: Denies dysuria, Denies flank pain, Denies hematuria Musculoskeletal: Denies limitation of motion Integumentary: Denies rash Neurological: Denies seizures, Denies syncope Psychiatric: Denies anxiety, Denies depression Past Medical History Past Medical History: Cancer, COPD, Diabetes Mellitus, GERD/Reflux, Hyperlipidemia, Hypertension, Osteoarthritis (OA) Additional Past Medical History / Comment(s): breast CA 1995 -radiation tx and uterine CA 1991,migraines(last one 15 years ago),urosepsis,varicose veins rt leg,birthmark, LARGE BIRTHMARK ON LT ARM, melanoma, low iron levels. HX GI BLEED History of Any Multi-Drug Resistant Organisms: None Reported Past Surgical History: Adenoidectomy, Cholecystectomy, Heart Catheterization With Stent, Hysterectomy, Joint Replacement, Orthopedic Surgery, Tonsillectomy Additional Past Surgical History / Comment(s): lt breast lumpectomy,lt knee scope,dougie cataracts, melanoma removed from left lower leg, LT TKA, COLONOSCOPY/EGD, 2 stents to LAD in 2023 Past Anesthesia/Blood Transfusion Reactions: No Reported Reaction Additional Past Anesthesia/Blood Transfusion Reaction / Comment(s): no hx blood transfusion Date of Last Stent Placement:: 06/2024 Past Psychological History: Anxiety, Depression Smoking Status: Current every day smoker Past Alcohol Use History: None Reported Additional Past Alcohol Use History / Comment(s): pt states she is smoking 1/2 a pack of cigarettes a day Past Drug Use History: Marijuana Additional Drug Use History / Comment(s): occ topical CBD - Past Family History Father Family Medical History: Cancer Additional Family Medical History / Comment(s): prostate Mother Family Medical History: Cancer Medications and Allergies Home Medications Medication Instructions Recorded Confirmed Type Pregabalin [Lyrica] 150 mg PO BID 02/06/22 02/08/25 History oxyCODONE-APAP 7.5-325MG [Percocet 1 tab PO BID 04/02/22 02/08/25 History 7.5-325 mg] carvediloL [Coreg] 25 mg PO BID 11/05/22 02/08/25 History Semaglutide [Ozempic] 1 mg SQ FR 07/28/24 02/08/25 History Atorvastatin [Lipitor] 80 mg PO HS #30 tab 07/30/24 02/08/25 Rx Spironolactone [Aldactone] 12.5 mg PO DAILY #30 tab 07/30/24 02/08/25 Rx Albuterol Sulfate [Albuterol 2 puff INHALATION RT-Q4H PRN 02/08/25 02/08/25 History Sulfate Hfa] Clopidogrel [Plavix] 75 mg PO DAILY 02/08/25 02/08/25 History Fluticasone Propion/Salmeterol 1 puff INHALATION RT-BID 02/08/25 02/08/25 History [Fluticasone-Salmeterol 250-50] Ondansetron [Zofran] 4 mg PO TID PRN 02/08/25 02/08/25 History amLODIPine [Norvasc] 5 mg PO DAILY 02/08/25 02/08/25 History predniSONE See Taper PO DIRECTED 02/08/25 02/08/25 History Allergies Allergy/AdvReac Type Severity Reaction Status Date / Time losartan [From Cozaar] Allergy Anaphylaxis Verified 02/08/25 18:52 morphine Allergy Hallucinati Verified 02/08/25 18:52 ons Sulfa (Sulfonamide Allergy Itching Verified 02/08/25 18:52 Antibiotics) sulfamethoxazole Allergy Itching Verified 02/08/25 18:52 [From Bactrim] trimethoprim [From Bactrim] Allergy Itching Verified 02/08/25 18:52 Sani-cloth germacidal disp Allergy angioedema, Uncoded 02/08/25 14:07 wipes Anaphylaxis, (super purple container [facility] uses) Physical Exam Vitals: Vital Signs Temp Pulse Pulse Resp BP BP Pulse Ox 02/08/25 22:14 97.6 F 61 18 147/85 92 L 02/08/25 21:28 98.2 F 61 18 150/86 97 02/08/25 21:10 61 18 162/95 98 02/08/25 21:00 61 19 159/97 96 02/08/25 20:06 55 L 02/08/25 19:56 53 L 02/08/25 19:49 56 L 18 149/113 02/08/25 18:30 52 L 20 165/102 96 02/08/25 17:10 52 L 02/08/25 17:01 50 L 02/08/25 16:57 54 L 20 162/107 97 02/08/25 15:52 55 L 20 166/107 97 02/08/25 14:07 20 02/08/25 14:04 97.9 F 64 22 198/132 97 Intake and Output 02/08/25 02/08/25 02/09/25 14:59 22:59 06:59 Other: Voiding Method Toilet Weight 91.626 kg 91.626 kg GENERAL EXAM: Alert, 64-year-old female, tachypneic, on room air, speaks in complete sentences, no accessory muscle use. HEAD: Normocephalic and atraumatic EYES: Normal reaction of pupils, equal size. NOSE: Clear with pink turbinates. THROAT: No erythema or exudates. NECK: No masses, no JVD. CHEST: No chest wall deformity. LUNGS: Equal air entry with diffuse expiratory wheezing and coarse rhonchi. CVS: S1 and S2 normal with no audible murmur, regular rhythm. No extra heart sydnee nds ABDOMEN: No hepatosplenomegaly, active bowel sounds, no guarding or rigidity. SPINE: No scoliosis or deformity SKIN: No rashes CENTRAL NERVOUS SYSTEM: No focal deficits, tone is normal in all 4 extremities. EXTREMITIES: There is no peripheral edema, clubbing, or cyanosis. Peripheral pulses are intact. Results - Laboratory Findings CBC and BMP: 02/08/25 15:40 02/08/25 15:40 PT/INR, D-dimer PT 10.5 sec (10.0-12.5) 02/08/25 15:40 INR 0.9 (<1.2) 02/08/25 15:40 D-Dimer 0.42 mg/L FEU (<0.60) 02/08/25 15:40 Abnormal lab findings: Abnormal Labs 02/08/25 02/08/25 02/08/25 15:40 15:40 22:16 WBC 13.20 H Hgb 15.6 H Immature Gran # 0.07 H Neutrophils # 11.93 H Monocytes # 0.10 L Eosinophils # 0.00 L BUN 24 H Creatinine 1.06 H Glucose 142 H POC Glucose (mg/dL) 267 H - Diagnostic Findings Chest x-ray: image reviewed Assessment and Plan Assessment: Acute COPD exacerbation secondary to acute tracheobronchitis Acute dyspnea, secondary to above Acute leukocytosis Chronic ongoing tobacco dependence Hypertension History of hyperlipidemia History of coronary artery disease with previous CT and stents to the LAD Ischemic cardiomyopathy, with an ejection fraction of 40% History of malignant melanoma, previously treated with Keytruda, recent PET scan from September, does not show any suspicious hypermetabolic soft tissue lesions suggestive of recurrence Remote history of uterine and breast cancer Obesity, with a BMI of 31.6 kg/m, on Ozempic Plan: Currently on room air Continue combination of DuoNebs, budesonide inhalations, formoterol inhalations, and IV Solu-Medrol Continue azithromycin empirically Obtain sputum sample Smoking cessation counseling performed Currently has a nicotine patch on Cardiology also consulted Case to be reviewed with Dr. Sanchez, further recommendations to follow I have personally seen and examined the patient, performed the documentation and the assessment and plan as written. Number of minutes spent on the visit:20 There is a joint evaluation that was done along with the nurse practitioner. This evaluation was done and 32 minutes. The patient is a chronic smoker and she was hospitalized for acute COPD exacerbation. The patient was actively bronchospastic and wheezy. Chest x-ray showed no acute cardiopulmonary abnormalities. The patient is currently on bronchodilators and steroids. The patient is also known to have coronary artery disease and previous PCI and stenting of the mid LAD. She is known to have hypertension, diabetes mellitus type 2, hyperlipidemia and she maintains left-ventricular ejection fraction of around 60% based on the most recent echocardiogram that was done during this current hospitalization. No valvular heart disease. The white cell count is at 13, renal function is stable. 1.02. Troponins are negative. Viral screen is negative. No altered mentation. Pulse ox 93% on room air oxygen. She is being treated accordingly for an acute COPD exacerbation. She is on IV Solu-Medrol. She is on DuoNeb updrafts. She is also on Perforomist and Pulmicort nebulized treatments. She has been maintained on fluticasone centimeter on outpatient basis in addition to albuterol HFA. Time with Patient: Greater than 30
[2025-02-09 06:24] LABS: Glucose,Whole Blood 143 mg/dL (70-110)
[2025-02-09] MEDS: SPIRONOLACTONE 25 MG TAB PO SCH (08:41)
[2025-02-09] MEDS: CLOPIDOGREL 75 MG TAB PO SCH (08:42)
[2025-02-09 08:47] LABS: Glucose,Whole Blood 143 mg/dL (70-110)
--- NOTE | 2025-02-09 10:14 | P.CRDCN ---
History of Present Illness History of present illness: HISTORY OF PRESENTING ILLNESS This is a pleasant 64-year-old female past medical history significant for CAD status post PCI with a mid LAD in the setting of a non-ST elevated PR, hypertension, dyslipidemia, diabetes mellitus, chronic nicotine dependence and COPD. She follows in the office with Dr. Mondragon. We have been asked to see in consultation for shortness of breath. She endorses shortness of breath that has been going on for the last 3 to 4 days. Not associated with any chest pain or pressure. She has been receiving IV antibiotics along with nebulizer treatments and is starting to feel better. EKG reveals sinus bradycardia heart rate of [address] or T wave abnormalities noted. Chest x-ray reveals interstitial prominence possible pulmonary vascular congestion versus bronchitis versus asthma. Laboratory data reviewed, WBC 13, hemoglobin 15.6, platelets 243, D-dimer 0.42, sodium 141, potassium 4.4, creatinine 1.06, cardiac enzymes negative x 2 and NT proBNP 850. Current daily cardiac medications include Aldactone 12.5 mg daily, Lipitor 80 mg daily, Plavix 75 mg daily, Coreg 25 mg twice daily and Norvasc 5 mg daily. Most recent echocardiogram obtained in the office reveals improved LV systolic function status post revascularization EF went from 40 to 45%. She also has mild MR and TR with RVSP of 34. Cardiac catheterization June 2020 for she had successful PCI of the mid LAD and a negative IFR of the proximal LAD and mid RCA. REVIEW OF SYSTEMS At the time of my exam: CONSTITUTIONAL: Denies fever or chills. CARDIOVASCULAR: Denies chest pain, orthopnea, PND or palpitations. RESPIRATORY: Denies cough. Complains of shortness of breath. GASTROINTESTINAL: Denies abdominal pain, diarrhea, constipation, nausea or vomiting. MUSCULOSKELETAL: Denies myalgias. NEUROLOGIC: Denies numbness, tingling, headache or weakness. ENDOCRINE: Denies fatigue, weight change, polydipsia or polyurina. GENITOURINARY: Denies burning, hematuria or urgency with micturation. HEMATOLOGIC: Denies history of anemia or bleeding. PHYSICAL EXAMINATION Blood pressure 134/86 heart rate 58 afebrile and maintaining oxygen saturation on room air. CONSTITUTIONAL: No apparent distress. HEENT: Head is normocephalic. Pupils are equal, round. Sclerae anicteric. Mucous membranes of the mouth are moist. No JVD. No carotid bruit. CHEST EXAMINATION: Mild scattered rhonchi noted bilaterally. No wheezes or rales. No chest wall tenderness is noted on palpation or with deep breathing. HEART EXAMINATION: Regular rate and rhythm. S1, S2 heard. No murmurs, gallops or rub. ABDOMEN: Soft, nontender. EXTREMITIES: 2+ peripheral pulses, no lower extremity edema and no calf tenderness. NEUROLOGIC EXAMINATION: Patient is awake, alert and oriented x3. ASSESSMENT Shortness of breath secondary to COPD CAD status post PCI 06/2024 Leukocytosis Hypertension Dyslipidemia Diabetes mellitus Mild ischemic cardiomyopathy, ejection fraction 45%. PLAN An acute coronary event has been ruled out. Echocardiogram has been ordered and will be reviewed. No plans for stress testing at this time. Continue treatment of bronchitis. Follow-up in the office with Dr. Mondragon in 1 to 2 weeks and consider outpatient stress testing. Thank you kindly for this consultation. Nurse Practitioner note has been reviewed, I agree with a documented findings and plan of care. Patient was seen and examined. Past Medical History Past Medical History: Cancer, COPD, Diabetes Mellitus, GERD/Reflux, Hyperlipidemia, Hypertension, Osteoarthritis (OA) Additional Past Medical History / Comment(s): breast CA 1995 -radiation tx and uterine CA 1991,migraines(last one 15 years ago),urosepsis,varicose veins rt leg,birthmark, LARGE BIRTHMARK ON LT ARM, melanoma, low iron levels. HX GI BLEED History of Any Multi-Drug Resistant Organisms: None Reported Past Surgical History: Adenoidectomy, Cholecystectomy, Heart Catheterization With Stent, Hysterectomy, Joint Replacement, Orthopedic Surgery, Tonsillectomy Additional Past Surgical History / Comment(s): lt breast lumpectomy,lt knee scope,dougie cataracts, melanoma removed from left lower leg, LT TKA, COLONOSCOPY/EGD, 2 stents to LAD in 2023 Past Anesthesia/Blood Transfusion Reactions: No Reported Reaction Additional Past Anesthesia/Blood Transfusion Reaction / Comment(s): no hx blood transfusion Date of Last Stent Placement:: 06/2024 Past Psychological History: Anxiety, Depression Smoking Status: Current every day smoker Past Alcohol Use History: None Reported Additional Past Alcohol Use History / Comment(s): pt states she is smoking 1/2 a pack of cigarettes a day Past Drug Use History: Marijuana Additional Drug Use History / Comment(s): occ topical CBD - Past Family History Father Family Medical History: Cancer Additional Family Medical History / Comment(s): prostate Mother Family Medical History: Cancer Medications and Allergies Home Medications Medication Instructions Recorded Confirmed Type Pregabalin [Lyrica] 150 mg PO BID 02/06/22 02/08/25 History oxyCODONE-APAP 7.5-325MG [Percocet 1 tab PO BID 04/02/22 02/08/25 History 7.5-325 mg] carvediloL [Coreg] 25 mg PO BID 11/05/22 02/08/25 History Semaglutide [Ozempic] 1 mg SQ FR 07/28/24 02/08/25 History Atorvastatin [Lipitor] 80 mg PO HS #30 tab 07/30/24 02/08/25 Rx Spironolactone [Aldactone] 12.5 mg PO DAILY #30 tab 07/30/24 02/08/25 Rx Albuterol Sulfate [Albuterol 2 puff INHALATION RT-Q4H PRN 02/08/25 02/08/25 Hi story Sulfate Hfa] Clopidogrel [Plavix] 75 mg PO DAILY 02/08/25 02/08/25 History Fluticasone Propion/Salmeterol 1 puff INHALATION RT-BID 02/08/25 02/08/25 History [Fluticasone-Salmeterol 250-50] Ondansetron [Zofran] 4 mg PO TID PRN 02/08/25 02/08/25 History amLODIPine [Norvasc] 5 mg PO DAILY 02/08/25 02/08/25 History predniSONE See Taper PO DIRECTED 02/08/25 02/08/25 History Allergies Allergy/AdvReac Type Severity Reaction Status Date / Time losartan [From Cozaar] Allergy Anaphylaxis Verified 02/08/25 18:52 morphine Allergy Hallucinati Verified 02/08/25 18:52 ons Sulfa (Sulfonamide Allergy Itching Verified 02/08/25 18:52 Antibiotics) sulfamethoxazole Allergy Itching Verified 02/08/25 18:52 [From Bactrim] trimethoprim [From Bactrim] Allergy Itching Verified 02/08/25 18:52 Sani-cloth germacidal disp Allergy angioedema, Uncoded 02/08/25 14:07 wipes Anaphylaxis, (super purple container [facility] uses) Physical Exam Vitals: Vital Signs Temp Pulse Pulse Resp BP BP Pulse Ox 02/09/25 08:22 58 L 02/09/25 08:13 56 L 02/09/25 08:03 93 L 02/09/25 08:00 53 L 18 02/09/25 06:48 98.2 F 46 L 16 134/86 92 L 02/09/25 05:49 58 L 02/09/25 05:35 54 L 02/09/25 03:03 97.8 F 55 L 16 102/65 93 L 02/08/25 22:14 97.6 F 61 18 147/85 92 L 02/08/25 21:28 98.2 F 61 18 150/86 97 02/08/25 21:10 61 18 162/95 98 02/08/25 21:00 61 19 159/97 96 02/08/25 20:06 55 L 02/08/25 19:56 53 L 02/08/25 19:49 56 L 18 149/113 02/08/25 18:30 52 L 20 165/102 96 02/08/25 17:10 52 L 02/08/25 17:01 50 L 02/08/25 16:57 54 L 20 162/107 97 02/08/25 15:52 55 L 20 166/107 97 02/08/25 14:07 20 02/08/25 14:04 97.9 F 64 22 198/132 97 Intake and Output 02/08/25 02/09/25 02/09/25 22:59 06:59 14:59 Other: Voiding Method Toilet Toilet # Voids 1 Weight 91.626 kg Results 02/08/25 15:40 02/08/25 15:40 Cardiac Enzymes 02/08/25 02/08/25 02/09/25 Range/Units 15:40 15:40 08:53 AST 20 (14-36) U/L Troponin I <0.012 <0.012 (0.000-0.034) ng/mL Coagulation 02/08/25 Range/Units 15:40 PT 10.5 (10.0-12.5) sec APTT 22.5 (22.0-30.0) sec CBC 02/08/25 Range/Units 15:40 WBC 13.20 H (4.50-10.00) 10*3/uL RBC 5.00 (4.10-5.20) 10*6/uL Hgb 15.6 H (12.0-15.0) g/dL Hct 46.1 (37.2-46.3) % Plt Count 243 (140-440) 10*3/uL Comprehensive Metabolic Panel 02/08/25 Range/Units 15:40 Sodium 141 (137-145) mmol/L Potassium 4.4 (3.5-5.1) mmol/L Chloride 103 (98-107) mmol/L Carbon Dioxide 28 (22-30) mmol/L BUN 24 H (7-17) mg/dL Creatinine 1.06 H (0.52-1.04) mg/dL Glucose 142 H (74-99) mg/dL Calcium 10.0 (8.4-10.2) mg/dL AST 20 (14-36) U/L ALT 15 (4-34) U/L Alkaline Phosphatase 65 (38-126) U/L Total Protein 7.5 (6.3-8.2) g/dL Albumin 4.6 (3.5-5.0) g/dL Current Medications Generic Name Dose Route Start Last Admin Trade Name Freq PRN Reason Stop Dose Admin Acetaminophen 650 mg 02/08/25 18:35 Acetaminophen Tab 325 Mg Tab PO Q4HR PRN Mild Pain or Fever > 100.5 Hydrocodone Bitart/Acetaminophen 1 each 02/08/25 18:35 Hydrocodone/Apap 5-325mg 1 Each Tab PO Q6HR PRN Moderate to Severe Pain (4-10) Albuterol/Ipratropium 3 ml 02/08/25 18:35 Ipratropium-Albuterol 3 Ml Neb INHALATION RT-Q2H PRN Shortness Of Breath Or Wheezing Albuterol/Ipratropium 3 ml 02/08/25 21:15 02/09/25 08:00 Ipratropium-Albuterol 3 Ml Neb INHALATION 3 ml Q4H DANNY Administration Amlodipine Besylate 5 mg 02/08/25 19:30 02/09/25 08:42 Amlodipine 5 Mg Tab PO 5 mg DAILY DANNY Administration Atorvastatin Calcium 80 mg 02/08/25 21:00 02/08/25 20:44 Atorvastatin 80 Mg Tab PO 80 mg HS DANNY Administration Budesonide 1 mg 02/08/25 21:08 02/09/25 08:00 Budesonide 1 Mg/2 Ml Nebu INHALATION 1 mg RT-BID DANNY Administration Carvedilol 25 mg 02/08/25 21:00 02/08/25 20:48 Carvedilol 12.5 Mg Tab PO 25 mg BID-W/MEALS DANNY Administration Clopidogrel Bisulfate 75 mg 02/09/25 09:00 02/09/25 08:42 Clopidogrel 75 Mg Tab PO 75 mg DAILY DANNY Administration Dextrose/Water 25 ml 02/08/25 21:13 Dextrose 50% Syringe 50 Ml IVP PER PROTOCOL PRN Hypoglycemia Protocol Dextrose/Water 50 ml 02/08/25 21:13 Dextrose 50% Syringe 50 Ml IVP PER PROTOCOL PRN Hypoglycemia Protocol Enoxaparin Sodium 40 mg 02/08/25 21:15 02/09/25 08:41 Enoxaparin 40 Mg/0.4 Ml Syringe SQ 40 mg DAILY DANNY Administration Formoterol Fumarate 20 mcg 02/08/25 21:08 02/09/25 08:00 Formoterol Fumarate 20 Mcg/2 Ml Nebu INHALATION 20 mcg RT-BID ADNNY Administration Azithromycin 500 mg/ Sodium 250 mls @ 250 mls/hr 02/08/25 18:45 02/09/25 09:47 Chloride IVPB 02/10/25 09:59 250 mls/hr DAILY DANNY Administration Protocol Insulin Human Lispro 0 unit 02/08/25 21:13 02/09/25 06:27 Insulin Lispro (Humalog) 100 Unit/Ml 10 Ml Vl SQ Not Given AC-TID DANNY Protocol Methylprednisolone Sodium Succinate 60 mg 02/09/25 00:00 02/09/25 06:27 Methylprednisolone Sod Succi 125 Mg/2 Ml Vial IV 60 mg Q6HR DANNY Administration Naloxone HCl 0.2 mg 02/08/25 18:35 Naloxone 0.4 Mg/Ml 1 Ml Vial IVP Q2M PRN Opioid Reversal Nicotine 1 patch 02/08/25 21:15 02/09/25 08:44 Nicotine 14mg/24hr Patch TRANSDERM 1 patch DAILY DANNY Administration Ondansetron HCl 4 mg 02/08/25 19:17 Ondansetron Odt 4 Mg Tab PO TID PRN Nausea And Vomiting Oxycodone/Acetaminophen 1 each 02/08/25 21:00 02/08/25 20:42 Oxycodone-Apap 7.5-325mg 1 Each Tab PO 1 each BID DANNY Administration Pregabalin 150 mg 02/08/25 21:00 02/09/25 08:41 Pregabalin 75 Mg Cap PO 150 mg BID DANNY Administration Spironolactone 12.5 mg 02/09/25 09:00 02/09/25 08:41 Spironolactone 25 Mg Tab PO 12.5 mg DAILY DANNY Administration Intake and Output 02/08/25 02/09/25 02/09/25 22:59 06:59 14:59 Other: Voiding Method Toilet Toilet # Voids 1 Weight 91.626 kg 02/08/25 15:40 02/08/25 15:40
--- NOTE | 2025-02-09 11:29 | CA ---
Transthoracic Echo Report Name: Betsy Aviles Age: 64 Gender: F : 1960 Exam Date: 02/09/2025 09:49 Exam Location: [facility] Ht (in): 67 Wt (lb): 202 Ordering Physician: Zhao Sotelo MD Attending/Referring Phys: Servicing Rep Lois Peres RDCS Procedure CPT: Indications: chf Cardiac Hx: Technical Quality: Fair Contrast 1: Total Dose (mL): Contrast 2: Total Dose (mL): MEASUREMENTS (Male / Female) Normal Values 2D ECHO LV Diastolic Diameter PLAX 5.4 cm 4.2 - 5.9 / 3.9 - 5.3 cm LV Systolic Diameter PLAX 3.7 cm IVS Diastolic Thickness 1.7 cm 0.6 - 1.0 / 0.6 - 0.9 cm LVPW Diastolic Thickness 1.2 cm 0.6 - 1.0 / 0.6 - 0.9 cm LV Relative Wall Thickness 0.5 RV Internal Dim ED PLAX 2.4 cm LVOT Diameter 2.5 cm LV Diastolic Volume MOD BP 112.4 cm??? 67 - 155 / 56 - 104 cm??? LV Systolic Volume MOD BP 38.2 cm??? 22 - 58 / 19 - 49 cm??? LV Ejection Fraction MOD BP 66.0 % >= 55 % LV Cardiac Index MOD BP 2073.3 cm???/min???m??? LV Diastolic Volume MOD 4C 104.1 cm??? LV Systolic Volume MOD 4C 33.9 cm??? LV Ejection Fraction MOD 4C 67.5 % LV Cardiac Index MOD 4C 1963.5 cm???/min???m??? LV Diastolic Length 4C 7.1 cm LV Systolic Length 4C 5.8 cm LV Diastolic Volume MOD 2C 102.9 cm??? LV Systolic Volume MOD 2C 37.6 cm??? LV Ejection Fraction MOD 2C 63.5 % LV Cardiac Index MOD 2C 1825.2 cm???/min???m??? LV Diastolic Length 2C 8.4 cm LV Systolic Length 2C 6.7 cm LA Volume 41.3 cm??? 18 - 58 / 22 - 52 cm??? LA Volume Index 19.6 cm???/m??? 16 - 28 cm???/m??? Ascending Aorta Diameter 0.0 cm M-MODE Aortic Root Diameter MM 2.9 cm LA Systolic Diameter MM 3.3 cm LA Ao Ratio MM 1.1 AV Cusp Separation MM 2.0 cm DOPPLER AV Peak Velocity 146.5 cm/s AV Peak Gradient 8.6 mmHg AV Mean Velocity 92.6 cm/s AV Mean Gradient 3.9 mmHg AV Velocity Time Integral 30.3 cm LVOT Peak Velocity 130.0 cm/s LVOT Peak Gradient 6.8 mmHg LVOT Velocity Time Integral 30.2 cm LVOT Stroke Volume 152.6 cm??? LVOT Stroke Volume Index 75.1 ml/m??? LVOT Cardiac Index 4264.1 cm???/min???m??? AV Area Cont Eq vti 5.0 cm??? AV Area Cont Eq pk 4.5 cm??? MV Area PHT 4.6 cm??? Mitral E Point Velocity 71.8 cm/s Mitral A Point Velocity 69.7 cm/s Mitral E to A Ratio 1.0 MV Deceleration Time 166.3 ms TR Peak Velocity 258.7 cm/s TR Peak Gradient 26.8 mmHg PV Peak Velocity 86.7 cm/s PV Peak Gradient 3.0 mmHg FINDINGS Left Ventricle Left ventricular ejection fraction is estimated at 60%. Mildly increased posterior wall thickness. Mildly increased left ventricular diastolic volume. Left ventricular cavity size normal. Normal left ventricular systolic function with no obvious regional wall motion abnormalities. Right Ventricle Mild right ventricular dilatation. Right ventricular systolic pressure within normal limits. Right Atrium Normal right atrial size. Left Atrium Normal left atrial size. Mitral Valve Structurally normal mitral valve. Trace to mild mitral regurgitation. No mitral stenosis. Aortic Valve Trileaflet aortic valve. No aortic stenosis. No aortic regurgitation. Diffuse thickening (sclerosis) of the aortic valve cusps without reduced excursion. Tricuspid Valve Structurally normal tricuspid valve. Mild tricuspid regurgitation. No tricuspid stenosis. Pulmonic Valve Structurally normal pulmonic valve. Trace pulmonic regurgitation. No pulmonic stenosis. Pericardium No pericardial or pleural effusion. Aorta Normal size aortic root and proximal ascending aorta. CONCLUSIONS Normal LV size and systolic function with mild concentric LVH mild mitral and tricuspid regurgitation. No pulmonary hypertension. No pericardial effusion Previewed by: Dr. Alan Bui MD (Electronically Signed) Final Date: 09 Feb 2025 11:28
[2025-02-09 12:30] LABS: Glucose,Whole Blood 237 mg/dL (70-110)
--- NOTE | 2025-02-09 16:56 | P.PN ---
Progress Note - Text Progress Note Date: 02/09/25 Chief Complaint: Short of breath This is a very pleasant 64-year-old patient, follows with Dr. Yamil Hein. Chronic medical conditions include diabetes, COPD - current smoker, GERD, hypertension, hyperlipidemia, osteoarthritis. Previous breast cancer in 1995 treated with radiation and uterine cancer with hysterectomy 1991. Right leg varicose veins. Received treatment for melanoma with Dr. Cornell. Received Keytruda. Currently in remission. Due to follow-up with Dr. Cornell. Stent to LAD June 2024. Expansion Joint Builder Dr. Mondragon. Group Exercise Manager Dr. Sanchez. Patient now presents with 2 weeks of very short of breath. With minimal activity example bending down even changing clothes takes a while. Does have a cough. This brings up green sputum. Has received a course of doxycycline. Patient's appetite is just about okay. Does take Ozempic. No chest pain. Does use 2 pillows at night no leg swelling. Has continued to smoke half pack a day. No fever no chills. Some weight loss attributed to Ozempic February 09: Some improvement short of breath. Though still short of breath. Just to have the patient sit up on a chair. Increase activity. Seen by cardiology. Not for any stress test currently. Continue with Solu-Medrol, bronchodilators. Zithromax for acute bronchitis Active Medications Acetaminophen (Acetaminophen Tab 325 Mg Tab) 650 mg PO Q4HR PRN PRN Reason: Mild Pain or Fever > 100.5 Hydrocodone Bitart/Acetaminophen (Hydrocodone/Apap 5-325mg 1 Each Tab) 1 each PO Q6HR PRN PRN Reason: Moderate to Severe Pain (4-10) Albuterol/Ipratropium (Ipratropium-Albuterol 3 Ml Neb) 3 ml INHALATION RT-Q2H PRN PRN Reason: Shortness Of Breath Or Wheezing Albuterol/Ipratropium (Ipratropium-Albuterol 3 Ml Neb) 3 ml INHALATION Q4H [facility] Last Admin: 02/09/25 15:47 Dose: 3 ml Amlodipine Besylate (Amlodipine 5 Mg Tab) 5 mg PO DAILY DANNY Last Admin: 02/09/25 08:42 Dose: 5 mg Atorvastatin Calcium (Atorvastatin 80 Mg Tab) 80 mg PO HS [facility] Last Admin: 02/08/25 20:44 Dose: 80 mg Budesonide (Budesonide 1 Mg/2 Ml Nebu) 1 mg INHALATION RT-BID [facility] Last Admin: 02/09/25 08:00 Dose: 1 mg Carvedilol (Carvedilol 12.5 Mg Tab) 25 mg PO BID-W/MEALS [facility] Last Admin: 02/08/25 20:48 Dose: 25 mg Clopidogrel Bisulfate (Clopidogrel 75 Mg Tab) 75 mg PO DAILY [facility] Last Admin: 02/09/25 08:42 Dose: 75 mg Dextrose/Water (Dextrose 50% Syringe 50 Ml) 25 ml IVP PER PROTOCOL PRN; Protocol PRN Reason: Hypoglycemia Dextrose/Water (Dextrose 50% Syringe 50 Ml) 50 ml IVP PER PROTOCOL PRN; Protocol PRN Reason: Hypoglycemia Enoxaparin Sodium (Enoxaparin 40 Mg/0.4 Ml Syringe) 40 mg SQ DAILY [facility] Last Admin: 02/09/25 08:41 Dose: 40 mg Formoterol Fumarate (Formoterol Fumarate 20 Mcg/2 Ml Nebu) 20 mcg INHALATION RT-BID [facility] Last Admin: 02/09/25 08:00 Dose: 20 mcg Azithromycin 500 mg/ Sodium (Chloride) 250 mls @ 250 mls/hr IVPB DAILY [facility]; Protocol Stop: 02/10/25 09:59 Last Admin: 02/09/25 09:47 Dose: 250 mls/hr Insulin Human Lispro (Insulin Lispro (Humalog) 100 Unit/Ml 10 Ml Vl) 0 unit SQ AC-TID [facility]; Protocol Last Admin: 02/09/25 13:31 Dose: 4 unit Methylprednisolone Sodium Succinate (Methylprednisolone Sod Succi 125 Mg/2 Ml Vial) 60 mg IV Q6HR [facility] Last Admin: 02/09/25 13:31 Dose: 60 mg Naloxone HCl (Naloxone 0.4 Mg/Ml 1 Ml Vial) 0.2 mg IVP Q2M PRN PRN Reason: Opioid Reversal Nicotine (Nicotine 14mg/24hr Patch) 1 patch TRANSDERM DAILY [facility] Last Admin: 02/09/25 08:44 Dose: 1 patch Ondansetron HCl (Ondansetron Odt 4 Mg Tab) 4 mg PO TID PRN PRN Reason: Nausea And Vomiting Oxycodone/Acetaminophen (Oxycodone-Apap 7.5-325mg 1 Each Tab) 1 each PO BID [facility] Last Admin: 02/08/25 20:42 Dose: 1 each Pregabalin (Pregabalin 75 Mg Cap) 150 mg PO BID [facility] Last Admin: 02/09/25 08:41 Dose: 150 mg Spironolactone (Spironolactone 25 Mg Tab) 12.5 mg PO DAILY [facility] Last Admin: 02/09/25 08:41 Dose: 12.5 mg Social history: Retired RN. Currently smoking half a pack a day.. Smoking since the age of 14. No alcohol. . Physical examination: VITAL SIGNS: 97.6, 63, 16, 10/22/1984, 96% room air GENERAL: A bit tired EYES: Pupils equal. Conjunctiva valentin l. HEENT: External appearance of nose and ears normal, oral cavity grossly normal. NECK: JVD not raised; masses not palpable. HEART: First and second heart sounds are normal; no edema. LUNGS: Respiratory rate increased, diminished breath sound mild wheezing ABDOMEN: Soft, nontender, liver spleen not palpable, no masses palpable. PSYCH: Alert and oriented x3; mood and affect valentin l. MUSCULOSKELETAL:No Clubbing/cyanosis;muscles-grossly intact. OA. Extremities: Varicose veins right leg INVESTIGATIONS, reviewed in the clinical context: 2D echo: EF 60% February 08, 2025: White count 13.2 hemoglobin 15.6 platelets 243 sodium 141 potassium 4.4 BUN 24 creatinine 1.06 Troponin I less than 0.012 proBNP 850 Influenza A, type B, RSV's, SARS-CoV-2: Not detected Chest x-ray film personally reviewed by me-no obvious infiltrate. Hyperinflated Previous testing 2D echocardiogram [June 2024]: Moderately increased septal wall thickness. Some posterior wall thickness. EF 40%. [place] and apical septal wall hypokinetic. CT angio chest: Negative PE. Ascending aortic aneurysm 4.2 cm. Stable pulmonary nodules dating back to 2021. Pulmonary arterial hypertension. Assessment and plan: - Acute COPD exacerbation in a current smoker DuoNeb every 4, IV Solu-Medrol, nebulized Perforomist, nebulized Pulmicort - Patient is short of breath is somewhat out of proportion to her clinical findings. Would consider underlying cardiac ischemia Seen by cardiology. For outpatient stress test -Coronary artery disease with stent to LAD, with Dr. Mondragon, June 2024 Plavix Lipitor. . Coreg -Chronic congestive heart failure previously from systolic dysfunction from ischemic cardiomyopathy. EF 40%. Repeat EF now is 60%. Aldactone. -Diabetes mellitus type 2, has been on Ozempic Diabetic diet. Follow Accu-Cheks with sliding scale insulin -Essential hypertension Amlodipine. Coreg. -Hyperlipidemia Lipitor 80 mg nightly. -Chronic pain, primary osteoarthritis Lyrica. Percocet 7.5 -Obesity BMI 31.6 Weight loss measures. on Ozempic. -Chronic nicotine dependence, cigarette smoker Nicotine patch -Full code Discussed With patient. Increase activity. Up in chair. Incentive spirometry. Past Medical History Past Medical History: Cancer, COPD, Diabetes Mellitus, GERD/Reflux, Hyperlipidemia, Hypertension, Osteoarthritis (OA) Additional Past Medical History / Comment(s): breast CA 1995 -radiation tx and uterine CA 1991,migraines,urosepsis,varicose veins rt leg,birthmark, LARGE BIRTHMARK ON LT ARM, melanoma, low iron levels. HX GI BLEED History of Any Multi-Drug Resistant Organisms: None Reported Past Surgical History: Adenoidectomy, Hysterectomy, Joint Replacement, Orthopedic Surgery, Tonsillectomy Additional Past Surgical History / Comment(s): lt breast lumpectomy,lt knee scope,dougie cataracts, melanoma removed from left lower leg, LT TKA, COLONOSCOPY/EGD, Past Anesthesia/Blood Transfusion Reactions: No Reported Reaction Additional Past Anesthesia/Blood Transfusion Reaction / Comment(s): no hx blood transfusion Past Psychological History: Anxiety, Depression Smoking Status: Current some day smoker Past Alcohol Use History: None Reported Past Drug Use History: Marijuana
[2025-02-09 18:09] LABS: Glucose,Whole Blood 199 mg/dL (70-110)
[2025-02-09 20:01] LABS: Glucose,Whole Blood 335 mg/dL (70-110)
[2025-02-09] MEDS: INSULIN LISPRO (HumaLOG) 100 UNIT/ML 10 mL VL SQ SCH (22:04)
[2025-02-09] MEDS: NICOTINE 14MG/24HR PATCH TRANSDERM STA (22:32)
[2025-02-10 06:10] LABS: Glucose,Whole Blood 311 mg/dL (70-110)
[2025-02-10 07:26] VITALS: BP 182/83; TEMP 97.9
[2025-02-10 09:35] VITALS: RESP 18
--- NOTE | 2025-02-10 11:50 | P.PN ---
Subjective HISTORY OF PRESENTING ILLNESS This is a pleasant 64-year-old female past medical history significant for CAD status post PCI with a mid LAD in the setting of a non-ST elevated TX, hypertension, dyslipidemia, diabetes mellitus, chronic nicotine dependence and COPD. She follows in the office with Dr. Mondragon. We have been asked to see in co nsultation for shortness of breath. She endorses shortness of breath that has been going on for the last 3 to 4 days. Not associated with any chest pain or pressure. She has been receiving IV antibiotics along with nebulizer treatments and is starting to feel better. EKG reveals sinus bradycardia heart rate of [address] or T wave abnormalities noted. Chest x-ray reveals interstitial prominence possible pulmonary vascular congestion versus bronchitis versus asthma. Laboratory data reviewed, WBC 13, hemoglobin 15.6, platelets 243, D-dimer 0.42, sodium 141, potassium 4.4, creatinine 1.06, cardiac enzymes negative x 2 and NT proBNP 850. Current daily cardiac medications include Aldactone 12.5 mg daily, Lipitor 80 mg daily, Plavix 75 mg daily, Coreg 25 mg twice daily and Norvasc 5 mg daily. Most recent echocardiogram obtained in the office reveals improved LV systolic function status post revascularization EF went from 40 to 45%. She also has mild MR and TR with RVSP of 34. Cardiac catheterization June 2020 for she had successful PCI of the mid LAD and a negative IFR of the proximal LAD and mid RCA. 02/10/2025 Patient seen and examined resting comfortably in bed in no acute distress. She continues to be treated for bronchitis and is getting IV steroids. Blood pressure 182/83 heart rate 64 afebrile maintaining oxygen saturation on room air. Echocardiogram obtained reveals preserved LV systolic function with ejection fraction 60%, thickening of the aortic valve cusps and no significant pulmonary hypertension. PHYSICAL EXAMINATION CONSTITUTIONAL: No apparent distress. HEENT: Head is normocephalic. Pupils are equal, round. Sclerae anicteric. Mucous membranes of the mouth are moist. No JVD. No carotid bruit. CHEST EXAMINATION: Mild scattered rhonchi noted bilaterally. No wheezes or rales. No chest wall tenderness is noted on palpation or with deep breathing. HEART EXAMINATION: Regular rate and rhythm. S1, S2 heard. No murmurs, gallops or rub. ABDOMEN: Soft, nontender. EXTREMITIES: 2+ peripheral pulses, no lower extremity edema and no calf t enderness. NEUROLOGIC EXAMINATION: Patient is awake, alert and oriented x3. ASSESSMENT Shortness of breath secondary to COPD CAD status post PCI 06/2024 Leukocytosis Hypertension Dyslipidemia Diabetes mellitus Mild ischemic cardiomyopathy, ejection fraction 45%. PLAN Increase amlodipine to 5 mg twice daily. No plans for stress testing at this time. Continue treatment of bronchitis. Follow-up in the office with Dr. Mondragon in 1 to 2 weeks and consider outpatient stress testing. We we will follow along as needed, please call with further questions or concerns. Nurse Practitioner note has been reviewed, I agree with a documented findings and plan of care. Patient was seen and examined. Objective - Vital Signs Vital signs: Vital Signs Temp 97.9 F 02/10/25 06:45 Pulse 68 02/10/25 09:05 Resp 18 02/10/25 08:00 BP 182/83 02/10/25 06:45 Pulse Ox 93 L 02/10/25 06:45 FiO2 Intake & Output 02/09/25 02/10/25 02/10/25 18:59 06:59 18:59 Intake Total 222 118 Balance 222 118 Intake: Oral 222 118 Other: Voiding Method Toilet # Voids 3 3 # Bowel Movements 0 - Labs CBC & Chem 7: 02/08/25 15:40 02/08/25 15:40 Labs: Abnormal Lab Results - Last 24 Hours (Table) 02/09/25 02/09/25 02/09/25 Range/Units 12:29 18:08 20:00 POC Glucose (mg/dL) 237 H 199 H 335 H (70-110) mg/dL 02/10/25 Range/Units 06:09 POC Glucose (mg/dL) 311 H (70-110) mg/dL Microbiology - Last 24 Hours (Table) 02/08/25 18:49 Blood Culture - Preliminary Blood
[2025-02-10 12:16] VITALS: PULSE 64
[2025-02-10 12:17] LABS: Glucose,Whole Blood 155 mg/dL (70-110)
[2025-02-10] MEDS ORDERED: amLODIPine 5 MG TAB PO SCH (21:00)
--- NOTE | 2025-02-11 13:28 | P.DS ---
Providers Date of admission: 02/08/25 18:35 Expected date of discharge: 02/10/25 Attending physician: Zhao Sotelo Consults: 02/08/25 18:35 Consult Physician Routine Consulting Provider: Leyla Sanchez Consult Reason/Comments: bronchospasm Do you want consulting provider notified?: Yes 02/08/25 21:16 Consult Physician Routine Consulting Provider: Jeremi Mondragon Consult Reason/Comments: Probable nuclear stress test Do you want consulting provider notified?: Yes [facility] Chief Complaint: Short of breath This is a very pleasant 64-year-old patient, follows with Dr. Yamil Hein. Chronic medical conditions include diabetes, COPD - current smoker, GERD, hypertension, hyperlipidemia, osteoarthritis. Previous breast cancer in 1995 treated with radiation and uterine cancer with hysterectomy 1991. Right leg varicose veins. Received treatment for melanoma with Dr. Cornell. Received K eytruda. Currently in remission. Due to follow-up with Dr. Cornell. Stent to LAD June 2024. [employer] Dr. Mondragon. [employer] Rout[employer] Dr. Sanchez. Patient now presents with 2 weeks of very short of breath. With minimal activity example bending down even changing clothes takes a while. Does have a cough. This brings up green sputum. Has received a course of doxycycline. Patient's appetite is just about okay. Does take Ozempic. No chest pain. Does use 2 pillows at night no leg swelling. Has continued to smoke half pack a day. No fever no chills. Some weight loss attributed to Ozempic February 09: Some improvement short of breath. Though still short of breath. Just to have the patient sit up on a chair. Increase activity. Seen by cardiology. Not for any stress test currently. Continue with Solu-Medrol, bronchodilators. Zithromax for acute bronchitis February 10: Breathing much better. Walking much better. Seen by cardiology. She will see Dr. Mondragon outpatient. Patient prescribed nebulizer for COPD. Other medications reviewed. Counseled about smoking. Questions answered Social history: Retired RN. Currently smoking half a pack a day.. Smoking since the age of 14. No alcohol. . Physical examination: GENERAL: Up in a chair, looking much better EYES: Pupils equal. Conjunctiva valentin l. HEENT: External appearance of nose and ears normal, oral cavity grossly normal. NECK: JVD not raised; masses not palpable. HEART: First and second heart sounds are normal; no edema. LUNGS: Respiratory rate i normal improved air entry ABDOMEN: Soft, nontender, liver spleen not palpable, no masses palpable. PSYCH: Alert and oriented x3; mood and affect valentin l. MUSCULOSKELETAL:No Clubbing/cyanosis;muscles-grossly intact. OA. Extremities: Varicose veins right leg INVESTIGATIONS, reviewed in the clinical context: 2D echo: EF 60% February 08, 2025: White count 13.2 hemoglobin 15.6 platelets 243 sodium 141 potassium 4.4 BUN 24 creatinine 1.06 Troponin I less than 0.012 proBNP 850 Influenza A, type B, RSV's, SARS-CoV-2: Not detected Chest x-ray film personally reviewed by me-no obvious infiltrate. Hyperinflated Previous testing 2D echocardiogram [June 2024]: Moderately increased septal wall thickness. Some posterior wall thickness. EF 40%. [place] and apical septal wall hypokinetic. CT angio chest: Negative PE. Ascending aortic aneurysm 4.2 cm. Stable pulmonary nodules dating back to 2021. Pulmonary arterial hypertension. Assessment and plan: - Acute COPD exacerbation in a current smoker: Much better DuoNeb every 4, IV Solu-Medrol, nebulized Perforomist, nebulized Pulmicort Discharge on DuoNeb twice daily. Nicotine patch. Prednisone taper. Fluticasone salmeterol inhaler. -Coronary artery disease with stent to LAD, with Dr. Mondragon, June 2024 Plavix Lipitor. . Coreg Seen by cardiology. Follow-up with Dr. Mondragon outpatient. For possible stress test -Chronic congestive heart failure previously from systolic dysfunction from ischemic cardiomyopathy. EF 40%. Repeat EF now is 60%. Aldactone. -Diabetes mellitus type 2, has been on Ozempic Diabetic diet. Follow Accu-Cheks with sliding scale insulin -Essential hypertension Amlodipine. Coreg. -Hyperlipidemia Lipitor 80 mg nightly. -Chronic pain, primary osteoarthritis Lyrica. Percocet 7.5 -Obesity BMI 31.6 Weight loss measures. on Ozempic. -Chronic nicotine dependence, cigarette smoker Nicotine patch -Full code Disposition: Home Past Medical History Past Medical History: Cancer, COPD, Diabetes Mellitus, GERD/Reflux, Hyperlipidemia, Hypertension, Osteoarthritis (OA) Additional Past Medical History / Comment(s): breast CA 1995 -radiation tx and uterine CA 1991,migraines,urosepsis,varicose veins rt leg,birthmark, LARGE BIRTHMARK ON LT ARM, melanoma, low iron levels. HX GI BLEED History of Any Multi-Drug Resistant Organisms: None Reported Past Surgical History: Adenoidectomy, Hysterectomy, Joint Replacement, Orthopedic Surgery, Tonsillectomy Additional Past Surgical History / Comment(s): lt breast lumpectomy,lt knee scope,dougie cataracts, melanoma removed from left lower leg, LT TKA, COLONOSCOPY/EGD, Past Anesthesia/Blood Transfusion Reactions: No Reported Reaction Additional Past Anesthesia/Blood Transfusion Reaction / Comment(s): no hx blood transfusion Past Psychological History: Anxiety, Depression Smoking Status: Current some day smoker Past Alcohol Use History: None Reported Past Drug Use History: Marijuana Plan - Discharge Summary Discharge Rx Participant: Yes New Discharge Prescriptions: New Ipratropium-Albuterol Nebulize [Duoneb 0.5 mg-3 mg/3 ml Soln] 3 ml INHALATION BID #60 each Nicotine 14Mg/24Hr Patch [Habitrol] 1 patch TRANSDERM DAILY #30 patch predniSONE 10 mg PO DAILY #30 tab Continue Pregabalin [Lyrica] 150 mg PO BID Spironolactone [Aldactone] 12.5 mg PO DAILY #30 tab oxyCODONE-APAP 7.5-325MG [Percocet 7.5-325 mg] 1 tab PO BID carvediloL [Coreg] 25 mg PO BID Semaglutide [Ozempic] 1 mg SQ FR Atorvastatin [Lipitor] 80 mg PO HS #30 tab Fluticasone Propion/Salmeterol [Fluticasone-Salmeterol 250-50] 1 puff INHALATION RT-BID Clopidogrel [Plavix] 75 mg PO DAILY Ondansetron [Zofran] 4 mg PO TID PRN PRN Reason: Nausea And Vomiting Albuterol Sulfate [Albuterol Sulfate Hfa] 2 puff INHALATION RT-Q4H PRN PRN Reason: Shortness Of Breath Changed amLODIPine [Norvasc] 5 mg PO BID #60 tab Discontinued predniSONE See Taper PO DIRECTED Discharge Medication List Pregabalin [Lyrica] 150 mg PO BID 02/06/22 [History] oxyCODONE-APAP 7.5-325MG [Percocet 7.5-325 mg] 1 tab PO BID 04/02/22 [History] carvediloL [Coreg] 25 mg PO BID 11/05/22 [History] Semaglutide [Ozempic] 1 mg SQ FR 07/28/24 [History] Atorvastatin [Lipitor] 80 mg PO HS #30 tab 07/30/24 [Rx] Spironolactone [Aldactone] 12.5 mg PO DAILY #30 tab 07/30/24 [Rx] Albuterol Sulfate [Albuterol Sulfate Hfa] 2 puff INHALATION RT-Q4H PRN 02/08/25 [History] Clopidogrel [Plavix] 75 mg PO DAILY 02/08/25 [History] Fluticasone Propion/Salmeterol [Fluticasone-Salmeterol 250-50] 1 puff INHALATION RT-BID 02/08/25 [History] Ondansetron [Zofran] 4 mg PO TID PRN 02/08/25 [History] Ipratropium-Albuterol Nebulize [Duoneb 0.5 mg-3 mg/3 ml Soln] 3 ml INHALATION BID #60 each 02/10/25 [Rx] Nicotine 14Mg/24Hr Patch [Habitrol] 1 patch TRANSDERM DAILY #30 patch 02/10/25 [Rx] amLODIPine [Norvasc] 5 mg PO BID #60 tab 02/10/25 [Rx] predniSONE 10 mg PO DAILY #30 tab 02/10/25 [Rx] Follow up Appointment(s)/Referral(s): Jeremi Mondragon MD [STAFF PHYSICIAN] - 3 Weeks Yamil De Jesus DO [Primary Care Provider] - 1-2 days Leyla Sanchez MD [STAFF PHYSICIAN] - 1 Week Patient Instructions/Handouts: COPD (Chronic Obstructive Pulmonary Disease) (GEN), How Your Lungs Work (GEN), Chronic Lung Disease and Infection Prevention (DC), Energy Conservation Techniques (GEN), Dyspnea Scale and Exercise (GEN), Nutrition Guidelines for People with COPD (GEN) Discharge Disposition: HOME SELF-CARE
== END 2025-02-10 16:05 | disposition home or self-care (01) ==
LOC: EC 14:03 → 6NMEDSUR 18:35
PROVIDERS: ADMIT Hospitalist; ATTEND Hospitalist
DX: J44.1 Chronic obstructive pulmonary disease with (acute) exacerbation (principal); J44.0 Chronic obstructive pulmonary disease with (acute) lower respiratory infection; J20.9 Acute bronchitis, unspecified; I21.4 Non-ST elevation (NSTEMI) myocardial infarction; I11.0 Hypertensive heart disease with heart failure; I50.22 Chronic systolic (congestive) heart failure; E11.9 Type 2 diabetes mellitus without complications; K21.9 Gastro-esophageal reflux disease without esophagitis; E78.5 Hyperlipidemia, unspecified; I25.10 Atherosclerotic heart disease of native coronary artery without angina pectoris; I25.5 Ischemic cardiomyopathy; I83.91 Asymptomatic varicose veins of right lower extremity; I71.21 Aneurysm of the ascending aorta, without rupture; G89.29 Other chronic pain; M19.91 Primary osteoarthritis, unspecified site; R91.1 Solitary pulmonary nodule; R00.1 Bradycardia, unspecified; E66.9 Obesity, unspecified; Z68.32 Body mass index [BMI] 32.0-32.9, adult; I25.2 Old myocardial infarction; F17.210 Nicotine dependence, cigarettes, uncomplicated; Z79.82 Long term (current) use of aspirin; Z79.02 Long term (current) use of antithrombotics/antiplatelets; Z79.51 Long term (current) use of inhaled steroids; Z79.899 Other long term (current) drug therapy; Z88.5 Allergy status to narcotic agent; Z88.2 Allergy status to sulfonamides; Z88.1 Allergy status to other antibiotic agents; Z88.8 Allergy status to other drugs, medicaments and biological substances; Z91.048 Other nonmedicinal substance allergy status; Z11.52 Encounter for screening for COVID-19; Z11.59 Encounter for screening for other viral diseases; Z85.3 Personal history of malignant neoplasm of breast; Z90.710 Acquired absence of both cervix and uterus; Z92.3 Personal history of irradiation; Z85.42 Personal history of malignant neoplasm of other parts of uterus; Z95.5 Presence of coronary angioplasty implant and graft; Z85.820 Personal history of malignant melanoma of skin; Z71.6 Tobacco abuse counseling
CPT/HCPCS: 96376 ×3; 96365; 96366 ×2; 96372 ×3; 96375; 99285; 36415; 94640 ×6; 94760; 93005; 93306; 85379; 83880; 80053; 83605; 83735; 84484 ×2; 85025; 85610; 85730; 87040; 83036; 87636; 71046; G0378 ×3; S4990 ×3; J0456 ×3; J1650 ×3; J2919 ×3

== ENCOUNTER → 2025-04-30 | Outpatient (CLI) | payer MEDICARE ==
[2025-05-01 01:42] LABS: Blood Urea Nitrogen 21.6 mg/dL (9.0-27.0)
== END | disposition home or self-care (01) ==
LOC: LABWHC1 15:11
PROVIDERS: ATTEND Internal Medicine Hematology & Oncology
DX: C43.72 Malignant melanoma of left lower limb, including hip (principal); C54.9 Malignant neoplasm of corpus uteri, unspecified; C43.9 Malignant melanoma of skin, unspecified; Z71.3 Dietary counseling and surveillance
CPT/HCPCS: 36415; 82565; 84520